=== PATIENT | female | born 1955 | race Caucasian/White ===

== ENCOUNTER 2016-10-21 01:41 | Observation (INO) | payer OTHER ==
[2016-10-21] VITALS (8 sets, daily range): BP systolic 140–182; BP diastolic 64–93; PULSE 69–78; RESP 16–18; TEMP 95.5–97.6; O2SAT 97–99
[~2016-10-21] VITALS: Ht 165.1 cm; Wt 72.0 kg
[~2016-10-21 01:41] MED LIST: LEVO75TA42 PO; LORTA5 PO; PYRI200T4 PO; ULTR50TA PO
[2016-10-21] MEDS ORDERED: LEVO75TA3 PO (01:57)
[2016-10-21] MEDS ORDERED: [UNRECOGNIZED DRUG - OTHER] PO (01:57)
[2016-10-21] MEDS ORDERED: NITROGLYCERIN 0.4 MG SL 25 TABS/BTL SL ONE (02:00)
[2016-10-21] MEDS ORDERED: NITROGLYCERIN 2% OINT 1 GM PACKET TOP ONE (02:00)
[2016-10-21] MEDS ORDERED: SODIUM CHLORIDE 0.9% FLUSH 5 ML FLUSH IVF PRN ×2 (02:00→05:00)
[2016-10-21] MEDS ORDERED: ASPIRIN 81 MG CHEW TAB PO ONE (02:00)
--- NOTE | 2016-10-21 02:23 | RADRPT ---
EXAM DATE/TIME: 10/21/2016 02:14 [facility] COMPARISON: CT THORAX W CONTRAST, February 26, 2015, 15:18. INDICATIONS : Chest pain. MEDICAL HISTORY : Carcinoma, lung. SURGICAL HISTORY : None. ENCOUNTER: Initial ACUITY: 1 day PAIN SCORE: 6/10 LOCATION: Bilateral chest FINDINGS: There are no effusions right lung is clear. Heart size is normal. There is a known left upper lobe ma ss at the level of the aortic arch and there is a vague opacity seen at this level with adjacent line ar atelectasis. Right basilar atelectasis. CONCLUSION: Left lung mass without acute consolidation or effusion. Familia Beach MD on October 21, 2016 at 2:20 Board Certified Radiologist. This report was verified electronically.
[2016-10-21 02:28] LABS: AUTOMATED NEUTROPHIL # 3.6 TH/MM3 (1.8-7.7); BASOPHIL % 0.8 % (0.0-2.0); EOSINOPHIL # 0.1 TH/MM3 (0-0.4); EOSINOPHIL % 2.2 % (0.0-4.0); HEMATOCRIT 40.6 % (35.0-46.0); HEMO FLAGS DIFF FINAL; LYMPH % 28.4 % (9.0-44.0); LYMPHOCYTE # 1.6 TH/MM3 (1.0-4.8); MEAN CELL VOLUME 85.6 FL (80.0-100.0); MEAN CORPUSCULAR HEMOGLOBIN 29.4 PG (27.0-34.0); MEAN CORPUSCULAR HGB CONC 34.3 % (32.0-36.0); MONO % 6.8 % (0.0-8.0); NEUT % 61.8 % (16.0-70.0); PLATELET COUNT 197 TH/MM3 (150-450); RED BLOOD COUNT 4.75 MIL/MM3 (4.00-5.30); RED CELL DISTRIBUTION WIDTH 13.3 % (11.6-17.2); WHITE BLOOD COUNT 5.8 TH/MM3 (4.0-11.0)
[2016-10-21 02:35] LABS: APTT (PATIENT) 26.9 SEC (24.3-30.1); PROTHROMBIN TIME - PATIENT 10.7 SEC (9.8-11.6)
[2016-10-21 02:54] LABS: ALKALINE PHOSPHATASE 109 U/L (45-117); ALT (GPT) 47 U/L (10-53); ANION GAP 11 MEQ/L (5-15); AST (GOT) 32 U/L (15-37); BICARBONATE 25.5 MEQ/L (21.0-32.0); BLOOD UREA NITROGEN 17 MG/DL (7-18); CHLORIDE 104 MEQ/L (98-107); CREATINE KINASE 164 U/L (26-192); GLOMERULAR FILTRATION RATE 49 ML/MIN (>89); MAGNESIUM 2.3 MG/DL (1.5-2.5); POTASSIUM 4.1 MEQ/L (3.5-5.1); SODIUM (NA) 140 MEQ/L (136-145); TOTAL BILIRUBIN ADULT 0.4 MG/DL (0.2-1.0)
[2016-10-21 03:07] LABS: CKMB 1.2 NG/ML (0.5-3.6)
[2016-10-21] MEDS ORDERED: IOHEXOL 350 MG/ML 10 ML VIAL (for RAD DIAG) IV ONE (03:49)
--- NOTE | 2016-10-21 03:59 | RADRPT ---
EXAM DATE/TIME: 10/21/2016 03:48 This report includes an Addendum and supersedes previous reports for this exam. [facility] COMPARISON: CT THORAX W CONTRAST, February 26, 2015, 15:18. CHEST SINGLE AP, October 21, 2016, 2:14. INDICATIONS : Left sided chest pain. IV CONTRAST: 80 cc Omnipaque 350 (iohexol) IV RADIATION DOSE: 23.27 CTDIvol (mGy) MEDICAL HISTORY : Gastroesophageal reflux disease. Stage 4 lung cancer. SURGICAL HISTORY : Hysterectomy. Tubal ligation.Breast augmentation. ENCOUNTER: Initial ACUITY: 2 weeks PAIN SCALE: 2/10 LOCATION: Left chest TECHNIQUE: Volumetric scanning of the chest was performed using a pulmonary embolism protocol MIP images were re constructed. Using automated exposure control and adjustment of the mA and/or kV according to patien t size, radiation dose was kept as low as reasonably achievable to obtain optimal diagnostic quality images. FINDINGS: Bilateral breast implants are noted. There is subsegmental atelectasis in the right lung base. There is a soft tissue mass in the left upper lobe medially abutting the mediastinum with adjacent atelecta sis. The soft tissue density measures 4 x 2.4 cm AP and transverse dimension. There is no evidence fo r pulmonary embolism. Small hiatal hernia. Hepatic steatosis is noted. Osseous structures are intact. CONCLUSION: 1. Left upper lobe mass. 2. No evidence for pulmonary embolism. 3. Fatty liver. 4. Small hiatal hernia. Familia Beach MD on October 21, 2016 at 3:54 Board Certified Radiologist. This report was verified electronically. ADDENDUM: Compared to the previous CT chest from [facility] dated June 13, 2016, the left upper lob e mass processes appears grossly unchanged. Gordy Elizalde MD on October 21, 2016 at 14:12 Board Certified Radiologist. This report was verified electronically.
--- NOTE | 2016-10-21 04:10 | PD ---
HPI Chief Complaint: Chest Pain Time Seen by Provider: 01:56 Travel History International Travel<30 days: No Contact w/Intl Traveler<30days: No Traveled to known affect area: No History of Present Illness HPI The patient is a 61 year old female who presents to the [facility] emergency department with a history of chest pain that she reports is intermittently been present for the last 2 weeks. The patient reports that the pain over the last 2-3 days was getting more persistent and more frequent. The patient reports that the pain is a tightening sensation in the left side of the chest that is worse with bending forward or laying on her left side. She reports that she has also had associated left arm numbness and aching associated with it this evening. The patient denies having any shortness of breath. She denies having any diaphoresis or nausea. The patient reports that she does have a history of non-small cell lung carcinoma that is stage IV and currently under treatment with . The patient reports that she has been given a break from her recent chemotherapy as her tumors had responded. She reports that she has a follow-up appointment with her oncologist for December. The patient reports that she has had coronary artery calcifications noted on her CT scans in the past of the chest, however she has never had chest pain like this before. She reports that she's never had a stress test done previously. Her past medical history is significant for hyperlipidemia, however she denies any history of hypertension or diabetes mellitus. She denies any prior history of DVT or PE. She reports that she has had intermittent leg cramping/charley horses in her legs, however she denies having any calf pain currently, swelling, or erythema. The patient denies having any numbness or tingling to her right arm or her lower extremities. She denies having any weakness of her arms or legs. She denies having any facial droop, difficulty with word finding ability, dizziness, vision changes, or slurred speech. The patient denies any recent fevers, cough, congestion, neck pain, abdominal pain, vomiting, diarrhea, urinary symptoms, or other neurologic symptoms. [facility] Past Medical History Narrative Medical The patient's past medical history is significant for anxiety disorder, arthritis, prior history of concussion, diverticulosis, acid reflux, hypothyroid disorder, history of kidney stones, history of multiple sclerosis, history of non-small cell lung carcinoma stage IV. Autoimmune Disease: Yes (MS) Blood Disorders: No Cardiovascular Problems: No Diabetes: No Diminished Hearing: No Endocrine: Yes GERD: Yes Glaucoma: No Genitourinary: No Hepatitis: No Hiatal Hernia: Yes Hypertension: No Immune Disorder: Yes Musculoskeletal: Yes Neurologic: Yes Psychiatric: No Reproductive: No Respiratory: No Thyroid Disease: Yes (HYPOTHYROID) Tetanus Vaccination: < 5 Years Menopausal: Yes : 1 Para: 1 Tubal Ligation: Yes Past Surgical History Narrative Surgical The patient's past surgical history is significant for breast augmentation, breast reduction, colonoscopy, hysterectomy, right wrist surgery, bilateral tubal ligation. Abdominal Surgery: No AICD: No Arteriovenous Shunt: No Cardiac Surgery: No Ear Surgery: No Endocrine Surgery: No Eye Surgery: No Genitourinary Surgery: No Gynecologic Surgery: Yes (HYSTERECTOMY) Hysterectomy: Yes (parial) Insulin Pump: No Joint Replacement: No Oral Surgery: No Pacemaker: No Thoracic Surgery: Yes (BREAST AUGMENTATION/AND REDUCTION) Other Surgery: Yes Social History Alcohol Use: No (wine monthly) Tobacco Use: No Substance Use: No Allergies-Medications (Allergen,Severity, Reaction): Coded Allergies: No Known Allergies (Verified , 02/25/15) Reported Meds & Prescriptions Reported Meds & Active Scripts Active Reported [Dilotrif] 20 Mg PO DAILY Levothyroxine (Levothyroxine Sodium) 75 Mcg Tab 75 Mcg PO DAILY Review of Systems General / Constitutional: No: Fever Eyes: No: Visual changes HENT: No: Headaches Cardiovascular: Positive: Chest Pain or Discomfort, Dyspnea on exertion, Claudication Respiratory: Positive: Shortness of Breath Gastrointestinal: No: Abdominal Pain Genitourinary: No: Dysuria Musculoskeletal: No: Pain Skin: No Rash Neurologic: No: Weakness, Focal Abnormalities, Change in Mentation, Slurred Speech, Sensory Disturbance Psychiatric: No: Depression Endocrine: No: Polydipsia Hematologic/Lymphatic: No: Easy Bruising Physical Exam Narrative General: The patient is well-developed well-nourished female in no acute distress. Head and Neck exam: Head is normocephalic atraumatic. Eyes: EOMI, pupils are equal round and reactive to light. Nose: Midline septum with pink mucous membranes Mouth: Dentition unremarkable. Moist mucus membranes. Posterior oropharynx is not erythematous. No tonsillar hypertrophy. Uvula midline. Airway patent. Neck: No palpable lymphadenopathy. No nuchal rigidity. No thyromegaly. Cardiovascular: Regular rate and rhythm without murmurs, gallops, or rubs. No pulse deficit to the extremities on simultaneous auscultation and palpation of the radial artery. Lungs: Clear to auscultation bilaterally. No wheezes, rhonchi, or rales. Abdomen: Soft, without tenderness to palpation in all 4 quadrants of the abdomen. No guarding, rebound, or rigidity. Normal bowel sounds are audible. No tenderness on palpation of McBurney's point. Extremities: No clubbing, cyanosis, or edema. 2+ pulses in all 4 extremities. No calf tenderness on palpation. Back: No spinous process tenderness to palpation. No costovertebral angle tenderness to palpation. Neurologic Exam: Grossly nonfocal. Skin Exam: No rash noted. Intact skin that is warm and dry. Data Data Last Documented VS Vital Signs Date Time Temp Pulse Resp B/P Pulse Ox O2 Delivery O2 Flow Rate FiO2 10/21/16 02:59 71 16 165/77 98 Room Air 10/21/16 01:44 97.6 Orders Electrocardiogram (10/21/16 01:56) B-Type Natriuretic Peptide (10/21/16 01:56) Ckmb (Isoenzyme) Profile (10/21/16 01:56) Complete Blood Count With Diff (10/21/16 01:56) Comprehensive Metabolic Panel (10/21/16 01:56) Magnesium (Mg) (10/21/16 01:56) Prothrombin Time / Inr (Pt) (10/21/16 01:56) Act Partial Throm Time (Ptt) (10/21/16 01:56) Troponin I (10/21/16 01:56) Lipase (10/21/16 01:56) Chest, Single Ap (10/21/16 01:56) Ecg Monitoring (10/21/16 01:56) Bilateral Bp Monitoring (10/21/16 01:56) Iv Access Insert/Monitor (10/21/16 01:56) Oximetry (10/21/16 01:56) Oxygen Administration (10/21/16 01:56) Aspirin Chew (Aspirin Chew) (10/21/16 02:00) Nitroglycerin 2% Oint (Nitroglycerin 2% (10/21/16 02:00) Nitroglycerin Sl (Nitrostat Sl) (10/21/16 02:00) CKMB (10/21/16 02:15) CKMB% (10/21/16 02:15) Ct Pulmonary Angiogram (10/21/16 03:31) Iohexol 350 Inj (Omnipaque 350 Inj) (10/21/16 03:49) Admit Order (Ed Use Only) (10/21/16 04:39) Labs Laboratory Tests Test 10/21/16 02:15 White Blood Count 5.8 TH/MM3 Red Blood Count 4.75 MIL/MM3 Hemoglobin 13.9 GM/DL Hematocrit 40.6 % Mean Corpuscular Volume 85.6 FL Mean Corpuscular Hemoglobin 29.4 PG Mean Corpuscular Hemoglobin 34.3 % Concent Red Cell Distribution Width 13.3 % Platelet Count 197 TH/MM3 Mean Platelet Volume 8.9 FL Neutrophils (%) (Auto) 61.8 % Lymphocytes (%) (Auto) 28.4 % Monocytes (%) (Auto) 6.8 % Eosinophils (%) (Auto) 2.2 % Basophils (%) (Auto) 0.8 % Neutrophils # (Auto) 3.6 TH/MM3 Lymphocytes # (Auto) 1.6 TH/MM3 Monocytes # (Auto) 0.4 TH/MM3 Eosinophils # (Auto) 0.1 TH/MM3 Basophils # (Auto) 0.0 TH/MM3 CBC Comment DIFF FINAL Differential Comment Prothrombin Time 10.7 SEC Prothromb Time International 1.0 RATIO Ratio Activated Partial 26.9 SEC Thromboplast Time Sodium Level 140 MEQ/L Potassium Level 4.1 MEQ/L Chloride Level 104 MEQ/L Carbon Dioxide Level 25.5 MEQ/L Anion Gap 11 MEQ/L Blood Urea Nitrogen 17 MG/DL Creatinine 1.12 MG/DL Estimat Glomerular Filtration 49 ML/MIN Rate Random Glucose 103 MG/DL Calcium Level 9.5 MG/DL Magnesium Level 2.3 MG/DL Total Bilirubin 0.4 MG/DL Aspartate Amino Transf 32 U/L (AST/SGOT) Alanine Aminotransferase 47 U/L (ALT/SGPT) Alkaline Phosphatase 109 U/L Total Creatine Kinase 164 U/L Creatine Kinase MB 1.2 NG/ML Troponin I LESS THAN 0.02 NG/ML B-Type Natriuretic Peptide 7 PG/ML Total Protein 8.0 GM/DL Albumin 4.3 GM/DL Lipase 121 U/L MDM Medical Decision Making Medical Screen Exam Complete: Yes Emergency Medical Condition: Yes Medical Record Reviewed: Yes Interpretation(s) Last Impressions CT Angiography 10/21/16 0331 Signed Impressions: Service Date/Time: Friday, October 21, 2016 03:48 - CONCLUSION: 1. Left upper lobe mass. 2. No evidence for pulmonary embolism. 3. Fatty liver. 4. Small hiatal hernia. Familia Beach MD ADDENDUM: Compared to the previous CT chest from [facility] dated June 13, 2016, the left upper lobe mass processes appears grossly unchanged. Gordy Elizalde MD Chest X-Ray 10/21/16 0156 Signed Impressions: Service Date/Time: Friday, October 21, 2016 02:14 - CONCLUSION: Left lung mass without acute consolidation or effusion. Familia Beach MD Myocardial Perfusion Scan Nuc Med 10/21/16 0000 Signed Impressions: Service Date/Time: Friday, October 21, 2016 09:05 - CONCLUSION: 1. There is 10-20%% redistribution in segments of the septal wall only on the short axis views. This cannot be corroborated on the horizontal long axis views and therefore, I believe is artifactual. As such, no scintigraphic findings of infarct or ischemia. 2. Excellent wall motion throughout with estimated ejection fraction of 67%%. RISK CATEGORY: Low (<1%% Annual Mortality Rate) Alex Gamboa MD Differential Diagnosis Acute coronary syndrome, versus chest pain related to lung mass, versus acid reflux, versus radiculopathy Narrative Course During the course of the patients emergency department visit, the patients history, examination, and differential diagnosis were reviewed with the patient. The patient had IV access obtained and blood work sent for analysis. The patient states on a hospital monitor with oximetry and blood pressure monitoring. An EKG was done on arrival. The patient's EKG shows a sinus rhythm heart rate of 66, no acute ST segment elevation or depression is noted. T waves are inverted in V1, V2. A CTA to rule out PE has been ordered. The patient was provided aspirin 162 mg by mouth 1, nitroglycerin sublingual 1 , nitroglycerin 1 inch to the chest wall. The patients laboratory studies were reviewed and remarkable for CBC unremarkable, CMP is remarkable for creatinine 1.12, CPK 164, troponin I less than 0.02, BNP is 7, lipase 121, PTT unremarkable. Radiology studies were reviewed and remarkable for a chest x-ray that shows a left lung mass without acute consolidation or effusion, CTA to rule out PE is negative for pulmonary embolism, left upper lobe mass is noted. The patient will be admitted to the chest pain center for rule out serial cardiac enzyme protocol. The patient is noted to have a lung mass on her CT-A of the chest, however she has a known history of stage IV lung carcinoma. The patient is made aware of the recurring lung mass. The patient will follow-up with Dr. Allison regarding this. Certainly, the patient's pain could be related to the lung mass, however given her history of coronary artery calcifications and acute coronary syndrome will need to be ruled out prior to discharge. The patient was agreeable with this plan. The patients results were discussed with the patient, including the plan of care. I explained that further testing and/ or monitoring is indicated based on the patients history, examination, and/ or laboratory findings. Therefore, I recommended admission for additional evaluation. The patient expressed understanding and was agreeable with this plan. The patient was admitted to the hospital in stable condition and sent to a bed under the care of the chest pain center. Diagnosis Primary Impression: Chest pain, rule out acute myocardial infarction Admitting Information Admitting Physician Requests: Naomi Jeffery MD Oct 21, 2016 04:10
[2016-10-21] MEDS ORDERED: ONDANSETRON HCL 4 MG/2 ML VIAL IV PRN (05:00)
[2016-10-21] MEDS ORDERED: ACETAMINOPHEN/HYDROcodone 325 MG/7.5 MG TAB PO PRN (05:00)
[2016-10-21 05:51] LABS: CREATINE KINASE 120 U/L (26-192)
[2016-10-21 06:04] LABS: CKMB 0.9 NG/ML (0.5-3.6)
[2016-10-21] MEDS ORDERED: LEVOTHYROXINE SODIUM 75 MCG TAB PO SCH (08:00)
--- NOTE | 2016-10-21 08:30 | HHI.HP ---
HPI Primary Care Physician Gordy Lyle DO Chief Complaint Chest discomfort History of Present Illness 61-year-old female presents to the emergency room with increasing chest discomfort 2 weeks. States bending and laying on left side makes pain worse. No associated symptoms and last 2 weeks. Last evening 6 PM experience left anterior chest heaviness, she subsequently went to bed at 9 PM. She was awaken at midnight with worsening chest heaviness, radiating to her left shoulder shoulder and left upper arm. Noted numbness and tingling of her left forearm. She became concerned and decided to come the emergency room for further evaluation. Associated symptoms with this episode included nausea, no diaphoresis or shortness of breath. Duration lasted 6-7 hours. No known precipitating or relieving factors. Currently she is chest chest pain-free. She has never had chest discomfort in the past nor any formal stress testing. Review of Systems General: No fatigue,weakness, fever, chills, recent travel, or recent illness HEENT: Current [place] relates this to nitroglycerin paste, no vision changes, no nasal congestion or drainage, no dysphasia CV: As stated above. No current CP or pressure. No palpitations, intermittent leg pain, dizziness RESP: No SOB, cough, wheeze, hemoptysis. Stage IV non-small cell lung cancer, follows with Dr. Allison. GI: No nausea, vomiting, bowel changes, diarrhea, constipation, pain, distention , melena, blood in the stool. No change in appetite, no unintentional weight gain or weight loss : No dysuria, urgency, frequency. History of kidney stones EXT: No lower leg edema, no paraesthesias MS: No discomfort or change in ROM NEURO: No change in memory, dizziness, difficulty with balance, LOC, motor/ sensory deficits PSYCH: No anxiety or depression SKIN: No rashes, no concerning lesions Past Family Social History Allergies: Coded Allergies: No Known Allergies (Verified , 02/25/15) Past Medical History Non-small cell stage IV lung cancer, MS, hypothyroidism, anxiety, arthritis, diverticulosis, GERD, hiatal hernia, kidney stones, hyperlipidemia Past Surgical History Tubal ligation, hysterectomy Reported Medications Reported Meds & Active Scripts Active Reported Gilotrif 20 Mg PO DAILY Levothyroxine (Levothyroxine Sodium) 75 Mcg Tab 75 Mcg PO DAILY Active Ordered Medications Current Medications Medications (Trade) Dose Ordered Sig/Pierce Route Start Time Stop Time Status Last Admin ([place] 7.5-325 Mg) 1 tab Q4H PRN PO 10/21/16 05:00 10/21/16 07:22 (Zofran Inj) 4 mg Q6H PRN IV 10/21/16 05:00 (Synthroid) 75 mcg DAILY@06 PO 10/21/16 08:00 Family History Noncontributory for early onset cardiovascular disease Social History Disabled, . Lifelong nonsmoker. Denies any alcohol or illegal drug use. Report long-standing hyperlipidemia-reports statins and anti-lipidemia medications do not lower her cholesterol. Diagnosed at age 33. Currently taking prescription strength fish oil. Follows with her primary care provider. No known diabetes or hyperlipidemia. Past cardiac testing No past stress testing. Never required a shopper's aide. Physical Exam Vital Signs Vital Signs Date Time Temp Pulse Resp B/P Pulse Ox O2 Delivery O2 Flow Rate FiO2 10/21/16 07:58 95.5 74 18 147/74 97 10/21/16 05:20 98 10/21/16 05:16 78 16 140/64 99 Room Air 10/21/16 02:59 71 16 165/77 98 Room Air 10/21/16 02:09 69 16 182/81 97 Room Air 10/21/16 02:06 67 16 99 Room Air 10/21/16 02:05 16 99 Room Air 10/21/16 02:05 99 Room Air 10/21/16 01:44 97.6 78 16 175/93 99 Room Air Physical Exam GENERAL: Alert WN, WD, NAD, pleasant, female HEAD: NC, AT EYES: Sclera clear, conjunctiva without injection, pupils equal and round ENT: Mucous membranes pink and moist, no nasal discharge or bleeding NECK: Supple, no masses, trachea midline CV: RRR, without murmur, rub, gallop, no JVD, S1-S2 no S3-S4. RESP: Clear lungs throughout bilateral, no crackles, wheeze, rhonchi, symmetrical chest rise, nonlabored, able to speak in full sentences ABD: Soft, NT, ND, no masses, positive bowel tones EXT: Pulses +24, no dependent edema MS: Normal tone 4 extremities, nontender, no obvious deformities, full range of motion NEURO: CN II through CN XII grossly intact, motor strength 5/5, gait WNL PSYCH: A+O 3, pleasant affect, appropriate speech, appropriate mood and affect , insight and judgment SKIN: Normal turgor, normal texture, no lesions, no rashes, brisk cap refill, even hair distribution Laboratory Laboratory Tests Test 10/21/16 10/21/16 02:15 05:10 White Blood Count 5.8 Red Blood Count 4.75 Hemoglobin 13.9 Hematocrit 40.6 Mean Corpuscular Volume 85.6 Mean Corpuscular Hemoglobin 29.4 Mean Corpuscular Hemoglobin 34.3 Concent Red Cell Distribution Width 13.3 Platelet Count 197 Mean Platelet Volume 8.9 Neutrophils (%) (Auto) 61.8 Lymphocytes (%) (Auto) 28.4 Monocytes (%) (Auto) 6.8 Eosinophils (%) (Auto) 2.2 Basophils (%) (Auto) 0.8 Neutrophils # (Auto) 3.6 Lymphocytes # (Auto) 1.6 Monocytes # (Auto) 0.4 Eosinophils # (Auto) 0.1 Basophils # (Auto) 0.0 CBC Comment DIFF FINAL Differential Comment Prothrombin Time 10.7 Prothromb Time International 1.0 Ratio Activated Partial 26.9 Thromboplast Time Sodium Level 140 Potassium Level 4.1 Chloride Level 104 Carbon Dioxide Level 25.5 Anion Gap 11 Blood Urea Nitrogen 17 Creatinine 1.12 Estimat Glomerular Filtration 49 Rate Random Glucose 103 Calcium Level 9.5 Magnesium Level 2.3 Total Bilirubin 0.4 Aspartate Amino Transf 32 (AST/SGOT) Alanine Aminotransferase 47 (ALT/SGPT) Alkaline Phosphatase 109 Total Creatine Kinase 164 120 Creatine Kinase MB 1.2 0.9 Troponin I LESS THAN 0.02 LESS THAN 0.02 B-Type Natriuretic Peptide 7 Total Protein 8.0 Albumin 4.3 Lipase 121 Result Diagram: 10/21/1621410/21/[address] Angiography 10/21/16 0331 Signed Impressions: Service Date/Time: Friday, October 21, 2016 03:48 - CONCLUSION: 1. Left upper lobe mass. 2. No evidence for pulmonary embolism. 3. Fatty liver. 4. Small hiatal hernia. Familia Beach MD Chest X-Ray 10/21/16 0156 Signed Impressions: Service Date/Time: Friday, October 21, 2016 02:14 - CONCLUSION: Left lung mass without acute consolidation or effusion. Familia Beach MD Course EKGs 2 EKGs show normal sinus rhythm, with no ST or T-segment changes, and normal axis. Assessment and Plan Assessment and Plan #1 Chest painadmitted to chest pain center ruled out with 2 sets of EKGs and cardiac enzymes. Was seen and evaluated by Dr. Jasen Nieves. Chest discomfort most likely non-cardiac in nature, however due to her past medical history of hyperlipidemia and no formal stress testing will complete a nuclear stress test. Patient is agreeable to this plan of care. Naturally, if stress test is unremarkable she will be discharged later this afternoon and encouraged to follow with her primary care provider and oncologist. #2 Hypothyroidismcontinue levothyroxine 75 g daily #3 Lung cancercontinue Gilotrif 20 mg QHS Ashtyn Scherer Oct 21, 2016 08:30
[2016-10-21] MEDS ORDERED: ACETAMINOPHEN 500 MG CPLT PO PRN (08:45)
[2016-10-21] MEDS ORDERED: NITROGLYCERIN 0.4 MG SL 25 TABS/BTL SL PRN (08:45)
[2016-10-21] MEDS ORDERED: SODIUM CHLORIDE 0.9% FLUSH 5 ML FLUSH IVF SCH (09:00)
[2016-10-21] MEDS ORDERED: ASPIRIN 325 MG TAB PO SCH (09:00)
[2016-10-21 09:04] LABS: CREATINE KINASE 126 U/L (26-192)
[2016-10-21 09:16] LABS: CKMB 0.9 NG/ML (0.5-3.6)
[2016-10-21] MEDS ORDERED: REGADENOSON INJ 0.4 MG/5 ML SYR ONE (09:54)
--- NOTE | 2016-10-21 11:15 | RADRPT ---
EXAM DATE/TIME: 10/21/2016 09:05 [facility] COMPARISON: No previous studies available for comparison. INDICATIONS : Left chest pain with left arm numbness for 2 weeks. Angina. DOSE: 27.2 mCi Tc99m Myoview at stress. 8.8 mCi Tc99m Myoview at rest. 0.4 mg Lexiscan STRESS SYMPTOMS: Weird feeling and heart racing. EJECTION FRACTION: 67% MEDICAL HISTORY : Hypercholesterolemia. Hypertension. Gastroesophageal reflux disease. Hiatal hernia. SURGICAL HISTORY : Hysterectomy. Tubal ligation. ENCOUNTER: Initial ACUITY: 2 weeks PAIN SCALE: 6/10 LOCATION: Left chest TECHNIQUE: The patient underwent pharmacologic stress with infusion of prescribed dose. Continuous ECG tracing was monitored during stress. Gated SPECT imaging was performed after stress and conventional SPECT i maging was performed at rest. The examination was performed on a SPECT/CT scanner, both attenuation and non-corrected datasets were reviewed. FINDINGS: DISTRIBUTION: The maximum perfused segment at stress is in the anterolateral wall. Increased activity in the inferi or wall may represent some bowel contamination PERFUSION STUDY: The pattern of perfusion at stress shows 10-20% redistribution in segments of the septal wall only on the short axis views. This does not persist on the horizontal long axis and therefore, is likely art ifactual. GATED STUDY: There is intact wall motion and thickening without hypokinetic or dyskinetic segments. CONCLUSION: 1. There is 10-20% redistribution in segments of the septal wall only on the short axis views. This c annot be corroborated on the horizontal long axis views and therefore, I believe is artifactual. As s uch, no scintigraphic findings of infarct or ischemia. 2. Excellent wall motion throughout with estimated ejection fraction of 67%. RISK CATEGORY: Low (<1% Annual Mortality Rate) Alex Gamboa MD on October 21, 2016 at 11:08 Board Certified Radiologist. This report was verified electronically.
--- NOTE | 2016-10-21 11:22 | HHI.DCPOC ---
Discharge Care Plan Diagnosis: (1) Atypical chest pain (2) Hypothyroidism Goals to Promote Your Health * To prevent worsening of your condition and complications * To maintain your health at the optimal level Directions to Meet Your Goals Take your medications as prescribed Follow your dietary instruction Follow activity as directed Keep your appointments as scheduled Take your immunizations and boosters as scheduled If your symptoms worsen call your PCP, if no PCP go to Urgent Care Center or Emergency Room Smoking is Dangerous to Your Health. Avoid second hand smoke Call the 24-hour hour crisis hotline for domestic abuse at Ashtyn Scherer Oct 21, 2016 11:22
--- NOTE | 2016-10-21 14:20 | EKG ---
Date Performed: 10/21/2016 Time Performed: 08:36:31 PTAGE: 61 years EKG: Sinus rhythm NORMAL ECG PREVIOUS TRACING : 10/21/2016 05.25 Compared to prior tracing no significant change DOCTOR: Cody George Interpretating Date/Time 10/21/2016 14:17:42
--- NOTE | 2016-10-21 16:06 | EKG ---
Date Performed: 10/21/2016 Time Performed: 02:01:18 PTAGE: 61 years EKG: Sinus rhythm NORMAL ECG PREVIOUS TRACING : 01/28/2008 08.07 Since previous tracing, no significant change noted DOCTOR: Jasen Nieves Interpretating Date/Time 10/21/2016 16:04:52
--- NOTE | 2016-10-21 16:06 | EKG ---
Date Performed: 10/21/2016 Time Performed: 05:25:27 PTAGE: 61 years EKG: SINUS BRADYCARDIA LOW QRS VOLTAGE IN PRECORDIAL LEADS BORDERLINE ECG PREVIOUS TRACING : 10/21/2016 02.01 Since previous tracing, no significant change noted DOCTOR: Jasen Nieves Interpretating Date/Time 10/21/2016 16:04:41
--- NOTE | 2016-10-21 16:12 | TR ---
Date Performed: 10/21/2016 Time Performed: 09:54:51 DOCTOR: Jasen Nieves DRUG LIST: CLINICAL HISTORY: REASON FOR TEST: Angina REASON FOR ENDING: OBSERVATION: CONCLUSION: \irvin COMMENTS:
== END 2016-10-21 12:03 | disposition home or self-care (01) ==
LOC: NEPE 01:41 → NEDA 04:41 → NEPGCP 05:46
DX: R07.89 Other chest pain (principal); E03.9 Hypothyroidism, unspecified; C34.90 Malignant neoplasm of unspecified part of unspecified bronchus or lung; K21.9 Gastro-esophageal reflux disease without esophagitis; I25.10 Atherosclerotic heart disease of native coronary artery without angina pectoris; G35 Multiple sclerosis; E78.5 Hyperlipidemia, unspecified; Z79.82 Long term (current) use of aspirin; K76.0 Fatty (change of) liver, not elsewhere classified; K44.9 Diaphragmatic hernia without obstruction or gangrene; Z87.442 Personal history of urinary calculi; Z87.820 Personal history of traumatic brain injury
CPT/HCPCS: 71010; 71275; 78452; 80053; 82550; 82552; 83690; 83735; 83880; 84484; 85025; 85610; 85730; 93005; 93017; 99285; A9502; G0378; J2785; Q9967

== ENCOUNTER 2017-04-03 11:55 | Inpatient (IN) | payer OTHER, MEDICARE ==
[~2017-04-03] VITALS: Ht 160 cm; Wt 69.3 kg
[2017-04-03] VITALS (7 sets, daily range): BP systolic 138–176; BP diastolic 63–91; PULSE 69–86; RESP 14–20; TEMP 97–98.6; O2SAT 95–98
[~2017-04-03 11:55] MED LIST changes: +LEVO75TA3 PO; -LEVO75TA42 PO; -LORTA5 PO; -PYRI200T4 PO; -ULTR50TA PO; +[UNRECOGNIZED DRUG - OTHER] PO
--- NOTE | 2017-04-03 12:16 | PD ---
Physical Exam Time Seen by Provider: 12:13 Narrative 61yo F c/o head and neck pain x 1 week. Generalized weakness, forgetfulness, and dizziness for 3 days. Has stage 4 lung CA that has spread to her spine. On chemo pill. No current radiation. +N w/o vomiting. Subjective fevers. Patient seen in triage. VS reviewed. Patient taken to med bed. Data Data Last Documented VS Vital Signs Date Time Temp Pulse Resp B/P (MAP) Pulse Ox O2 Delivery O2 Flow Rate FiO2 04/03/17 11:57 97.0 82 20 153/82 (105) 98 Room Air MDM Supervised Visit with ORTIZ: Breanne Edmonds Apr 03, 2017 12:16
[2017-04-03] MEDS ORDERED: SODIUM CHLOR 0.9% 1000 ML INJ 1,000 ML IV SCH (12:33)
[2017-04-03] MEDS ORDERED: SODIUM CHLORIDE 0.9% FLUSH 5 ML FLUSH IV FLUSH PRN (12:45)
--- NOTE | 2017-04-03 12:49 | PD ---
HPI Chief Complaint: General Weakness Time Seen by Provider: 12:21 Travel History International Travel<30 days: No Contact w/Intl Traveler<30days: No Traveled to known affect area: No History of Present Illness HPI Patient comes in complaining of worsening confusion and dizziness over the past several days. Patient's daughters at bedside states that her mother has been having difficulty with confusion since being diagnosed with cancer 2 years ago however is noticed it getting progressively worse recently. States that she's repeating herself more and being more forgetful. Reports that her mother told her she is only primarily been eating grapes recently secondary to feeling she is having difficulty swallowing thicker foods. Patient reports she has been feeling weaker over the past several days as well. Patient felt too weak to get out of bed today. Patient has been getting a pain in her neck over the past several days with movement she describes a sharp stabbing pain/brain freeze sensation. Denies any known trauma. Patient states she has felt warm but is uncertain she's had a fever or not. Patient states that she was told she was having mini strokes at the beginning of the month and was started on low -dose aspirin by her oncologist. Patient she's post-MRI of her head and neck neck is weak for further evaluation. Patient denies any chest pain, shortness of breath, vomiting, loss or change in bowel or bladder, change in vision, or numbness or tingling anywhere. Patient denies anything making her symptoms better and feels they're getting worse. Patient is still on chemotherapy but states that her cancer is in remission. Patient poorly had lung cancer that metastasized to her spine. Patient does live by herself. PFSH Past Medical History Autoimmune Disease: Yes (MS) Blood Disorders: No Heart Rhythm Problems: No Cardiac Catheterization: No Cardiovascular Problems: Yes High Cholesterol: Yes Chemotherapy: Yes Congestive Heart Failure: No Diabetes: No Diminished Hearing: No Endocrine: Yes GERD: Yes Glaucoma: No Genitourinary: No Hepatitis: No Hiatal Hernia: Yes Hypertension: No Immune Disorder: Yes Musculoskeletal: Yes Neurologic: Yes Psychiatric: No Reproductive: No Respiratory: No Thyroid Disease: Yes (HYPOTHYROID) Menopausal: Yes : 1 Para: 1 Tubal Ligation: Yes Past Surgical History Abdominal Surgery: No AICD: No Arteriovenous Shunt: No Cardiac Surgery: No Coronary Artery Bypass Graft: No Ear Surgery: No Endocrine Surgery: No Eye Surgery: No Genitourinary Surgery: No Gynecologic Surgery: Yes (HYSTERECTOMY) Hysterectomy: Yes (parial) Insulin Pump: No Joint Replacement: No Oral Surgery: No Pacemaker: No Thoracic Surgery: Yes (BREAST AUGMENTATION/AND REDUCTION) Other Surgery: Yes Social History Alcohol Use: No (wine monthly) Tobacco Use: No Substance Use: No Allergies-Medications (Allergen,Severity, Reaction): Coded Allergies: No Known Allergies (Verified , 04/03/17) Reported Meds & Prescriptions Reported Meds & Active Scripts Active Reported [Dilotrif] 20 Mg PO DAILY Levothyroxine (Levothyroxine Sodium) 75 Mcg Tab 75 Mcg PO DAILY Review of Systems Except as stated in HPI: all other systems reviewed are Neg Physical Exam Narrative GENERAL: Well-developed, overly nourished, in no acute distress, and non-ill appearing. SKIN: Focused skin assessment warm and dry. HEAD: Atraumatic. Normocephalic. EYES: Pupils equal and round. EOMI. No scleral icterus. No injection or drainage. ENT: No nasal bleeding or discharge. Mucous membranes pink and moist. NECK: Trachea midline. No JVD. Supple. Nuclear rigidity with tilting forward. Negative Kernig's and Brudzinski sign. CARDIOVASCULAR: Regular rate and rhythm. No murmur appreciated. RESPIRATORY: No accessory muscle use. No respiratory distress. Clear to auscultation. Breath sounds equal bilaterally. MUSCULOSKELETAL: No obvious deformities. No clubbing. No cyanosis. No edema. Full range of motion. NEUROLOGICAL: Awake and alert. No obvious cranial nerve deficits. Motor grossly within normal limits. Normal speech. PSYCHIATRIC: Appropriate mood and affect; insight and judgment normal. Data Data Last Documented VS Vital Signs Date Time Temp Pulse Resp B/P (MAP) Pulse Ox O2 Delivery O2 Flow Rate FiO2 04/03/17 14:22 98.4 69 14 157/74 (101) 97 Room Air Orders Orders Electrocardiogram (04/03/17 12:33) Complete Blood Count With Diff (04/03/17 12:33) Comprehensive Metabolic Panel (04/03/17 12:33) Creatine Kinase (Cpk) (04/03/17 12:33) Prothrombin Time / Inr (Pt) (04/03/17 12:33) Act Partial Throm Time (Ptt) (04/03/17 12:33) Troponin I (04/03/17 12:33) Urinalysis - C+S If Indicated (04/03/17 12:33) Lactic Acid Sepsis Protocol (04/03/17 12:33) Blood Culture (04/03/17 12:33) Chest, Single Ap (04/03/17 12:33) Ct Brain W/O Iv Contrast(Rout) (04/03/17 12:33) Blood Glucose (04/03/17 12:33) Ecg Monitoring (04/03/17 12:33) Iv Access Insert/Monitor (04/03/17 12:33) Oximetry (04/03/17 12:33) Sodium Chloride 0.9% Flush (Ns Flush) (04/03/17 12:45) Sodium Chlor 0.9% 1000 Ml Inj (Ns 1000 M (04/03/17 12:33) Ct Cerv Spine W/O Contrast (04/03/17 ) Magnesium (Mg) (04/03/17 12:33) Orthostatic Vital Signs (04/03/17 12:33) Place In Observation (04/03/17 ) Vital Signs (Adult) BRIAN.Q4H (04/03/17 15:46) Activity Oob With Assistance (04/03/17 15:46) Diet Npo (04/03/17 Dinner) Sodium Chloride 0.9% Flush (Ns Flush) (04/03/17 16:00) Sodium Chloride 0.9% Flush (Ns Flush) (04/03/17 21:00) Cath For Specimen (04/03/17 15:48) Admit Order (Ed Use Only) (04/03/17 15:48) Labs Laboratory Tests Test 04/03/17 13:45 White Blood Count 13.9 TH/MM3 Red Blood Count 5.24 MIL/MM3 Hemoglobin 15.3 GM/DL Hematocrit 46.7 % Mean Corpuscular Volume 89.1 FL Mean Corpuscular Hemoglobin 29.2 PG Mean Corpuscular Hemoglobin Concent 32.8 % Red Cell Distribution Width 13.5 % Platelet Count 219 TH/MM3 Mean Platelet Volume 7.6 FL Neutrophils (%) (Auto) 83.9 % Lymphocytes (%) (Auto) 11.7 % Monocytes (%) (Auto) 4.1 % Eosinophils (%) (Auto) 0.2 % Basophils (%) (Auto) 0.1 % Neutrophils # (Auto) 11.7 TH/MM3 Lymphocytes # (Auto) 1.6 TH/MM3 Monocytes # (Auto) 0.6 TH/MM3 Eosinophils # (Auto) 0.0 TH/MM3 Basophils # (Auto) 0.0 TH/MM3 CBC Comment DIFF FINAL Differential Comment Prothrombin Time 10.7 SEC Prothromb Time International Ratio 1.0 RATIO Activated Partial Thromboplast Time 24.6 SEC Blood Urea Nitrogen 23 MG/DL Creatinine 1.18 MG/DL Random Glucose 96 MG/DL Total Protein 8.1 GM/DL Albumin 4.3 GM/DL Calcium Level 9.7 MG/DL Magnesium Level 2.5 MG/DL Alkaline Phosphatase 108 U/L Aspartate Amino Transf (AST/SGOT) 22 U/L Alanine Aminotransferase (ALT/SGPT) 43 U/L Total Bilirubin 1.0 MG/DL Sodium Level 139 MEQ/L Potassium Level 4.1 MEQ/L Chloride Level 99 MEQ/L Carbon Dioxide Level 30.1 MEQ/L Anion Gap 10 MEQ/L Estimat Glomerular Filtration Rate 47 ML/MIN Lactic Acid Level 2.0 mmol/L Total Creatine Kinase 31 U/L Troponin I LESS THAN 0.02 NG/ML MDM Medical Decision Making Medical Screen Exam Complete: Yes Emergency Medical Condition: Yes Interpretation(s) Chest x-ray read by the radiologist shows: No acute disease. EKG reviewed by Dr. Ren shows: Shows sinus rhythm ventricular rate is 78. No STEMI. CT head read by the radiologist shows: Abnormal brain appearance. Mild symmetric hydrocephalus and patchy areas of parenchymal brain hypodensity. Recommend further evaluation with brain MRI with and without contrast. CT the cervical spine read by the radiologist shows: : Degenerative disc change at C6-7 with mild disc osteophyte complex. There is moderate narrowing of the left neural foramina at this level. Differential Diagnosis CVA, TIA, acute coronary syndrome, electrolyte abnormality, pneumonia, metastatic disease, meningitis, other Narrative Course Patient was seen and examined. Initial laboratory and radiological studies were ordered. Patient was hydrated with IV fluids. Patient was ambulated to the bathroom by RN to try to collect urine sample was noted to have an unsteady gait. Patient was not able be provided a sample at that time. Patient is refusing catheter. Discussed patient with Dr. Ren, who saw and evaluated the patient is in agreement with plan of care and disposition. Discussed all findings and plan of care with patient who is agreeable for admission. Discussed patient with hospitalist is agreeable to admit the patient. After patient was admitted she is now agreeable catheter for urine sample as she was still unable to urinate. Physician Communication Physician Communication [id number] says patient with , who is agreeable to admit the patient. Diagnosis Primary Impression: Altered mental status, unspecified Qualified Codes: R41.82 - Altered mental status, unspecified Additional Impression: Generalized weakness Admitting Information Admitting Physician Requests: Observation Condition: Stable Ever Cruz Apr 03, 2017 12:49
--- NOTE | 2017-04-03 13:06 | RADRPT ---
EXAM DATE/TIME: 04/03/2017 12:44 [facility] COMPARISON: CHEST SINGLE AP, October 21, 2016, 2:14. INDICATIONS : Short of breath. MEDICAL HISTORY : Hypercholesterolemia. Hypertension. Gastroesophageal reflux disease. SURGICAL HISTORY : Hysterectomy. Tubal ligation. ENCOUNTER: Initial ACUITY: 1 day PAIN SCORE: 0/10 LOCATION: Bilateral chest FINDINGS: A single view of the chest demonstrates the lungs to be symmetrically aerated without evidence of mas s, infiltrate or effusion. Linear area of scarring involving the left suprahilar region is stable. T he cardiomediastinal contours are unremarkable. Osseous structures are intact. CONCLUSION: No acute disease. Emanuel Hood Jr., MD on April 03, 2017 at 13:04 Board Certified Radiologist. This report was verified electronically.
[2017-04-03 13:57] LABS: AUTOMATED NEUTROPHIL # 11.7 TH/MM3 (1.8-7.7); BASOPHIL % 0.1 % (0.0-2.0); EOSINOPHIL % 0.2 % (0.0-4.0); HEMATOCRIT 46.7 % (35.0-46.0); HEMO FLAGS DIFF FINAL; LYMPH % 11.7 % (9.0-44.0); LYMPHOCYTE # 1.6 TH/MM3 (1.0-4.8); MEAN CELL VOLUME 89.1 FL (80.0-100.0); MEAN CORPUSCULAR HEMOGLOBIN 29.2 PG (27.0-34.0); MEAN CORPUSCULAR HGB CONC 32.8 % (32.0-36.0); MONO % 4.1 % (0.0-8.0); NEUT % 83.9 % (16.0-70.0); PLATELET COUNT 219 TH/MM3 (150-450); RED BLOOD COUNT 5.24 MIL/MM3 (4.00-5.30); RED CELL DISTRIBUTION WIDTH 13.5 % (11.6-17.2); WHITE BLOOD COUNT 13.9 TH/MM3 (4.0-11.0)
--- NOTE | 2017-04-03 14:08 | RADRPT ---
EXAM DATE/TIME: 04/03/2017 13:44 [facility] COMPARISON: MRI BRAIN W & W/O CONTRAST, February 27, 2015, 9:52. INDICATIONS : Weakness along with nausea RADIATION DOSE: 56.35 CTDIvol (mGy) MEDICAL HISTORY : Hypertension. Lung Cancer SURGICAL HISTORY : Tubal ligation. Hysterectomy. ENCOUNTER: Initial ACUITY: 1 day PAIN SCALE: 4/10 LOCATION: cranial TECHNIQUE: Multiple contiguous axial images were obtained of the head. Using automated exposure control and adj ustment of the mA and/or kV according to patient size, radiation dose was kept as low as reasonably a chievable to obtain optimal diagnostic quality images. DICOM format image data is available electro nically for review and comparison. FINDINGS: There is mild symmetric hydrocephalus. There is patchy diminished attenuation in periventricular whit e matter. There is diminished density in the cerebellar hemispheres. Soft tissue is present in the fo ramen magnum to which may be a manifestation of Chiari malformation, however mass effect associated w ith brain edema is not excluded. There is no evidence of intracranial mass. No hemorrhage is present. There is nothing to suggest acute infarction. CONCLUSION: Abnormal brain appearance. Mild symmetric hydrocephalus and patchy areas of parenchymal brain hypoden sity. Recommend further evaluation with brain MRI with and without contrast. Gordy Elizalde MD on April 03, 2017 at 14:02 Board Certified Radiologist. This report was verified electronically.
[2017-04-03 14:10] LABS: APTT (PATIENT) 24.6 SEC (24.3-30.1); PROTHROMBIN TIME - PATIENT 10.7 SEC (9.8-11.6)
[2017-04-03 14:26] LABS: ALT (GPT) 43 U/L (10-53); ANION GAP 10 MEQ/L (5-15); AST (GOT) 22 U/L (15-37); BICARBONATE 30.1 MEQ/L (21.0-32.0); BLOOD UREA NITROGEN 23 MG/DL (7-18); CHLORIDE 99 MEQ/L (98-107); GLOMERULAR FILTRATION RATE 47 ML/MIN (>89); MAGNESIUM 2.5 MG/DL (1.5-2.5); POTASSIUM 4.1 MEQ/L (3.5-5.1); SODIUM (NA) 139 MEQ/L (136-145)
--- NOTE | 2017-04-03 14:52 | RADRPT ---
EXAM DATE/TIME: 04/03/2017 13:44 [facility] COMPARISON: No previous studies available for comparison. INDICATIONS : Intermittent neck pain with weakness and nausea. RADIATION DOSE: 35.14 CTDIvol (mGy) MEDICAL HISTORY : Hypertension. lung cancer SURGICAL HISTORY : Tubal ligation. Hysterectomy. ENCOUNTER: Initial ACUITY: 1 day PAIN SCALE: 4/10 LOCATION: neck TECHNIQUE: Volumetric scanning of the cervical spine was performed. Multiplanar reconstructions i n the sagittal, coronal and oblique axial planes were performed. Using automated exposure control a nd adjustment of the mA and/or kV according to patient size, radiation dose was kept as low as reason ably achievable to obtain optimal diagnostic quality images. DICOM format image data is available e lectronically for review and comparison. FINDINGS: The sagittal reconstructions demonstrate normal alignment and normal prevertebral soft tissues. The d ens is intact and there is a normal atlantoaxial relationship. Degenerative disc changes are present at the C6-7 level with disc space narrowing and mild spurring. The axial images demonstrate that the vertebral bodies and posterior elements are intact. The soft ti ssues are within normal limits. There is no evidence of acute fracture or malalignment. There is a mi ld disc osteophyte complex at the 6 level with mild mass effect on the anterior thecal sac. There is moderate narrowing of the left neural foramina at this level. CONCLUSION: Degenerative disc change at C6-7 with mild disc osteophyte complex. There is moderate slade rowing of the left neural foramina at this level. Rafael Mariee MD on April 03, 2017 at 14:47 Board Certified Radiologist. This report was verified electronically.
[2017-04-03 15:25] LABS: ALKALINE PHOSPHATASE 108 U/L (45-117)
[2017-04-03 15:26] LABS: CREATINE KINASE 31 U/L (26-192)
[2017-04-03] MEDS ORDERED: GADODIAMIDE PF 287 MG/ML 5 ML VIAL (for RAD MRI) IVCONTRAST ONE (15:52)
[2017-04-03] MEDS ORDERED: SODIUM CHLORIDE 0.9% FLUSH 10 ML FLUSH IV FLUSH PRN (16:00)
[2017-04-03 16:30] LABS: BLOOD, URINE NEG (NEG); COMMENT (UR) CATH-CULT NOT IND; CULTURE IF INDICATED CATH CULTURE NOT IND; GLUCOSE,URINE NEG (NEG); KETONE, URINE 80 mg/dL (NEG); MUCUS URINE FEW /lpf (OCC); NITRITE,URINE NEG (NEG); PH, URINE 6.5 (5.0-8.5); URINE COLOR YELLOW (YELLW/STRAW)
[2017-04-03] MEDS ORDERED: ONDANSETRON HCL 4 MG/2 ML VIAL ONE (16:39)
[2017-04-03] MEDS ORDERED: ONDANSETRON ODT 4 MG TAB PO PRN (17:30)
[2017-04-03] MEDS ORDERED: ONDANSETRON HCL 4 MG/2 ML VIAL IV PUSH PRN (17:30)
[2017-04-03] MEDS ORDERED: PROMETHAZINE INJ 25 MG/ML VIAL IM PRN (17:30)
--- NOTE | 2017-04-03 17:47 | HHI.HP ---
[facility] Gordy Lyle, DO Admission Diagnosis AMS, generalized weakness Diagnoses: Travel History International Travel<30 Days: No Contact w/Intl Traveler <30 Da: No Traveled to Known Affected Are: No History of Present Illness 61 y/o WF being admitted for progressive weakness and worsening gait. Patient was in her usual state of health until a few weeks ago when she began experiencing an unsteady gait. Daughter says that she began shuffling her feet , also for was referred to neurology outpatient, had plans to obtain an outpatient MRI which apparently had not been done yet. The patient's symptoms remain tolerable until about last night when her daughter spoke to her on the phone and noticed very slowed but not slurred speech and also noted that the patient is repeating a number of her statements in her conversations. Daughter feels that the patient has fluctuating moments of confusion. Patient herself says that she is experiencing a worsening headache with worsening nausea, barely eating or drinking anything in the last 2 days, says that even water makes her nauseated. Says that the headache is on top of her head and makes it feel ice cold, has numbness on the right cheek. Patient herself says that she feels like she is going to fall and therefore has not ambulated much at all the last 2 days. Has not showered out of the same fear for the last few days as well. Reports being on chemotherapy for lung cancer that is currently in remission. Says that she had metastases to her spine previously and also has a diagnosis of multiple sclerosis for which she had active disease years ago and was discontinued from her medication at the time due to intolerable side effects. Says that she has not had any flareups of her multiple sclerosis recently (which is essentially vertigo and dizziness); says that her current symptoms are very different than her multiple sclerosis presentation the past. CT scan done outpt showed area concerning for infarct as well. Review of Systems Except as stated in HPI: all other systems reviewed are Neg Past Family Social History Past Medical History Multiple sclerosis, hypothyroidism Allergies: Coded Allergies: No Known Allergies (Verified , 04/03/17) Family History Parkinson's disease in her father Social History Patient lives by herself, is visited by her daughter about once a week. Patient is disabled. Physical Exam Vital Signs Vital Signs Date Time Temp Pulse Resp B/P (MAP) Pulse Ox O2 Delivery O2 Flow Rate FiO2 04/03/17 14:22 98.4 69 14 157/74 (101) 97 Room Air 04/03/17 12:38 97 Room Air 04/03/17 12:29 98.1 75 14 176/80 (112) 98 Room Air 04/03/17 11:57 97.0 82 20 153/82 (105) 98 Room Air Physical Exam GENERAL: NAD, appears exhausted, awake but fatigued SKIN: Warm and dry. EYES: Pupils equal and round. No scleral icterus. No injection or drainage. ENT: No nasal bleeding or discharge. Mucous membranes pink and moist. CARDIOVASCULAR: Regular rate and rhythm. no murmurs RESPIRATORY: No accessory muscle use. Clear to auscultation. Breath sounds equal bilaterally. GASTROINTESTINAL: Abdomen soft, non-tender, nondistended. Hepatic and splenic margins not palpable. MUSCULOSKELETAL: Extremities without clubbing, cyanosis, or edema. No obvious deformities. grossly intact ROM with 5/5 strength in upper and lower extremities proximally, no muscle wasting noted, intact fistgrip NEUROLOGICAL: Awake and alert. No obvious cranial nerve deficits. No facial droop nor slurred speech noted. Uvula and tongue in midline. Hyperreflexive patellar tendons bilaterally with a clonus-like reaction noted on the left side ; patient keeps her feet plantarflexed unless instructed to dorsiflex which she can do easily. Positive Romberg test, intact finger to nose bilaterally. Unable to stand and ambulate steadily. PSYCHIATRIC: Appropriate mood and affect; insight and judgment normal. Laboratory Laboratory Tests Test 04/03/17 13:45 04/03/17 15:50 White Blood Count 13.9 Red Blood Count 5.24 Hemoglobin 15.3 Hematocrit 46.7 Mean Corpuscular Volume 89.1 Mean Corpuscular Hemoglobin 29.2 Mean Corpuscular Hemoglobin Concent 32.8 Red Cell Distribution Width 13.5 Platelet Count 219 Mean Platelet Volume 7.6 Neutrophils (%) (Auto) 83.9 Lymphocytes (%) (Auto) 11.7 Monocytes (%) (Auto) 4.1 Eosinophils (%) (Auto) 0.2 Basophils (%) (Auto) 0.1 Neutrophils # (Auto) 11.7 Lymphocytes # (Auto) 1.6 Monocytes # (Auto) 0.6 Eosinophils # (Auto) 0.0 Basophils # (Auto) 0.0 CBC Comment DIFF FINAL Differential Comment Prothrombin Time 10.7 Prothromb Time International Ratio 1.0 Activated Partial Thromboplast Time 24.6 Blood Urea Nitrogen 23 Creatinine 1.18 Random Glucose 96 Total Protein 8.1 Albumin 4.3 Calcium Level 9.7 Magnesium Level 2.5 Alkaline Phosphatase 108 Aspartate Amino Transf (AST/SGOT) 22 Alanine Aminotransferase (ALT/SGPT) 43 Total Bilirubin 1.0 Sodium Level 139 Potassium Level 4.1 Chloride Level 99 Carbon Dioxide Level 30.1 Anion Gap 10 Estimat Glomerular Filtration Rate 47 Lactic Acid Level 2.0 Total Creatine Kinase 31 Troponin I LESS THAN 0.02 Urine Color YELLOW Urine Turbidity CLEAR Urine pH 6.5 Urine Specific [place] 1.022 Urine Protein NEG Urine Glucose (UA) NEG Urine Ketones 80 Urine Occult Blood NEG Urine Nitrite NEG Urine Bilirubin NEG Urine Urobilinogen LESS THAN 2.0 Urine Leukocyte Esterase NEG Urine WBC 1 Urine Mucus FEW Microscopic Urinalysis Comment CATH-CULT NOT IND Date/Time Source Procedure Growth Status 04/03/17 13:45 Blood Peripheral Aerobic Blood Culture Pending Received 04/03/17 13:45 Blood Peripheral Anaerobic Blood Culture Pending Received Result Diagram: 04/03/17 1345 04/03/17 1345 Imaging Last Impressions Head CT 04/03/17 1233 Signed Impressions: Service Date/Time: March 13:44 - CONCLUSION: Abnormal brain appearance. Mild symmetric hydrocephalus and patchy areas of parenchymal brain hypodensity. Recommend further evaluation with brain MRI with and without contrast. Gordy Elizalde MD Chest X-Ray 04/03/17 1233 Signed Impressions: Service Date/Time: March 12:44 - CONCLUSION: No acute disease. Emanuel Hood Jr., MD Cervical Spine CT 04/03/17 0000 Signed Impressions: Service Date/Time: March 13:44 - CONCLUSION: Degenerative disc change at C6-7 with mild disc osteophyte complex. There is moderate narrowing of the left neural foramina at this level. MD Mary Ricks VTE Risk Assessment Caprini VTE Risk Assessment: Mod/High Risk (score >= 2) VTE Pharm Contraindication: Documented Caprini Risk Assessment Model Point Value = 1 Point Value = 2 Point Value = 3 Point Value = 5 Age 41-60 Minor surgery BMI > 25 kg/m2 Swollen legs Varicose veins or History of unexplained or recurrent spontaneous Oral contraceptives or hormone replacement Sepsis (< 1 month) Serious lung disease, including pneumonia (< 1 month) Abnormal pulmonary function Acute myocardial infarction Congestive heart failure (< 1 month) History of inflammatory bowel disease Medical patient at bed rest Age 61-74 Arthroscopic surgery Major open surgery (> 45 min) Laparoscopic surgery (> 45 min) Malignancy Confined to bed (> 72 hours) Immobilizing plaster cast Central venous access Age >= 75 History of VTE Family history of VTE Factor V Leiden Prothrombin [id number] Lupus anticoagulant Anticardiolipin antibodies Elevated serum homocysteine Heparin-induced thrombocytopenia Other congenital or acquired thrombophilia Stroke (< 1 month) Elective arthroplasty Hip, pelvis, or leg fracture Acute spinal cord injury (< 1 month) Prophylaxis Regimen Total Risk Factor Score Risk Level Prophylaxis Regimen 0-1 Low Early ambulation 2 Moderate Order ONE of the following: *Sequential Compression Device (SCD) *Heparin 5000 units SQ BID 3-4 Higher Order ONE of the following medications: *Heparin 5000 units SQ TID *Enoxaparin/Lovenox 40 mg SQ daily (WT < 150 kg, CrCl > 30 mL/min) *Enoxaparin/Lovenox 30 mg SQ daily (WT < 150 kg, CrCl > 10-29 mL/min) *Enoxaparin/Lovenox 30 mg SQ BID (WT < 150 kg, CrCl > 30 mL/min) AND/OR *Sequential Compression Device (SCD) 5 or more Highest Order ONE of the following medications: *Heparin 5000 units SQ TID (Preferred with Epidurals) *Enoxaparin/Lovenox 40 mg SQ daily (WT < 150 kg, CrCl > 30 mL/min) *Enoxaparin/Lovenox 30 mg SQ daily (WT < 150 kg, CrCl > 10-29 mL/min) *Enoxaparin/Lovenox 30 mg SQ BID (WT < 150 kg, CrCl > 30 mL/min) AND *Sequential Compression Device (SCD) Assessment and Plan Problem List: (1) Unsteady gait ICD Code: R26.81 - Unsteadiness on feet (2) Hypothyroidism ICD Code: E03.9 - Hypothyroidism, unspecified Status: Acute (3) Generalized weakness ICD Code: R53.1 - Weakness Status: Acute (4) Altered mental status, unspecified ICD Code: R41.82 - Altered mental status, unspecified Status: Acute Assessment and Plan 61-year-old white female being admitted for progressive neurological decline including mild memory impairment as well as unstable gait. 1) unsteady gait - Etiologies of hydrocephalus versus multiple sclerosis versus stroke (least likely due to being afocal) - Discussed case briefly with Dr. Chavez, we'll proceed with MRI brain with and without contrast as well as CT spine and lumbar spine to evaluate for all the above etiologies - Fall precautions, orthostatic vital signs if possible - Consult neurology, PT, and OT. ST to be consulted if not improving w/ PO intake by tomorrow. checking sed rate. 2) memory impairment - Checking TSH, B12, folate, cmp unremarkable 3) headache - We'll treat with Tylenol, morphine otherwise, we'll avoid NSAIDs for now due to unclear etiology (as listed above possibilities) 4) nausea - Suspect this is centrally based, by mouth Zofran, IV Zofran if refractory, IM Phenergan if refractory - IV hydration - UA unremarkable, blood cultures obtained from ER 5) hypothyroidism - Continue home Synthroid 6) chemotherapy for history of lung cancer - continue home medication 7) leukocytosis - suspect stress related, monitor Physician Certification 2 Midnight Certification Type: Continued Stay Order for Inpatient Services The services are ordered in accordance with Medicare regulations or non- Medicare payer requirements, as applicable. In the case of services not specified as inpatient-only, they are appropriately provided as inpatient services in accordance with the 2-midnight benchmark. Estimated LOS (days): 2 2 days is the estimated time the patient will need to remain in the hospital, assuming treatment plan goals are met and no additional complications. Post-Hospital Plan: Home Problem Qualifiers (1) Altered mental status, unspecified: Qualified Codes: R41.82 - Altered mental status, unspecified Jadon Haq MD Apr 03, 2017 17:46
[2017-04-03] MEDS ORDERED: MORPHINE SULFATE 4 MG/ML INJ IV PUSH PRN (18:15)
[2017-04-03] MEDS ORDERED: [UNRECOGNIZED DRUG - CODE] PO (19:06)
[2017-04-03] MEDS ORDERED: BUPR100T4 PO (19:07)
[2017-04-03] MEDS ORDERED: ASPI81CH CHEW (19:08)
[2017-04-03] MEDS ORDERED: CIPR-9 PO (19:10)
[2017-04-03] MEDS ORDERED: ATOR40TA16 PO (19:14)
[2017-04-03 19:35] LABS: MAGNESIUM 2.6 MG/DL (1.5-2.5)
[2017-04-03] MEDS ORDERED: SODIUM CHLOR 0.9% 1000 ML INJ 1,000 ML IV ONE (20:00)
[2017-04-03] MEDS: SODIUM CHLORIDE 0.9% FLUSH 10 ML FLUSH IV FLUSH SCH (21:00)
[2017-04-03] MEDS: SODIUM CHLOR 0.9% 1000 ML INJ 1,000 ML IV SCH (23:23)
[2017-04-04] MEDS: LEVOTHYROXINE SODIUM 75 MCG TAB PO SCH (06:31)
[2017-04-04 07:12] VITALS: BP 144/67; PULSE 68; TEMP 98.3; O2SAT 97
[2017-04-04] MEDS ORDERED: GILOTRIF PO SCH (09:00)
[2017-04-04 09:05] LABS: AUTOMATED NEUTROPHIL # 7.3 TH/MM3 (1.8-7.7); BASOPHIL % 0.2 % (0.0-2.0); EOSINOPHIL % 0.2 % (0.0-4.0); HEMATOCRIT 39.8 % (35.0-46.0); HEMO FLAGS DIFF FINAL; LYMPHOCYTE # 1.3 TH/MM3 (1.0-4.8); MEAN CELL VOLUME 88.7 FL (80.0-100.0); MEAN CORPUSCULAR HEMOGLOBIN 29.8 PG (27.0-34.0); MEAN CORPUSCULAR HGB CONC 33.6 % (32.0-36.0); MONO % 4.8 % (0.0-8.0); NEUT % 80.8 % (16.0-70.0); PLATELET COUNT 176 TH/MM3 (150-450); RED BLOOD COUNT 4.49 MIL/MM3 (4.00-5.30); RED CELL DISTRIBUTION WIDTH 13.5 % (11.6-17.2); WHITE BLOOD COUNT 9.1 TH/MM3 (4.0-11.0)
[2017-04-04 09:32] LABS: BICARBONATE 27.7 MEQ/L (21.0-32.0); POTASSIUM 3.7 MEQ/L (3.5-5.1)
--- NOTE | 2017-04-04 10:48 | RADRPT ---
EXAM DATE/TIME: 04/04/2017 09:19 [facility] COMPARISON: MRI LUMBAR SPINE W & W/O CONTRAST, February 26, 2015, 14:42. INDICATIONS : Mulitple sclerosis. Generalized weakness. CONTRAST: 15 cc Omniscan (gadodiamide) IV MEDICAL HISTORY : Carcinoma, lung. Hypertension. MS SURGICAL HISTORY : Hysterectomy. Tubal ligation. ENCOUNTER: Subsequent ACUITY: 2 day PAIN SCORE: 0/10 LOCATION: spine TECHNIQUE: Multiplanar multisequence MRI of the lumbar spine was performed with and without contrast. FINDINGS: The most caudal appearing lumbar vertebra is numbered as L5. VERTEBRAE: Chronic compression is seen at L1 there are no significant marrow changes evident. CONUS: Unremarkable at T12. T12-L1: Mild interspace ridging is present without significant neural impingement. L1-L2: The thecal sac has a normal diameter. No evidence of disc bulge or protrusion. The neural foramina are patent bilaterally. L2-L3: The thecal sac has a normal diameter. No evidence of disc bulge or protrusion. The neural foramina are patent bilaterally. L3-L4: The thecal sac has a normal diameter. No evidence of disc bulge or protrusion. The neural foramina are patent bilaterally. L4-L5: Very minimal left-sided neural foramina encroachment is present. There is no significant spinal sten osis. Mild facet disease is evident. L5-S1: Generalized bulging without significant stenosis. There is mild bilateral neural foramina encroachme nt. There is mild facet disease evident. There is no abnormal contrast enhancement Retroperitoneum is unremarkable. CONCLUSION: I don't see evidence for worsening MS. Chronic compression of L1 Degenerative facet disease L4-5, L5-S1 without significant spinal stenosis. There is mild neuroforaminal encroachment. Ed Roque MD FACR on April 04, 2017 at 10:44 Board Certified Radiologist. This report was verified electronically.
--- NOTE | 2017-04-04 10:54 | RADRPT ---
EXAM DATE/TIME: 04/04/2017 09:19 [facility] COMPARISON: No previous studies available for comparison. INDICATIONS : Mulitple sclerosis. Generalized weakness. CONTRAST: 15 cc Omniscan (gadodiamide) IV MEDICAL HISTORY : Carcinoma, lung. Hypertension. MS SURGICAL HISTORY : Hysterectomy. Tubal ligation. ENCOUNTER: Subsequent ACUITY: 2 day PAIN SCORE: 0/10 LOCATION: spine TECHNIQUE: Multiplanar, multisequence MRI examination of the cervical spine was performed. FINDINGS: The proximal cervical cord is grossly abnormal the cystic mass with some cord expansion at C1-C2. Th ere is edema in the lower cervical cord beginning at C2 extending to C5. Cord appears mildly expande d to C5. There is no evidence for an enhancing mural nodule. C3-C4: Mild uncinate ridging is present with minimal cervical spinal stenosis. C4-C5: Mild uncinate ridging is present without significant spinal stenosis. C5-C6: Mild interspace ridging is present with minimal bilateral neural foramina encroachment. C6-C7: Moder ate air space ridging is present with mild/moderate bilateral neural foramina encroachment. CONCLUSION: Markedly abnormal high cervical cord with increased signal in the cord. There is cord expansion more suggestive of neoplastic or infiltrative process rather then multiple sc lerosis. Markedly abnormal cerebellum MRI of the brain is pending. Ed Roque MD FACR on April 04, 2017 at 10:47 Board Certified Radiologist. This report was verified electronically.
--- NOTE | 2017-04-04 11:21 | RADRPT ---
EXAM DATE/TIME: 04/04/2017 09:19 [facility] COMPARISON: MRI BRAIN W & W/O CONTRAST, February 27, 2015, 9:52. INDICATIONS : MS with generalized weakness. CONTRAST: 15 cc Omniscan (gadodiamide) IV MEDICAL HISTORY : Carcinoma, lung. Hypertension. MS SURGICAL HISTORY : Hysterectomy. Tubal ligation. ENCOUNTER: Subsequent ACUITY: 2 day PAIN SCORE: 0/10 LOCATION: cranial TECHNIQUE: Multiplanar, multisequence MRI of the brain was performed both prior to and following the administration of paramagnetic contrast. FINDINGS: The study is markedly abnormal with enhancing midline cerebellar mass and scattered other areas of du ral-based enhancement in majority over the left occipital region suggesting dural carcinomatosis. I think the tumefactive multiple sclerosis would be less likely. There are marked periventricular white matter changes that do not enhance that would be consistent wi th burned-out benign process. Ventricles are mildly prominent with minimal periventricular white matter changes. There is no restricted diffusion or parenchymal hemorrhage. CONCLUSION: Markedly abnormal cerebellum enhancing mass and scattered other areas of cortical enh ancement on the right most suspicious for neoplastic process. Markedly abnormal MRI of the high cervical spine as described on that report. Ed Roque MD FACR on April 04, 2017 at 11:04 Board Certified Radiologist. This report was verified electronically.
[2017-04-04 11:40] VITALS: BP 169/71; PULSE 66; RESP 18; TEMP 97.7; O2SAT 98
[2017-04-04] MEDS: SODIUM CHLOR 0.9% 1000 ML INJ 1,000 ML IV SCH ×2 (11:46→18:16)
[2017-04-04] MEDS: SODIUM CHLORIDE 0.9% FLUSH 10 ML FLUSH IV FLUSH SCH ×2 (11:46→21:00)
[2017-04-04] MEDS: ACETAMINOPHEN/CODEINE 300 MG/30 MG TAB PO PRN (11:46)
[2017-04-04] MEDS: DEXAMETHASONE SOD PHOS 4 MG/ML VIAL IV PUSH SCH ×2 (13:28→18:15)
--- NOTE | 2017-04-04 13:35 | HHI.PR ---
Subjective Remarks No acute calls overnight, patient says her symptoms are about the same. Was called by radiology, discuss findings suggestive of possible neoplasm and cerebellum along with some cord edema, no findings suggestive of acute multiple sclerosis per Dr. Roque. Objective Vital Signs Date Time Temp Pulse Resp B/P (MAP) Pulse Ox O2 Delivery O2 Flow Rate FiO2 04/04/17 12:55 18 04/04/17 11:40 97.7 66 18 169/71 (103) 98 04/04/17 07:12 98.3 68 144/67 (92) 97 04/04/17 06:41 14 04/03/17 23:05 86 18 138/63 (88) 97 04/03/17 19:41 98.6 69 17 152/70 (97) 97 04/03/17 18:25 98.6 73 16 144/91 (108) 95 04/03/17 17:29 04/03/17 14:22 98.4 69 14 157/74 (101) 97 Room Air I/O 04/03/17 04/03/17 04/03/17 04/04/17 04/04/17 04/04/17 06:59 14:59 22:59 06:59 14:59 22:59 Intake Total 1000 ml Balance 1000 ml Intake IV Total 1000 ml # Voids 2 Result Diagram: 04/04/17 0840 04/04/17 0840 Imaging Last 24 hours Impressions Lumbar Spine MRI 04/04/17 0000 Signed Impressions: Service Date/Time: Tuesday, April 04, 2017 09:19 - CONCLUSION: I don't see evidence for worsening MS. Chronic compression of L1 Degenerative facet disease L4-5, L5-S1 without significant spinal stenosis. There is mild neuroforaminal encroachment. Ed Roque MD FACR Cervical Spine MRI 04/04/17 0000 Signed Impressions: Service Date/Time: Tuesday, April 04, 2017 09:19 - CONCLUSION: Markedly abnormal high cervical cord with increased signal in the cord. There is cord expansion more suggestive of neoplastic or infiltrative process rather then multiple sclerosis. Markedly abnormal cerebellum MRI of the brain is pending. Ed Roque MD FACR Brain MRI 04/04/17 0000 Signed Impressions: Service Date/Time: Tuesday, April 04, 2017 09:19 - CONCLUSION: Markedly abnormal cerebellum enhancing mass and scattered other areas of cortical enhancement on the right most suspicious for neoplastic process. Markedly abnormal MRI of the high cervical spine as described on that report. Ed Roque MD FACR Objective Remarks GENERAL: Resting in bed, awake, alert RESPIRATORY: Breath sounds equal and clear bilaterally. Unlabored breathing GASTROINTESTINAL: Abdomen soft, non-tender, nondistended. MUSCULOSKELETAL: No cyanosis, or edema. Neurological: No obvious facial droop, no tremors, no slurred speech, extraocular motions intact, no clonus noted on ankles today A/P Assessment and Plan 61-year-old white female being admitted for progressive neurological decline including mild memory impairment as well as unstable gait. 1) unsteady gait - Etiologies of hydrocephalus versus multiple sclerosis versus stroke (least likely due to being afocal) - MRI findings suggestive of mass and cord edema; consulting NSGY, starting decadron, consider heme/onc consult - Fall precautions, orthostatic vital signs if possible - Awaiting neurology recs. PT, and OT. ST to be consulted if not improving w/ PO intake - independently reviewed EKG which shows an unremarkable sinus rhythm 2) memory impairment -CMP unremarkable, ESR wnl. mg and phosph stable. awaiting on TSH, B12, folate. 3) headache - Tylenol, morphine otherwise - Cerebellar mass and cord expansion/edema - Starting Decadron IV and we'll reassess 4) nausea - Suspect this is centrally based, by mouth Zofran, IV Zofran if refractory, IM Phenergan if refractory - IV hydration - UA unremarkable, blood cultures obtained from ER 5) hypothyroidism - Continue home Synthroid 6) chemotherapy for history of lung cancer - continue home medication 7) leukocytosis - suspect stress related, resolved Jadon Haq MD Apr 04, 2017 13:35
[2017-04-04 15:20] VITALS: BP 137/68; PULSE 72; RESP 16; TEMP 98; O2SAT 97
[2017-04-04 15:30] VITALS: PULSE 66
--- NOTE | 2017-04-04 17:18 | MB ---
cc: SABRINA ALLISON JOHN R. D.O. FULOP, DALIA MD DATE OF CONSULTATION 04/04/17 DATE OF 55 HISTORY OF PRESENT ILLNESS The patient is a 61-year-old woman whom I had seen for the first time in the office on March 26 initially for some dizziness and headache. Workup had been pending. She presented yesterday to the ER with progressive weakness, worsening gait that has been getting worse over the last few weeks to the point where she had trouble ambulating. She was supposed to have the MRI done but has not done it yet and her daughter noticed when she talked to her on the phone that she was very slow to respond, not slurring or aphasic. She had what she described also as possible fluctuating moments of confusion as well as nausea and vomiting the last couple of days. The patient still feels nauseated, stated that she vomited clear liquids. She just completed her MRI of the brain and C-spine which is concerning for metastatic disease. I just spoke with the radiologist, Dr. Roque, who has actually done her lung biopsy for lung cancer a number of years ago. We were aware of the series, but now there is expansion of whatever is in her cervical spine that is now larger as well as with increased signal and edematous. 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 Neurosurgery has been consulted for assistance due to the fact that the patient needs tissue sampling and it would be risky I would believe to do a spinal tap. The other issues is should we put her on steroids. I will await neurosurgical input. As stated, she has been seen by oncology, Dr. Allison, and her last visit I believe with him was back on, looking in the computer, March 23, 2017. At that point, his impression was follow up with neurology. She had an MRI without contrast that showed a small focus of abnormality in the right parietal lobe. Looking more, he thought more like a small evolving infarct than a mass. He had discussed with her having an MRI with contrast. Apparently, she was on a reduced dose of gilotrif 20 mg daily. 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 PAST MEDICAL HISTORY 1. History of anxiety, 2. Concussion, 3. Diverticulosis, 4. Reflux, 5. Hypothyroidism, 6. Nephrolithiasis 7. MS diagnosed by another neurologist. PAST SURGICAL HISTORY 1. Breast augmentation. 2. Breast reduction 3. Colonoscopy 4. Hysterectomy, 5. Partial right wrist surgery 6. Tubal ligation. ALLERGIES POSSIBLE HORMONE REPLACEMENT THERAPY - SOME TONGUE ISSUES WITH IT. FAMILY HISTORY Parkinson's in the father. SOCIAL HISTORY Lives by herself, has a daughter. She is disabled. MEDICATIONS Home meds. Please refer to [facility]. PHYSICAL EXAMINATION VITAL SIGNS: Temperature is 97.7, pulse 66, respiratory rate 18, blood pressure 169/71, satting at 92%. Neck: Supple. I do not appreciate any bruits. HEART: Regular. NEUROLOGIC: She is awake and alert. speech is not dysarthric nor aphasic nor hypophonic. Pupils reactive. Visual alexander full. Face symmetrical. Tongue midline. Motor vasquez, she can lift antigravity all four extremities but she has a bit weaker in the right quads, 4/5 compared to left. DTRs are brisk throughout. Toes withdraws. Cerebellar - [id number] no past-pointing. She does have mild tremor on the left on [id number]. Sensory is intact. Gait I withheld at this time. LABORATORY DATA Reviewed. CBC is really unremarkable. ESR on 04/03 was 2. Chemistries - GFR 75, magnesium 2.6. Urine culture is not indicated. Her last spinal tap was in 2009 and she had five oligoclonal bands at that time. IMAGING STUDIES As reported in the body of the paragraph concerning for enhancement of the right cerebellum for possible mass versus possible carcinomatous meningitis. C-spine also shows abnormal high cervical cord signal expansion more suggestive of neoplastic process. As you know, she does have a history of a syrinx from an old MRI. Recommend as stated neurosurgical input to assist with tissue sampling. Question if we should put her on steroids. Continue strict neuro checks. Maintain her on fluids. If she is nauseated, antiemetics. I would also get Dr. Allison, oncology, to see her given that he is taking care of her for her cancer history. Further recommendations will be made accordingly. MD AMRITA Mcgovern/ /12:30 PM /4:54 PM
[2017-04-04 19:25] VITALS: BP 147/67; PULSE 74; RESP 18; TEMP 99.4; O2SAT 95
--- NOTE | 2017-04-04 23:50 | PD.CONS ---
History of Present Illness Service Neurosurgery Consult Requested By Medicine service Reason for Consult Posterior fossa mass. Cervical syrinx. Primary Care Physician Gordy Lyle, DO Diagnoses: History of Present Illness 61-year-old female with previous history of cervical syrinx with Chiari malformation documented in previous MRI of the cervical spine from 2011. Previously followed by neurology-Dr. Kaela Mariscal. Patient also has a history of metastatic non-small cell lung cancer. Prior imaging revealed metastatic disease to the lumbar spine. Patient now presents with a few weeks of dizziness and headache. Recently seen by neurology as an outpatient. She came to the emergency room on 04/03/17 due to speech difficulty, mental status changes, nausea and vomiting and persistent headache. Review of Systems Constitutional: COMPLAINS OF: Fatigue, Dizziness, Change in appetite, DENIES: Fever Eyes: DENIES: Blurred vision, Diplopia Ears, nose, mouth, throat: DENIES: Tinnitus, Hearing loss, Vertigo Respiratory: DENIES: Shortness of breath Cardiovascular: DENIES: Chest pain, Palpitations Gastrointestinal: COMPLAINS OF: Nausea, Vomiting, DENIES: Abdominal pain, Diarrhea Musculoskeletal: DENIES: Joint pain, Muscle aches Hematologic/lymphatic: DENIES: Bruising Neurologic: COMPLAINS OF: Abnormal gait, Headache, Speech Problems Psychiatric: COMPLAINS OF: Anxiety, Confusion Past Family Social History Allergies: Coded Allergies: No Known Allergies (Verified , 04/03/17) Past Medical History Metastatic non-small cell lung cancer History of multiple sclerosis History of Chiari malformation with cervical syringomyelia Hypothyroidism Diverticulosis Anxiety disorder Past Surgical History Hysterectomy Tubal ligation Breast reduction Colonoscopy Reported Medications Reported Meds & Active Scripts Active Reported Atorvastatin (Atorvastatin Calcium) 40 Mg Tab 40 Mg PO HS Aspirin 81 Mg Chew 81 Mg CHEW DAILY Bupropion HCl 100 Mg Tab 100 Mg PO BID Gilotrif (Afatinib) 20 Mg Tab 20 Mg PO DAILY Take at least 1 hr before or 2 hrs after a meal. Levothyroxine (Levothyroxine Sodium) 75 Mcg Tab 75 Mcg PO DAILY Family History Her father had Parkinson's disease Social History Does not smoke cigarettes or drink alcohol. She lives alone Physical Exam Vital Signs Vital Signs Date Time Temp Pulse Resp B/P (MAP) Pulse Ox O2 Delivery O2 Flow Rate FiO2 04/04/17 19:25 99.4 74 18 147/67 (93) 95 04/04/17 15:30 66 04/04/17 15:20 98.0 72 16 137/68 (91) 97 04/04/17 12:55 18 04/04/17 11:40 97.7 66 18 169/71 (103) 98 04/04/17 07:12 98.3 68 144/67 (92) 97 04/04/17 06:41 14 Physical Exam Mild/moderate lethargy Speech is dysarthric Conversant and appropriate Follow a few simple commands Answers questions with difficulty Diminished judgment and insight Recent and remote memory are impaired No evidence of anxiety or depression Pupils are equal and reactive to accommodation. Extra-ocular movements, visual alexander to confrontation, facial sensorimotor, tongue, palate, sternocleidomastoid testing, hearing to finger rub testing, and bilateral shoulder shrug are all intact. Sensation is intact to light touch in all extremities Strength normal major flexion and extension groups all extremities Nisreen's absent bilaterally No ankle clonus Plantar responses absent bilateral Fine motor movements intact upper extremities Laboratory Laboratory Tests Test 04/04/17 08:40 White Blood Count 9.1 Red Blood Count 4.49 Hemoglobin 13.3 Hematocrit 39.8 Mean Corpuscular Volume 88.7 Mean Corpuscular Hemoglobin 29.8 Mean Corpuscular Hemoglobin Concent 33.6 Red Cell Distribution Width 13.5 Platelet Count 176 Mean Platelet Volume 8.1 Neutrophils (%) (Auto) 80.8 Lymphocytes (%) (Auto) 14.0 Monocytes (%) (Auto) 4.8 Eosinophils (%) (Auto) 0.2 Basophils (%) (Auto) 0.2 Neutrophils # (Auto) 7.3 Lymphocytes # (Auto) 1.3 Monocytes # (Auto) 0.4 Eosinophils # (Auto) 0.0 Basophils # (Auto) 0.0 CBC Comment DIFF FINAL Differential Comment Blood Urea Nitrogen 14 Creatinine 0.78 Random Glucose 93 Calcium Level 8.6 Sodium Level 141 Potassium Level 3.7 Chloride Level 106 Carbon Dioxide Level 27.7 Anion Gap 7 Estimat Glomerular Filtration Rate 75 Vitamin B12 Level 386 Folate 15.5 Date/Time Source Procedure Growth Status 04/03/17 13:45 Blood Peripheral Aerobic Blood Culture - Preliminary NO GROWTH IN 1 DAY Resulted 04/03/17 13:45 Blood Peripheral Anaerobic Blood Culture - Final QNS - SEE AEROBE REPORT Resulted Result Diagram: 04/04/17 0840 04/04/17 0840 Imaging 04/04/17 MRI of the brain and cervical spine and lumbar spine images all reviewed by the undersigned. The patient has a moderate size enhancing midline upper cerebellar midline mass with mostly mild surrounding edema. Also similar appearing lesion over the right posterior parietal region. Scattered areas of dural based enhancement primarily left occipital region. The cervical spine study reveals significant enlargement of a previously noted C2 level syrinx seen on MRI from 2012, now with abnormal signal intensity extending in the cord to the mid cervical region with some cord expansion. The cerebellar tonsils remain descended into the C1-2 level, increased from prior MRI from 2012. Lumbar Spine MRI 04/04/17 0000 Signed Impressions: Service Date/Time: Tuesday, April 04, 2017 09:19 - CONCLUSION: I don't see evidence for worsening MS. Chronic compression of L1 Degenerative facet disease L4-5, L5-S1 without significant spinal stenosis. There is mild neuroforaminal encroachment. Ed Roque MD FACR Cervical Spine MRI 04/04/17 0000 Signed Impressions: Service Date/Time: Tuesday, April 04, 2017 09:19 - CONCLUSION: Markedly abnormal high cervical cord with increased signal in the cord. There is cord expansion more suggestive of neoplastic or infiltrative process rather then multiple sclerosis. Markedly abnormal cerebellum MRI of the brain is pending. Ed Roque MD FACR Brain MRI 04/04/17 0000 Signed Impressions: Service Date/Time: Tuesday, April 04, 2017 09:19 - CONCLUSION: Markedly abnormal cerebellum enhancing mass and scattered other areas of cortical enhancement on the right most suspicious for neoplastic process. Markedly abnormal MRI of the high cervical spine as described on that report. Ed Roque MD FACR Head CT 04/03/17 1233 Signed Impressions: Service Date/Time: March 13:44 - CONCLUSION: Abnormal brain appearance. Mild symmetric hydrocephalus and patchy areas of parenchymal brain hypodensity. Recommend further evaluation with brain MRI with and without contrast. Gordy Elizalde MD Chest X-Ray 04/03/17 1233 Signed Impressions: Service Date/Time: , April 03, 2017 12:44 - CONCLUSION: No acute disease. Emanuel Hood Jr., MD Cervical Spine CT 04/03/17 0000 Signed Impressions: Service Date/Time: March 13:44 - CONCLUSION: Degenerative disc change at C6-7 with mild disc osteophyte complex. There is moderate narrowing of the left neural foramina at this level. Rafael Mariee MD Assessment and Plan Assessment and Plan Impression: 1. Progressive gait difficulty speech deficit in patient with a new midline cerebellar lesion. Differential includes neoplasm, possible carcinomatosis, less likely related to previous tentative diagnosis of multiple sclerosis. 2. Significant progression of Cervical syringomyelia with associated Chiari malformation, previously seen on MRI cervical spine from 2012. Progression may be at least partially related to the cerebellar lesion. Questionable new cervical spinal cord neoplastic disease per radiology interpretation. Recommendations: We will need to discuss the findings with the patient's daughter. It is anticipated that she will require a posterior decompression, biopsy and possible resection of the cerebellar lesion along with suboccipital decompressive craniotomy and C1 compressive laminectomy. Clem Rich MD Apr 04, 2017 23:49
[2017-04-05] VITALS (8 sets, daily range): BP systolic 108–162; BP diastolic 54–72; PULSE 65–75; RESP 18–21; TEMP 97.1–98.8; O2SAT 94–96
[2017-04-05] MEDS: DEXAMETHASONE SOD PHOS 4 MG/ML VIAL IV PUSH SCH ×5 (00:18→23:42)
--- NOTE | 2017-04-05 01:19 | EKG ---
Date Performed: 04/03/2017 Time Performed: 13:42:20 PTAGE: 61 years EKG: Sinus rhythm NONSPECIFIC T-WAVE ABNORMALITY BORDERLINE ECG PREVIOUS TRACING : 10/21/2016 08.36 Compared to prior tracing no significant change DOCTOR: Karthikeyan Nagel Interpretating Date/Time 04/05/2017 01:17:56
[2017-04-05] MEDS: SODIUM CHLOR 0.9% 1000 ML INJ 1,000 ML IV SCH (02:31)
[2017-04-05] MEDS: LEVOTHYROXINE SODIUM 75 MCG TAB PO SCH (04:46)
[2017-04-05] MEDS: SODIUM CHLORIDE 0.9% FLUSH 10 ML FLUSH IV FLUSH SCH ×2 (11:33→21:33)
[2017-04-05] MEDS: ACETAMINOPHEN/CODEINE 300 MG/30 MG TAB PO PRN (14:40)
--- NOTE | 2017-04-05 16:49 | HHI.PR ---
Subjective Remarks Discussed case with Dr. Haines, patient will likely need further medical oncology treatment. We also discussed lesions on the MRI brain scan which were very suggestive of metastasis and carcinomatosis at multiple levels of the brain. Patient herself says that her headache is a little bit more tolerable with the steroids being dosed, and has more confidence when trying to initiate walking but still feels she is not safe to walk unassisted. Patient is very relieved that we have a diagnosed source of her symptoms and that there are some treatment options available regardless of her prognosis. She is smiling and laughing today which is an improvement compared to yesterday. Nursing also reported patient wanting to eat, better appetite. Objective Vital Signs Date Time Temp Pulse Resp B/P (MAP) Pulse Ox O2 Delivery O2 Flow Rate FiO2 04/05/17 16:29 98.3 71 20 141/65 (90) 96 04/05/17 12:18 97.5 65 21 144/66 (92) 95 04/05/17 08:47 98.1 75 20 135/65 (88) 96 04/05/17 04:00 68 04/05/17 04:00 97.8 69 18 161/69 (99) 95 04/05/17 02:00 69 04/05/17 01:38 97.1 71 18 162/72 (102) 95 04/04/17 19:25 99.4 74 18 147/67 (93) 95 I/O 04/04/17 04/04/17 04/04/17 04/05/17 04/05/17 04/05/17 06:59 14:59 22:59 06:59 14:59 22:59 Intake Total 200 ml Balance 200 ml Intake Oral 200 ml # Voids 2 2 5 Result Diagram: 04/04/17 0840 04/04/17 0840 Objective Remarks GENERAL: Sitting up in bed, awake alert, quite interactive this morning MUSCULOSKELETAL: No cyanosis, or edema. Neurological: No obvious facial droop, very subtle tremor noted in hands, no slurred speech, extraocular motions intact, A/P Assessment and Plan 61-year-old white female being admitted for progressive neurological decline including mild memory impairment as well as unstable gait. 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 mg and phosph stable. folate and tsh wnl, b12 on lower end of normal, will supplement w/ IM followed by po daily 3) headache - Tylenol, morphine otherwise - Cerebellar mass and cord expansion/edema - improving w/ decadron, continue 4) nausea - by mouth Zofran, IV Zofran if refractory, IM Phenergan if refractory - improved, starting po intake, stopping IVFs. - UA unremarkable, blood cultures obtained from ER NGTD 5) hypothyroidism - Continue home Synthroid Jadon Haq MD Apr 05, 2017 16:49
[2017-04-05] MEDS ORDERED: CYANOCOBALAMIN 1000 MCG/ML VIAL IM ONE (17:00)
--- NOTE | 2017-04-05 18:32 | MB ---
cc: SLIME HAWKINS MD,FADI Rowley M.D. DATE OF CONSULTATION: 04/05/2017. REQUESTING PHYSICIAN: [facility]. PRIMARY ONCOLOGIST: Dr. Fadi Allison. 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 CURRENT TREATMENT: The patient has presently been on palliative systemic therapy with afatinib at a dose reduction down to 20 milligrams once a day. CURRENT DISEASE STATUS: Per the patient's verbal report, systemic staging indicated good disease control without evidence of measurable disease or active disease. Unfortunately she has had intracranial disease progression with MRI findings indicating an infiltrating mass involving the cerebellum as well as dural involvement more diffusely noted. CHIEF COMPLAINT: The patient was noting increasing weakness of her legs, difficulty coordinating and generalized weakness, all of which had been progressive for the past two weeks or so. HISTORY OF PRESENT ILLNESS: Mrs. Michelle is a very pleasant 61-year-old female who is well-known to my associate, Dr. Allison, who has been caring for this lady since her initial diagnosis of metastatic adenocarcinoma of the lung in February of 2015. The patient initially presented with midline back pain and was found to have destructive metastatic lesions involving L1, outside the L1 vertebral body. She was also found to have spiculated mass involving the left upper lobe of the lung. She underwent image-guided biopsies and was found to have adenocarcinoma positive for the EGFR mutation. The patient underwent palliative radiation to her symptomatic vertebral metastasis involving the L1 vertebral body. Her first-line treatment consisted of Tarceva, which she had difficulty tolerating due to skin rashes and diarrhea. She was subsequently transitioned to afatinib. She had difficulty tolerating the standard dosing of 40 milligrams once daily due to diarrhea and over the years has had dose reduced to 20 milligrams once a day. CT imaging most recently performed in November of 2016 indicated no definite evidence of disease progression though she did have some subtle changes of increased activity in the vertebral bodies. The patient began to develop the above-noted symptoms of worsening difficulty balancing and leg weakness over the past few weeks. She came into the emergency department for further evaluation and underwent an MRI of the brain on 04/04/2017. The MRI with contrast indicated grossly abnormal findings within the cerebellum with an enhancing mass as well as scattered areas of cortical enhancement most concerning for a neoplastic process and dural involvement. The patient has been evaluated by neurosurgery and has been recommended decompression with maximal excision of the cerebellar mass. She has already been initiated on dexamethasone for management of the vasogenic edema. PAST MEDICAL HISTORY: 1. Metastatic adenocarcinoma of the lung positive for the EGFR mutation. 2. History of hypothyroidism. 3. Kidney stones. 4. Multiple sclerosis. 5. Anxiety. 6. Arthritis. PAST SURGICAL HISTORY: 1. Image-guided biopsy of the vertebral body mass in February of 2015. 2. Tubal ligation. 3. Right wrist surgery. 4. Partial hysterectomy. 5. Colonoscopy. 6. Breast surgeries. GYNECOLOGIC HISTORY: 1, para 1, postmenopausal. FAMILY HISTORY: Mother had a brain tumor, father of Alzheimer's. SOCIAL HISTORY: She is . She lives at home alone. She denies ever having been a smoker. ALLERGIES: NO KNOWN DRUG ALLERGIES. CURRENT INPATIENT MEDICATIONS: 1. Dexamethasone 4 milligrams IV every 6 hours. 2. Normal saline 100 cc/hour. 3. Acetaminophen / codeine 100 / 30 milligrams every six hours as needed for headaches. 4. Levothyroxine 75 micrograms once daily. 5. Zofran 4 milligrams p.o. q. 6 hours. 6. Promethazine 12.5 milligrams IM every 6 hours as needed for nausea and vomiting. REVIEW OF SYSTEMS: A thirteen point review of systems was obtained and the following are the pertinent positives and negatives. CONSTITUTIONAL: The patient reports fatigue, weakness, she denies fevers, chills or night sweats. HEAD, EYES, EARS, NOSE, THROAT: Denies headaches, blurry vision, difficulty swallowing or soreness of throat. RESPIRATORY: Denies exertion. Denies difficulty breathing, cough, hemoptysis, pleuritic chest pain. CARDIOVASCULAR: Denies angina-like chest pain, PND, orthopnea, lower extremity edema. GASTROINTESTINAL: Denies nausea, vomiting, diarrhea hematochezia, melena. GENITOURINARY: Denies dysuria, hematuria, urinary incontinence. INDUSTRIAL SEWER: Reports difficulty coordinating balance, weakness of her lower extremities as well. She also reports some confusion which is now improved. No other complaints reported. PHYSICAL EXAMINATION: VITAL SIGNS: Temperature 97.5 degrees Fahrenheit, heart rate 65 beats a minute, respiratory rate 21, blood pressure 144 x 66, O2 sats 95% on room air. GENERAL PHYSICAL APPEARANCE: Ms. Michelle is a middle-aged female, she is short and of moderate build and appears to be in no acute distress. She is sitting up at the side of the bed. HEAD, EYES, EARS, NOSE, THROAT: Head is atraumatic, normocephalic, conjunctivae are not pale, sclerae are anicteric, Extraocular muscles intact. Pupils equal, round and reactive to light and accommodation. ORAL EXAM: No pharyngeal erythema. NECK: No palpable cervical or supraclavicular adenopathy. RESPIRATORY: Good air movement bilaterally. No added breath sounds. CARDIOVASCULAR: Regular rate and rhythm, S1-S2. No obvious murmurs, rubs or gallops. ABDOMEN: Thin belly, soft and nontender, nondistended, no palpable organ enlargement. LOWER EXTREMITIES: No pretibial edema or calf tenderness. INDUSTRIAL SEWER: No focal sensory or motor deficits, she has 5/5 strength of the upper and lower extremities. LABORATORY FINDINGS: Blood work dated 04/04/2017: WBC count 9.1, hemoglobin 13.3 gm/dl, hematocrit 40%, platelet count 176. Absolute neutrophil count is 7.3. Chemistries: Sodium 141, potassium 3.7, chloride 106, bicarb 27.7, BUN 14, creatinine 0.78, random glucose 93, calcium 8.6, magnesium 2.6. Folic acid 15.5, vitamin B12 386. IMAGING STUDIES: MRI of the brain dated 04/04/2017 indicates markedly abnormal cerebellar enhancing mass and scattered areas of cortical enhancement most concerning for a neoplastic process. 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 MRI of the cervical spine dated 04/04/2017 indicates abnormal cervical cord with increased signal. There is cord compression more suggestive of neoplastic or infiltrative process rather than multiple sclerosis. MRI of the lumbar spine dated 04/04/2017 indicates chronic compression of L1, degenerative facet disease of L4-5 and L5-S1. ASSESSMENT: Ms. 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 She was diagnosed a little over two years ago and has been on palliative systemic therapy initially with Tarceva and more recently with afatinib. She developed progressive pain involving the back of her head associated with weakness of her lower extremities some weeks ago. MRI of the brain indicates a large cerebellar mass most consistent with metastatic disease as well as areas of dural enhancement and cortical lesions scattered over the left and the right cerebellar hemisphere. MRI of the cervical spine indicates findings concerning for carcinomatosis of the upper spinal cord. The patient had findings concerning for vasogenic edema and has been initiated on corticosteroids, which seems to have helped decrease the pain and help decrease the leg weakness and dys-coordination. Dr. Rich of neurosurgery has evaluated the patient and has recommended a decompressive craniotomy with resection of the tumor involving the cerebellum and has also recommended C1 compressive laminectomy. RECOMMENDATIONS: Metastatic adenocarcinoma of lung primary: Proceed with surgical resection. She will also be candidate for systemic restaging since her most recent restaging studies were from November. Should her disease be truly progressive systemically, it would be reasonable to obtain the T790M mutation analysis and to target that as a potential resistance pathway. For the time being continue corticosteroids. Continue ongoing care. I will talk to Dr. Allison about the patient's turn of events, and he will be back on Friday to assume follow up. MD NINI Tan/JUDY /4:00 PM /6:07 PM
[2017-04-05] MEDS: CYANOCOBALAMIN 100 MCG TAB PO SCH (18:57)
[2017-04-06] VITALS (10 sets, daily range): BP systolic 109–134; BP diastolic 57–69; PULSE 53–92; RESP 17–21; TEMP 96.6–98.1; O2SAT 96–98
[2017-04-06] MEDS: LEVOTHYROXINE SODIUM 75 MCG TAB PO SCH (05:50)
[2017-04-06] MEDS: DEXAMETHASONE SOD PHOS 4 MG/ML VIAL IV PUSH SCH ×4 (05:51→23:28)
[2017-04-06] MEDS: CYANOCOBALAMIN 100 MCG TAB PO SCH (08:33)
[2017-04-06] MEDS: SODIUM CHLORIDE 0.9% FLUSH 10 ML FLUSH IV FLUSH SCH ×2 (08:33→20:21)
--- NOTE | 2017-04-06 16:03 | HHI.PR ---
Subjective Remarks Follow up on patient with brain lizandro, unsteady gait, memory impairment. Patient seen and examined today. Patient states she feels a little stronger today. She reports a near instant improvement in her energy level following her B12 injection. Reports dizziness when going from sitting to standing. Tolerating diet. Appetite improved. Denies any fever or chills. Denies any chest pain or shortness of breath. No complaints of headaches. Objective Vitals Vital Signs Date Time Temp Pulse Resp B/P (MAP) Pulse Ox O2 Delivery O2 Flow Rate FiO2 04/06/17 12:07 97.2 62 20 128/61 (83) 96 04/06/17 11:33 64 04/06/17 09:53 70 04/06/17 08:47 96.6 57 21 126/58 (80) 96 04/06/17 04:00 97.4 62 17 109/57 (74) 96 04/06/17 04:00 53 04/06/17 00:00 62 04/06/17 00:00 97.8 74 17 119/58 (78) 96 04/05/17 20:00 98.8 75 18 108/54 (72) 94 04/05/17 20:00 73 04/05/17 16:29 98.3 71 20 141/65 (90) 96 I/O 04/05/17 04/05/17 04/05/17 04/06/17 04/06/17 04/06/17 06:59 14:59 22:59 06:59 14:59 22:59 # Voids 2 5 Result Diagram: 04/04/17 0840 04/04/17 0840 Imaging Last Impressions Lumbar Spine MRI 04/04/17 0000 Signed Impressions: Service Date/Time: Tuesday, April 04, 2017 09:19 - CONCLUSION: I don't see evidence for worsening MS. Chronic compression of L1 Degenerative facet disease L4-5, L5-S1 without significant spinal stenosis. There is mild neuroforaminal encroachment. Ed Roque MD FACR Cervical Spine MRI 04/04/17 0000 Signed Impressions: Service Date/Time: Tuesday, April 04, 2017 09:19 - CONCLUSION: Markedly abnormal high cervical cord with increased signal in the cord. There is cord expansion more suggestive of neoplastic or infiltrative process rather then multiple sclerosis. Markedly abnormal cerebellum MRI of the brain is pending. Ed Roque MD FACR Brain MRI 04/04/17 0000 Signed Impressions: Service Date/Time: Tuesday, April 04, 2017 09:19 - CONCLUSION: Markedly abnormal cerebellum enhancing mass and scattered other areas of cortical enhancement on the right most suspicious for neoplastic process. Markedly abnormal MRI of the high cervical spine as described on that report. Ed Roque MD FACR Head CT 04/03/17 1233 Signed Impressions: Service Date/Time: , April 03, 2017 13:44 - CONCLUSION: Abnormal brain appearance. Mild symmetric hydrocephalus and patchy areas of parenchymal brain hypodensity. Recommend further evaluation with brain MRI with and without contrast. Gordy Elizalde MD Chest X-Ray 04/03/17 1233 Signed Impressions: Service Date/Time: , April 03, 2017 12:44 - CONCLUSION: No acute disease. Emanuel Hood Jr., MD Cervical Spine CT 04/03/17 0000 Signed Impressions: Service Date/Time: , April 03, 2017 13:44 - CONCLUSION: Degenerative disc change at C6-7 with mild disc osteophyte complex. There is moderate narrowing of the left neural foramina at this level. Rafael Mariee MD Objective Remarks GENERAL: Well-nourished, well-developed patient in NAD. Awake and alert. Appears comfortable. SKIN: Warm and dry. No rash. HEENT: Normocephalic. Atraumatic. EOMI. No scleral icterus. No injection or drainage. No nasal discharge. MMM. NECK: Supple. Trachea midline. CARDIOVASCULAR: Regular rate and rhythm. S1, S2 noted. No murmur appreciated. RESPIRATORY: No accessory muscle use. Clear to auscultation. Breath sounds equal bilaterally. GASTROINTESTINAL: Abdomen soft, non-tender, nondistended. Normoactive bowel sounds x4. MUSCULOSKELETAL: No obvious deformities. Extremities without clubbing, cyanosis , or edema. NEUROLOGICAL: Awake and alert. Subtle tremor noted in hands. Able to move all extremities. Motor and sensory grossly intact bilateral upper and lower extremities. Normal speech. PSYCHIATRIC: Appropriate mood and affect; insight and judgment normal. Medications and IVs Current Medications Medications (Trade) Dose Ordered Sig/Pierce Route Start Time Stop Time Status Last Admin (NS Flush) 2 ml UNSCH PRN IV FLUSH 04/03/17 16:00 04/04/17 06:30 (NS Flush) 2 ml BID IV FLUSH 04/03/17 21:00 04/06/17 08:33 (Synthroid) 75 mcg DAILY@0600 PO 04/04/17 06:00 04/06/17 05:50 Patient Own Medication PT OWN MED: Gilot... DAILY PO 04/04/17 09:00 Future Hold (Zofran Inj) 4 mg Q8H PRN IV PUSH 04/03/17 17:30 04/04/17 13:37 (Zofran Odt) 4 mg Q6H PRN PO 04/03/17 17:30 (Phenergan Inj) 12.5 mg Q6H PRN IM 04/03/17 17:30 (Tylenol-Codeine #3) 1 tab Q6H PRN PO 04/03/17 18:15 04/05/17 14:40 (Morphine Inj) 1 mg Q6H PRN IV PUSH 04/03/17 18:15 04/04/17 06:30 (Decadron Inj) 4 mg Q6HR IV PUSH 04/04/17 12:30 04/06/17 12:40 (Vitamin B12) 100 mcg DAILY PO 04/05/17 17:00 04/06/17 08:33 A/P Problem List: (1) Unsteady gait ICD Code: R26.81 - Unsteadiness on feet (2) Hypothyroidism ICD Code: E03.9 - Hypothyroidism, unspecified Status: Acute (3) Generalized weakness ICD Code: R53.1 - Weakness Status: Acute (4) Altered mental status, unspecified ICD Code: R41.82 - Altered mental status, unspecified Status: Acute Assessment and Plan 61-year-old white female being admitted for progressive neurological decline including mild memory impairment as well as unstable gait. 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) - Patient with a history of metastatic non-small cell lung cancer - MRI of the brain indicates a large cerebellar mass most consistent with metastatic disease as well as areas of dural enhancement and cortical lesions scattered over the left and right cerebellar hemisphere - MRI cervical spine indicates he is concerning for carcinoma ptosis of the upper spinal cord - Neurosurgery following - planning for cord decompression, biopsy and possible resection of the cerebellar lesion along with the occipital decompressive craniotomy and C1 decompressive laminectomy - Hematology following - recommending medical oncology treatment afterwards - continue Decadron 3) memory impairment - likely due to brain mets -CMP unremarkable, ESR wnl. mg and phosph stable. folate and tsh wnl, b12 on lower end of normal, given B12 injection with good response ppr. Continue with po supplement daily. 3) headache - no complaints of headache today - Tylenol, morphine otherwise - Cerebellar mass and cord expansion/edema - continue w/ decadron 4) nausea - by mouth Zofran, IV Zofran if refractory, IM Phenergan if refractory - improved - tolerating po - UA unremarkable, blood cultures obtained from ER NGTD 5) hypothyroidism - Continue home Synthroid 6) postural dizziness - Check orthostatic blood pressure measurements Discussed with patient and Dr. Haq Problem Qualifiers (1) Altered mental status, unspecified: Qualified Codes: R41.82 - Altered mental status, unspecified Stacia Cabrales Apr 06, 2017 16:03
--- NOTE | 2017-04-06 20:48 | PD.ONC.PN ---
Subjective Subjective Remarks This note reflects our encounter at 5 pm. Subjectively; Ms. Michelle reports feeling much improved, she specifically feels her coordination and energy levels are better, her legs feels stronger. She wants to know if she can take a shower. Occipital Headache is improved, it tends to be more pronounced when she strains or bends down. Objective Data Date Time Temp Pulse Resp B/P (MAP) Pulse Ox O2 Delivery O2 Flow Rate FiO2 04/06/17 16:59 97.1 70 20 134/63 (86) 96 04/06/17 16:41 65 04/06/17 12:07 97.2 62 20 128/61 (83) 96 04/06/17 11:33 64 04/06/17 09:53 70 04/06/17 08:47 96.6 57 21 126/58 (80) 96 04/06/17 04:00 97.4 62 17 109/57 (74) 96 04/06/17 04:00 53 04/06/17 00:00 62 04/06/17 00:00 97.8 74 17 119/58 (78) 96 04/06/17 04/06/17 04/06/17 07:00 15:00 23:00 Intake Total 480 ml Balance 480 ml Result Diagram: 04/04/17 0840 04/04/17 0840 Administered Medications Medications (Trade) Dose Ordered Sig/Pierce Route PRN Reason Start Time Stop Time Status Last Admin Dose Admin Sodium Chloride (NS Flush) 2 ml UNSCH PRN IV FLUSH FLUSH AFTER USING IV ACCESS 04/03/17 16:00 04/04/17 06:30 Sodium Chloride (NS Flush) 2 ml BID IV FLUSH 04/03/17 21:00 04/06/17 20:21 Levothyroxine Sodium (Synthroid) 75 mcg DAILY@0600 PO 04/04/17 06:00 04/06/17 05:50 Ondansetron HCl (Zofran Inj) 4 mg Q8H PRN IV PUSH nausea 04/03/17 17:30 04/04/17 13:37 Acetaminophen/ Codeine Phosphate (Tylenol-Codeine #3) 1 tab Q6H PRN PO headache 04/03/17 18:15 04/05/17 14:40 Morphine Sulfate (Morphine Inj) 1 mg Q6H PRN IV PUSH breakthrough pain 04/03/17 18:15 04/04/17 06:30 Dexamethasone Sodium Phosphate (Decadron Inj) 4 mg Q6HR IV PUSH 04/04/17 12:30 04/06/17 17:16 Cyanocobalamin (Vitamin B12) 100 mcg DAILY PO 04/05/17 17:00 04/06/17 08:33 Objective Remarks GENERAL PHYSICAL APPEARANCE: Ms. Michelle is a middle-aged female, she is short and of moderate build and appears to be in no acute distress. She is sitting up at the side of the bed. HEAD, EYES, EARS, NOSE, THROAT: Head is atraumatic, normocephalic, conjunctivae are not pale, sclerae are anicteric, Extraocular muscles intact. Pupils equal, round and reactive to light and accommodation. ORAL EXAM: No pharyngeal erythema. NECK: No palpable cervical or supraclavicular adenopathy. RESPIRATORY: Good air movement bilaterally. No added breath sounds. CARDIOVASCULAR: Regular rate and rhythm, S1-S2. No obvious murmurs, rubs or gallops. ABDOMEN: Thin belly, soft and nontender, nondistended, no palpable organ enlargement. LOWER EXTREMITIES: No pretibial edema or calf tenderness. [employer]: No focal sensory or motor deficits, she has 5/5 strength of the upper and lower extremities. Assessment/Plan Assessment Ms. 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 She was diagnosed a little over two years ago and has been on palliative systemic therapy initially with Tarceva and more recently with afatinib. She developed progressive pain involving the back of her head associated with weakness of her lower extremities some weeks ago. MRI of the brain indicates a large cerebellar mass most consistent with metastatic disease as well as areas of dural enhancement and cortical lesions scattered over the left and the right cerebellar hemispheres. The patient had findings concerning for vasogenic edema and has been initiated on corticosteroids, which seems to have helped decrease the pain and help decrease the leg weakness and dys-coordination. Dr. Rich of neurosurgery has evaluated the patient and has recommended a decompressive craniotomy with resection of the tumor involving the cerebellum and has also recommended C1 compressive laminectomy. Plan 1. Metastatic lung carcinoma: Continue supportive care for now. Neurosurgery to schedule the pt for the OR to decompress the posterior fossa with maximal safe resection of the cerebellar lesion. Continue dexamethasone, she appears clinically improved today and I suspect that is due to the decrease in the vasogenic edema. Dr. Allison will return on 04/07 to resume care. Case discussed with Dr. Rich. Mikel Haines MD Apr 06, 2017 20:48
--- NOTE | 2017-04-06 23:56 | HHI.NSPN ---
History Chief Complaint: no complaint Interval History 61-year-old female with previous history of cervical syrinx with Chiari malformation documented in previous MRI of the cervical spine from 2011. Previously followed by neurology-Dr. Kaela Mariscal. Patient also has a history of metastatic non-small cell lung cancer. Prior imaging revealed metastatic disease to the lumbar spine. Patient now presents with a few weeks of dizziness and headache. Recently seen by neurology as an outpatient. She came to the emergency room on 04/03/17 due to speech difficulty, mental status changes, nausea and vomiting and persistent headache. Exam Results Vital Signs Date Time Temp Pulse Resp B/P (MAP) Pulse Ox O2 Delivery O2 Flow Rate FiO2 04/06/17 21:19 98.0 61 18 131/57 (81) 98 04/03/17 14:22 Room Air Intake and Output 04/06/17 04/06/17 04/07/17 08:00 16:00 00:00 Intake Total 480 ml 240 ml Balance 480 ml 240 ml Physical Examination Patient resting quietly this evening. I did not awaken her. Medical Decision Making Impression and Plan Impression: 1. Multiple brain lesions in patient with previous history of metastatic non- small cell lung cancer. 2. Chiari malformation with progressive syringomyelia compared to previous MRI imaging from 2011 Plan: Anticipate suboccipital decompressive craniotomy, resection cerebellar vermis lesion later in the week. We will need to discuss further with the patient and family. Clem Rich MD Apr 06, 2017 23:56
[2017-04-07] VITALS (12 sets, daily range): BP systolic 118–143; BP diastolic 55–69; PULSE 53–64; RESP 18–21; TEMP 96–98.4; O2SAT 94–97
[2017-04-07] MEDS: DEXAMETHASONE SOD PHOS 4 MG/ML VIAL IV PUSH SCH ×3 (05:10→18:08)
[2017-04-07] MEDS: LEVOTHYROXINE SODIUM 75 MCG TAB PO SCH (05:10)
[2017-04-07] MEDS: CYANOCOBALAMIN 100 MCG TAB PO SCH (08:25)
[2017-04-07] MEDS: SODIUM CHLORIDE 0.9% FLUSH 10 ML FLUSH IV FLUSH SCH ×2 (08:25→21:00)
--- NOTE | 2017-04-07 09:56 | HHI.PR ---
Subjective Remarks Follow up on patient with brain lizandro, unsteady gait, memory impairment. Patient seen and examined today. She would like to shower today. She did not sleep well last night due to building noise. She denies any complaints. Appetite improving. No nausea or vomiting. No headaches. Orthostatics were negative. Objective Vitals Vital Signs Date Time Temp Pulse Resp B/P (MAP) Pulse Ox O2 Delivery O2 Flow Rate FiO2 04/07/17 08:30 96.0 57 20 143/64 (90) 96 04/07/17 06:46 97.8 59 18 118/58 (78) 95 04/07/17 04:00 58 04/07/17 01:14 98.4 64 18 120/67 (84) 97 131/64 (86) 143/69 (93) 04/07/17 00:00 63 04/06/17 21:19 98.0 61 18 131/57 (81) 98 04/06/17 20:00 68 04/06/17 16:59 97.1 70 20 134/63 (86) 96 04/06/17 16:41 65 04/06/17 12:07 97.2 62 20 128/61 (83) 96 04/06/17 11:33 64 04/06/17 09:53 70 I/O 04/06/17 04/06/17 04/06/17 04/07/17 04/07/17 04/07/17 07:00 15:00 23:00 07:00 15:00 23:00 Intake Total 480 ml 240 ml 480 ml Balance 480 ml 240 ml 480 ml Intake Oral 480 ml 240 ml 480 ml # Voids 3 1 2 # Bowel Movements 1 Result Diagram: 04/04/17 0840 04/04/17 0840 Imaging Last Impressions Lumbar Spine MRI 04/04/17 0000 Signed Impressions: Service Date/Time: Tuesday, April 04, 2017 09:19 - CONCLUSION: I don't see evidence for worsening MS. Chronic compression of L1 Degenerative facet disease L4-5, L5-S1 without significant spinal stenosis. There is mild neuroforaminal encroachment. Ed Roque MD FACR Cervical Spine MRI 04/04/17 0000 Signed Impressions: Service Date/Time: Tuesday, April 04, 2017 09:19 - CONCLUSION: Markedly abnormal high cervical cord with increased signal in the cord. There is cord expansion more suggestive of neoplastic or infiltrative process rather then multiple sclerosis. Markedly abnormal cerebellum MRI of the brain is pending. Ed Roque MD FACR Brain MRI 04/04/17 0000 Signed Impressions: Service Date/Time: Tuesday, April 04, 2017 09:19 - CONCLUSION: Markedly abnormal cerebellum enhancing mass and scattered other areas of cortical enhancement on the right most suspicious for neoplastic process. Markedly abnormal MRI of the high cervical spine as described on that report. Ed Roque MD FACR Head CT 04/03/17 1233 Signed Impressions: Service Date/Time: March 13:44 - CONCLUSION: Abnormal brain appearance. Mild symmetric hydrocephalus and patchy areas of parenchymal brain hypodensity. Recommend further evaluation with brain MRI with and without contrast. Gordy Elizalde MD Chest X-Ray 04/03/17 1233 Signed Impressions: Service Date/Time: , April 03, 2017 12:44 - CONCLUSION: No acute disease. Emanuel Hood Jr., MD Cervical Spine CT 04/03/17 0000 Signed Impressions: Service Date/Time: , April 03, 2017 13:44 - CONCLUSION: Degenerative disc change at C6-7 with mild disc osteophyte complex. There is moderate narrowing of the left neural foramina at this level. Rafael Mariee MD Objective Remarks GENERAL: Well-nourished, well-developed patient in NAD. Awake and alert. Sitting up in bed. SKIN: Warm and dry. No rash. HEENT: Normocephalic. Atraumatic. EOMI. No scleral icterus. No injection or drainage. No nasal discharge. MMM. NECK: Supple. Trachea midline. CARDIOVASCULAR: Regular rate and rhythm. S1, S2 noted. No murmur appreciated. RESPIRATORY: No accessory muscle use. Clear to auscultation. Breath sounds equal bilaterally. GASTROINTESTINAL: Abdomen soft, non-tender, nondistended. Normoactive bowel sounds x4. MUSCULOSKELETAL: No obvious deformities. Extremities without clubbing, cyanosis , or edema. NEUROLOGICAL: Awake and alert. Subtle tremor noted in hands. Able to move all extremities. Motor and sensory grossly intact bilateral upper and lower extremities. Normal speech. PSYCHIATRIC: Appropriate mood and affect; insight and judgment normal. Medications and IVs Current Medications Medications (Trade) Dose Ordered Sig/Pierce Route Start Time Stop Time Status Last Admin (NS Flush) 2 ml UNSCH PRN IV FLUSH 04/03/17 16:00 04/04/17 06:30 (NS Flush) 2 ml BID IV FLUSH 04/03/17 21:00 04/07/17 08:25 (Synthroid) 75 mcg DAILY@0600 PO 04/04/17 06:00 04/07/17 05:10 Patient Own Medication PT OWN MED: Gilot... DAILY PO 04/04/17 09:00 Future Hold (Zofran Inj) 4 mg Q8H PRN IV PUSH 04/03/17 17:30 04/04/17 13:37 (Zofran Odt) 4 mg Q6H PRN PO 04/03/17 17:30 (Phenergan Inj) 12.5 mg Q6H PRN IM 04/03/17 17:30 (Tylenol-Codeine #3) 1 tab Q6H PRN PO 04/03/17 18:15 04/05/17 14:40 (Morphine Inj) 1 mg Q6H PRN IV PUSH 04/03/17 18:15 04/04/17 06:30 (Decadron Inj) 4 mg Q6HR IV PUSH 04/04/17 12:30 04/07/17 05:10 (Vitamin B12) 100 mcg DAILY PO 04/05/17 17:00 04/07/17 08:25 A/P Problem List: (1) Unsteady gait ICD Code: R26.81 - Unsteadiness on feet (2) Hypothyroidism ICD Code: E03.9 - Hypothyroidism, unspecified Status: Acute (3) Generalized weakness ICD Code: R53.1 - Weakness Status: Acute (4) Altered mental status, unspecified ICD Code: R41.82 - Altered mental status, unspecified Status: Acute Assessment and Plan 61-year-old white female being admitted for progressive neurological decline including mild memory impairment as well as unstable gait. 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) - Patient with a history of metastatic non-small cell lung cancer - MRI of the brain indicates a large cerebellar mass most consistent with metastatic disease as well as areas of dural enhancement and cortical lesions scattered over the left and right cerebellar hemisphere - MRI cervical spine indicates he is concerning for carcinoma ptosis of the upper spinal cord - Neurosurgery following - planning for cord decompression, biopsy and possible resection of the cerebellar lesion along with the occipital decompressive craniotomy and C1 decompressive laminectomy - Hematology following - recommending medical oncology treatment afterwards - continue Decadron - Consult palliative care 3) memory impairment - likely due to brain mets - CMP unremarkable, ESR wnl. mg and phosph stable. folate and tsh wnl, b12 on lower end of normal, given B12 injection with good response ppr. Continue with po supplement daily. 3) headache - no complaints of headache today - Tylenol, morphine otherwise - Cerebellar mass and cord expansion/edema - continue w/ decadron 4) nausea - by mouth Zofran, IV Zofran if refractory, IM Phenergan if refractory - improved - tolerating po - UA unremarkable, blood cultures obtained from ER NGTD 5) hypothyroidism - Continue home Synthroid 6) postural dizziness - orthostatic blood pressure measurements negative Discussed with patient and Dr. Haq Problem Qualifiers (1) Altered mental status, unspecified: Qualified Codes: R41.82 - Altered mental status, unspecified Stacia Cabrales Apr 07, 2017 09:56
--- NOTE | 2017-04-07 12:21 | HHI.NSPN ---
(Hermelinda Byrd) Note Status Status: Progress Note (Hermelinda Byrd) Interval History Interval History 61-year-old female with previous history of cervical syrinx with Chiari malformation documented in previous MRI of the cervical spine from 2011. Previously followed by neurology-Dr. Kaela Mariscal. Patient also has a history of metastatic non-small cell lung cancer. Prior imaging revealed metastatic disease to the lumbar spine. Patient now presents with a few weeks of dizziness and headache. Recently seen by neurology as an outpatient. She came to the emergency room on 04/03/17 due to speech difficulty, mental status changes, nausea and vomiting and persistent headache. 04/07: her symptoms better with Decadron. Daughter in room, both she and patient agrees with surgery this week. (Hermelinda Byrd) Labs, Micro, & Vital Signs Results Date Time Temp Pulse Resp B/P (MAP) Pulse Ox O2 Delivery O2 Flow Rate FiO2 04/07/17 08:30 96.0 57 20 143/64 (90) 96 04/07/17 06:46 97.8 59 18 118/58 (78) 95 04/07/17 04:00 58 04/07/17 01:14 98.4 64 18 120/67 (84) 97 131/64 (86) 143/69 (93) 04/07/17 00:00 63 04/06/17 21:19 98.0 61 18 131/57 (81) 98 04/06/17 20:00 68 04/06/17 16:59 97.1 70 20 134/63 (86) 96 04/06/17 16:41 65 Constitutional Vital Signs Date Time Temp Pulse Resp B/P (MAP) Pulse Ox O2 Delivery O2 Flow Rate FiO2 04/07/17 08:30 96.0 57 20 143/64 (90) 96 04/07/17 06:46 97.8 59 18 118/58 (78) 95 04/07/17 04:00 58 04/07/17 01:14 98.4 64 18 120/67 (84) 97 131/64 (86) 143/69 (93) 04/07/17 00:00 63 04/06/17 21:19 98.0 61 18 131/57 (81) 98 04/06/17 20:00 68 04/06/17 16:59 97.1 70 20 134/63 (86) 96 04/06/17 16:41 65 (Hermelinda Byrd) Review of Systems Cardiovascular: DENIES: Chest pain Neurologic: COMPLAINS OF: Abnormal gait, Poor Balance (Hermelinda Byrd) Physical Exam Alert, awake. Oriented x 3 Speech is appropriate. CN: pupils equal, facial motor symmetric Motor: moves all four extremities (Hermelinda Byrd) Ms Michelle is alert, awake and oriented to time, place and person. Speech is fluent. Cranial nerve examination: pupils to be equal, round and reactive to light. Extra-ocular movements are intact. Facial motor and sensory function are normal and symmetrical. Gross hearing appears intact. Sternocleidomastoid and trapezius muscles are symmetrical. Other cranial nerves are intact. Neck is soft and supple with a good range of motion without pain. Muscle strength is normal in all muscle groups of both upper and lower extremities. Sensory examination is intact to light touch and pin prick in both the upper and lower extremities. Deep tendon reflexes are symmetrical in both upper and lower extremities. There is a bilateral plantar flexion response. Cerebellar examination is limited (Deon Waller MD) Medications Current Medications Current Medications Medications (Trade) Dose Ordered Sig/Pierce Route PRN Reason Start Time Stop Time Status Last Admin Dose Admin Sodium Chloride (NS Flush) 2 ml UNSCH PRN IV FLUSH FLUSH AFTER USING IV ACCESS 04/03/17 16:00 04/04/17 06:30 Sodium Chloride (NS Flush) 2 ml BID IV FLUSH 04/03/17 21:00 04/07/17 08:25 Levothyroxine Sodium (Synthroid) 75 mcg DAILY@0600 PO 04/04/17 06:00 04/07/17 05:10 Patient Own Medication PT OWN MED: [facility]... DAILY PO 04/04/17 09:00 Future Hold Ondansetron HCl (Zofran Inj) 4 mg Q8H PRN IV PUSH nausea 04/03/17 17:30 04/04/17 13:37 Ondansetron HCl (Zofran Odt) 4 mg Q6H PRN PO nausea 04/03/17 17:30 Promethazine HCl (Phenergan Inj) 12.5 mg Q6H PRN IM nausea 04/03/17 17:30 Acetaminophen/ Codeine Phosphate (Tylenol-Codeine #3) 1 tab Q6H PRN PO headache 04/03/17 18:15 04/05/17 14:40 Morphine Sulfate (Morphine Inj) 1 mg Q6H PRN IV PUSH breakthrough pain 04/03/17 18:15 04/04/17 06:30 Dexamethasone Sodium Phosphate (Decadron Inj) 4 mg Q6HR IV PUSH 04/04/17 12:30 04/07/17 11:54 Cyanocobalamin (Vitamin B12) 100 mcg DAILY PO 04/05/17 17:00 04/07/17 08:25 (Hermelinda Byrd) Current Medications Current Medications IV Flush (NS Flush) 2 ml UNSCH PRN IV FLUSH FLUSH AFTER USING IV ACCESS; Start 04/03/17 at 12:45; Stop 04/03/17 at 15:50; Status DC Sodium Chloride 1,000 ml @ 1,000 mls/hr Q1H IV Last administered on 04/03/17 12:45; Start 04/03/17 at 12:33; Stop 04/03/17 at 13:32; Status DC Sodium Chloride (NS Flush) 2 ml UNSCH PRN IV FLUSH FLUSH AFTER USING IV ACCESS Last administered on 04/04/17 06:30; Start 04/03/17 at 16:00 Sodium Chloride (NS Flush) 2 ml BID IV FLUSH Last administered on 04/07/17 08: 25; Start 04/03/17 at 21:00 Levothyroxine Sodium (Synthroid) 75 mcg DAILY@0600 PO Last administered on 05:10; Start 04/04/17 at 06:00 Patient Own Medication PT OWN MED: [place]... DAILY PO ; Start 04/04/17 at 09:00; Status Future Hold Ondansetron HCl (Zofran Inj) 4 mg STK-MED ONCE .ROUTE ; Start 04/03/17 at 16:39 ; Stop 04/03/17 at 16:40; Status DC Sodium Chloride 1,000 ml @ 100 mls/hr Q10H IV Last administered on 04/05/17 02 :31; Start 04/03/17 at 20:00; Stop 04/05/17 at 16:52; Status DC Sodium Chloride 1,000 ml @ 999 mls/hr BOLUS ONCE IV Last administered on 04/03 20:00; Start 04/03/17 at 20:00; Stop 04/03/17 at 21:00; Status DC Ondansetron HCl (Zofran Inj) 4 mg Q8H PRN IV PUSH nausea Last administered on 13:37; Start 04/03/17 at 17:30 Ondansetron HCl (Zofran Odt) 4 mg Q6H PRN PO nausea; Start 04/03/17 at 17:30 Promethazine HCl (Phenergan Inj) 12.5 mg Q6H PRN IM nausea; Start 04/03/17 at 17:30 Acetaminophen/ Codeine Phosphate (Tylenol-Codeine #3) 1 tab Q6H PRN PO headache Last administered on 04/05/17 14:40; Start 04/03/17 at 18:15 Morphine Sulfate (Morphine Inj) 1 mg Q6H PRN IV PUSH breakthrough pain Last administered on 04/04/17 06:30; Start 04/03/17 at 18:15 Gadodiamide (Omniscan Pf Inj) 15 ml STK-MED ONCE IVCONTRAST Last administered on 04/03/17 15:52; Start 04/03/17 at 15:52; Stop 04/04/17 at 10:26; Status DC Dexamethasone Sodium Phosphate (Decadron Inj) 4 mg Q6HR IV PUSH Last administered on 04/07/17 11:54; Start 04/04/17 at 12:30 Cyanocobalamin (Vitamin B12 Inj) 1,000 mcg ONCE ONCE IM Last administered on 18:57; Start 04/05/17 at 17:00; Stop 04/05/17 at 17:01; Status DC Cyanocobalamin (Vitamin B12) 100 mcg DAILY PO Last administered on 04/07/17 08: 25; Start 04/05/17 at 17:00 (Deon Waller MD) Medical Decision Making MDM Remarks 61 y/o female with 1. Multiple brain lesions in patient with previous history of metastatic non- small cell lung cancer. 2. Chiari malformation with progressive syringomyelia compared to previous MRI imaging from 2011 (Hermelinda Byrd) Plan Plan Remarks Dr. Waller discussed with patient and daughter in room Dr. Rich plans for suboccipital decompressive craniotomy with resection cerebellar vermis lesion later this week, Dr. Villegas to return tomorrow to discuss further surgical plans cont Decadron Protonix for stress ulcer prophylaxis (Hermelinda Byrd) Attending Statement Brain mets. Continue neuro checks. I again reviewed her MRI of the brain. there is enhancing midline cerebellar mass and scattered other areas of dural- based enhancement in majority over the left occipital region suggesting dural carcinomatosis. Planned surgery this week by Dr Rich. Discussed extensively with her and with her daughter Continue IV decadron for cerebral edema Pulmonary.. Continue aggressive pulmonary toilette, nasotracheal suction, and breathing treatments with nebulizers. Nutrition. NPO Renal. monitor closely urine output, BUN and creatinine Endocrine. Monitor serial Acu checks and SSI as needed in detail ID monitor for signs of infection Protonix for stress ulcer prophylaxis Nick hose and SCD's for DVT prophylaxis Discussed with her daughter The exam, history, and the medical decision-making described in the above note were completed with the assistance of the mid-level provider. I reviewed and agree with the findings presented. I attest that I had a [id number] encounter with the patient on the same day, and personally performed and documented my assessment and findings in the medical record. (Deon Waller MD) Hermelinda Byrd Apr 07, 2017 12:20 Deon Waller MD Apr 07, 2017 13:24
--- NOTE | 2017-04-07 14:40 | PD.CONS ---
Consult Service Palliative Care Consult Requested By Sana BENITO . Primary Care Physician Gordy Lyle, DO Reason for Consultation a. To assist with evaluation and management of symptoms including: b. To assist medical decision maker(s) with: better understanding of current medical conditions; weighing benefits/burdens of medical treatment options; making medical treatment decisions. HPI History of Present Illness This 61-year-old female presented to the ED on 04/03/17 with complaints of head and neck pain 1 week, as well as generalized weakness forgetfulness and dizziness 3 days. 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 On oral chemotherapy, reported cancer in remission. Other ROS positive for nausea without vomiting, subjective fevers. She denied shortness of breath, change in bowel or bladder, vision changes or numbness and tingling. Apparently recently underwent MRI for further evaluation on outpatient basis. * Patient noted to have unsteady gait by ER staff. CT brain :Abnormal brain appearance. Mild symmetric hydrocephalus and patchy areas of parenchymal brain hypodensity. Recommend further evaluation with brain MRI with and without contrast. EKG notes sinus rhythm. Patient with difficulty urinating initially refused catheter, but later agreed. Patient was admitted for further evaluation and management. * Neurology consulted. PT, OT, ST to follow. Oncology also consulted. * Neurology: Concerns for enhancement of right cerebellum possible mass versus carcinomatous meningitis; C-spine also showing high abnormal cervical cord signal expansion suggestive of neoplastic process.+ Noted positive history syrinx from old MRI. * Neurosurgery:Significant progression of Cervical syringomyelia with associated Chiari malformation, previously seen on MRI cervical spine from 2012. Progression may be at least partially related to the cerebellar lesion. Questionable new cervical spinal cord neoplastic disease per radiology interpretation.It is anticipated that she will require a posterior decompression , biopsy and possible resection of the cerebellar lesion along with suboccipital decompressive craniotomy and C1 compressive laminectomy. * Oncology: (seen by Dr Haines, pt known to Dr Allison) Patient noted to be on palliative systemic chemotherapy afatinib at reduced dose 20 mg a day. Concerns for vasogenic edema, has been started on corticosteroids. Some improvement of pain and leg weakness with addition of corticosteroids. 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 Oncology recommends proceed with surgical resection, may also be a candidate for systemic restaging is most recent restaging studies were in November. Should disease be truly progressive systemically reasonable to obtain T790M mutation analysis to target that as potential resistance pathway. * 04/07 some improvement in symptoms with steroid. Neurosurgery having ongoing discussions with patient and daughter, they elect to proceed with planned suboccipital decompressive craniotomy with resection cerebellar lesion later this week. Palliative care consult to assist with clarification of goals of treatment. Patient seen in room no visitors present. She is alert, pleasant. Seen ambulating around room, applying facial lotion at mirror. Appropriate, oriented reasonable insight. Discussed at length with primary nurse. Primary nurse witnessed completion of advance directives. Per review of available records note follow-up with oncologist Dr Allison : Recent CBC noted to be normal chemistry essentially normal. Lung cancer stable on Gilotrif. Patient apparently at that time with recent dizziness seen in the ED for , was told may be related to cardiac issues. CT brain was done which showed small focus of low-attenuation changes right parietal lobe cortex. MRI brain showed small focal region of abnormality right parietal lobe mild to high convexity of noted on CT exam corresponds to cortical loss adjacent white matter edema most consistent with evolving small infarct. Noted to not have the appearance of a mass on the lack of contrast enhanced images limits full characterization. Patient was started on baby aspirin. Patient was referred to neurology, and was awaiting appointment. Discussed possibility of MRI with contrast however this was deferred for further neurology evaluation, plan for follow-up in 3 months. Function/Cognitive Trajectory lived alone prior to admission, cognitively sharp, independent with all ADLs Review of Systems Constitutional: COMPLAINS OF: Fatigue, Dizziness (intermittent few days before presentation), Change in appetite (decreased with nausea a few days before presentation), Pain (intermittent head and neck pain), Generalized weakness ( onset few days before presentation), DENIES: Weight gain, Weight loss, Chills Eyes: COMPLAINS OF: Blurred vision (intermittent with dizziness episodes), DENIES: Vision loss, Photosensitivity Ears, nose, mouth, throat: DENIES: Oral lesions, Throat pain, Hoarseness Respiratory: DENIES: Apneas, Cough, Wheezing, Sputum production, Shortness of breath Cardiovascular: COMPLAINS OF: Lower Extremity Edema (trace during hospitalization), DENIES: Chest pain, Dyspnea on Exertion Gastrointestinal: COMPLAINS OF: Constipation (during hospital course, relief today), Nausea (intermittent few days before presentation), DENIES: Abdominal pain, Diarrhea, Vomiting, Difficulty Swallowing Genitourinary: DENIES: Urinary frequency, Urinary incontinence Musculoskeletal: COMPLAINS OF: Neck pain (intermittent few days before presentation), DENIES: Joint pain Integumentary: DENIES: Rash Neurologic: COMPLAINS OF: Abnormal gait (felt off-balance few days before presentation), Poor Balance Psychiatric: COMPLAINS OF: Confusion (felt out of sorts few days before presentation) Past Family Social History Coded Allergies: No Known Allergies (Verified , 04/03/17) Past Medical History metastatic adenocarcinoma of the lung dx February of 2015--metastatic lesions L1, left upper lung lobe, positive EGFR mutation status post palliative radiation to vertebral metastases Multiple sclerosis dx 2009 hypothyroidism Hypercholesterolemia Anxiety Arthritis Concussion 2011 . Past Surgical History Hysterectomy Breast augmentation/reduction Biopsy of vertebral body mass Colonoscopy Right wrist surgery . Reported Medications [Dilotrif] 20 Mg PO DAILY Levothyroxine (Levothyroxine Sodium) 75 Mcg Tab 75 Mcg PO DAILY . Current Medications Medications (Trade) Dose Ordered Sig/Pierce Route Start Time Stop Time Status Last Admin (NS Flush) 2 ml UNSCH PRN IV FLUSH 04/03/17 16:00 04/04/17 06:30 (NS Flush) 2 ml BID IV FLUSH 04/03/17 21:00 04/07/17 08:25 (Synthroid) 75 mcg DAILY@0600 PO 04/04/17 06:00 04/07/17 05:10 Patient Own Medication PT OWN MED: Gilot... DAILY PO 04/04/17 09:00 Future Hold (Zofran Inj) 4 mg Q8H PRN IV PUSH 04/03/17 17:30 04/04/17 13:37 (Zofran Odt) 4 mg Q6H PRN PO 04/03/17 17:30 (Phenergan Inj) 12.5 mg Q6H PRN IM 04/03/17 17:30 (Tylenol-Codeine #3) 1 tab Q6H PRN PO 04/03/17 18:15 04/05/17 14:40 (Morphine Inj) 1 mg Q6H PRN IV PUSH 04/03/17 18:15 04/04/17 06:30 (Decadron Inj) 4 mg Q6HR IV PUSH 04/04/17 12:30 04/07/17 11:54 (Vitamin B12) 100 mcg DAILY PO 04/05/17 17:00 04/07/17 08:25 Family History father from Alzheimer's. Mother from brain tumor. Substance Use Tobacco: Nonsmoker Alcohol: Wine monthly Prescription med abuse: None Illicits: None . Psychosocial History Lives alone. . Supported by her only child, daughter who visits about once a week. 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 Daughter indicates patient moves residence frequently, and has exhibited some compulsive- like behaviors such as buying 10 of the same shirt in the same color, and moving every 6 months to a year. Spiritual/Cultural Factors Christianity . Living Will: Copy in medical record Health Care Surrogate: Copy in medical record Date completed: 2014, we did today 04/07/17 Health Care Surrogate(s): Daughter Siena Ethical and Legal Issues Patient has had improving neurological status since admission. Today she appears alert oriented and with good insight. Probably able to make her own decisions, though given her fluctuating mental status best supported by whomever her designated decision maker would be. Of note patient does have healthcare surrogate and advance directive dated 2014 in her electronic record however these documents are not witnessed. Palliative will offer her assistance with completion of new witnessed documents during this admission. Palliative assisted to complete HCS- named dtr Siena as HCS. witnessed by RN. . Physical Exam Vital Signs Date Time Temp Pulse Resp B/P (MAP) Pulse Ox O2 Delivery O2 Flow Rate FiO2 04/07/17 12:15 97.3 60 21 119/55 (76) 94 04/07/17 08:30 96.0 57 20 143/64 (90) 96 04/07/17 06:46 97.8 59 18 118/58 (78) 95 04/07/17 04:00 58 04/07/17 01:14 98.4 64 18 120/67 (84) 97 131/64 (86) 143/69 (93) 04/07/17 00:00 63 04/06/17 21:19 98.0 61 18 131/57 (81) 98 04/06/17 20:00 68 04/06/17 16:59 97.1 70 20 134/63 (86) 96 04/06/17 16:41 65 Exam CONSTITUTIONAL/GENERAL: This is an adequately nourished patient, in no apparent distress. Ambulated around room without difficulty. TUBES/LINES/DRAINS: Peripheral IV upper extremity SKIN: No jaundice, rashes, or lesions. No wounds seen anteriorly. Skin temperature appropriate. Not diaphoretic. HEAD: Atraumatic. Normocephalic. EYES: Pupils equal and round and reactive. Extraocular motions intact. No scleral icterus. No injection or drainage. Fundi not examined. ENT: Hearing grossly normal. Nose without bleeding or purulent drainage. Throat without visible erythema, exudates, masses, or lesions. NECK: Trachea midline. Supple, nontender. No palpable thyroid enlargement or nodularity. CARDIOVASCULAR: Regular rate and rhythm, no murmur. No JVD. Peripheral pulses symmetric. Trace pedal edema. RESPIRATORY/CHEST: Symmetric, unlabored respirations. On room air. Clear to auscultation. Breath sounds equal bilaterally. GASTROINTESTINAL: Abdomen soft, non-tender, nondistended. No palpable masses. No guarding. Bowel sounds present. GENITOURINARY: Without palpable bladder distension. MUSCULOSKELETAL: Extremities without clubbing, cyanosis, or edema. No joint tenderness or effusion noted. No mottling or clubbing. NEUROLOGICAL: Awake and alert. Oriented 3. Insight appears good. Moves all 4 extremities . Motor and sensory grossly within normal limits. Follows commands. PSYCHIATRIC: No obvious anxiety/depression. Appropriately tearful at times when discussing conditions. No apparent hallucinations or other psychotic thought process. Diagnostic Tests Result Diagram: 04/04/17 0840 04/04/17 0840 Microbiology Microbiology Date/Time Source Procedure Growth Status 04/03/17 13:45 Blood Peripheral Aerobic Blood Culture - Preliminary NO GROWTH IN 4 DAYS Resulted 04/03/17 13:45 Blood Peripheral Anaerobic Blood Culture - Final QNS - SEE AEROBE REPORT Resulted Imaging Last Impressions Lumbar Spine MRI 04/04/17 0000 Signed Impressions: Service Date/Time: Tuesday, April 04, 2017 09:19 - CONCLUSION: I don't see evidence for worsening MS. Chronic compression of L1 Degenerative facet disease L4-5, L5-S1 without significant spinal stenosis. There is mild neuroforaminal encroachment. Ed Rouqe MD FACR Cervical Spine MRI 04/04/17 0000 Signed Impressions: Service Date/Time: Tuesday, April 04, 2017 09:19 - CONCLUSION: Markedly abnormal high cervical cord with increased signal in the cord. There is cord expansion more suggestive of neoplastic or infiltrative process rather then multiple sclerosis. Markedly abnormal cerebellum MRI of the brain is pending. Ed Roque MD FACR Brain MRI 04/04/17 0000 Signed Impressions: Service Date/Time: Tuesday, April 04, 2017 09:19 - CONCLUSION: Markedly abnormal cerebellum enhancing mass and scattered other areas of cortical enhancement on the right most suspicious for neoplastic process. Markedly abnormal MRI of the high cervical spine as described on that report. Ed Roque MD FACR Head CT 04/03/17 1233 Signed Impressions: Service Date/Time: March 13:44 - CONCLUSION: Abnormal brain appearance. Mild symmetric hydrocephalus and patchy areas of parenchymal brain hypodensity. Recommend further evaluation with brain MRI with and without contrast. Gordy Elizalde MD Chest X-Ray 04/03/17 1233 Signed Impressions: Service Date/Time: March 12:44 - CONCLUSION: No acute disease. Emanuel Hood Jr., MD Cervical Spine CT 04/03/17 0000 Signed Impressions: Service Date/Time: March 13:44 - CONCLUSION: Degenerative disc change at C6-7 with mild disc osteophyte complex. There is moderate narrowing of the left neural foramina at this level. Rafael Mariee MD Patient/Family Conference Present at Family Conference: patient, daughter Family Conference Time (mins): 50 Family Conference Location: Bedside Issues Discussed: Initially met with patient at bedside approximately 30-35 minutes. Discussion included the following: [Following discussion with patient call to daughter per her request to provide additional update to her] * Palliative care role, purpose, approach * Additional medical, psychosocial, and spiritual history * Patients general health, functional status, and cognitive changes in the months leading up to the current hospitalization * Patient/family understanding of the current medical problems * Patient/family understanding of prognosis * Patients goals of care as best understood from advance directives and/or conversations and/or values * Current medical treatment options and benefits/burdens of those options * Legal decision maker/advance directives * CODE STATUS * Likely scenarios comparing ongoing aggressive care with a transition to comfort measures only * Questions answered to the best of my ability * Palliative care contact information provided Patient appears to have pretty good understanding of hospitalization, and cancer disease course, appears to be pretty good historian as compared with available oncology records. She is mildly forgetful at times though is able to self-correct, loses focus at times but again self corrects. She is able to detail hospital course and potential options fairly reasonably. She seems able to make her own decisions. She verbalizes that if there are reasonable treatment options I can restore her to close to her baseline independence and function and she would continue to pursue such measures, as she has already done fairly well with her initial cancer diagnosis. However should she become dependent, vegetative, or have severe complications she may not wish to pursue further measures, and is very clear that if she suffer significant brain issues such as, or vegetative state that she would not want artificial feeding or life support. Upon review of CODE STATUS she seems to have reasonable understanding and elects DNR, would not want any artificial measures "if it's her time, she wishes "to go ". Following discussion with patient call to daughter Siena. Spoke with her approximately 20 minutes. Daughter also appears to have reasonable understanding of patient cancer history and current hospitalization. Daughter endorses she has seen marked improvement during her hospital course. Daughter is supportive of patient electing DNR, daughter indicates patient would not want artificial or life prolonging measures such as tube feeding etc. Daughter has some questions regarding craniotomy, biopsy, review general operative information regarding craniotomy and possible complications, review possible trajectories including uncomplicated recovery and discharge with home health or rehabilitation versus possibility of complications and setbacks which could significantly impair patient cognitive and functional recovery. Patient and daughter are open to ongoing conversations as clinical course evolves. 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 . Supported by her only child, daughter who visits about once a week. 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 Daughter indicates patient moves residence frequently, and has exhibited some compulsive-like behaviors such as buying 10 of the same shirt in the same color, and moving every 6 months to a year. Spiritual: Member of [facility], Custody Officer has been in, appreciative of ongoing professional nurse support Legal:Patient has had improving neurological status since admission. Today she appears alert oriented and with good insight. Probably able to make her own decisions, though given her fluctuating mental status best supported by whomever her designated decision maker would be. Of note patient does have healthcare surrogate and advance directive dated 2014 in her electronic record however these documents are not witnessed. Palliative will offer her assistance with completion of new witnessed documents during this admission. Palliative assisted to complete HCS- named dtr Siena as HCS. witnessed by RN. Ethical issues impacting care: Important Contacts Siena Guillen daughter [phone] [healthcare surrogate- works as a dental hygienist from 7 AM to 5 PM, so is not always able to answer the phone quickly but will return phone calls] Anne Michelle ([place]) [phone] . Prognosis This patient with known history of stage IV lung cancer, diagnosed in 2014, presented for altered mental status and weakness. Per most recent oncology follow-up disease process had been stable/without progression. Patient now with a moderate size enhancing midline upper cerebellar midline mass with mostly mild surrounding edema. Also similar appearing lesion over the right posterior parietal region. Scattered areas of dural based enhancement primarily left occipital region.The cervical spine study reveals significant enlargement of a previously noted C2 level syrinx seen on MRI from 2012, now with abnormal signal intensity extending in the cord to the mid cervical region with some cord expansion. The cerebellar tonsils remain descended into the C1-2 level, increased from prior MRI from 2012. Oncology recommends proceeding with decompressive craniotomy and C1 decompressive laminectomy, as per neurosurgery's recommendations. From there recommends further restaging studies on findings for possible targeted therapy. Patient with improvement in symptoms thus far during hospital course on Decadron. Prognosis guarded. . Code Status: No Code Plan * Legal decision maker:Patient has had improving neurological status since admission. Today she appears alert oriented and with good insight. Probably able to make her own decisions, though given her fluctuating mental status best supported by whomever her designated decision maker would be. Of note patient does have healthcare surrogate and advance directive dated 2014 in her electronic record however these documents are not witnessed. Palliative will offer her assistance with completion of new witnessed documents during this admission. Palliative assisted to complete HCS- named dtr Siena as HCS. witnessed by RN. * Goals: Patient and daughter wish to proceed with neurosurgical intervention and pursue possible systemic treatment options. They would wish to proceed with potential treatment if patient can regain baseline cognitive and functional status. However if patient should develop significant complications resulting in prolonged hospitalization, and worsening neurological status they would want to have ongoing conversations regarding goals, treatment options. * CODE STATUS: DNR, per patient, daughter supportive of this * SYMPTOMS: --AMS/weakness/confusion- possible metastatic malignancy identified in new brain imaging. Patient also with known history syrinx. Neurosurgery, neurology following. Plan for decompressive craniotomy this week. Has been initiated on steroids, with improvement in weakness and mental status. --Nausea-patient endorses nausea, no vomiting just a feeling of "dry heaving ", accompanied by poor oral intake secondary to this. She endorses for the past day or so on steroids the nausea has subsided and her appetite has improved. Likely this is secondary to possible malignancy findings; with surgical intervention, ongoing steroids symptoms should improve/ will continue to evaluate/has prn zofran available, has not required. * Palliative care will continue to follow during hospital course as condition evolves, to assist patient/decision-maker with understanding of medical conditions, weighing benefits/burdens of treatment options, for clarification of goals of treatment. Additionally will assist with any symptoms of palliative concern . Time Spent Total Floor Time (mins): 70 Thank you for the opportunity to participate in the care of Ms. Michelle. Attestation To help prompt me to consider important information that might be impacting today's encounter and assessment, information from prior notes written by myself or my colleagues may have been "brought forward" into today's note. My signature on this note, however, is an attestation that I personally performed the exam, history, and/or decision-making noted today, and, unless otherwise indicated, the interactions with patient, family, and staff as well as the review of records all occurred today. I also attest that the listed assessment and stated plan reflect my best clinical judgment today based on the combination of historical information, prior notes, and today's exam/ interactions. When time spent is documented, it refers only to time spent today by the signer, or if indicated, combined time spent today by collaborating physician/nurse practitioner. Miranda Martin Apr 07, 2017 14:40
--- NOTE | 2017-04-07 18:51 | PD.ONC.PN ---
Subjective Subjective Remarks Complaining of headache And dizziness Daughter and other family members in the room Not confused anymore Objective Data Date Time Temp Pulse Resp B/P (MAP) Pulse Ox O2 Delivery O2 Flow Rate FiO2 04/07/17 16:24 97.9 61 20 137/61 (86) 97 04/07/17 16:16 53 04/07/17 12:15 97.3 60 21 119/55 (76) 94 04/07/17 12:04 60 04/07/17 08:30 96.0 57 20 143/64 (90) 96 04/07/17 08:03 60 04/07/17 06:46 97.8 59 18 118/58 (78) 95 04/07/17 04:00 58 04/07/17 01:14 98.4 64 18 120/67 (84) 97 131/64 (86) 143/69 (93) 04/07/17 00:00 63 04/06/17 21:19 98.0 61 18 131/57 (81) 98 04/06/17 20:00 68 04/07/17 04/07/17 04/07/17 06:59 14:59 22:59 Intake Total 480 ml Balance 480 ml Result Diagram: 04/04/17 0840 04/04/17 0840 Administered Medications Medications (Trade) Dose Ordered Sig/Pierce Route PRN Reason Start Time Stop Time Status Last Admin Dose Admin Sodium Chloride (NS Flush) 2 ml UNSCH PRN IV FLUSH FLUSH AFTER USING IV ACCESS 04/03/17 16:00 04/04/17 06:30 Sodium Chloride (NS Flush) 2 ml BID IV FLUSH 04/03/17 21:00 04/07/17 08:25 Levothyroxine Sodium (Synthroid) 75 mcg DAILY@0600 PO 04/04/17 06:00 04/07/17 05:10 Ondansetron HCl (Zofran Inj) 4 mg Q8H PRN IV PUSH nausea 04/03/17 17:30 04/04/17 13:37 Acetaminophen/ Codeine Phosphate (Tylenol-Codeine #3) 1 tab Q6H PRN PO headache 04/03/17 18:15 04/05/17 14:40 Morphine Sulfate (Morphine Inj) 1 mg Q6H PRN IV PUSH breakthrough pain 04/03/17 18:15 04/04/17 06:30 Dexamethasone Sodium Phosphate (Decadron Inj) 4 mg Q6HR IV PUSH 04/04/17 12:30 04/07/17 18:08 Cyanocobalamin (Vitamin B12) 100 mcg DAILY PO 04/05/17 17:00 04/07/17 08:25 Objective Remarks GENERAL: Well-nourished, well-developed patient. SKIN: Warm and dry. HEAD: Normocephalic. EYES: No scleral icterus. No injection or drainage. NECK: Supple, trachea midline. No JVD or lymphadenopathy. LYMPHATIC: No adenopathy. CARDIOVASCULAR: Regular rate and rhythm without murmurs. RESPIRATORY: Breath sounds equal bilaterally. No accessory muscle use. GASTROINTESTINAL: Abdomen soft, non-tender, nondistended. EXTREMITIES: No cyanosis, or edema. MUSCULOSKELETAL: Adequate muscle tone. NEUROLOGICAL: No obvious focal deficit. Awake, alert, and oriented x3. PSYCHIATRIC: Appropriate mood and affect; insight and judgment normal. Assessment/Plan Assessment Ms. 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 She was diagnosed a little over two years ago and has been on palliative systemic therapy initially with Tarceva and more recently with afatinib. She developed progressive pain involving the back of her head associated with weakness of her lower extremities some weeks ago. MRI of the brain indicates a large cerebellar mass most consistent with metastatic disease as well as areas of dural enhancement and cortical lesions scattered over the left and the right cerebellar hemispheres. The patient had findings concerning for vasogenic edema and has been initiated on corticosteroids, which seems to have helped decrease the pain and help decrease the leg weakness and dys-coordination. Dr. Rich of neurosurgery has evaluated the patient and has recommended a decompressive craniotomy with resection of the tumor involving the cerebellum and has also recommended C1 compressive laminectomy. 04/07/17 D/W pt and family regarding MRI results. agree with decompressive cerebellum mass resection. This will be FU by whole brain XRT Resume Gilotrif 20 mg daily. ( Pt own supply) Will order CT C/A/P and T790 mutation Continue decadron Pretty Allison MD Apr 07, 2017 18:51
[2017-04-08] VITALS (12 sets, daily range): BP systolic 121–140; BP diastolic 60–63; PULSE 49–63; RESP 16–18; TEMP 97.9–98.3; O2SAT 94–98
[2017-04-08] MEDS: LEVOTHYROXINE SODIUM 75 MCG TAB PO SCH (07:18)
[2017-04-08] MEDS: DEXAMETHASONE SOD PHOS 4 MG/ML VIAL IV PUSH SCH ×4 (07:18→17:24)
[2017-04-08] MEDS: CYANOCOBALAMIN 100 MCG TAB PO SCH (08:18)
[2017-04-08] MEDS: SODIUM CHLORIDE 0.9% FLUSH 10 ML FLUSH IV FLUSH SCH ×2 (08:18→19:56)
[2017-04-08] MEDS: ACETAMINOPHEN/CODEINE 300 MG/30 MG TAB PO PRN (08:22)
--- NOTE | 2017-04-08 11:26 | PD.ONC.PN ---
Subjective Subjective Remarks Afebrile overnight. Patient is tearful and overwhelmed at recent turn of events. Occasionally has headache along right baptist. Comfortable at present. Objective Data Date Time Temp Pulse Resp B/P (MAP) Pulse Ox O2 Delivery O2 Flow Rate FiO2 04/08/17 04:21 54 04/08/17 04:00 98.0 57 17 127/62 (83) 95 04/08/17 00:05 56 04/08/17 00:00 98.2 57 18 121/60 (80) 95 04/07/17 21:15 64 04/07/17 20:00 98.0 62 18 130/61 (84) 96 04/07/17 16:24 97.9 61 20 137/61 (86) 97 04/07/17 16:16 53 04/07/17 12:15 97.3 60 21 119/55 (76) 94 04/07/17 12:04 60 Result Diagram: 04/04/17 0840 04/04/17 0840 Administered Medications Medications (Trade) Dose Ordered Sig/Pierce Route PRN Reason Start Time Stop Time Status Last Admin Dose Admin Sodium Chloride (NS Flush) 2 ml UNSCH PRN IV FLUSH FLUSH AFTER USING IV ACCESS 04/03/17 16:00 04/04/17 06:30 Sodium Chloride (NS Flush) 2 ml BID IV FLUSH 04/03/17 21:00 04/08/17 08:18 Levothyroxine Sodium (Synthroid) 75 mcg DAILY@0600 PO 04/04/17 06:00 04/08/17 07:18 Ondansetron HCl (Zofran Inj) 4 mg Q8H PRN IV PUSH nausea 04/03/17 17:30 04/04/17 13:37 Acetaminophen/ Codeine Phosphate (Tylenol-Codeine #3) 1 tab Q6H PRN PO headache 04/03/17 18:15 04/08/17 08:22 Morphine Sulfate (Morphine Inj) 1 mg Q6H PRN IV PUSH breakthrough pain 04/03/17 18:15 04/04/17 06:30 Dexamethasone Sodium Phosphate (Decadron Inj) 4 mg Q6HR IV PUSH 04/04/17 12:30 04/08/17 07:18 Cyanocobalamin (Vitamin B12) 100 mcg DAILY PO 04/05/17 17:00 04/08/17 08:18 Objective Remarks GENERAL: Middle aged female upright in bed in [facility]. SKIN: Warm and dry. HEAD: Normocephalic. EYES: No injection or drainage. NECK: Supple, trachea midline. CARDIOVASCULAR: Regular rate and rhythm RESPIRATORY: Breath sounds equal bilaterally. No accessory muscle use. GASTROINTESTINAL: Abdomen soft, non-tender, nondistended. EXTREMITIES: No cyanosis NEUROLOGICAL: awake and alert, normal speech. moving all extremities. Assessment/Plan Problem List: (1) Lung cancer, primary, with metastasis from lung to other site ICD Codes: C34.90 - Lung cancer, primary, with metastasis from lung to other site; C79.9 - Secondary malignant neoplasm of unspecified site Status: Acute Plan: 04/08: continue Decadron, proceed with craniotomy per neurosurgery. plan for whole brain XRT once complete. continue Afatinib 20mg qd. obtain CT C/A/P for repeat staging. 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 --diagnosed a little over two years ago --has been on palliative systemic therapy initially with Tarceva and more recently with afatinib. --developed progressive pain involving the back of her head associated with weakness of her lower extremities some weeks ago. MRI of the brain indicates a large cerebellar mass most consistent with metastatic disease as well as areas of dural enhancement and cortical lesions scattered over the left and the right cerebellar hemisphere. 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 --Dr. Rich of neurosurgery has evaluated the patient and has recommended a decompressive craniotomy with resection of the tumor involving the cerebellum and has also recommended C1 compressive laminectomy. Assessment 61y/o female with metastatic adenocarcinoma of the lung now with newly diagnosed brain mets. History of hypothyroidism. Kidney stones. Multiple sclerosis. Anxiety. Arthritis. Attending Statement Complaining of headaches Await neurosurgical procedure Continued Decadron Get CT of the chest Abdomen and pelvis to restate lung cancer We will follow The exam, history, and the medical decision-making described in the above note were completed with the assistance of the mid-level provider. I reviewed and agree with the findings presented. I attest that I had a [id number] encounter with the patient on the same day, and personally performed and documented my assessment and findings in the medical record. Larisa Mcduffie Apr 08, 2017 11:26 Pretty Allison MD Apr 08, 2017 21:57
[2017-04-08] MEDS ORDERED: DIATRIZOATE MEGLUM/DIATRIZOATE SOD 9 ML CUP PO ONE (13:30)
[2017-04-08 13:33] LABS: POTASSIUM 3.6 MEQ/L (3.5-5.1)
[2017-04-08] MEDS ORDERED: LACTULOSE SYRUP 20 GM/30 ML CUP PO PRN (13:45)
[2017-04-08] MEDS ORDERED: IOHEXOL 350 MG/ML 10 ML VIAL (for RAD DIAG) IVCONTRAST ONE (16:22)
--- NOTE | 2017-04-08 17:23 | RADRPT ---
EXAM DATE/TIME: 04/08/2017 15:15 [facility] COMPARISON: CT THORAX W CONTRAST, February 26, 2015, 15:18. INDICATIONS : Neoplasm post radiation IV CONTRAST: 85 cc Omnipaque 350 (iohexol) IV RADIATION DOSE: 11.89 CTDIvol (mGy) ; Combined studies - Thorax/Abdomen/Pelvis MEDICAL HISTORY : Carcinoma, lung. Multiple sclerosis. SURGICAL HISTORY : Hysterectomy. Tubal ligation. ENCOUNTER: Initial ACUITY: 1 day PAIN SCALE: 0/10 LOCATION: Bilateral chest TECHNIQUE: Volumetric scanning of the chest was performed. Using automated exposure control and adjustment of t he mA and/or kV according to patient size, radiation dose was kept as low as reasonably achievable to obtain optimal diagnostic quality images. DICOM format image data is available electronically for review and comparison. Follow-up recommendations for detected pulmonary nodules are based at a minimum on nodule size and pa tient risk factors according to Fleischner Society Guidelines. FINDINGS: LUNGS: Left upper lobe mass is much smaller, currently about 2.2 x 2.7 cm, previously 3.5 x 4.2 cm. No new o r other masses are demonstrated. No pulmonary nodules. PLEURA: There is no pleural thickening or pleural effusion. MEDIASTINUM: The heart and great vessels demonstrate no acute abnormality. There is no mediastinal or hilar lymph adenopathy. AXILLAE: Within normal limits. No lymphadenopathy. SKELETAL: No lytic or sclerotic lesion seen of the visualized osseous structures. MISCELLANEOUS: The visualized upper abdominal organs demonstrate no acute abnormality. CONCLUSION: 1. Treated tumor in the left upper lobe, with a residual mass that is much smaller than back in 2014. 2. No new or metastatic disease demonstrated. Gordy Laura MD on April 08, 2017 at 17:19 Board Certified Radiologist. This report was verified electronically.
[2017-04-08] MEDS: DOCUSATE SODIUM 50 MG/SENNA 8.6 MG TAB PO SCH ×2 (17:25→20:04)
--- NOTE | 2017-04-08 17:28 | RADRPT ---
EXAM DATE/TIME: 04/08/2017 15:15 [facility] COMPARISON: CT ABDOMEN & PELVIS W CONTRAST, February 25, 2015, 18:33. INDICATIONS : Post radiation, neoplasm. IV CONTRAST: 85 cc Omnipaque 350 (iohexol) IV ORAL CONTRAST: Prescribed oral contrast ingested. RADIATION DOSE: 11.89 CTDIvol (mGy) ; Combined studies - Thorax/Abdomen/Pelvis MEDICAL HISTORY : Multple sclerosis. Carcinoma, lung. SURGICAL HISTORY : Hysterectomy. Tubal ligation. ENCOUNTER: Initial ACUITY: 1 day PAIN SCALE: 0/10 LOCATION: Bilateral lower quadrant TECHNIQUE: Volumetric scanning of the abdomen and pelvis was performed. Using automated exposure control and ad justment of the mA and/or kV according to patient size, radiation dose was kept as low as reasonably achievable to obtain optimal diagnostic quality images. DICOM format image data is available electro nically for review and comparison. FINDINGS: LOWER LUNGS: The visualized lower lungs are clear. LIVER: Fatty liver. No focal hepatic lesion. CT appearance of the gallbladder within normal limits. SPLEEN: Normal size without lesion. PANCREAS: Within normal limits. KIDNEYS: Normal in size and shape. There is no mass, stone or hydronephrosis. ADRENAL GLANDS: Within normal limits. VASCULAR: There is no aortic aneurysm. BOWEL/MESENTERY: The stomach, small bowel, and colon demonstrate no acute abnormality. There is no free intraperitone al air or fluid. ABDOMINAL WALL: Within normal limits. RETROPERITONEUM: There is no lymphadenopathy. BLADDER: No wall thickening or mass. REPRODUCTIVE: Within normal limits. INGUINAL: There is no lymphadenopathy or hernia. MUSCULOSKELETAL: Treated metastatic lesion of L1 with a chronically sclerotic and irregular appearing vertebral body w ith mild loss of height. There is a new 9 mm sclerotic focus of the T11 vertebral body. CONCLUSION: 1. Chronic changes related to treatment of metastatic lesion of the L1 vertebral body. No distending/ measurable mass seen of L1 currently. 2. 9 mm sclerotic lesion of T11, new and most likely a metastasis. 3. Fatty liver. Gordy Laura MD on April 08, 2017 at 17:22 Board Certified Radiologist. This report was verified electronically.
--- NOTE | 2017-04-08 18:48 | HHI.PR ---
Subjective Remarks Follow up on patient with brain metastases, unsteady gait, memory impairment. Patient seen and examined today. She voiced frustration over "what to tell people (friends/family) when they ask when something is going to happen". Appetite reportedly continues to improve she denied nausea or vomiting. Headache (right frontal) was endorsed "this morning but they gave me something and it went away after about 30-45 minutes." Pt denied fever, cough, shortness of breath, abdominal.chest pain, altered bowel or bladder habits. Discussed with RN who denied acute issues over night or since start of shift. Objective Vitals Vital Signs Date Time Temp Pulse Resp B/P (MAP) Pulse Ox O2 Delivery O2 Flow Rate FiO2 04/08/17 16:21 55 04/08/17 16:00 98.1 54 16 140/63 (88) 98 04/08/17 12:45 98.3 60 16 138/63 (88) 98 04/08/17 12:33 60 04/08/17 08:10 49 04/08/17 08:00 98.2 56 16 136/63 (87) 96 04/08/17 04:21 54 04/08/17 04:00 98.0 57 17 127/62 (83) 95 04/08/17 00:05 56 04/08/17 00:00 98.2 57 18 121/60 (80) 95 04/07/17 21:15 64 04/07/17 20:00 98.0 62 18 130/61 (84) 96 I/O 04/07/17 04/07/17 04/07/17 04/08/17 04/08/17 04/08/17 06:59 14:59 22:59 06:59 14:59 22:59 Intake Total 480 ml 760 ml Balance 480 ml 760 ml Intake Oral 480 ml 760 ml # Voids 2 3 3 Result Diagram: 04/04/17 0840 04/08/17 1215 Imaging Last Impressions Chest CT 04/08/17 0000 Signed Impressions: Service Date/Time: Saturday, April 08, 2017 15:15 - CONCLUSION: 1. Treated tumor in the left upper lobe, with a residual mass that is much smaller than back in 2014. 2. No new or metastatic disease demonstrated. Gordy Laura MD Abdomen/Pelvis CT 04/08/17 0000 Signed Impressions: Service Date/Time: Saturday, April 08, 2017 15:15 - CONCLUSION: 1. Chronic changes related to treatment of metastatic lesion of the L1 vertebral body. No distending/measurable mass seen of L1 currently. 2. 9 mm sclerotic lesion of T11, new and most likely a metastasis. 3. Fatty liver. Gordy Laura MD Lumbar Spine MRI 04/04/17 0000 Signed Impressions: Service Date/Time: Tuesday, April 04, 2017 09:19 - CONCLUSION: I don't see evidence for worsening MS. Chronic compression of L1 Degenerative facet disease L4-5, L5-S1 without significant spinal stenosis. There is mild neuroforaminal encroachment. Ed Roque MD FACR Cervical Spine MRI 04/04/17 0000 Signed Impressions: Service Date/Time: Tuesday, April 04, 2017 09:19 - CONCLUSION: Markedly abnormal high cervical cord with increased signal in the cord. There is cord expansion more suggestive of neoplastic or infiltrative process rather then multiple sclerosis. Markedly abnormal cerebellum MRI of the brain is pending. Ed Roque MD FACR Brain MRI 04/04/17 0000 Signed Impressions: Service Date/Time: Tuesday, April 04, 2017 09:19 - CONCLUSION: Markedly abnormal cerebellum enhancing mass and scattered other areas of cortical enhancement on the right most suspicious for neoplastic process. Markedly abnormal MRI of the high cervical spine as described on that report. Ed Roque MD FACR Head CT 04/03/17 1233 Signed Impressions: Service Date/Time: March 13:44 - CONCLUSION: Abnormal brain appearance. Mild symmetric hydrocephalus and patchy areas of parenchymal brain hypodensity. Recommend further evaluation with brain MRI with and without contrast. Gordy Elizalde MD Chest X-Ray 04/03/17 1233 Signed Impressions: Service Date/Time: March 12:44 - CONCLUSION: No acute disease. Emanuel Hood Jr., MD Cervical Spine CT 04/03/17 0000 Signed Impressions: Service Date/Time: March 13:44 - CONCLUSION: Degenerative disc change at C6-7 with mild disc osteophyte complex. There is moderate narrowing of the left neural foramina at this level. Rafael Mariee MD Objective Remarks GENERAL: Pt encountered laying a bed, having recently returned from CT. NAD SKIN: Warm and dry. HEAD: Normocephalic. EYES: No scleral icterus. No injection or drainage. NECK: Supple, trachea midline. No lymphadenopathy. CARDIOVASCULAR: Regular rate and rhythm without murmurs, gallops, or rubs. RESPIRATORY: Breath sounds equal bilaterally. No wheezes rhonchi or crackles. No accessory muscle use. GASTROINTESTINAL: Abdomen soft, non-tender, nondistended. MUSCULOSKELETAL: No cyanosis, or edema. PSYCHIATRIC: Appropriate mood and affect; insight and judgment normal. Patient was pleasant and cooperative. Pt evidenced some tearfulness when asked about being depressed or anxious. She endorsed being anxious as was having difficulty answering the questions of friends and family who seemingly wanted to "know when things were going to happen and I don;t have answers for them." Medications and IVs Current Medications Medications (Trade) Dose Ordered Sig/Pierce Route Start Time Stop Time Status Last Admin (NS Flush) 2 ml UNSCH PRN IV FLUSH 04/03/17 16:00 04/04/17 06:30 (NS Flush) 2 ml BID IV FLUSH 04/03/17 21:00 04/08/17 08:18 (Synthroid) 75 mcg DAILY@0600 PO 04/04/17 06:00 04/08/17 07:18 (Zofran Inj) 4 mg Q8H PRN IV PUSH 04/03/17 17:30 04/04/17 13:37 (Zofran Odt) 4 mg Q6H PRN PO 04/03/17 17:30 (Phenergan Inj) 12.5 mg Q6H PRN IM 04/03/17 17:30 (Tylenol-Codeine #3) 1 tab Q6H PRN PO 04/03/17 18:15 04/08/17 08:22 (Morphine Inj) 1 mg Q6H PRN IV PUSH 04/03/17 18:15 04/04/17 06:30 (Decadron Inj) 4 mg Q6HR IV PUSH 04/04/17 12:30 04/08/17 17:24 (Vitamin B12) 100 mcg DAILY PO 04/05/17 17:00 04/08/17 08:18 Patient Own Medication PT OWN MED: Gilot... HS PO 04/07/17 21:00 Future hold (Ale-Colace) 1 tab BID PO 04/08/17 17:15 04/08/17 17:25 (Lactulose Liq) 30 ml TID PRN PO 04/08/17 13:45 04/08/17 17:25 Urinary Catheter: No A/P Problem List: (1) Unsteady gait ICD Code: R26.81 - Unsteadiness on feet (2) Hypothyroidism ICD Code: E03.9 - Hypothyroidism, unspecified Status: Acute (3) Generalized weakness ICD Code: R53.1 - Weakness Status: Acute (4) Altered mental status, unspecified ICD Code: R41.82 - Altered mental status, unspecified Status: Acute Assessment and Plan 61-year-old white female being admitted for progressive neurological decline including mild memory impairment as well as unstable gait. Unsteady gait: Improving as is her endurance. Continue to ambulate around unit as tolerated. Headache: improving; decreased duration. 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) - Patient with a history of metastatic non-small cell lung cancer - MRI of the brain indicates a large cerebellar mass most consistent with metastatic disease as well as areas of dural enhancement and cortical lesions scattered over the left and right cerebellar hemisphere - MRI cervical spine indicates he is concerning for carcinoma ptosis of the upper spinal cord - Neurosurgery following - planning for cord decompression, biopsy and possible resection of the cerebellar lesion along with the occipital decompressive craniotomy and C1 decompressive laminectomy - Hematology following - recommending medical oncology treatment afterwards - continue Decadron - Consult palliative care 3) memory impairment - likely due to brain mets - CMP unremarkable, ESR wnl. mg and phosph stable. folate and tsh wnl, b12 on lower end of normal, given B12 injection with good response ppr. Continue with po supplement daily. 3) headache - no complaints of headache today - Tylenol, morphine otherwise - Cerebellar mass and cord expansion/edema - continue w/ decadron 4) nausea - by mouth Zofran, IV Zofran if refractory, IM Phenergan if refractory - improved - tolerating po - UA unremarkable, blood cultures obtained from ER NGTD 5) hypothyroidism - Continue home Synthroid 6) postural dizziness - orthostatic blood pressure measurements negative Discussed with patient, Nursing staff, and Dr. Haq Discharge Planning Discharge planning ongoing. Problem Qualifiers (1) Altered mental status, unspecified: Qualified Codes: R41.82 - Altered mental status, unspecified Hayden Parker Jr. Apr 08, 2017 18:48
[2017-04-08] MEDS: GILOTRIF PO SCH (19:58)
[2017-04-09] VITALS (8 sets, daily range): BP systolic 122–142; BP diastolic 56–71; PULSE 50–61; RESP 16–18; TEMP 96.5–98.1; O2SAT 96–97
[2017-04-09] MEDS: DEXAMETHASONE SOD PHOS 4 MG/ML VIAL IV PUSH SCH ×4 (00:15→17:00)
[2017-04-09] MEDS: LEVOTHYROXINE SODIUM 75 MCG TAB PO SCH (06:47)
[2017-04-09] MEDS: SODIUM CHLORIDE 0.9% FLUSH 10 ML FLUSH IV FLUSH SCH ×2 (08:04→22:22)
[2017-04-09] MEDS: ALPRAZolam 0.25 MG TAB PO SCH ×2 (08:04→16:58)
[2017-04-09] MEDS: DOCUSATE SODIUM 50 MG/SENNA 8.6 MG TAB PO SCH ×2 (08:04→22:20)
[2017-04-09] MEDS: CYANOCOBALAMIN 100 MCG TAB PO SCH (08:04)
--- NOTE | 2017-04-09 12:30 | PD.ONC.PN ---
Subjective Subjective Remarks Afebrile overnight. patient resting in bed. Anxious to see Dr. Rich. Wants to know when surgery will be. Objective Data Date Time Temp Pulse Resp B/P (MAP) Pulse Ox O2 Delivery O2 Flow Rate FiO2 04/09/17 08:00 96.5 54 16 122/62 (82) 97 04/09/17 04:00 97.8 50 18 129/65 (86) 96 04/09/17 00:00 98.1 55 18 123/56 (78) 96 04/08/17 21:00 63 04/08/17 20:00 97.9 59 17 129/61 (83) 94 04/08/17 16:21 55 04/08/17 16:00 98.1 54 16 140/63 (88) 98 04/08/17 12:45 98.3 60 16 138/63 (88) 98 04/08/17 12:33 60 Result Diagram: 04/08/17 1215 Administered Medications Medications (Trade) Dose Ordered Sig/Pierce Route PRN Reason Start Time Stop Time Status Last Admin Dose Admin Sodium Chloride (NS Flush) 2 ml UNSCH PRN IV FLUSH FLUSH AFTER USING IV ACCESS 04/03/17 16:00 04/04/17 06:30 Sodium Chloride (NS Flush) 2 ml BID IV FLUSH 04/03/17 21:00 04/09/17 08:04 Levothyroxine Sodium (Synthroid) 75 mcg DAILY@0600 PO 04/04/17 06:00 04/09/17 06:47 Ondansetron HCl (Zofran Inj) 4 mg Q8H PRN IV PUSH nausea 04/03/17 17:30 04/04/17 13:37 Acetaminophen/ Codeine Phosphate (Tylenol-Codeine #3) 1 tab Q6H PRN PO headache 04/03/17 18:15 04/08/17 08:22 Morphine Sulfate (Morphine Inj) 1 mg Q6H PRN IV PUSH breakthrough pain 04/03/17 18:15 04/04/17 06:30 Dexamethasone Sodium Phosphate (Decadron Inj) 4 mg Q6HR IV PUSH 04/04/17 12:30 04/09/17 11:58 Cyanocobalamin (Vitamin B12) 100 mcg DAILY PO 04/05/17 17:00 04/09/17 08:04 Patient Own Medication PT OWN MED: Melchor... HS PO 04/07/17 21:00 Future hold 04/08/17 19:58 Senna/Docusate Sodium (Ale-Colace) 1 tab BID PO 04/08/17 17:15 04/09/17 08:04 Lactulose (Lactulose Liq) 30 ml TID PRN PO CONSTIPATION 04/08/17 13:45 04/08/17 17:25 Alprazolam (Xanax) 0.25 mg Q8H PO 04/09/17 08:00 04/09/17 08:04 Objective Remarks GENERAL: Middle aged female sitting up in bed in [facility]. SKIN: Warm and dry. HEAD: Normocephalic. EYES: No injection or drainage. NECK: Supple, trachea midline. CARDIOVASCULAR: Regular rate and rhythm RESPIRATORY: Breath sounds equal bilaterally. No accessory muscle use. GASTROINTESTINAL: Abdomen soft, non-tender, nondistended. EXTREMITIES: No cyanosis NEUROLOGICAL: aox3. normal speech. Assessment/Plan Problem List: (1) Lung cancer, primary, with metastasis from lung to other site ICD Codes: C34.90 - Lung cancer, primary, with metastasis from lung to other site; C79.9 - Secondary malignant neoplasm of unspecified site Status: Acute Plan: 04/09: continue Decadron, Afatinib. CT C/A/P d/w patient. await neurosurgery decision on cranitomy. 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 --diagnosed a little over two years ago --has been on palliative systemic therapy initially with Tarceva and more recently with afatinib. --developed progressive pain involving the back of her head associated with weakness of her lower extremities some weeks ago. MRI of the brain indicates a large cerebellar mass most consistent with metastatic disease as well as areas of dural enhancement and cortical lesions scattered over the left and the right cerebellar hemisphere. 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 --Dr. Rich of neurosurgery has evaluated the patient and has recommended a decompressive craniotomy with resection of the tumor involving the cerebellum and has also recommended C1 compressive laminectomy. Assessment 61y/o female with metastatic adenocarcinoma of the lung now with newly diagnosed brain mets. History of hypothyroidism. Kidney stones. Multiple sclerosis. Anxiety. Arthritis. Attending Statement very anxious and emotional d/w pt result of CT C/A/P = JERRICA except probably new T10 lesion. Await DR Rich input for surgery start Xanax. The exam, history, and the medical decision-making described in the above note were completed with the assistance of the mid-level provider. I reviewed and agree with the findings presented. I attest that I had a [id number] encounter with the patient on the same day, and personally performed and documented my assessment and findings in the medical record. Larisa Mcduffie Apr 09, 2017 12:30 Pretty Allison MD Apr 09, 2017 20:23
--- NOTE | 2017-04-09 12:39 | HHI.HCPN ---
Reason for visit a. To assist with evaluation and management of symptoms including: b. To assist medical decision maker(s) with: better understanding of current medical conditions; weighing benefits/burdens of medical treatment options; making medical treatment decisions. Subjective/Interval History notified by CM that pt w some questions RE advanced directive paper work she completed, requesting follow up. Pt stable. Intermittent headache -- has used tylenol #3 yesterday. Used prn xanax this am. Dual visit w Sana Artis SOFTWARE COMPUTER SPECIALIST and James Hood SUPERVISOR ENDLESS TRACK VEHICLE palliative SW. Pt endorses feeling well overall. Good appetite, no n/v. Having BM. Ambulated halls today, indicates felt stronger. Endorses "mild" headache which she attributes to her usual r/t weather changes. Feels balance has been good. Cognitively sharp-- at times must search for words, at times forgetful but self corrects. Review of findings, surgery plans. She has questions RE surgery scheduling, advised that neuro would schedule OR time/date based on her condition and available OR suite etc. She explores her adv directive, and DNR status. She states that she would want to try CPR and possibly life support if it was something correctable and that she would not require alf life support. Explore that if she sustained sudden cardiopulmonary event we would not know at time of treatment how long or what outcomes would be longer term. She endorses that she would want to change to full code for now, and that if she were to require prolonged support her daughter would make decisions to remove if indicated. All questions answered. Offer to call and update her dtr. she indicates has been in close communication, she will take my # again and call if her daughter has additional questions. . Advance Directives Living Will: Copy in medical record Health Care Surrogate: Copy in medical record Advance Directive Specifics Date completed: 2014, we did today 04/07/17 Health Care Surrogate(s): Daughter Siena Objective Vital Signs Date Time Temp Pulse Resp B/P (MAP) Pulse Ox O2 Delivery O2 Flow Rate FiO2 04/09/17 08:00 96.5 54 16 122/62 (82) 97 04/09/17 04:00 97.8 50 18 129/65 (86) 96 04/09/17 00:00 98.1 55 18 123/56 (78) 96 04/08/17 21:00 63 04/08/17 20:00 97.9 59 17 129/61 (83) 94 04/08/17 16:21 55 04/08/17 16:00 98.1 54 16 140/63 (88) 98 04/08/17 12:45 98.3 60 16 138/63 (88) 98 04/08/17 12:33 60 Intake & Output 04/09/17 04/09/17 06:59 18:59 # Voids 1 Physical Exam CONSTITUTIONAL/GENERAL: This is an adequately nourished patient, in no apparent distress. Ambulated around room without difficulty. TUBES/LINES/DRAINS: Peripheral IV upper extremity CARDIOVASCULAR: Regular rate and rhythm, no murmur. No JVD. Peripheral pulses symmetric. no periph edema. RESPIRATORY/CHEST: Symmetric, unlabored respirations. On room air. Clear to auscultation. Breath sounds equal bilaterally. GASTROINTESTINAL: Abdomen soft, non-tender, nondistended. No palpable masses. No guarding. Bowel sounds present. MUSCULOSKELETAL: Extremities without clubbing, cyanosis, or edema. No joint tenderness or effusion noted. No mottling or clubbing. NEUROLOGICAL: Awake and alert. Oriented 3. forgetful at times. Insight appears good. Moves all 4 extremities . Motor and sensory grossly within normal limits. Follows commands. PSYCHIATRIC: mildly anxious at times when discussing conditions. No apparent hallucinations or other psychotic thought process. Diagnostic Tests Laboratory Laboratory Tests Test 04/08/17 12:15 Blood Urea Nitrogen 19 MG/DL (7-18) Creatinine 0.75 MG/DL (0.50-1.00) Random Glucose 142 MG/DL (74-106) Calcium Level 8.9 MG/DL (8.5-10.1) Sodium Level 139 MEQ/L (136-145) Potassium Level 3.6 MEQ/L (3.5-5.1) Chloride Level 105 MEQ/L (98-107) Carbon Dioxide Level 28.0 MEQ/L (21.0-32.0) Anion Gap 6 MEQ/L (5-15) Estimat Glomerular Filtration Rate 79 ML/MIN (>89) Result Diagram: 04/08/17 1215 Imaging Last Impressions Chest CT 04/08/17 0000 Signed Impressions: Service Date/Time: Saturday, April 08, 2017 15:15 - CONCLUSION: 1. Treated tumor in the left upper lobe, with a residual mass that is much smaller than back in 2015. 2. No new or metastatic disease demonstrated. Gordy Laura MD Abdomen/Pelvis CT 04/08/17 Signed Impressions: Service Date/Time: Saturday, April 08, 2017 15:15 - CONCLUSION: 1. Chronic changes related to treatment of metastatic lesion of the L1 vertebral body. No distending/measurable mass seen of L1 currently. 2. 9 mm sclerotic lesion of T11, new and most likely a metastasis. 3. Fatty liver. Gordy Laura MD Lumbar Spine MRI 04/04/17 0000 Signed Impressions: Service Date/Time: Tuesday, April 04, 2017 09:19 - CONCLUSION: I don't see evidence for worsening MS. Chronic compression of L1 Degenerative facet disease L4-5, L5-S1 without significant spinal stenosis. There is mild neuroforaminal encroachment. Ed Roque MD FACR Cervical Spine MRI 04/04/17 0000 Signed Impressions: Service Date/Time: Tuesday, April 04, 2017 09:19 - CONCLUSION: Markedly abnormal high cervical cord with increased signal in the cord. There is cord expansion more suggestive of neoplastic or infiltrative process rather then multiple sclerosis. Markedly abnormal cerebellum MRI of the brain is pending. Ed Roque MD FACR Brain MRI 04/04/17 0000 Signed Impressions: Service Date/Time: Tuesday, April 04, 2017 09:19 - CONCLUSION: Markedly abnormal cerebellum enhancing mass and scattered other areas of cortical enhancement on the right most suspicious for neoplastic process. Markedly abnormal MRI of the high cervical spine as described on that report. Ed Roque MD FACR Head CT 04/03/17 1233 Signed Impressions: Service Date/Time: March 13:44 - CONCLUSION: Abnormal brain appearance. Mild symmetric hydrocephalus and patchy areas of parenchymal brain hypodensity. Recommend further evaluation with brain MRI with and without contrast. Gordy Elizalde MD Chest X-Ray 04/03/17 1233 Signed Impressions: Service Date/Time: March 12:44 - CONCLUSION: No acute disease. Emanuel Hood Jr., MD Cervical Spine CT 04/03/17 0000 Signed Impressions: Service Date/Time: March 13:44 - CONCLUSION: Degenerative disc change at C6-7 with mild disc osteophyte complex. There is moderate narrowing of the left neural foramina at this level. 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 . Supported by her only child, daughter who visits about once a week. 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 Daughter indicates patient moves residence frequently, and has exhibited some compulsive-like behaviors such as buying 10 of the same shirt in the same color, and moving every 6 months to a year. Spiritual: Member of [employer], Mushroom Sorter Grader has been in, appreciative of ongoing clinical trial coordinator support Legal:Patient has had improving neurological status since admission. Today she appears alert oriented and with good insight. Probably able to make her own decisions, though given her fluctuating mental status best supported by whomever her designated decision maker would be. Of note patient does have healthcare surrogate and advance directive dated 2014 in her electronic record however these documents are not witnessed. Palliative will offer her assistance with completion of new witnessed documents during this admission. Palliative assisted to complete HCS- named dtr Siena as HCS. witnessed by RN. Ethical issues impacting care: Important Contacts Siena Guillen daughter [phone] [healthcare surrogate- works as a dental hygienist from 7 AM to 5 PM, so is not always able to answer the phone quickly but will return phone calls] Anne Michelle ([place]) [phone] . Prognosis This patient with known history of stage IV lung cancer, diagnosed in 2014, presented for altered mental status and weakness. Per most recent oncology follow-up disease process had been stable/without progression. Patient now with a moderate size enhancing midline upper cerebellar midline mass with mostly mild surrounding edema. Also similar appearing lesion over the right posterior parietal region. Scattered areas of dural based enhancement primarily left occipital region.The cervical spine study reveals significant enlargement of a previously noted C2 level syrinx seen on MRI from 2011, now with abnormal signal intensity extending in the cord to the mid cervical region with some cord expansion. The cerebellar tonsils remain descended into the C1-2 level, increased from prior MRI from 2012. Oncology recommends proceeding with decompressive craniotomy and C1 decompressive laminectomy, as per neurosurgery's recommendations. From there recommends further restaging studies on findings for possible targeted therapy. Patient with improvement in symptoms thus far during hospital course on Decadron. Prognosis guarded. . Code Status: No Code Plan * Legal decision maker:Patient has had improving neurological status since admission. Today she appears alert oriented and with good insight. Probably able to make her own decisions, though given her fluctuating mental status best supported by whomever her designated decision maker would be. Of note patient does have healthcare surrogate and advance directive dated 2014 in her electronic record however these documents are not witnessed. Palliative will offer her assistance with completion of new witnessed documents during this admission. Palliative assisted to complete HCS- named dtr Siena as HCS. witnessed by RN. * Goals: Patient and daughter wish to proceed with neurosurgical intervention and pursue possible systemic treatment options. They would wish to proceed with potential treatment if patient can regain baseline cognitive and functional status. However if patient should develop significant complications resulting in prolonged hospitalization, and worsening neurological status they would want to have ongoing conversations regarding goals, treatment options. * CODE STATUS: FULL CODE elected 04/09, though further informs would not want prolonged life support * SYMPTOMS: --AMS/weakness/confusion- possible metastatic malignancy identified in new brain imaging. Patient also with known history syrinx. Neurosurgery, neurology following. Plan for decompressive craniotomy this week. Has been initiated on steroids, with improvement in weakness and mental status. --Nausea-patient endorses nausea, no vomiting just a feeling of "dry heaving ", accompanied by poor oral intake secondary to this. She endorses for the past day or so on steroids the nausea has subsided and her appetite has improved. Likely this is secondary to possible malignancy findings; with surgical intervention, ongoing steroids symptoms should improve/ will continue to evaluate/has prn zofran available, has not required. * Palliative care will continue to follow during hospital course as condition evolves, to assist patient/decision-maker with understanding of medical conditions, weighing benefits/burdens of treatment options, for clarification of goals of treatment. Additionally will assist with any symptoms of palliative concern . Attestation To help prompt me to consider important information that might be impacting today's encounter and assessment, information from prior notes written by myself or my colleagues may have been "brought forward" into today's note. My signature on this note, however, is an attestation that I personally performed the exam, history, and/or decision-making noted today, and, unless otherwise indicated, the interactions with patient, family, and staff as well as the review of records all occurred today. I also attest that the listed assessment and stated plan reflect my best clinical judgment today based on the combination of historical information, prior notes, and today's exam/ interactions. When time spent is documented, it refers only to time spent today by the signer, or if indicated, combined time spent today by collaborating physician/nurse practitioner. Miranda Martin Apr 09, 2017 12:39
--- NOTE | 2017-04-09 16:45 | HHI.PR ---
Subjective Remarks Follow up on patient with brain metastases, unsteady gait, memory impairment. Patient seen and examined today. 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 Headache was denied Pt denied fever, cough, shortness of breath, abdominal.chest pain, altered bowel or bladder habits. Objective Vitals Vital Signs Date Time Temp Pulse Resp B/P (MAP) Pulse Ox O2 Delivery O2 Flow Rate FiO2 04/09/17 12:22 60 04/09/17 12:00 97.3 59 18 123/68 (86) 96 04/09/17 08:00 96.5 54 16 122/62 (82) 97 04/09/17 04:00 97.8 50 18 129/65 (86) 96 04/09/17 00:00 98.1 55 18 123/56 (78) 96 04/08/17 21:00 63 04/08/17 20:00 97.9 59 17 129/61 (83) 94 I/O 04/08/17 04/08/17 04/08/17 04/09/17 04/09/17 04/09/17 06:59 14:59 22:59 06:59 14:59 22:59 Intake Total 760 ml 480 ml Balance 760 ml 480 ml Intake Oral 760 ml 480 ml # Voids 3 3 1 8 # Bowel Movements 0 Result Diagram: 04/08/17 1215 Imaging Last Impressions Chest CT 04/08/17 0000 Signed Impressions: Service Date/Time: Saturday, April 08, 2017 15:15 - CONCLUSION: 1. Treated tumor in the left upper lobe, with a residual mass that is much smaller than back in 2014. 2. No new or metastatic disease demonstrated. Gordy Laura MD Abdomen/Pelvis CT 04/08/17 0000 Signed Impressions: Service Date/Time: Saturday, April 08, 2017 15:15 - CONCLUSION: 1. Chronic changes related to treatment of metastatic lesion of the L1 vertebral body. No distending/measurable mass seen of L1 currently. 2. 9 mm sclerotic lesion of T11, new and most likely a metastasis. 3. Fatty liver. Gordy Laura MD Lumbar Spine MRI 04/04/17 0000 Signed Impressions: Service Date/Time: Tuesday, April 04, 2017 09:19 - CONCLUSION: I don't see evidence for worsening MS. Chronic compression of L1 Degenerative facet disease L4-5, L5-S1 without significant spinal stenosis. There is mild neuroforaminal encroachment. Ed Roque MD FACR Cervical Spine MRI 04/04/17 0000 Signed Impressions: Service Date/Time: Tuesday, April 04, 2017 09:19 - CONCLUSION: Markedly abnormal high cervical cord with increased signal in the cord. There is cord expansion more suggestive of neoplastic or infiltrative process rather then multiple sclerosis. Markedly abnormal cerebellum MRI of the brain is pending. Ed Roque MD FACR Brain MRI 04/04/17 0000 Signed Impressions: Service Date/Time: Tuesday, April 04, 2017 09:19 - CONCLUSION: Markedly abnormal cerebellum enhancing mass and scattered other areas of cortical enhancement on the right most suspicious for neoplastic process. Markedly abnormal MRI of the high cervical spine as described on that report. Ed Roque MD FACR Head CT 04/03/17 1233 Signed Impressions: Service Date/Time: March 13:44 - CONCLUSION: Abnormal brain appearance. Mild symmetric hydrocephalus and patchy areas of parenchymal brain hypodensity. Recommend further evaluation with brain MRI with and without contrast. Gordy Elizalde MD Chest X-Ray 04/03/17 1233 Signed Impressions: Service Date/Time: March 12:44 - CONCLUSION: No acute disease. Emanuel Hood Jr., MD Cervical Spine CT 04/03/17 0000 Signed Impressions: Service Date/Time: March 13:44 - CONCLUSION: Degenerative disc change at C6-7 with mild disc osteophyte complex. There is moderate narrowing of the left neural foramina at this level. Rafael Mariee MD Objective Remarks GENERAL: Pt encountered laying a bed, empty breakfast tray in front of her. SKIN: Warm and dry. HEAD: Normocephalic. EYES: No scleral icterus. No injection or drainage. NECK: Supple, trachea midline. No lymphadenopathy. CARDIOVASCULAR: Regular rate and rhythm without murmurs, gallops, or rubs. RESPIRATORY: Breath sounds equal bilaterally. No wheezes rhonchi or crackles. No accessory muscle use. GASTROINTESTINAL: Abdomen soft, non-tender, nondistended. MUSCULOSKELETAL: No cyanosis, or edema. PSYCHIATRIC: Appropriate mood and affect; insight and judgment normal. Patient was pleasant and cooperative. Pt evidenced future orientation by stating her medical wishes. Medications and IVs Current Medications Medications (Trade) Dose Ordered Sig/Pierce Route Start Time Stop Time Status Last Admin (NS Flush) 2 ml UNSCH PRN IV FLUSH 04/03/17 16:00 04/04/17 06:30 (NS Flush) 2 ml BID IV FLUSH 04/03/17 21:00 04/09/17 08:04 (Synthroid) 75 mcg DAILY@0600 PO 04/04/17 06:00 04/09/17 06:47 (Zofran Inj) 4 mg Q8H PRN IV PUSH 04/03/17 17:30 04/04/17 13:37 (Zofran Odt) 4 mg Q6H PRN PO 04/03/17 17:30 (Phenergan Inj) 12.5 mg Q6H PRN IM 04/03/17 17:30 (Tylenol-Codeine #3) 1 tab Q6H PRN PO 04/03/17 18:15 04/08/17 08:22 (Morphine Inj) 1 mg Q6H PRN IV PUSH 04/03/17 18:15 04/04/17 06:30 (Decadron Inj) 4 mg Q6HR IV PUSH 04/04/17 12:30 04/09/17 11:58 (Vitamin B12) 100 mcg DAILY PO 04/05/17 17:00 04/09/17 08:04 Patient Own Medication PT OWN MED: Melchor... HS PO 04/07/17 21:00 Future hold 04/08/17 19:58 (Ale-Colace) 1 tab BID PO 04/08/17 17:15 04/09/17 08:04 (Lactulose Liq) 30 ml TID PRN PO 04/08/17 13:45 04/08/17 17:25 (Xanax) 0.25 mg Q8H PO 04/09/17 08:00 04/09/17 08:04 Urinary Catheter: No A/P Problem List: (1) Unsteady gait ICD Code: R26.81 - Unsteadiness on feet (2) Hypothyroidism ICD Code: E03.9 - Hypothyroidism, unspecified Status: Acute (3) Generalized weakness ICD Code: R53.1 - Weakness Status: Acute (4) Altered mental status, unspecified ICD Code: R41.82 - Altered mental status, unspecified Status: Acute Assessment and Plan 61-year-old white female being admitted for progressive neurological decline including mild memory impairment as well as unstable gait. Unsteady gait: Improving. Continue to ambulate around unit as tolerated. Headache: None this morning. Anxiety: controlled with Ativan. 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) - Patient with a history of metastatic non-small cell lung cancer - MRI of the brain indicates a large cerebellar mass most consistent with metastatic disease as well as areas of dural enhancement and cortical lesions scattered over the left and right cerebellar hemisphere - MRI cervical spine indicates he is concerning for carcinoma ptosis of the upper spinal cord - Neurosurgery following - planning for cord decompression, biopsy and possible resection of the cerebellar lesion along with the occipital decompressive craniotomy and C1 decompressive laminectomy - Hematology following - recommending medical oncology treatment afterwards - continue Decadron - Consult palliative care 3) memory impairment - likely due to brain mets - CMP unremarkable, ESR wnl. mg and phosph stable. folate and tsh wnl, b12 on lower end of normal, given B12 injection with good response ppr. Continue with po supplement daily. 4) headache - no complaints of headache today - Tylenol, morphine otherwise - Cerebellar mass and cord expansion/edema - continue w/ decadron 5) nausea - by mouth Zofran, IV Zofran if refractory, IM Phenergan if refractory - improved - tolerating po - UA unremarkable, blood cultures obtained from ER NGTD 6) hypothyroidism - Continue home Synthroid 7) postural dizziness - orthostatic blood pressure measurements negative 8) Anxiety -Ativan 0.25 mg q 8h PO Discussed with patient and Dr. Haq Discharge Planning Discharge planning ongoing. Problem Qualifiers (1) Altered mental status, unspecified: Qualified Codes: R41.82 - Altered mental status, unspecified Hayden Parker Jr. JIGNA Apr 09, 2017 16:45
--- NOTE | 2017-04-09 21:03 | HHI.NSPN ---
History Chief Complaint: no complaint Interval History 61-year-old female with previous history of cervical syrinx with Chiari malformation documented in previous MRI of the cervical spine from 2011. Previously followed by neurology-Dr. Kaela Mariscal. Patient also has a history of metastatic non-small cell lung cancer. Prior imaging revealed metastatic disease to the lumbar spine. Patient now presents with a few weeks of dizziness and headache. Recently seen by neurology as an outpatient. She came to the emergency room on 04/03/17 due to speech difficulty, mental status changes, nausea and vomiting and persistent headache. 04/09/2017: Patient feeling better. Ambulating for short distance without assistance. Headache improving. Less pain across the neck and shoulders. Exam Results Vital Signs Date Time Temp Pulse Resp B/P (MAP) Pulse Ox O2 Delivery O2 Flow Rate FiO2 04/09/17 16:00 96.5 61 18 136/64 (88) 96 Intake and Output 04/09/17 04/09/17 04/10/17 08:00 16:00 00:00 Intake Total 480 ml Balance 480 ml Physical Examination Respirations clear to auscultation Cardiac exam regular without murmur Ms Michelle is alert, awake and oriented to time, place and person. Speech is fluent. Cranial nerve examination: pupils to be equal, round and reactive to light. Extra-ocular movements are intact. Facial motor and sensory function are normal and symmetrical. Gross hearing appears intact. Sternocleidomastoid and trapezius muscles are symmetrical. Other cranial nerves are intact. Neck is soft and supple with a good range of motion without pain. Muscle strength is normal in all muscle groups of both upper and lower extremities. Sensory examination is intact to light touch and pin prick in both the upper and lower extremities. Deep tendon reflexes are symmetrical in both upper and lower extremities. There is a bilateral plantar flexion response. Cerebellar examination is limited Medical Decision Making Impression and Plan Impression: 1. Multiple brain lesions in patient with previous history of metastatic non- small cell lung cancer. 2. Chiari malformation with progressive syringomyelia compared to previous MRI imaging from 2011 Plan: The MRI of the brain and cervical spine images been reviewed with the patient today. Options of observation versus biopsy versus decompressive suboccipital craniectomy, C1 decompressive laminectomy with biopsy/resection cerebellar lesion and bur hole for ventriculostomy placement all discussed along with pros and cons of each. She states that she has been quite symptomatic over the past few weeks with significant neck and shoulder pain, shocklike and pressure feeling radiating to her spine and upper extremities, all exacerbated with sneezing or straining. Her walking was markedly impaired. She would like to proceed with surgical intervention. The procedure has been fully discussed in detail. Risks and possible complications have been fully explained including the risk of anesthesia, brain or spinal cord or nerve damage, recurrent or residual lesion, spinal fluid leak, cosmetic defects. Concerns of been reviewed with the patient and signed. She appears to understand all the above and wishes to proceed with surgery which is scheduled for 04/10/17. Clem Rich MD Apr 09, 2017 21:03
[2017-04-09] MEDS: GILOTRIF PO SCH (22:21)
[2017-04-10] VITALS: BP 132/63; PULSE 53; RESP 17; TEMP 96.3; O2SAT 96
[2017-04-10 00:05] VITALS: PULSE 49
[2017-04-10] MEDS: DEXAMETHASONE SOD PHOS 4 MG/ML VIAL IV PUSH SCH ×4 (00:25→18:00)
[2017-04-10] MEDS: ALPRAZolam 0.25 MG TAB PO SCH ×2 (00:25→08:38)
[2017-04-10] MEDS: LEVOTHYROXINE SODIUM 75 MCG TAB PO SCH (06:00)
[2017-04-10 08:00] VITALS: BP 129/66; PULSE 52; RESP 16; TEMP 96.3; O2SAT 98
[2017-04-10] MEDS: CYANOCOBALAMIN 100 MCG TAB PO SCH (08:38)
[2017-04-10] MEDS: SODIUM CHLORIDE 0.9% FLUSH 10 ML FLUSH IV FLUSH SCH (08:39)
[2017-04-10] MEDS: DOCUSATE SODIUM 50 MG/SENNA 8.6 MG TAB PO SCH ×2 (08:39→21:00)
--- NOTE | 2017-04-10 09:23 | PD.ONC.PN ---
Subjective Subjective Remarks Afebrile overnight. Patient resting in bed. Going for surgery today. Says she feels ready. Objective Data Date Time Temp Pulse Resp B/P (MAP) Pulse Ox O2 Delivery O2 Flow Rate FiO2 04/10/17 00:05 49 04/10/17 00:00 96.3 53 17 132/63 (86) 96 04/09/17 22:20 59 04/09/17 20:00 97.1 61 18 142/71 (94) 96 04/09/17 16:00 96.5 61 18 136/64 (88) 96 04/09/17 12:22 60 04/09/17 12:00 97.3 59 18 123/68 (86) 96 Result Diagram: 04/08/17 1215 Administered Medications Medications (Trade) Dose Ordered Sig/Pierce Route PRN Reason Start Time Stop Time Status Last Admin Dose Admin Sodium Chloride (NS Flush) 2 ml UNSCH PRN IV FLUSH FLUSH AFTER USING IV ACCESS 04/03/17 16:00 04/04/17 06:30 Sodium Chloride (NS Flush) 2 ml BID IV FLUSH 04/03/17 21:00 04/10/17 08:39 Levothyroxine Sodium (Synthroid) 75 mcg DAILY@0600 PO 04/04/17 06:00 04/10/17 06:00 Ondansetron HCl (Zofran Inj) 4 mg Q8H PRN IV PUSH nausea 04/03/17 17:30 04/04/17 13:37 Acetaminophen/ Codeine Phosphate (Tylenol-Codeine #3) 1 tab Q6H PRN PO headache 04/03/17 18:15 04/08/17 08:22 Morphine Sulfate (Morphine Inj) 1 mg Q6H PRN IV PUSH breakthrough pain 04/03/17 18:15 04/04/17 06:30 Dexamethasone Sodium Phosphate (Decadron Inj) 4 mg Q6HR IV PUSH 04/04/17 12:30 04/10/17 06:29 Cyanocobalamin (Vitamin B12) 100 mcg DAILY PO 04/05/17 17:00 04/10/17 08:38 Patient Own Medication PT OWN MED: Melchor... HS PO 04/07/17 21:00 Future hold 04/09/17 22:21 Senna/Docusate Sodium (Ale-Colace) 1 tab BID PO 04/08/17 17:15 04/09/17 08:04 Lactulose (Lactulose Liq) 30 ml TID PRN PO CONSTIPATION 04/08/17 13:45 04/08/17 17:25 Alprazolam (Xanax) 0.25 mg Q8H PO 04/09/17 08:00 04/10/17 08:38 Objective Remarks GENERAL: Pleasant middle aged female upright in bed in nad. SKIN: Warm and dry. HEAD: Normocephalic. EYES: No scleral icterus. No injection or drainage. NECK: Supple, trachea midline. CARDIOVASCULAR: Regular rate and rhythm RESPIRATORY: Breath sounds equal bilaterally. No accessory muscle use. GASTROINTESTINAL: Abdomen soft, non-tender, nondistended. EXTREMITIES: No cyanosis NEUROLOGICAL: No obvious focal deficit. Awake, alert, and oriented x3. Assessment/Plan Problem List: (1) Lung cancer, primary, with metastasis from lung to other site ICD Codes: C34.90 - Lung cancer, primary, with metastasis from lung to other site; C79.9 - Secondary malignant neoplasm of unspecified site Status: Acute Plan: 04/10: continue Afatinib. undergoing resection with DR. Rich today. 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 --diagnosed a little over two years ago --has been on palliative systemic therapy initially with Tarceva and more recently with afatinib. --developed progressive pain involving the back of her head associated with weakness of her lower extremities some weeks ago. MRI of the brain indicates a large cerebellar mass most consistent with metastatic disease as well as areas of dural enhancement and cortical lesions scattered over the left and the right cerebellar hemisphere. 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 --Dr. Rich of neurosurgery has evaluated the patient and has recommended a decompressive craniotomy with resection of the tumor involving the cerebellum and has also recommended C1 compressive laminectomy. Assessment 61y/o female with metastatic adenocarcinoma of the lung now with newly diagnosed brain mets. History of hypothyroidism. Kidney stones. Multiple sclerosis. Anxiety. Arthritis. Attending Statement Patient is less anxious She feels somewhat better Patient is going to have brain surgery today We'll continue to monitor her The exam, history, and the medical decision-making described in the above note were completed with the assistance of the mid-level provider. I reviewed and agree with the findings presented. I attest that I had a [id number] encounter with the patient on the same day, and personally performed and documented my assessment and findings in the medical record. Larisa Mcduffie Apr 10, 2017 09:23 Pretty Allison MD Apr 10, 2017 22:10
--- NOTE | 2017-04-10 10:50 | HHI.PR ---
Subjective Remarks Patient denied chest pain short of breath headache or blurry vision No acute event overnight No fever Objective Vitals Vital Signs Date Time Temp Pulse Resp B/P (MAP) Pulse Ox O2 Delivery O2 Flow Rate FiO2 04/10/17 08:00 96.3 52 16 129/66 (87) 98 04/10/17 00:05 49 04/10/17 00:00 96.3 53 17 132/63 (86) 96 04/09/17 22:20 59 04/09/17 20:00 97.1 61 18 142/71 (94) 96 04/09/17 16:00 96.5 61 18 136/64 (88) 96 04/09/17 12:22 60 04/09/17 12:00 97.3 59 18 123/68 (86) 96 I/O 04/09/17 04/09/17 04/09/17 04/10/17 04/10/17 04/10/17 07:00 15:00 23:00 07:00 15:00 23:00 Intake Total 480 ml Balance 480 ml Intake Oral 480 ml # Voids 1 8 2 # Bowel Movements 0 Result Diagram: 04/08/17 1215 Objective Remarks GENERAL: This is a well-nourished, well-developed patient, in no apparent distress. SKIN: No rashes, warm and dry HEAD: Atraumatic. Normocephalic. EYES: Pupils equal round and reactive. Extraocular motions intact. No scleral icterus. ENT: Nose without bleeding, or drainage, Airway patent. NECK: Trachea midline. Supple CARDIOVASCULAR: Regular rate and rhythm without murmurs, gallops, or rubs. RESPIRATORY: Fair air entry bilaterally. No wheezes, rales, or rhonchi. GASTROINTESTINAL: Abdomen soft, non-tender, nondistended. Positive bowel sounds MUSCULOSKELETAL: Extremities without clubbing, cyanosis, or edema. Pedal pulses appreciated NEUROLOGICAL: Awake and alert. A/P Problem List: (1) Unsteady gait ICD Code: R26.81 - Unsteadiness on feet (2) Hypothyroidism ICD Code: E03.9 - Hypothyroidism, unspecified Status: Acute (3) Generalized weakness ICD Code: R53.1 - Weakness Status: Acute (4) Altered mental status, unspecified ICD Code: R41.82 - Altered mental status, unspecified Status: Acute Assessment and Plan 61-year-old white female being admitted for progressive neurological decline including mild memory impairment as well as unstable gait. Unsteady gait: Improving. Continue to ambulate around unit as tolerated. Headache: None this morning. Anxiety: controlled with Ativan. 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) - Patient with a history of metastatic non-small cell lung cancer - MRI of the brain indicates a large cerebellar mass most consistent with metastatic disease as well as areas of dural enhancement and cortical lesions scattered over the left and right cerebellar hemisphere - MRI cervical spine indicates he is concerning for carcinoma ptosis of the upper spinal cord - Neurosurgery following - planning for cord decompression, biopsy and possible resection of the cerebellar lesion along with the occipital decompressive craniotomy and C1 decompressive laminectomy - Hematology following - recommending medical oncology treatment afterwards - continue Decadron - Consult palliative care 04/10>> no event overnight, no chest pain short of breath, plan to go for surgery today 3) memory impairment - likely due to brain mets - CMP unremarkable, ESR wnl. mg and phosph stable. folate and tsh wnl, b12 on lower end of normal, given B12 injection with good response ppr. Continue with po supplement daily. 4) headache - no complaints of headache today - Tylenol, morphine otherwise - Cerebellar mass and cord expansion/edema - continue w/ decadron 5) nausea - by mouth Zofran, IV Zofran if refractory, IM Phenergan if refractory - improved - tolerating po - UA unremarkable, blood cultures obtained from ER NGTD 6) hypothyroidism - Continue home Synthroid 7) postural dizziness - orthostatic blood pressure measurements negative 8) Anxiety -Ativan 0.25 mg q 8h PO Problem Qualifiers (1) Altered mental status, unspecified: Qualified Codes: R41.82 - Altered mental status, unspecified Austin Mcfarland MD Apr 10, 2017 10:50
[2017-04-10 12:00] VITALS: BP 136/62; PULSE 50; RESP 16; TEMP 96.6; O2SAT 97
[2017-04-10] MEDS ORDERED: ROCURONIUM INJ 50 MG/5 ML VIAL IV ONE (12:00)
[2017-04-10] MEDS ORDERED: NS 500 ML (EXCEL BAG) INJ 500 ML IV ONE (12:00)
[2017-04-10] MEDS ORDERED: PHENYLEPH/NS 1000 MCG/10 ML SYR IV ONE (12:00)
[2017-04-10] MEDS ORDERED: MIDAZOLAM HCL 2 MG/2 ML VIAL IV ONE (12:00)
[2017-04-10] MEDS ORDERED: ONDANSETRON HCL 4 MG/2 ML VIAL IV PUSH ONE (12:00)
[2017-04-10] MEDS ORDERED: SUCCINYLCHOLINE CHLORIDE 100 MG/5 ML SYRINGE IV PUSH ONE (12:00)
[2017-04-10] MEDS ORDERED: SODIUM CHLORIDE 0.9% 20 ML VIAL IV ONE (12:00)
[2017-04-10] MEDS ORDERED: ePHEDrine/NS 25 MG/5 ML SYR IV ONE (12:00)
[2017-04-10] MEDS ORDERED: PROPOFOL 200 MG/20 ML AMP IV ONE (12:00)
[2017-04-10] MEDS ORDERED: NORMOSOL R INJ 1,000 ML IV ONE (12:00)
[2017-04-10] MEDS ORDERED: DEXAMETHASONE SOD PHOS 4 MG/ML VIAL IV ONE (12:00)
[2017-04-10] MEDS ORDERED: hydrALAZINE HCL 20 MG/ML VIAL IV ONE (12:00)
[2017-04-10] MEDS ORDERED: LACTATED RINGER'S 1000 ML INJ 1,000 ML IV ONE (12:00)
[2017-04-10] MEDS ORDERED: LIDOCAINE HCL 1% PF 5 ML AMPULE OTHER ONE (12:00)
[2017-04-10 12:02] VITALS: PULSE 51
[2017-04-10] MEDS ORDERED: ACETAMINOPHEN 1000 MG/100 ML 100 ML IV ONE (15:27)
[2017-04-10] MEDS ORDERED: ARTIFICIAL TEARS OPTH OINT 3.5 APPLIC/3.5 GM TUBO ONE (15:28)
[2017-04-10] MEDS ORDERED: LIDOCAINE 2%/EPINEPHrine PF 1:200,000 20ML SDV ONE (15:28)
[2017-04-10] MEDS ORDERED: THROMBIN (TOPICAL) 5,000 UNIT VIAL ONE (15:28)
[2017-04-10] MEDS ORDERED: MIDAZOLAM HCL 2 MG/2 ML VIAL ONE (15:28)
[2017-04-10] MEDS ORDERED: GELFOAM SIZE 100 ONE (15:28)
[2017-04-10] MEDS ORDERED: GENTAMICIN SULFATE 80 MG/2 ML VIAL ONE (15:29)
[2017-04-10] MEDS ORDERED: FAMOTIDINE 20 MG/2 ML VIAL ONE (15:29)
[2017-04-10] MEDS ORDERED: ceFAZolin INJ 1,000 MG VIAL IV ONE (17:13)
[2017-04-10] MEDS ORDERED: PROPOFOL 500 MG/50 ML INJ 150 ML ONE (19:13)
[2017-04-10] MEDS: GILOTRIF PO SCH (21:00)
[2017-04-10] MEDS ORDERED: *LABETALOL HCL 100 MG/20 ML VIAL PERIprocedural Use ONLY ONE (23:21)
[2017-04-10] MEDS ORDERED: HYDROmorphone HCL PF 1 MG/ML VIAL IV PRN ×2 (23:45)
[2017-04-10] MEDS ORDERED: niCARdipine INJ 25 MG in SODIUM CHLOR 0.9% 250 ML INJ 250 ML IV PRN (23:45)
[2017-04-10] MEDS ORDERED: NALOXONE HCL 0.4 MG/ML AMP IV PRN (23:45)
[2017-04-10] MEDS ORDERED: ACETAMINOPHEN/HYDROcodone 325 MG/5 MG TAB PO PRN (23:45)
[2017-04-11] VITALS (13 sets, daily range): BP systolic 110–155; BP diastolic 53–71; PULSE 6–88; RESP 8–17; TEMP 97.9–99.4; O2SAT 99–100
--- NOTE | 2017-04-11 00:03 | PD.OP ---
Operative Report Date of Surgery: Apr 10, 2017 Preoperative Diagnosis: (1) Cerebral tumor (2) Chiari I malformation (3) Syringomyelia 1. Multiple cerebral lesions, superior cerebellar lesion, probable metastatic neoplasm. 2. Chiari I malformation 3. Cervical syringomyelia Postoperative Diagnosis: (1) Cerebral tumor (2) Chiari I malformation (3) Syringomyelia 1. Multiple cerebral lesions, superior cerebellar lesion, probable metastatic neoplasm. 2. Chiari I malformation 3. Cervical syringomyelia Procedure: 1. Suboccipital decompressive craniectomy 2. Dural fenestration for Chiari malformation decompression 3. C1 decompressive laminectomy 4. Resection of superior cerebellar neoplasm 5. Left occipital bur hole, ventriculostomy placement Anesthesia: Gen. endotracheal Surgeon: Clem iRch Checkroom Chief(s): Elisabeth Gill Operation and Findings: Procedure: Patient was brought into the operating room and general endotracheal anesthesia induced without difficulty. Lines were established by anesthesia Holt catheter, and BRANDEN hose and sequential compression devices were in place Leads for intraoperative neuro monitoring were placed and a baseline study obtained The patient was placed in the Sorenson 3 point head fixation device Patient was turned in prone position on the concentric Kaushal table with the side bolsters and all extremities appropriately padded. With the undersigned maintaining control of the head and neck, the head was secured to the operating room table with the Sorenson adapter, with the neck flexed, allowing 3 fingerbreadths between the chin and chest. The spine position was checked with the intraoperative C-arm and felt to be satisfactory The back of the neck and head were shaved with clippers and sterilely prepped and draped Appropriate timeout procedure was performed with all personnel present and in agreement Procedure 1: Left occipital bur hole for external ventricular drain placement The initial incision was made at the left occipital region approximately 3 finger breaths superior to and 5 fingerbreadths medial to the tip of the left ear and carried sharply down to the cranium. The TPS drill with the acorn bur was used to perform a small bur hole. The dura was incised with 15 blade knife and coagulated with the bipolar forceps. The Codman ventriculostomy catheter was placed in a single pass into the posterior horn of the left lateral ventricle and advanced to a depth of approximately 6 cm. The catheter was tunneled to the right occipital region and secured to the skin with nylon suture. The sterile Luer LOC connector was secured and capped. There was good return of cerebrospinal fluid with low pressure. Procedure 2: Suboccipital decompressive craniectomy, C1 laminectomy with dural fenestration for cervical medullary junction decompression. Next, 1% Xylocaine with epinephrine was used for local infiltration over the second incision site which was made in the midline cervical occipital region from the external occipital protuberance down to the C2 spinous process. The exposure was continued in the midline avascular plane down to the tip of the C2 spinous process, the posterior arch of C1, and the suboccipital skull. The self-retaining retractors were placed. The TPS drill with a 5 mm bone bur was used to thin out the occipital bone surrounding the posterior and lateral margins of the foramen magnum with a trough of bone removed along the lateral posterior fossa margins extending up to the level of the transverse sinus on each side. The thin ligament dissector was used to release the dura and fascia from the bone surrounding the posterior lateral foramen magnum, as well as from the ventral aspect of the C1 arch . The Kerrison rongeur was used to remove the residual bone along the posterior lateral occipital bone. The TPS drill and the Kerrison rongeurs were then used to remove the posterior lateral arch of C1. The 15 blade knife was used to open the dura in a Y-shaped fashion extending from the posterolateral margin of the occipital decompression on each side down to the midline cervical occipital level and then down to the midline C1 level. The thin ligament dissectors and the titanium nerve hook were then used to carefully lift the dura away from the underlying arachnoid membrane. Care was taken to elevate the dura out to the lateral margins of the cervical occipital region down to the C1 level. The underlying arachnoid was left intact, and no cerebrospinal fluid leakage was encountered. The arachnoid was allowed to displace away from the underlying neural structures with the normal CSF pulsations. The cerebellar tonsils and upper cervical cord appeared well decompressed after the dural fenestration. The cerebellar tonsils were moving freely with the normal arterial and CSF pulsations. Procedure 3: Resection superior cerebellar neoplasm. Next, the 15 blade knife was used to make a V-shaped incision based along the midline and extending up to the dura just below the transverse sinus on each side. The dural flap was retracted with 4-0 Nurolon suture. The microscope was moved into place and used for the exposure and resection of the superior cerebellar neoplasm. The arachnoid along the vermis was opened and the draining veins along the cerebellar vermis were and preserved. Then entering the cerebellar vermis at the posterior superior aspect, just below the tentorium and just behind the level of the torcula, the neoplasm was readily encountered. The lesion was composed of mostly relatively firm white brownish-yellow material as well as some softer bonner to slightly yellow material, which was well delineated from the more normal-appearing cerebellar parenchyma. The lesion was removed with the bipolars, microscissors, and microdissectors. Bleeding was carefully controlled with the bipolar forceps. The brain was soft and pulsatile after removing the lesion. The dura was closed with a piece of properly prepared bovine pericardium with 4- 0 Nurolon suture. The region was well irrigated with antibiotic irrigation Bleeding was carefully controlled with the bipolar forceps Any bone bleeding was controlled with bone wax. There was no significant bleeding at the time of closure The closure was performed with 0 and 2-0 Vicryl interrupted for the deep and superficial fascia, with 3-0 Vicryl interrupted subcutaneous closure, and balaji for the skin closure. A dressing of Mastisol, Steri-Strips and a Primapore dressing was applied. The patient was turned back into supine position on the recovery room stretcher with the undersigned maintaining control of the head and neck. The 3-point fixation device was removed The patient was taken to recovery room in stable condition All counts were correct at the end of the case Estimated blood loss was 100 cc No specimen was sent to pathology Intraoperative neuro monitoring remained stable during procedure Clem Rich MD Apr 11, 2017 00:02
[2017-04-11] MEDS ORDERED: DO NOT ADM ANY ANTICOAGULANT DRUGS PRN (00:15)
[2017-04-11] MEDS ORDERED: SODIUM CHLORIDE 0.9% FLUSH 5 ML FLUSH IVF PRN (00:15)
[2017-04-11] MEDS ORDERED: LABETALOL HCL 100 MG/20 ML VIAL IV PUSH PRN (00:15)
[2017-04-11 00:16] LABS: AUTOMATED NEUTROPHIL # 18.1 TH/MM3 (1.8-7.7); BASOPHIL # 0.1 TH/MM3 (0-0.2); BASOPHIL % 0.3 % (0.0-2.0); HEMATOCRIT 35.6 % (35.0-46.0); HEMO FLAGS DIFF FINAL; LYMPHOCYTE # 0.4 TH/MM3 (1.0-4.8); MEAN CELL VOLUME 88.5 FL (80.0-100.0); MEAN CORPUSCULAR HEMOGLOBIN 29.1 PG (27.0-34.0); MEAN CORPUSCULAR HGB CONC 32.9 % (32.0-36.0); MONO % 4.1 % (0.0-8.0); NEUT % 93.6 % (16.0-70.0); PLATELET COUNT 179 TH/MM3 (150-450); RED BLOOD COUNT 4.02 MIL/MM3 (4.00-5.30); RED CELL DISTRIBUTION WIDTH 13.6 % (11.6-17.2); WHITE BLOOD COUNT 19.4 TH/MM3 (4.0-11.0)
[2017-04-11 00:49] LABS: BICARBONATE 21.7 MEQ/L (21.0-32.0); POTASSIUM 4.1 MEQ/L (3.5-5.1)
[2017-04-11 01:22] LABS: CALCIUM-PROTEIN CORRECTED 8.3 MG/DL (8.5-10.1)
[2017-04-11] MEDS: MORPHINE SULFATE 4 MG/ML INJ IV PRN ×2 (01:57→05:10)
--- NOTE | 2017-04-11 03:13 | PD.CONS ---
HPI Service Critical Care Medicine Consult Requested By Primary Care Physician Gordy Lyle, DO History of Present Illness 61-year-old very pleasant femalee with a history of metastatic adenocarcinoma of the lungs, hypothyroidism, anxiety, and multiple sclerosis has been admitted for progressive weakness and worsening gait. Patient was in her usual state of health until a few weeks ago when she began experiencing an unsteady gait. Per chart documentation she began shuffling her feet, and was seen and examined by outpatient neurologist with the plan to obtain an outpatient MRI which apparently had not been done yet. Our imaging system revealed the new diagnosis of metastasis in the brain and patient underwent palliative resection with hemicraniectomy by Dr. Rich. She is now admitted to SICU postoperatively. Review of Systems ROS Unobtainable patient is too lethargic to answer Past Family Social History Allergies: Coded Allergies: No Known Allergies (Verified , 04/03/17) Past Medical History Multiple sclerosis Hypothyroidism Adenocarcinoma of the lungs with widespread metastatic disease Reported Medications Reported Meds & Active Scripts Active Reported Atorvastatin (Atorvastatin Calcium) 40 Mg Tab 40 Mg PO HS Aspirin 81 Mg Chew 81 Mg CHEW DAILY Bupropion HCl 100 Mg Tab 100 Mg PO BID Gilotrif (Afatinib) 20 Mg Tab 20 Mg PO DAILY Take at least 1 hr before or 2 hrs after a meal. Levothyroxine (Levothyroxine Sodium) 75 Mcg Tab 75 Mcg PO DAILY Active Ordered Medications Current Medications Medications (Trade) Dose Ordered Sig/Pierce Route PRN Reason Start Time Stop Time Status Last Admin Dose Admin Levothyroxine Sodium (Synthroid) 75 mcg DAILY@0600 PO 04/04/17 06:00 04/10/17 06:00 Ondansetron HCl (Zofran Inj) 4 mg Q8H PRN IV PUSH nausea 04/03/17 17:30 04/04/17 13:37 Ondansetron HCl (Zofran Odt) 4 mg Q6H PRN PO nausea 04/03/17 17:30 Promethazine HCl (Phenergan Inj) 12.5 mg Q6H PRN IM nausea 04/03/17 17:30 Dexamethasone Sodium Phosphate (Decadron Inj) 4 mg Q6HR IV PUSH 04/04/17 12:30 04/11/17 00:00 Cyanocobalamin (Vitamin B12) 100 mcg DAILY PO 04/05/17 17:00 04/10/17 08:38 Patient Own Medication PT OWN MED: Melchor... HS PO 04/07/17 21:00 Future hold 04/09/17 22:21 Senna/Docusate Sodium (Ale-Colace) 1 tab BID PO 04/08/17 17:15 04/09/17 08:04 Lactulose (Lactulose Liq) 30 ml TID PRN PO CONSTIPATION 04/08/17 13:45 04/08/17 17:25 Alprazolam (Xanax) 0.25 mg Q8H PO 04/09/17 08:00 04/10/17 08:38 Nicardipine HCl 25 mg/Sodium Chloride 260 ml @ 52 mls/hr TITRATE PRN IV Blood pressure management 04/10/17 23:45 04/10/17 23:30 Acetaminophen/ Hydrocodone Bitart ([place] 5-325 Mg) 1 tab Q4H PRN PO PAIN SCALE 3 TO 5 04/10/17 23:45 Acetaminophen/ Hydrocodone Bitart ([place] 10-325 Mg) 1 tab Q4H PRN PO PAIN SCALE 6 TO 10 04/10/17 23:45 Hydromorphone HCl (Dilaudid Pf Inj) 0.5 mg Q3H PRN IV Pain 3-5; if unable to take PO 04/10/17 23:45 Hydromorphone HCl (Dilaudid Pf Inj) 1 mg Q3H PRN IV Pain 6-10;if unable to take PO 04/10/17 23:45 Morphine Sulfate (Morphine Inj) 4 mg Q3H PRN IV BREAKTHROUGH PAIN 04/10/17 23:45 04/11/17 01:57 Naloxone HCl (Narcan Inj) 0.4 mg UNSCH PRN IV SEE LABEL COMMENTS 04/10/17 23:45 Miscellaneous Information ALL NURSING DEPARTME... UNSCH PRN .XX SEE LABEL COMMENTS 04/11/17 00:15 04/12/17 00:14 Labetalol HCl (Trandate Inj) 10 mg Q4H PRN IV PUSH SBP>140, DBP>90 04/11/17 00:15 IV Flush (NS Flush) 2 ml UNSCH PRN IVF FLUSH AFTER USING IV ACCESS 04/11/17 00:15 IV Flush (NS Flush) 2 ml BID IVF 04/11/17 09:00 Potassium Chloride/Dextrose/ Sod Cl 1,000 ml @ 100 mls/hr Q10H IV 04/11/17 00:13 04/11/17 00:00 Family History Positive for Parkinson's disease Social History Negative for alcohol tobacco or illicit drug abuse Physical Exam Vital Signs Vital Signs Date Time Temp Pulse Resp B/P (MAP) Pulse Ox O2 Delivery O2 Flow Rate FiO2 04/11/17 02:00 98.5 88 16 114/61 (78) 99 04/11/17 02:00 98.5 88 16 114/61 (78) 99 04/11/17 01:30 88 04/11/17 01:30 98.5 88 13 138/62 (87) 99 04/11/17 01:10 98.2 87 16 128/64 (85) 100 Nasal Cannula 3 04/11/17 00:45 88 16 132/62 (85) 100 Nasal Cannula 3 04/11/17 00:30 88 15 134/61 (85) 99 Nasal Cannula 3 04/11/17 00:15 87 15 133/60 (84) 99 Nasal Cannula 3 04/11/17 00:00 85 16 155/69 (97) 99 Nasal Cannula 3 04/10/17 23:45 86 17 164/72 (102) 99 Nasal Cannula 3 04/10/17 23:30 82 15 160/71 (100) 100 Simple Mask 6 04/10/17 23:30 82 160/71 04/10/17 23:15 96 16 148/67 (94) 100 Simple Mask 6 04/10/17 23:00 92 16 135/63 (87) 100 Simple Mask 6 04/10/17 22:57 97.7 96 15 144/65 (91) 100 Simple Mask 6 04/10/17 12:02 51 04/10/17 12:00 96.6 50 16 136/62 (86) 97 04/10/17 08:00 96.3 52 16 129/66 (87) 98 Physical Exam GENERAL: Well-nourished, well-developed patient. Extremely lethargic, SKIN: Warm and dry. HEAD: Normocephalic. EYES: No scleral icterus. No injection or drainage. NECK: Supple, trachea midline. No JVD or lymphadenopathy. CARDIOVASCULAR: Regular rate and rhythm without murmurs, gallops, or rubs. RESPIRATORY: Breath sounds equal bilaterally. No accessory muscle use. GASTROINTESTINAL: Abdomen soft, non-tender, nondistended. MUSCULOSKELETAL: No cyanosis, or edema. BACK: Nontender without obvious deformity. NEURO EXAM: GCS: M6 V5 E3 Mental Status: The patient is lethargic but oriented to person, place, and time with normal speech. Cranial Nerves: Pupils are round, reactive to light. Reflexes: No clonus. Laboratory Laboratory Tests Test 04/10/17 23:40 White Blood Count 19.4 Red Blood Count 4.02 Hemoglobin 11.7 Hematocrit 35.6 Mean Corpuscular Volume 88.5 Mean Corpuscular Hemoglobin 29.1 Mean Corpuscular Hemoglobin Concent 32.9 Red Cell Distribution Width 13.6 Platelet Count 179 Mean Platelet Volume 8.9 Neutrophils (%) (Auto) 93.6 Lymphocytes (%) (Auto) 2.0 Monocytes (%) (Auto) 4.1 Eosinophils (%) (Auto) 0.0 Basophils (%) (Auto) 0.3 Neutrophils # (Auto) 18.1 Lymphocytes # (Auto) 0.4 Monocytes # (Auto) 0.8 Eosinophils # (Auto) 0.0 Basophils # (Auto) 0.1 CBC Comment DIFF FINAL Differential Comment Blood Urea Nitrogen 17 Creatinine 0.98 Random Glucose 183 Total Protein 5.5 Calcium Level 7.4 Sodium Level 138 Potassium Level 4.1 Chloride Level 101 Carbon Dioxide Level 21.7 Anion Gap 15 Estimat Glomerular Filtration Rate 58 Protein Corrected Calcium 8.3 Date/Time Source Procedure Growth Status 04/03/17 13:45 Blood Peripheral Aerobic Blood Culture - Final NO GROWTH IN 5 DAYS Complete 04/03/17 13:45 Blood Peripheral Anaerobic Blood Culture - Final QNS - SEE AEROBE REPORT Complete Result Diagram: 04/10/17 2340 04/10/17 2340 Assessment and Plan Assessment and Plan Brain metastases - Status post resection and hemicraniectomy - JOSÉ drain in place - Management per neurosurgery Dr. Rich - Continue ICU monitoring for neuro checks and vital signs - Dilaudid for pain control Adenocarcinoma of the lung - Dr. Haines hematology oncology Anxiety - Ativan when necessary Hypothyroidism - Synthroid Hypertension - Cardene drip - Labetalol when necessary to keep SBP less than 150 DVT GI prophylaxis - Teds SCDs - Pharmacological DVT prophylaxis per neurosurgery and hematology oncology - Protonix Critical Care: The total critical care time was 35 minutes. Time to perform other separately billable procedures was not included in the critical care time. Jose M Cintron MD Apr 11, 2017 3:13 am
[2017-04-11 03:43] LABS: AUTOMATED NEUTROPHIL # 18.4 TH/MM3 (1.8-7.7); BASOPHIL % 0.1 % (0.0-2.0); HEMATOCRIT 36.5 % (35.0-46.0); HEMO FLAGS DIFF FINAL; LYMPH % 2.4 % (9.0-44.0); LYMPHOCYTE # 0.5 TH/MM3 (1.0-4.8); MEAN CELL VOLUME 89.1 FL (80.0-100.0); MEAN CORPUSCULAR HEMOGLOBIN 28.7 PG (27.0-34.0); MEAN CORPUSCULAR HGB CONC 32.2 % (32.0-36.0); MONO % 4.3 % (0.0-8.0); NEUT % 93.2 % (16.0-70.0); PLATELET COUNT 166 TH/MM3 (150-450); RED CELL DISTRIBUTION WIDTH 13.6 % (11.6-17.2); WHITE BLOOD COUNT 19.8 TH/MM3 (4.0-11.0)
[2017-04-11 04:30] LABS: BICARBONATE 23.7 MEQ/L (21.0-32.0); POTASSIUM 3.9 MEQ/L (3.5-5.1)
[2017-04-11] MEDS: DEXAMETHASONE SOD PHOS 4 MG/ML VIAL IV PUSH SCH ×4 (05:08→18:53)
[2017-04-11] MEDS: LEVOTHYROXINE SODIUM 75 MCG TAB PO SCH (05:08)
--- NOTE | 2017-04-11 05:11 | RADRPT ---
EXAM DATE/TIME: 04/11/2017 04:39 [facility] COMPARISON: MRI BRAIN W & W/O CONTRAST, April 04, 2017, 9:19. CT BRAIN W/O CONTRAST, April 03, 2017, 13:44 . INDICATIONS : Status post remval of brain mass and hemicraniectomy. RADIATION DOSE: 35.29 CTDIvol (mGy) ; Patient motion MEDICAL HISTORY : Carcinoma, lung. Hypertension. MS SURGICAL HISTORY : Craniotomy. ENCOUNTER: Initial ACUITY: 1 day PAIN SCALE: Non-responsive LOCATION: cranial TECHNIQUE: Multiple contiguous axial images were obtained of the head. Using automated exposure control and adj ustment of the mA and/or kV according to patient size, radiation dose was kept as low as reasonably a chievable to obtain optimal diagnostic quality images. DICOM format image data is available electro nically for review and comparison. FINDINGS: Postsurgical features of occipital craniectomy with interval resection of midline cerebellar mass. Ce rebral edema and postsurgical blood products and air in the craniectomy defect. There is effacement o f the posterior basilar cisterns. Interval placement of left posterior parietal ventriculostomy termi nating in the occipital horn of the left lateral ventricle. Ventricles are small in size and symmetri hawa. There is postsurgical pneumocephalus. There is no intercurrent new intra-or extra-axial hemorrha ge. No significant midline shift. Remainder of exam is unchanged. CONCLUSION: 1. Expected postoperative changes of occipital craniectomy with interval resection of midline cerebel lar mass. 2. Interval placement of posterior left ventriculostomy catheter with symmetrically small sized bilat eral ventricles. Linwood Laguna MD on April 11, 2017 at 5:02 Board Certified Radiologist. This report was verified electronically.
[2017-04-11] MEDS: ALPRAZolam 0.25 MG TAB PO SCH ×3 (08:00→16:00)
[2017-04-11] MEDS: SODIUM CHLORIDE 0.9% FLUSH 5 ML FLUSH IVF SCH ×2 (09:00→21:02)
[2017-04-11] MEDS: CYANOCOBALAMIN 100 MCG TAB PO SCH (09:00)
[2017-04-11] MEDS: DOCUSATE SODIUM 50 MG/SENNA 8.6 MG TAB PO SCH ×2 (09:05→21:02)
[2017-04-11] MEDS: D5-NS + KCL 20 MEQ INJ 1,000 ML IV SCH ×3 (09:05→18:59)
[2017-04-11] MEDS ORDERED: hydrALAZINE HCL 20 MG/ML VIAL IV PUSH PRN (09:30)
--- NOTE | 2017-04-11 09:49 | PD.ONC.PN ---
Subjective Subjective Remarks Afebrile overnight. Patient resting in bed in nad. Asking to urinate. I remind her she has a dixon and she relaxes. Denies pain. Objective Data Date Time Temp Pulse Resp B/P (MAP) Pulse Ox O2 Delivery O2 Flow Rate FiO2 04/11/17 06:00 97.9 6 11 122/57 (78) 100 04/11/17 05:00 97.9 84 12 137/66 (89) 100 04/11/17 04:00 97.9 70 16 110/53 (72) 100 04/11/17 04:00 97.9 70 16 110/53 (72) 100 04/11/17 03:00 97.9 84 14 130/57 (81) 100 04/11/17 02:00 98.5 88 16 114/61 (78) 99 04/11/17 02:00 98.5 88 16 114/61 (78) 99 04/11/17 01:30 88 04/11/17 01:30 98.5 88 13 138/62 (87) 99 04/11/17 01:10 98.2 87 16 128/64 (85) 100 Nasal Cannula 3 04/11/17 00:45 88 16 132/62 (85) 100 Nasal Cannula 3 04/11/17 00:30 88 15 134/61 (85) 99 Nasal Cannula 3 04/11/17 00:15 87 15 133/60 (84) 99 Nasal Cannula 3 04/11/17 00:00 85 16 155/69 (97) 99 Nasal Cannula 3 04/10/17 23:45 86 17 164/72 (102) 99 Nasal Cannula 3 04/10/17 23:30 82 15 160/71 (100) 100 Simple Mask 6 04/10/17 23:30 82 160/71 04/10/17 23:15 96 16 148/67 (94) 100 Simple Mask 6 04/10/17 23:00 92 16 135/63 (87) 100 Simple Mask 6 04/10/17 22:57 97.7 96 15 144/65 (91) 100 Simple Mask 6 04/10/17 12:02 51 04/10/17 12:00 96.6 50 16 136/62 (86) 97 04/11/17 04/11/17 04/11/17 06:59 14:59 22:59 Intake Total 766 ml Output Total 1446 ml Balance -680 ml Result Diagram: 04/11/17 0317 04/11/17316 Laboratory Results Laboratory Tests Test 04/10/17 23:40 04/11/17 02:08 04/11/17 03:17 White Blood Count 19.4 TH/MM3 19.8 TH/MM3 Red Blood Count 4.02 MIL/MM3 4.10 MIL/MM3 Hemoglobin 11.7 GM/DL 11.8 GM/DL Hematocrit 35.6 % 36.5 % Mean Corpuscular Volume 88.5 FL 89.1 FL Mean Corpuscular Hemoglobin 29.1 PG 28.7 PG Mean Corpuscular Hemoglobin Concent 32.9 % 32.2 % Red Cell Distribution Width 13.6 % 13.6 % Platelet Count 179 TH/MM3 166 TH/MM3 Mean Platelet Volume 8.9 FL 8.5 FL Neutrophils (%) (Auto) 93.6 % 93.2 % Lymphocytes (%) (Auto) 2.0 % 2.4 % Monocytes (%) (Auto) 4.1 % 4.3 % Eosinophils (%) (Auto) 0.0 % 0.0 % Basophils (%) (Auto) 0.3 % 0.1 % Neutrophils # (Auto) 18.1 TH/MM3 18.4 TH/MM3 Lymphocytes # (Auto) 0.4 TH/MM3 0.5 TH/MM3 Monocytes # (Auto) 0.8 TH/MM3 0.8 TH/MM3 Eosinophils # (Auto) 0.0 TH/MM3 0.0 TH/MM3 Basophils # (Auto) 0.1 TH/MM3 0.0 TH/MM3 CBC Comment DIFF FINAL DIFF FINAL Differential Comment Blood Urea Nitrogen 17 MG/DL 17 MG/DL Creatinine 0.98 MG/DL 0.92 MG/DL Random Glucose 183 MG/DL 210 MG/DL Total Protein 5.5 GM/DL Calcium Level 7.4 MG/DL 8.3 MG/DL Sodium Level 138 MEQ/L 137 MEQ/L Potassium Level 4.1 MEQ/L 3.9 MEQ/L Chloride Level 101 MEQ/L 101 MEQ/L Carbon Dioxide Level 21.7 MEQ/L 23.7 MEQ/L Anion Gap 15 MEQ/L 12 MEQ/L Estimat Glomerular Filtration Rate 58 ML/MIN 62 ML/MIN Protein Corrected Calcium 8.3 MG/DL Nasal Screen MRSA (PCR) MRSA NOT DETECTED Imaging Studies Last [address] 04/11/17 0600 Signed Impressions: Service Date/Time: Tuesday, April 11, 2017 04:39 - CONCLUSION: 1. Expected postoperative changes of occipital craniectomy with interval resection of midline cerebellar mass. 2. Interval placement of posterior left ventriculostomy catheter with symmetrically small sized bilateral ventricles. Linwood Laguna MD Administered Medications Medications (Trade) Dose Ordered Sig/Pierce Route PRN Reason Start Time Stop Time Status Last Admin Dose Admin Levothyroxine Sodium (Synthroid) 75 mcg DAILY@0600 PO 04/04/17 06:00 04/11/17 05:08 Ondansetron HCl (Zofran Inj) 4 mg Q8H PRN IV PUSH nausea 04/03/17 17:30 04/04/17 13:37 Dexamethasone Sodium Phosphate (Decadron Inj) 4 mg Q6HR IV PUSH 04/04/17 12:30 04/11/17 05:08 Cyanocobalamin (Vitamin B12) 100 mcg DAILY PO 04/05/17 17:00 04/10/17 08:38 Patient Own Medication PT OWN MED: Melchor... HS PO 04/07/17 21:00 Future hold 04/09/17 22:21 Senna/Docusate Sodium (Ale-Colace) 1 tab BID PO 04/08/17 17:15 04/11/17 09:05 Lactulose (Lactulose Liq) 30 ml TID PRN PO CONSTIPATION 04/08/17 13:45 04/08/17 17:25 Alprazolam (Xanax) 0.25 mg Q8H PO 04/09/17 08:00 04/10/17 08:38 Nicardipine HCl 25 mg/Sodium Chloride 260 ml @ 52 mls/hr TITRATE PRN IV Blood pressure management 04/10/17 23:45 04/10/17 23:30 Morphine Sulfate (Morphine Inj) 4 mg Q3H PRN IV BREAKTHROUGH PAIN 04/10/17 23:45 04/11/17 05:10 IV Flush (NS Flush) 2 ml BID IVF 04/11/17 09:00 04/11/17 09:00 Potassium Chloride/Dextrose/ Sod Cl 1,000 ml @ 100 mls/hr Q10H IV 04/11/17 00:13 04/11/17 09:05 Objective Remarks GENERAL: Middle aged female upright in bed in nad. SKIN: Warm and dry. HEAD: Normocephalic. EYES: No injection or drainage. NECK: Supple, trachea midline. CARDIOVASCULAR: +S1/S2 RESPIRATORY: anterior alexander clear. GASTROINTESTINAL: Abdomen soft, non-tender, nondistended. EXTREMITIES: No cyanosis, or edema. NEUROLOGICAL: awake and alert, lethargic. normal speech. Assessment/Plan Problem List: (1) Lung cancer, primary, with metastasis from lung to other site ICD Codes: C34.90 - Lung cancer, primary, with metastasis from lung to other site; C79.9 - Secondary malignant neoplasm of unspecified site Status: Acute Plan: 04/11: s/p suboccipital decompressive craniectomy, resection superior cerebellar neoplasm and left occipital bur hole, ventriculostomy placement on 04/10. await pathology, continue supportive care 04/10: continue Afatinib. undergoing resection with DR. Rich today. 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 --diagnosed a little over two years ago --has been on palliative systemic therapy initially with Tarceva and more recently with afatinib. --developed progressive pain involving the back of her head associated with weakness of her lower extremities some weeks ago. MRI of the brain indicates a large cerebellar mass most consistent with metastatic disease as well as areas of dural enhancement and cortical lesions scattered over the left and the right cerebellar hemisphere. 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 --Dr. Rich of neurosurgery has evaluated the patient and has recommended a decompressive craniotomy with resection of the tumor involving the cerebellum and has also recommended C1 compressive laminectomy. Assessment 61y/o female with metastatic adenocarcinoma of the lung now with newly diagnosed brain mets. History of hypothyroidism. Kidney stones. Multiple sclerosis. Anxiety. Arthritis. Attending Statement confuse C/O pain s/p surgery yesterday. Path is pending. will follow. The exam, history, and the medical decision-making described in the above note were completed with the assistance of the mid-level provider. I reviewed and agree with the findings presented. I attest that I had a [id number] encounter with the patient on the same day, and personally performed and documented my assessment and findings in the medical record. Larisa Mcduffie Apr 11, 2017 09:49 Pretty Allison MD Apr 11, 2017 15:08
--- NOTE | 2017-04-11 11:02 | HHI.HCPN ---
Reason for visit a. To assist with evaluation and management of symptoms including: b. To assist medical decision maker(s) with: better understanding of current medical conditions; weighing benefits/burdens of medical treatment options; making medical treatment decisions. Subjective/Interval History s/p decompressive craniectomy, C1 decompressive laminectomy, neoplasm resection , left susanne hole/ventric placement yesterday 04/10/17. Some post operative hypertension requiring Cardene, otherwise stable/uneventful post operative course. In ICU, now off of cardene drip. Has required 2 doses prn morphine 4mg for pain. Labs stable- WBC 19.8/ pt on decadron 4mg Q6hr. Tolerating NC O2. Neuro checks stable. Pt seen in ICU room. Dual visit w S. Lower [employer]. Pt lethargic, sleeping, arouses to verbal. Partially oriented. speech clear. Moves all 4 extremities, pupils equal and reactive. Dressing to posterior head/neck clean and dry. Ventric draining clear fluid to bedside collection device. Pt says she thinks she had a [place] earlier but is OK now. No n/v, no SOB. Denies cough. Offer to call daughter to update, she agrees. Call to dtr, SKYLAR left. She then called back-- provided update on current assessment, tx, recent diagnostics, expected ICU/post op trajectory. She is appreciative of update, will be in later this afternoon to see pt. d./w primary RN . Advance Directives Living Will: Copy in medical record Health Care Surrogate: Copy in medical record Advance Directive Specifics Date completed: 2014, we did today 04/07/17 Health Care Surrogate(s): Daughter Siena Objective Vital Signs Date Time Temp Pulse Resp B/P (MAP) Pulse Ox O2 Delivery O2 Flow Rate FiO2 04/11/17 06:00 97.9 6 11 122/57 (78) 100 04/11/17 05:00 97.9 84 12 137/66 (89) 100 04/11/17 04:00 97.9 70 16 110/53 (72) 100 04/11/17 04:00 97.9 70 16 110/53 (72) 100 04/11/17 03:00 97.9 84 14 130/57 (81) 100 04/11/17 02:00 98.5 88 16 114/61 (78) 99 04/11/17 02:00 98.5 88 16 114/61 (78) 99 04/11/17 01:30 88 04/11/17 01:30 98.5 88 13 138/62 (87) 99 04/11/17 01:10 98.2 87 16 128/64 (85) 100 Nasal Cannula 3 04/11/17 00:45 88 16 132/62 (85) 100 Nasal Cannula 3 04/11/17 00:30 88 15 134/61 (85) 99 Nasal Cannula 3 04/11/17 00:15 87 15 133/60 (84) 99 Nasal Cannula 3 04/11/17 00:00 85 16 155/69 (97) 99 Nasal Cannula 3 04/10/17 23:45 86 17 164/72 (102) 99 Nasal Cannula 3 04/10/17 23:30 82 15 160/71 (100) 100 Simple Mask 6 04/10/17 23:30 82 160/71 04/10/17 23:15 96 16 148/67 (94) 100 Simple Mask 6 04/10/17 23:00 92 16 135/63 (87) 100 Simple Mask 6 04/10/17 22:57 97.7 96 15 144/65 (91) 100 Simple Mask 6 04/10/17 12:02 51 04/10/17 12:00 96.6 50 16 136/62 (86) 97 Intake & Output 04/11/17 04/11/17 06:59 18:59 Intake Total 3766 ml Output Total 3246 ml Balance 520 ml IV Total 766 ml Other 3000 ml Output Urine Total 3050 ml Drainage Total 96 ml Estimated Blood Loss 100 ml Physical Exam CONSTITUTIONAL/GENERAL: This is an adequately nourished patient, in no apparent distress. lethargic TUBES/LINES/DRAINS: Peripheral IV upper extremity. radial arterial line. Holt catheter, ventriculostomy drain from posterior head, dressing posterior head clean/dry CARDIOVASCULAR: Regular rate and rhythm, no murmur. No JVD. Peripheral pulses symmetric. trace periph edema. RESPIRATORY/CHEST: Symmetric, unlabored respirations. On 2 L NC. Clear to auscultation. Breath sounds equal bilaterally. GASTROINTESTINAL: Abdomen soft, non-tender, nondistended. No palpable masses. No guarding. Bowel sounds hypoactive MUSCULOSKELETAL: Extremities without clubbing, cyanosis. trace peripheral edema , trace facial edema. No joint tenderness or effusion noted. No mottling or clubbing. NEUROLOGICAL: lethargic, easily awakens. partially oriented. speech clear. Pupils equal/reactive. Moves all 4 extremities . Motor and sensory grossly within normal limits. ventriculostomy posterior head to bedside drain PSYCHIATRIC: lethargic. No apparent hallucinations or other psychotic thought process. Diagnostic Tests Laboratory Laboratory Tests Test 04/08/17 12:15 04/10/17 23:40 04/11/17 02:08 04/11/17 03:17 Blood Urea Nitrogen 19 MG/DL (7-18) 17 MG/DL (7-18) 17 MG/DL (7-18) Creatinine 0.75 MG/DL (0.50-1.00) 0.98 MG/DL (0.50-1.00) 0.92 MG/DL (0.50-1.00) Random Glucose 142 MG/DL (74-106) 183 MG/DL (74-106) 210 MG/DL (74-106) Calcium Level 8.9 MG/DL (8.5-10.1) 7.4 MG/DL (8.5-10.1) 8.3 MG/DL (8.5-10.1) Sodium Level 139 MEQ/L (136-145) 138 MEQ/L (136-145) 137 MEQ/L (136-145) Potassium Level 3.6 MEQ/L (3.5-5.1) 4.1 MEQ/L (3.5-5.1) 3.9 MEQ/L (3.5-5.1) Chloride Level 105 MEQ/L (98-107) 101 MEQ/L (98-107) 101 MEQ/L (98-107) Carbon Dioxide Level 28.0 MEQ/L (21.0-32.0) 21.7 MEQ/L (21.0-32.0) 23.7 MEQ/L (21.0-32.0) Anion Gap 6 MEQ/L (5-15) 15 MEQ/L (5-15) 12 MEQ/L (5-15) Estimat Glomerular Filtration Rate 79 ML/MIN (>89) 58 ML/MIN (>89) 62 ML/MIN (>89) White Blood Count 19.4 TH/MM3 (4.0-11.0) 19.8 TH/MM3 (4.0-11.0) Red Blood Count 4.02 MIL/MM3 (4.00-5.30) 4.10 MIL/MM3 (4.00-5.30) Hemoglobin 11.7 GM/DL (11.6-15.3) 11.8 GM/DL (11.6-15.3) Hematocrit 35.6 % (35.0-46.0) 36.5 % (35.0-46.0) Mean Corpuscular Volume 88.5 FL (80.0-100.0) 89.1 FL (80.0-100.0) Mean Corpuscular Hemoglobin 29.1 PG (27.0-34.0) 28.7 PG (27.0-34.0) Mean Corpuscular Hemoglobin Concent 32.9 % (32.0-36.0) 32.2 % (32.0-36.0) Red Cell Distribution Width 13.6 % (11.6-17.2) 13.6 % (11.6-17.2) Platelet Count 179 TH/MM3 (150-450) 166 TH/MM3 (150-450) Mean Platelet Volume 8.9 FL (7.0-11.0) 8.5 FL (7.0-11.0) Neutrophils (%) (Auto) 93.6 % (16.0-70.0) 93.2 % (16.0-70.0) Lymphocytes (%) (Auto) 2.0 % (9.0-44.0) 2.4 % (9.0-44.0) Monocytes (%) (Auto) 4.1 % (0.0-8.0) 4.3 % (0.0-8.0) Eosinophils (%) (Auto) 0.0 % (0.0-4.0) 0.0 % (0.0-4.0) Basophils (%) (Auto) 0.3 % (0.0-2.0) 0.1 % (0.0-2.0) Neutrophils # (Auto) 18.1 TH/MM3 (1.8-7.7) 18.4 TH/MM3 (1.8-7.7) Lymphocytes # (Auto) 0.4 TH/MM3 (1.0-4.8) 0.5 TH/MM3 (1.0-4.8) Monocytes # (Auto) 0.8 TH/MM3 (0-0.9) 0.8 TH/MM3 (0-0.9) Eosinophils # (Auto) 0.0 TH/MM3 (0-0.4) 0.0 TH/MM3 (0-0.4) Basophils # (Auto) 0.1 TH/MM3 (0-0.2) 0.0 TH/MM3 (0-0.2) CBC Comment DIFF FINAL DIFF FINAL Differential Comment Total Protein 5.5 GM/DL (6.4-8.2) Protein Corrected Calcium 8.3 MG/DL (8.5-10.1) Nasal Screen MRSA (PCR) MRSA NOT DETECTED (NOT Result Diagram: 04/11/1731604/11/17316 Imaging Last Impressions Head CT 04/11/17 0600 Signed Impressions: Service Date/Time: Tuesday, April 11, 2017 04:39 - CONCLUSION: 1. Expected postoperative changes of occipital craniectomy with interval resection of midline cerebellar mass. 2. Interval placement of posterior left ventriculostomy catheter with symmetrically small sized bilateral ventricles. Linwood Laguna MD Chest CT 04/08/17 0000 Signed Impressions: Service Date/Time: Saturday, April 08, 2017 15:15 - CONCLUSION: 1. Treated tumor in the left upper lobe, with a residual mass that is much smaller than back in 2015. 2. No new or metastatic disease demonstrated. Gordy Laura MD Abdomen/Pelvis CT 04/08/17 0000 Signed Impressions: Service Date/Time: Saturday, April 08, 2017 15:15 - CONCLUSION: 1. Chronic changes related to treatment of metastatic lesion of the L1 vertebral body. No distending/measurable mass seen of L1 currently. 2. 9 mm sclerotic lesion of T11, new and most likely a metastasis. 3. Fatty liver. Gordy Laura MD Lumbar Spine MRI 04/04/17 0000 Signed Impressions: Service Date/Time: Tuesday, April 04, 2017 09:19 - CONCLUSION: I don't see evidence for worsening MS. Chronic compression of L1 Degenerative facet disease L4-5, L5-S1 without significant spinal stenosis. There is mild neuroforaminal encroachment. Ed Roque MD FACR Cervical Spine MRI 04/04/17 0000 Signed Impressions: Service Date/Time: Tuesday, April 04, 2017 09:19 - CONCLUSION: Markedly abnormal high cervical cord with increased signal in the cord. There is cord expansion more suggestive of neoplastic or infiltrative process rather then multiple sclerosis. Markedly abnormal cerebellum MRI of the brain is pending. Ed Roque MD FACR Brain MRI 04/04/17 0000 Signed Impressions: Service Date/Time: Tuesday, April 04, 2017 09:19 - CONCLUSION: Markedly abnormal cerebellum enhancing mass and scattered other areas of cortical enhancement on the right most suspicious for neoplastic process. Markedly abnormal MRI of the high cervical spine as described on that report. Ed Roque MD FACR Chest X-Ray 04/03/17 1233 Signed Impressions: Service Date/Time: March 12:44 - CONCLUSION: No acute disease. Emanuel Hood Jr., MD Cervical Spine CT 04/03/17 0000 Signed Impressions: Service Date/Time: , April 03, 2017 13:44 - CONCLUSION: Degenerative disc change at C6-7 with mild disc osteophyte complex. There is moderate narrowing of the left neural foramina at this level. Rafael Mariee MD Procedures 04/11 -decompressive craniectomy, C1 decompressive laminectomy, neoplasm resection , left susanne hole/ventric placement . 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 . Supported by her only child, daughter who visits about once a week. 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 Daughter indicates patient moves residence frequently, and has exhibited some compulsive-like behaviors such as buying 10 of the same shirt in the same color, and moving every 6 months to a year. Spiritual: [facility], has been in, appreciative of ongoing unit operator support Legal:Patient has had improving neurological status since admission. Today she appears alert oriented and with good insight. Probably able to make her own decisions, though given her fluctuating mental status best supported by whomever her designated decision maker would be. Of note patient does have healthcare surrogate and advance directive dated 2014 in her electronic record however these documents are not witnessed. Palliative will offer her assistance with completion of new witnessed documents during this admission. Palliative assisted to complete HCS- named dtr Siena as HCS. witnessed by RN. Ethical issues impacting care: Important Contacts Siena Guillen daughter [phone] [healthcare surrogate- works as a dental hygienist from 7 AM to 5 PM, so is not always able to answer the phone quickly but will return phone calls] Anne Michelle ([place]) [phone] . Prognosis This patient with known history of stage IV lung cancer, diagnosed in 2014, presented for altered mental status and weakness. Per most recent oncology follow-up disease process had been stable/without progression. Patient now with a moderate size enhancing midline upper cerebellar midline mass with mostly mild surrounding edema. Also similar appearing lesion over the right posterior parietal region. Scattered areas of dural based enhancement primarily left occipital region.The cervical spine study reveals significant enlargement of a previously noted C2 level syrinx seen on MRI from 2012, now with abnormal signal intensity extending in the cord to the mid cervical region with some cord expansion. The cerebellar tonsils remain descended into the C1-2 level, increased from prior MRI from 2012. Oncology recommends proceeding with decompressive craniotomy and C1 decompressive laminectomy, as per neurosurgery's recommendations. From there recommends further restaging studies on findings for possible targeted therapy. Patient with improvement in symptoms thus far during hospital course on Decadron. Prognosis guarded. . Code Status: No Code Plan * Legal decision maker:Patient has had improving neurological status since admission. Today she appears alert oriented and with good insight. Probably able to make her own decisions, though given her fluctuating mental status best supported by whomever her designated decision maker would be. Of note patient does have healthcare surrogate and advance directive dated 2014 in her electronic record however these documents are not witnessed. Palliative will offer her assistance with completion of new witnessed documents during this admission. Palliative assisted to complete HCS- named dtr Siena as HCS. witnessed by RN. * Goals: Patient and daughter wish to proceed with neurosurgical intervention and pursue possible systemic treatment options. They would wish to proceed with potential treatment if patient can regain baseline cognitive and functional status. However if patient should develop significant complications resulting in prolonged hospitalization, and worsening neurological status they would want to have ongoing conversations regarding goals, treatment options. * CODE STATUS: FULL CODE elected 04/09, though further informs would not want prolonged life support * SYMPTOMS: --AMS/weakness/confusion- possible metastatic malignancy identified in new brain imaging. Patient also with known history syrinx. Neurosurgery, neurology following. s/p decompressive craniotomy 04/10. Has been initiated on steroids, with improvement in weakness and mental status. --Nausea-patient endorses nausea, no vomiting just a feeling of "dry heaving ", accompanied by poor oral intake secondary to this. She endorses for the past day or so on steroids the nausea has subsided and her appetite has improved. Likely this is secondary to possible malignancy findings; with surgical intervention, ongoing steroids symptoms should improve/ will continue to evaluate/has prn zofran available, has not required. -- pain- post op crani, + some Headache, prn 4mg Morphine IV used x2 , effective. Will cont to evaluate. * Palliative care will continue to follow during hospital course as condition evolves, to assist patient/decision-maker with understanding of medical conditions, weighing benefits/burdens of treatment options, for clarification of goals of treatment. Additionally will assist with any symptoms of palliative concern . Attestation To help prompt me to consider important information that might be impacting today's encounter and assessment, information from prior notes written by myself or my colleagues may have been "brought forward" into today's note. My signature on this note, however, is an attestation that I personally performed the exam, history, and/or decision-making noted today, and, unless otherwise indicated, the interactions with patient, family, and staff as well as the review of records all occurred today. I also attest that the listed assessment and stated plan reflect my best clinical judgment today based on the combination of historical information, prior notes, and today's exam/ interactions. When time spent is documented, it refers only to time spent today by the signer, or if indicated, combined time spent today by collaborating physician/nurse practitioner. Miranda Martin Apr 11, 2017 11:02
[2017-04-11] MEDS ORDERED: GLUCAGON 1 MG/ML VIAL IM/SQ PRN (13:45)
[2017-04-11] MEDS ORDERED: DEXTROSE 50% IN WATER 50 ML VIAL(D50) IV PRN (13:45)
[2017-04-11] MEDS: INSULIN ASPART SUPPLEMENTAL SCALE SQ SCH ×2 (13:45→18:00)
--- NOTE | 2017-04-11 14:12 | HHI.NSPN ---
(Leandro Peres) History Chief Complaint: Neck pain. (Leandro Peres) Interval History 61-year-old female with previous history of cervical syrinx with Chiari malformation documented in previous MRI of the cervical spine from 2011. Previously followed by neurology-Dr. Kaela Mariscal. Patient also has a history of metastatic non-small cell lung cancer. Prior imaging revealed metastatic disease to the lumbar spine. Patient now presents with a few weeks of dizziness and headache. Recently seen by neurology as an outpatient. She came to the emergency room on 04/03/17 due to speech difficulty, mental status changes, nausea and vomiting and persistent headache. 04/07: her symptoms better with Decadron. Daughter in room, both she and patient agrees with surgery this week. 04/09/2017: Patient feeling better. Ambulating for short distance without assistance. Headache improving. Less pain across the neck and shoulders. 04/11: The patient went for a resection of a cerebellar neoplasm yesterday afternoon. Post-operatively she was transferred to the [facility] for further care and management. A repeat CT brain this morning demonstrated expected post-operative changes. Today the patient is drowsy but readily interacts and complains of neck pain. She denies any headache. (Leandro Peres) System Review Comments Constitutional: Patient denies any fever or chills. HEENT: Patient denies any visual or hearing difficulty. Respiratory: Patient denies any shortness of breath or productive cough. Cardiovascular: Patient denies any chest pain, palpitations or irregular heartbeat. Gastrointestinal: Patient denies any abdominal pain, nausea or vomiting. Musculoskeletal: Patient complains of neck pain. She denies any back or extremity pain. Neurologic: Patient denies any headache, dizziness, numbness or tingling. (Leandro Peres) Exam Results 04/09/17 04/09/17 04/10/17 04/10/17 04/11/17 04/11/17 06:00 18:00 06:00 18:00 06:00 18:00 Intake Total 480 ml 3766 ml 60 ml Output Total 3246 ml Balance 480 ml 520 ml 60 ml Intake Oral 480 ml 60 ml IV Total 766 ml Other 3000 ml Output Urine Total 3050 ml Drainage Total 96 ml Estimated Blood Loss 100 ml # Voids 1 8 2 3 # Bowel Movements 0 Vital Signs Date Time Temp Pulse Resp B/P (MAP) Pulse Ox O2 Delivery O2 Flow Rate FiO2 04/11/17 12:00 99.0 68 8 153/69 (97) 99 04/11/17 08:00 98.7 69 8 134/65 (88) 100 04/11/17 06:00 97.9 6 11 122/57 (78) 100 04/11/17 05:00 97.9 84 12 137/66 (89) 100 04/11/17 04:00 97.9 70 16 110/53 (72) 100 04/11/17 04:00 97.9 70 16 110/53 (72) 100 04/11/17 03:00 97.9 84 14 130/57 (81) 100 04/11/17 02:00 98.5 88 16 114/61 (78) 99 04/11/17 02:00 98.5 88 16 114/61 (78) 99 04/11/17 01:30 88 04/11/17 01:30 98.5 88 13 138/62 (87) 99 04/11/17 01:10 98.2 87 16 128/64 (85) 100 Nasal Cannula 3 04/11/17 00:45 88 16 132/62 (85) 100 Nasal Cannula 3 04/11/17 00:30 88 15 134/61 (85) 99 Nasal Cannula 3 04/11/17 00:15 87 15 133/60 (84) 99 Nasal Cannula 3 04/11/17 00:00 85 16 155/69 (97) 99 Nasal Cannula 3 04/10/17 23:45 86 17 164/72 (102) 99 Nasal Cannula 3 04/10/17 23:30 82 15 160/71 (100) 100 Simple Mask 6 04/10/17 23:30 82 160/71 04/10/17 23:15 96 16 148/67 (94) 100 Simple Mask 6 04/10/17 23:00 92 16 135/63 (87) 100 Simple Mask 6 04/10/17 22:57 97.7 96 15 144/65 (91) 100 Simple Mask 6 04/10/17 12:02 51 04/10/17 12:00 96.6 50 16 136/62 (86) 97 04/10/17 08:00 96.3 52 16 129/66 (87) 98 04/10/17 00:05 49 04/10/17 00:00 96.3 53 17 132/63 (86) 96 04/09/17 22:20 59 04/09/17 20:00 97.1 61 18 142/71 (94) 96 04/09/17 16:00 96.5 61 18 136/64 (88) 96 04/09/17 12:22 60 04/09/17 12:00 97.3 59 18 123/68 (86) 96 04/09/17 08:00 96.5 54 16 122/62 (82) 97 04/09/17 04:00 97.8 50 18 129/65 (86) 96 04/09/17 00:00 98.1 55 18 123/56 (78) 96 04/08/17 21:00 63 04/08/17 20:00 97.9 59 17 129/61 (83) 94 04/08/17 16:21 55 04/08/17 16:00 98.1 54 16 140/63 (88) 98 (Leandro Peres) Physical Examination GENERAL: Patient is awake but drowsy. She readily interacts. Her affect is slightly flat. She is not in any apparent distress. SKIN: Warm, dry & intact except for posterior neck/lower occipital surgical wound w/intact dressing, ecchymosis secondary to IV starts, no rashes, ulcerations or other lesions evident. HEENT: Posterior neck/lower occipital surgical wound w/intact dressing and ventriculostomy. PERRLA, EOMI. MMM & pink, tongue midline to protrusion. NECK: Posterior neck/lower occipital surgical wound w/intact dressing TTP, no JVD, trachea midline. CARDIOVASCULAR: S1S2 w/RRR w/o M/G/R, radial & pedal pulses 2+ bilaterally, cap refill < 2 sec, trace dependent edema. Monitor is sinus rhythm w/o any evident ectopy. RESPIRATORY: CTAB w/o W/R/R, equal excursion, nonlaboured, on NC. GASTROINTESTINAL: Abdomen soft, nontender, positive bowel sounds. MUSCULOSKELETAL: FRAZIER w/o difficulty, no evident deformity or clubbing. NEUROLOGICAL: Drowsy, but alert & readily interacts, oriented to person, place, who president was, month and date but not year. Speech clear & essentially appropriate. CN II-XII appear grossly intact. Sensation intact to light touch to all extremities. Motor strength 5/5 to all major flexion & extension muscle groups. Ventriculostomy w/clear straw-coloured CSF drainage, at 0 cm H20 pressure. (Leandro Peres) Lab, Micro, Other Results Recent Impressions Head CT 04/11/17 0600 Signed Impressions: Service Date/Time: Tuesday, April 11, 2017 04:39 - CONCLUSION: 1. Expected postoperative changes of occipital craniectomy with interval resection of midline cerebellar mass. 2. Interval placement of posterior left ventriculostomy catheter with symmetrically small sized bilateral ventricles. Linwood Laguna MD Laboratory Tests Test 04/10/17 23:40 04/11/17 02:08 04/11/17 03:17 White Blood Count 19.4 TH/MM3 19.8 TH/MM3 Red Blood Count 4.02 MIL/MM3 4.10 MIL/MM3 Hemoglobin 11.7 GM/DL 11.8 GM/DL Hematocrit 35.6 % 36.5 % Mean Corpuscular Volume 88.5 FL 89.1 FL Mean Corpuscular Hemoglobin 29.1 PG 28.7 PG Mean Corpuscular Hemoglobin Concent 32.9 % 32.2 % Red Cell Distribution Width 13.6 % 13.6 % Platelet Count 179 TH/MM3 166 TH/MM3 Mean Platelet Volume 8.9 FL 8.5 FL Neutrophils (%) (Auto) 93.6 % 93.2 % Lymphocytes (%) (Auto) 2.0 % 2.4 % Monocytes (%) (Auto) 4.1 % 4.3 % Eosinophils (%) (Auto) 0.0 % 0.0 % Basophils (%) (Auto) 0.3 % 0.1 % Neutrophils # (Auto) 18.1 TH/MM3 18.4 TH/MM3 Lymphocytes # (Auto) 0.4 TH/MM3 0.5 TH/MM3 Monocytes # (Auto) 0.8 TH/MM3 0.8 TH/MM3 Eosinophils # (Auto) 0.0 TH/MM3 0.0 TH/MM3 Basophils # (Auto) 0.1 TH/MM3 0.0 TH/MM3 CBC Comment DIFF FINAL DIFF FINAL Differential Comment Blood Urea Nitrogen 17 MG/DL 17 MG/DL Creatinine 0.98 MG/DL 0.92 MG/DL Random Glucose 183 MG/DL 210 MG/DL Total Protein 5.5 GM/DL Calcium Level 7.4 MG/DL 8.3 MG/DL Sodium Level 138 MEQ/L 137 MEQ/L Potassium Level 4.1 MEQ/L 3.9 MEQ/L Chloride Level 101 MEQ/L 101 MEQ/L Carbon Dioxide Level 21.7 MEQ/L 23.7 MEQ/L Anion Gap 15 MEQ/L 12 MEQ/L Estimat Glomerular Filtration Rate 58 ML/MIN 62 ML/MIN Protein Corrected Calcium 8.3 MG/DL Nasal Screen MRSA (PCR) MRSA NOT DETECTED (Leandro Peres) Medical Decision Making Impression and Plan Impression: (1) Cerebral tumor (2) Chiari I malformation (3) Syringomyelia 1. Multiple cerebral lesions, superior cerebellar lesion, probable metastatic neoplasm. 2. Chiari I malformation 3. Cervical syringomyelia POD #1 () s/p: 1. Suboccipital decompressive craniectomy 2. Dural fenestration for Chiari malformation decompression 3. C1 decompressive laminectomy 4. Resection of superior cerebellar neoplasm 5. Left occipital bur hole, ventriculostomy placement Plan: Critical care management per Linecasting Machine Keyboard Operator. Primary management per Hospitalist. Continue ventriculostomy at 0 cm. PT/OT eval & tx. Continue Decadron. (Leandro Peres) Attending Statement I have personally seen and examined the patient on 04/11/17. Pertinent documentation and study results have been reviewed by the undersigned. I have personally developed the treatment plan and performed medical decision making. Agree with findings, exam, and treatment plan as noted above. My examination on 9816 reveals patient awake and alert. No focal cranial nerve or extremity deficit Ventriculostomy catheter functioning well Continue external ventricular drain Continue ISC neurologic checks This diet activity as tolerated Continue chemical dvt prophylaxis continue dixon catheter until out of bed (Clem Rich MD) Leandro Peres Apr 11, 2017 14:12 Clem Rich MD Apr 12, 2017 16:31
[2017-04-11] MEDS: ACETAMINOPHEN/HYDROcodone 325 MG/10 MG TAB PO PRN (16:00)
[2017-04-11] MEDS: GILOTRIF PO SCH (21:00)
[2017-04-12] VITALS (8 sets, daily range): BP systolic 124–158; BP diastolic 60–94; PULSE 56–78; RESP 7–18; TEMP 98.4–99; O2SAT 94–97
[2017-04-12] MEDS: DEXAMETHASONE SOD PHOS 4 MG/ML VIAL IV PUSH SCH ×5 (00:03→23:50)
[2017-04-12] MEDS: ACETAMINOPHEN/HYDROcodone 325 MG/10 MG TAB PO PRN ×3 (00:11→20:56)
[2017-04-12] MEDS: INSULIN ASPART SUPPLEMENTAL SCALE SQ SCH ×3 (00:12→17:16)
[2017-04-12] MEDS: D5-NS + KCL 20 MEQ INJ 1,000 ML IV SCH (05:54)
[2017-04-12] MEDS: LEVOTHYROXINE SODIUM 75 MCG TAB PO SCH (05:55)
[2017-04-12] MEDS: ALPRAZolam 0.25 MG TAB PO SCH ×4 (08:00→23:50)
--- NOTE | 2017-04-12 08:28 | HHI.CCPN ---
Subjective Remarks/Hospital Course 04/11: 61-year-old very pleasant female with a history of metastatic adenocarcinoma of the lungs, hypothyroidism, anxiety, and multiple sclerosis has been admitted for progressive weakness and worsening gait. Patient was in her usual state of health until a few weeks ago when she began experiencing an unsteady gait. Per chart documentation she began shuffling her feet, and was seen and examined by outpatient neurologist with the plan to obtain an outpatient MRI which apparently had not been done yet. Our imaging system revealed the new diagnosis of metastasis in the brain and patient underwent palliative resection with hemicraniectomy by Dr. Rich. She is now admitted to SICU postoperatively. 04/12: Awake and alert. Ventriculostomy drain 1 20 cc overnight. Feeling hungry. Denies any headache currently denies any nausea. Objective Vital Signs Date Time Temp Pulse Resp B/P (MAP) Pulse Ox O2 Delivery O2 Flow Rate FiO2 04/12/17 04:00 98.9 56 8 131/63 (85) 94 04/11/17 01:10 Nasal Cannula 3 Intake and Output 04/12/17 04/12/17 04/13/17 08:00 16:00 00:00 Intake Total 1480 ml Output Total 1020 ml Balance 460 ml Result Diagram: 04/11/17 0317 04/11/17 0317 Imaging Last Impressions Head CT 04/11/17 0600 Signed Impressions: Service Date/Time: Tuesday, April 11, 2017 04:39 - CONCLUSION: 1. Expected postoperative changes of occipital craniectomy with interval resection of midline cerebellar mass. 2. Interval placement of posterior left ventriculostomy catheter with symmetrically small sized bilateral ventricles. Linwood Laguna MD Chest CT 04/08/17 0000 Signed Impressions: Service Date/Time: Saturday, April 08, 2017 15:15 - CONCLUSION: 1. Treated tumor in the left upper lobe, with a residual mass that is much smaller than back in 2015. 2. No new or metastatic disease demonstrated. Gordy Laura MD Abdomen/Pelvis CT 04/08/17 0000 Signed Impressions: Service Date/Time: Saturday, April 08, 2017 15:15 - CONCLUSION: 1. Chronic changes related to treatment of metastatic lesion of the L1 vertebral body. No distending/measurable mass seen of L1 currently. 2. 9 mm sclerotic lesion of T11, new and most likely a metastasis. 3. Fatty liver. Gordy Laura MD Lumbar Spine MRI 04/04/17 0000 Signed Impressions: Service Date/Time: Tuesday, April 04, 2017 09:19 - CONCLUSION: I don't see evidence for worsening MS. Chronic compression of L1 Degenerative facet disease L4-5, L5-S1 without significant spinal stenosis. There is mild neuroforaminal encroachment. Ed Roque MD FACR Cervical Spine MRI 04/04/17 0000 Signed Impressions: Service Date/Time: Tuesday, April 04, 2017 09:19 - CONCLUSION: Markedly abnormal high cervical cord with increased signal in the cord. There is cord expansion more suggestive of neoplastic or infiltrative process rather then multiple sclerosis. Markedly abnormal cerebellum MRI of the brain is pending. Ed Roque MD FACR Brain MRI 04/04/17 0000 Signed Impressions: Service Date/Time: Tuesday, April 04, 2017 09:19 - CONCLUSION: Markedly abnormal cerebellum enhancing mass and scattered other areas of cortical enhancement on the right most suspicious for neoplastic process. Markedly abnormal MRI of the high cervical spine as described on that report. Ed Roque MD FACR Chest X-Ray 04/03/17 1233 Signed Impressions: Service Date/Time: , April 03, 2017 12:44 - CONCLUSION: No acute disease. Emanuel Hood Jr., MD Cervical Spine CT 04/03/17 0000 Signed Impressions: Service Date/Time: , April 03, 2017 13:44 - CONCLUSION: Degenerative disc change at C6-7 with mild disc osteophyte complex. There is moderate narrowing of the left neural foramina at this level. Rafael Mariee MD Objective Remarks GENERAL: Well-nourished, well-developed patient. Extremely lethargic, SKIN: Warm and dry. HEAD: Normocephalic. EYES: No scleral icterus. No injection or drainage. NECK: Supple, trachea midline. No JVD or lymphadenopathy. CARDIOVASCULAR: Regular rate and rhythm without murmurs, gallops, or rubs. RESPIRATORY: Breath sounds equal bilaterally. No accessory muscle use. GASTROINTESTINAL: Abdomen soft, non-tender, nondistended. MUSCULOSKELETAL: No cyanosis, or edema. BACK: Nontender without obvious deformity. NEURO EXAM: GCS: M6 V5 E3 Mental Status: The patient is lethargic but oriented to person, place, and time with normal speech. Cranial Nerves: Pupils are round, reactive to light. Reflexes: No clonus. A/P Assessment and Plan Brain metastases - Status post resection and hemicraniectomy -Ventriculostomy in place - Management per neurosurgery Dr. Rich - Continue ICU monitoring for neuro checks and vital signs - Dilaudid for pain control Adenocarcinoma of the lung - Dr. Haines hematology oncology Anxiety - Ativan when necessary Hypothyroidism - Synthroid Hypertension - Cardene drip as needed - Hydralazine/Labetalol when necessary to keep SBP less than 150 DVT GI prophylaxis - Teds SCDs - Pharmacological DVT prophylaxis per neurosurgery and hematology oncology - Protonix Saline lock IV fluids, discontinue Holt catheter. Advance diet. Further recommendations per neurosurgery. El Christie MD Apr 12, 2017 08:28
[2017-04-12] MEDS: SODIUM CHLORIDE 0.9% FLUSH 5 ML FLUSH IVF SCH ×2 (09:00→20:56)
[2017-04-12] MEDS: DOCUSATE SODIUM 50 MG/SENNA 8.6 MG TAB PO SCH ×2 (09:48→20:55)
--- NOTE | 2017-04-12 12:06 | HHI.NSPN ---
(Leandro Peres) History Chief Complaint: Slight posterior headache. (Leandro Peres) Interval History 61-year-old female with previous history of cervical syrinx with Chiari malformation documented in previous MRI of the cervical spine from 2011. Previously followed by neurology-Dr. Kaela Mariscal. Patient also has a history of metastatic non-small cell lung cancer. Prior imaging revealed metastatic disease to the lumbar spine. Patient now presents with a few weeks of dizziness and headache. Recently seen by neurology as an outpatient. She came to the emergency room on 04/03/17 due to speech difficulty, mental status changes, nausea and vomiting and persistent headache. 04/07: her symptoms better with Decadron. Daughter in room, both she and patient agrees with surgery this week. 04/09/2017: Patient feeling better. Ambulating for short distance without assistance. Headache improving. Less pain across the neck and shoulders. 04/11: The patient went for a resection of a cerebellar neoplasm yesterday afternoon. Post-operatively she was transferred to the [facility] for further care and management. A repeat CT brain this morning demonstrated expected post-operative changes. Today the patient is drowsy but readily interacts and complains of neck pain. She denies any headache. 04/12: The patient is awake and alert this morning. She says she feels "great, well maybe not great. But I feel good." She does say she has some headache to the occipital area. She states she really doesn't have any pain. She readily smiles and laughs when talking. (Leandro Peres) System Review Comments Constitutional: Patient denies any fever or chills. HEENT: Patient denies any visual or hearing difficulty. Respiratory: Patient denies any shortness of breath or productive cough. Cardiovascular: Patient denies any chest pain, palpitations or irregular heartbeat. Gastrointestinal: Patient denies any abdominal pain, nausea or vomiting. Musculoskeletal: Patient with some aching to the neck. She denies any back or extremity pain. Neurologic: Patient with some occipital headache. She denies any dizziness, numbness or tingling. (Leandro Peres) Exam Results 04/10/17 04/10/17 04/11/17 04/11/17 04/12/17 04/12/17 05:59 17:59 05:59 17:59 05:59 17:59 Intake Total 3150 ml 726 ml 2965 ml 692 ml Output Total 2090 ml 1156 ml 2490 ml 1020 ml Balance 1060 ml -430 ml 475 ml -328 ml Intake Oral 110 ml 700 ml 480 ml IV Total 150 ml 616 ml 2265 ml 212 ml Other 3000 ml Output Urine Total 1950 ml 1100 ml 2325 ml 900 ml Stool Total 0 ml Drainage Total 40 ml 56 ml 165 ml 120 ml Estimated Blood Loss 100 ml # Voids 2 3 # Bowel Movements 0 Vital Signs Date Time Temp Pulse Resp B/P (MAP) Pulse Ox O2 Delivery O2 Flow Rate FiO2 04/12/17 08:00 98.6 56 9 137/65 (89) 96 04/12/17 07:00 61 04/12/17 04:00 98.9 56 8 131/63 (85) 94 04/12/17 00:00 98.4 72 7 158/70 (99) 97 04/11/17 23:00 76 04/11/17 20:00 99.1 78 17 155/71 (99) 99 04/11/17 16:00 99.4 82 13 146/65 (92) 99 04/11/17 15:00 84 04/11/17 12:00 99.0 68 8 153/69 (97) 99 04/11/17 08:00 98.7 69 8 134/65 (88) 100 04/11/17 07:00 61 04/11/17 06:00 97.9 6 11 122/57 (78) 100 04/11/17 05:00 97.9 84 12 137/66 (89) 100 04/11/17 04:00 97.9 70 16 110/53 (72) 100 04/11/17 04:00 97.9 70 16 110/53 (72) 100 04/11/17 03:00 97.9 84 14 130/57 (81) 100 04/11/17 02:00 98.5 88 16 114/61 (78) 99 04/11/17 02:00 98.5 88 16 114/61 (78) 99 04/11/17 01:30 88 04/11/17 01:30 98.5 88 13 138/62 (87) 99 04/11/17 01:10 98.2 87 16 128/64 (85) 100 Nasal Cannula 3 04/11/17 00:45 88 16 132/62 (85) 100 Nasal Cannula 3 04/11/17 00:30 88 15 134/61 (85) 99 Nasal Cannula 3 04/11/17 00:15 87 15 133/60 (84) 99 Nasal Cannula 3 04/11/17 00:00 85 16 155/69 (97) 99 Nasal Cannula 3 04/10/17 23:45 86 17 164/72 (102) 99 Nasal Cannula 3 04/10/17 23:30 82 15 160/71 (100) 100 Simple Mask 6 04/10/17 23:30 82 160/71 04/10/17 23:15 96 16 148/67 (94) 100 Simple Mask 6 04/10/17 23:00 92 16 135/63 (87) 100 Simple Mask 6 04/10/17 22:57 97.7 96 15 144/65 (91) 100 Simple Mask 6 04/10/17 12:02 51 04/10/17 12:00 96.6 50 16 136/62 (86) 97 04/10/17 08:00 96.3 52 16 129/66 (87) 98 04/10/17 00:05 49 04/10/17 00:00 96.3 53 17 132/63 (86) 96 04/09/17 22:20 59 04/09/17 20:00 97.1 61 18 142/71 (94) 96 04/09/17 16:00 96.5 61 18 136/64 (88) 96 04/09/17 12:22 60 04/09/17 12:00 97.3 59 18 123/68 (86) 96 (Leandro Peres) Physical Examination GENERAL: Patient is awake & alert. She readily interacts, smiling and laughing. Her affect is normal. She is not in any apparent distress. SKIN: Warm, dry & intact except for posterior neck/lower occipital surgical wound w/intact dressing, ecchymosis secondary to IV starts, no rashes, ulcerations or other lesions evident. HEENT: Posterior neck/lower occipital surgical wound w/intact dressing and ventriculostomy. PERRLA, EOMI. MMM & pink, tongue midline to protrusion. NECK: Posterior neck/lower occipital surgical wound w/intact dressing TTP, no JVD, trachea midline. CARDIOVASCULAR: S1S2 w/RRR w/o M/G/R, radial & pedal pulses 2+ bilaterally, cap refill < 2 sec, trace dependent edema. Monitor is sinus rhythm w/o any evident ectopy. RESPIRATORY: CTAB w/o W/R/R, equal excursion, nonlaboured, on RA. GASTROINTESTINAL: Abdomen soft, nontender, positive bowel sounds. MUSCULOSKELETAL: FRAZIER w/o difficulty, no evident deformity or clubbing. NEUROLOGICAL: AAOx3. Speech clear & appropriate. CN II-XII appear grossly intact. Sensation intact to light touch to all extremities. Motor strength 5/5 to all major flexion & extension muscle groups. Ventriculostomy w/clear straw-coloured CSF drainage, at 0 cm H20 pressure. (Leandro Peres) Lab, Micro, Other Results Recent Impressions Head CT 04/11/17 0600 Signed Impressions: Service Date/Time: Tuesday, April 11, 2017 04:39 - CONCLUSION: 1. Expected postoperative changes of occipital craniectomy with interval resection of midline cerebellar mass. 2. Interval placement of posterior left ventriculostomy catheter with symmetrically small sized bilateral ventricles. Linwood Laguna MD Laboratory Tests Test 04/10/17 23:40 04/11/17 02:08 04/11/17 03:17 White Blood Count 19.4 TH/MM3 19.8 TH/MM3 Red Blood Count 4.02 MIL/MM3 4.10 MIL/MM3 Hemoglobin 11.7 GM/DL 11.8 GM/DL Hematocrit 35.6 % 36.5 % Mean Corpuscular Volume 88.5 FL 89.1 FL Mean Corpuscular Hemoglobin 29.1 PG 28.7 PG Mean Corpuscular Hemoglobin Concent 32.9 % 32.2 % Red Cell Distribution Width 13.6 % 13.6 % Platelet Count 179 TH/MM3 166 TH/MM3 Mean Platelet Volume 8.9 FL 8.5 FL Neutrophils (%) (Auto) 93.6 % 93.2 % Lymphocytes (%) (Auto) 2.0 % 2.4 % Monocytes (%) (Auto) 4.1 % 4.3 % Eosinophils (%) (Auto) 0.0 % 0.0 % Basophils (%) (Auto) 0.3 % 0.1 % Neutrophils # (Auto) 18.1 TH/MM3 18.4 TH/MM3 Lymphocytes # (Auto) 0.4 TH/MM3 0.5 TH/MM3 Monocytes # (Auto) 0.8 TH/MM3 0.8 TH/MM3 Eosinophils # (Auto) 0.0 TH/MM3 0.0 TH/MM3 Basophils # (Auto) 0.1 TH/MM3 0.0 TH/MM3 CBC Comment DIFF FINAL DIFF FINAL Differential Comment Blood Urea Nitrogen 17 MG/DL 17 MG/DL Creatinine 0.98 MG/DL 0.92 MG/DL Random Glucose 183 MG/DL 210 MG/DL Total Protein 5.5 GM/DL Calcium Level 7.4 MG/DL 8.3 MG/DL Sodium Level 138 MEQ/L 137 MEQ/L Potassium Level 4.1 MEQ/L 3.9 MEQ/L Chloride Level 101 MEQ/L 101 MEQ/L Carbon Dioxide Level 21.7 MEQ/L 23.7 MEQ/L Anion Gap 15 MEQ/L 12 MEQ/L Estimat Glomerular Filtration Rate 58 ML/MIN 62 ML/MIN Protein Corrected Calcium 8.3 MG/DL Nasal Screen MRSA (PCR) MRSA NOT DETECTED (Leandro Peres) Medical Decision Making Impression and Plan Impression: (1) Cerebral tumor (2) Chiari I malformation (3) Syringomyelia 1. Multiple cerebral lesions, superior cerebellar lesion, probable metastatic neoplasm. 2. Chiari I malformation 3. Cervical syringomyelia The patient is doing well post-operatively and is neurologically intact. POD #2 () s/p: 1. Suboccipital decompressive craniectomy 2. Dural fenestration for Chiari malformation decompression 3. C1 decompressive laminectomy 4. Resection of superior cerebellar neoplasm 5. Left occipital bur hole, ventriculostomy placement Plan: Critical care management per Resource Room Special Education Teacher. Primary management per Hospitalist. Continue ventriculostomy at 0 cm. PT/OT eval & tx. Continue Decadron. Doughnut pillow to try and offline pressure to surgical incision. (Leandro Peres) Attending Statement The exam, history, and the medical decision-making described in the above note were completed with the assistance of the mid-level provider. I reviewed and agree with the findings presented. I attest that I had a [id number] encounter with the patient on the same day, and personally performed and documented my assessment and findings in the medical record. On my examination today respirations are clear. Cardiac exam regular rhythm. Abdomen soft nontender. Awake and alert oriented conversant and appropriate Speech is clear Cranial nerves II through XII tested and intact Sensation to light touch and motor function major flexion and extension groups intact all extremities Incision is dry and intact Discussed with patient Doing well from a neurosurgical standpoint Mobilize out of bed Advance diet Discontinue IV fluids Plan to wean ventriculostomy over the next 2-3 days with follow-up CT scan Friday with ventriculostomy closed. (Clem Rich MD) Leandro Peres Apr 12, 2017 12:06 Clem Rich MD Apr 12, 2017 16:33
--- NOTE | 2017-04-12 13:35 | PD.ONC.PN ---
Subjective Subjective Remarks Afebrile Reports that she is overall feeling much better Complains of an occipital headache; this is relieved by pain medication Objective Data Date Time Temp Pulse Resp B/P (MAP) Pulse Ox O2 Delivery O2 Flow Rate FiO2 04/12/17 12:00 98.9 71 12 127/94 (105) 95 04/12/17 08:00 98.6 56 9 137/65 (89) 96 04/12/17 07:00 61 04/12/17 04:00 98.9 56 8 131/63 (85) 94 04/12/17 00:00 98.4 72 7 158/70 (99) 97 04/11/17 23:00 76 04/11/17 20:00 99.1 78 17 155/71 (99) 99 04/11/17 16:00 99.4 82 13 146/65 (92) 99 04/11/17 15:00 84 04/12/17 04/12/17 04/12/17 07:00 15:00 23:00 Intake Total 1480 ml 212 ml Output Total 1020 ml Balance 460 ml 212 ml Result Diagram: 04/11/1731604/11/17316 Administered Medications Medications (Trade) Dose Ordered Sig/Pierce Route PRN Reason Start Time Stop Time Status Last Admin Dose Admin Levothyroxine Sodium (Synthroid) 75 mcg DAILY@0600 PO 04/04/17 06:00 04/12/17 05:55 Ondansetron HCl (Zofran Inj) 4 mg Q8H PRN IV PUSH nausea 04/03/17 17:30 04/04/17 13:37 Dexamethasone Sodium Phosphate (Decadron Inj) 4 mg Q6HR IV PUSH 04/04/17 12:30 04/12/17 11:48 Cyanocobalamin (Vitamin B12) 100 mcg DAILY PO 04/05/17 17:00 04/11/17 09:00 Patient Own Medication PT OWN MED: Melchor... HS PO 04/07/17 21:00 Future hold 04/11/17 21:00 Senna/Docusate Sodium (Ale-Colace) 1 tab BID PO 04/08/17 17:15 04/12/17 09:48 Lactulose (Lactulose Liq) 30 ml TID PRN PO CONSTIPATION 04/08/17 13:45 04/08/17 17:25 Alprazolam (Xanax) 0.25 mg Q8H PO 04/09/17 08:00 04/10/17 08:38 Nicardipine HCl 25 mg/Sodium Chloride 260 ml @ 52 mls/hr TITRATE PRN IV Blood pressure management 04/10/17 23:45 04/10/17 23:30 Acetaminophen/ Hydrocodone Bitart ([place] 10-325 Mg) 1 tab Q4H PRN PO PAIN SCALE 6 TO 10 04/10/17 23:45 04/12/17 09:48 Morphine Sulfate (Morphine Inj) 4 mg Q3H PRN IV BREAKTHROUGH PAIN 04/10/17 23:45 04/11/17 05:10 IV Flush (NS Flush) 2 ml BID IVF 04/11/17 09:00 04/11/17 21:02 Hydralazine HCl (Apresoline Inj) 10 mg Q2H PRN IV PUSH SBP greater than 150mm Hg 04/11/17 09:30 04/11/17 13:27 Insulin Aspart (NovoLOG SUPPLEMENTAL SCALE) 1 Q6HR SQ 04/11/17 13:45 04/12/17 11:48 Objective Remarks GENERAL: Middle aged female upright in bed in no acute distress. SKIN: Warm and dry. HEAD: Normocephalic. Bandage to posterior head EYES: No injection or drainage. NECK: Supple, trachea midline. CARDIOVASCULAR: +S1/S2 RESPIRATORY: anterior alexander clear. GASTROINTESTINAL: Abdomen soft, non-tender, nondistended. EXTREMITIES: No cyanosis, or edema. NEUROLOGICAL: awake and alert, lethargic. normal speech. Assessment/Plan Problem List: (1) Lung cancer, primary, with metastasis from lung to other site ICD Codes: C34.90 - Lung cancer, primary, with metastasis from lung to other site; C79.9 - Secondary malignant neoplasm of unspecified site Status: Acute Plan: 04/12: Recovering very well from neurosurgery. Intermittent occipital headache. Await results of pathology. 04/11: s/p suboccipital decompressive craniectomy, resection superior cerebellar neoplasm and left occipital bur hole, ventriculostomy placement on 04/10. 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 --diagnosed a little over two years ago --has been on palliative systemic therapy initially with Tarceva and more recently with afatinib. --developed progressive pain involving the back of her head associated with weakness of her lower extremities some weeks ago. MRI of the brain indicates a large cerebellar mass most consistent with metastatic disease as well as areas of dural enhancement and cortical lesions scattered over the left and the right cerebellar hemisphere. 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 . Assessment 61y/o female with metastatic adenocarcinoma of the lung now with newly diagnosed brain mets. History of hypothyroidism. Kidney stones. Multiple sclerosis. Anxiety. Arthritis. Attending Statement feels better path is pending will follow. The exam, history, and the medical decision-making described in the above note were completed with the assistance of the mid-level provider. I reviewed and agree with the findings presented. I attest that I had a [id number] encounter with the patient on the same day, and personally performed and documented my assessment and findings in the medical record. Wendy Rodriguez Apr 12, 2017 13:35 Pretty Allison MD Apr 12, 2017 18:21
--- NOTE | 2017-04-12 13:40 | HHI.PR ---
Review/Management Diagnosis/Plan: (1) Cerebral tumor ICD Codes: D49.6 - Neoplasm of unspecified behavior of brain Status: Acute Plan: has a drain; on dexa biopsy pending neuro stable (2) Chiari I malformation ICD Codes: G93.5 - Compression of brain Status: Chronic (3) Syringomyelia ICD Codes: G95.0 - Syringomyelia and syringobulbia Status: Chronic Subjective Subjective Comments No acute events reported mild posterior headache- controlled with meds sukhi po No chest pain No dyspnea Active Medications Current Medications Medications (Trade) Dose Ordered Sig/Pierce Route Start Time Stop Time Status Last Admin (Synthroid) 75 mcg DAILY@0600 PO 04/04/17 06:00 04/12/17 05:55 (Zofran Inj) 4 mg Q8H PRN IV PUSH 04/03/17 17:30 04/04/17 13:37 (Zofran Odt) 4 mg Q6H PRN PO 04/03/17 17:30 (Phenergan Inj) 12.5 mg Q6H PRN IM 04/03/17 17:30 (Decadron Inj) 4 mg Q6HR IV PUSH 04/04/17 12:30 04/12/17 11:48 (Vitamin B12) 100 mcg DAILY PO 04/05/17 17:00 04/11/17 09:00 Patient Own Medication PT OWN MED: Melchor... HS PO 04/07/17 21:00 Future hold 04/11/17 21:00 (Ale-Colace) 1 tab BID PO 04/08/17 17:15 04/12/17 09:48 (Lactulose Liq) 30 ml TID PRN PO 04/08/17 13:45 04/08/17 17:25 (Xanax) 0.25 mg Q8H PO 04/09/17 08:00 04/10/17 08:38 Nicardipine HCl 25 mg/Sodium Chloride 260 ml @ 52 mls/hr TITRATE PRN IV 04/10/17 23:45 04/10/17 23:30 ([place] 5-325 Mg) 1 tab Q4H PRN PO 04/10/17 23:45 ([place] 10-325 Mg) 1 tab Q4H PRN PO 04/10/17 23:45 04/12/17 09:48 (Dilaudid Pf Inj) 0.5 mg Q3H PRN IV 04/10/17 23:45 (Dilaudid Pf Inj) 1 mg Q3H PRN IV 04/10/17 23:45 (Morphine Inj) 4 mg Q3H PRN IV 04/10/17 23:45 04/11/17 05:10 (Narcan Inj) 0.4 mg UNSCH PRN IV 04/10/17 23:45 (Trandate Inj) 10 mg Q4H PRN IV PUSH 04/11/17 00:15 (NS Flush) 2 ml UNSCH PRN IVF 04/11/17 00:15 (NS Flush) 2 ml BID IVF 04/11/17 09:00 04/11/17 21:02 (Apresoline Inj) 10 mg Q2H PRN IV PUSH 04/11/17 09:30 04/11/17 13:27 (NovoLOG SUPPLEMENTAL SCALE) 1 Q6HR SQ 04/11/17 13:45 04/12/17 11:48 (D50w (Vial) Inj) 25 ml UNSCH PRN IV 04/11/17 13:45 (Glucagon Inj) 1 mg UNSCH PRN IM/SQ 04/11/17 13:45 Allergies Allergies Coded Allergies No Known Allergies (Verified04/03/17) Review of Systems All other ROS: ROS reviewed as documented in chart Exam I&O / VS 04/12/17 04/12/17 04/13/17 14:59 22:59 06:59 Intake Total 212 ml Balance 212 ml IV Total 212 ml Vital Signs Date Time Temp Pulse Resp B/P (MAP) Pulse Ox O2 Delivery O2 Flow Rate FiO2 04/12/17 12:00 98.9 71 12 127/94 (105) 95 04/12/17 08:00 98.6 56 9 137/65 (89) 96 04/12/17 07:00 61 04/12/17 04:00 98.9 56 8 131/63 (85) 94 04/12/17 00:00 98.4 72 7 158/70 (99) 97 04/11/17 23:00 76 04/11/17 20:00 99.1 78 17 155/71 (99) 99 04/11/17 16:00 99.4 82 13 146/65 (92) 99 04/11/17 15:00 84 General: Alert and Oriented, No acute distress Eye: EOMI Respiratory: Non-labored respirations Neurologic: Alert, Oriented, Normal motor, No focal defects Psychiatric: Cooperative, Appropriate mood & affect, Normal judgement, Non- suicidal Exam Comments sitting up eating lunch, follows, mild upgaze paresis, ou 3-2mm, face sym, nagel to gravity, brisker le msr Objective Micro and Labs Date/Time Source Procedure Growth Status 04/03/17 13:45 Blood Peripheral Aerobic Blood Culture - Final NO GROWTH IN 5 DAYS Complete 04/03/17 13:45 Blood Peripheral Anaerobic Blood Culture - Final QNS - SEE AEROBE REPORT Complete Jacobo Granados MD Apr 12, 2017 13:40
[2017-04-12] MEDS: GILOTRIF PO SCH (20:57)
[2017-04-13] VITALS (7 sets, daily range): BP systolic 124–157; BP diastolic 57–69; PULSE 62–73; RESP 9–15; TEMP 98.6–98.9; O2SAT 95–97
[2017-04-13] MEDS: LEVOTHYROXINE SODIUM 75 MCG TAB PO SCH (05:45)
[2017-04-13] MEDS: DEXAMETHASONE SOD PHOS 4 MG/ML VIAL IV PUSH SCH ×4 (05:45→23:33)
[2017-04-13] MEDS: INSULIN ASPART SUPPLEMENTAL SCALE SQ SCH ×5 (05:45→23:39)
[2017-04-13 05:51] LABS: AUTOMATED NEUTROPHIL # 9.1 TH/MM3 (1.8-7.7); BASOPHIL % 0.2 % (0.0-2.0); HEMATOCRIT 32.4 % (35.0-46.0); HEMO FLAGS DIFF FINAL; LYMPH % 5.4 % (9.0-44.0); LYMPHOCYTE # 0.6 TH/MM3 (1.0-4.8); MEAN CELL VOLUME 88.5 FL (80.0-100.0); MEAN CORPUSCULAR HEMOGLOBIN 29.9 PG (27.0-34.0); MEAN CORPUSCULAR HGB CONC 33.7 % (32.0-36.0); MONO % 5.3 % (0.0-8.0); NEUT % 89.1 % (16.0-70.0); PLATELET COUNT 165 TH/MM3 (150-450); RED BLOOD COUNT 3.67 MIL/MM3 (4.00-5.30); RED CELL DISTRIBUTION WIDTH 13.5 % (11.6-17.2); WHITE BLOOD COUNT 10.2 TH/MM3 (4.0-11.0)
[2017-04-13 06:07] LABS: ALT (GPT) 42 U/L (10-53); ANION GAP 6 MEQ/L (5-15); AST (GOT) 16 U/L (15-37); BICARBONATE 28.9 MEQ/L (21.0-32.0); BLOOD UREA NITROGEN 23 MG/DL (7-18); CHLORIDE 102 MEQ/L (98-107); GLOMERULAR FILTRATION RATE 100 ML/MIN (>89); POTASSIUM 4.1 MEQ/L (3.5-5.1); SODIUM (NA) 137 MEQ/L (136-145)
[2017-04-13 06:08] LABS: ALKALINE PHOSPHATASE 75 U/L (45-117); TOTAL BILIRUBIN ADULT 0.5 MG/DL (0.2-1.0)
[2017-04-13] MEDS: ALPRAZolam 0.25 MG TAB PO SCH ×3 (08:00→23:33)
[2017-04-13] MEDS: SODIUM CHLORIDE 0.9% FLUSH 5 ML FLUSH IVF SCH ×2 (09:00→19:14)
[2017-04-13] MEDS: DOCUSATE SODIUM 50 MG/SENNA 8.6 MG TAB PO SCH ×2 (09:40→19:13)
[2017-04-13] MEDS: CYANOCOBALAMIN 100 MCG TAB PO SCH (09:40)
--- NOTE | 2017-04-13 09:57 | HHI.NSPN ---
(Leandro Peres) History Chief Complaint: Pain to the back of the head and neck. (Leandro Peres) Interval History 61-year-old female with previous history of cervical syrinx with Chiari malformation documented in previous MRI of the cervical spine from 2011. Previously followed by neurology-Dr. Kaela Mariscal. Patient also has a history of metastatic non-small cell lung cancer. Prior imaging revealed metastatic disease to the lumbar spine. Patient now presents with a few weeks of dizziness and headache. Recently seen by neurology as an outpatient. She came to the emergency room on 04/03/17 due to speech difficulty, mental status changes, nausea and vomiting and persistent headache. 04/07: her symptoms better with Decadron. Daughter in room, both she and patient agrees with surgery this week. 04/09/2017: Patient feeling better. Ambulating for short distance without assistance. Headache improving. Less pain across the neck and shoulders. 04/11: The patient went for a resection of a cerebellar neoplasm yesterday afternoon. Post-operatively she was transferred to the [facility] for further care and management. A repeat CT brain this morning demonstrated expected post-operative changes. Today the patient is drowsy but readily interacts and complains of neck pain. She denies any headache. 04/12: The patient is awake and alert this morning. She says she feels "great, well maybe not great. But I feel good." She does say she has some headache to the occipital area. She states she really doesn't have any pain. She readily smiles and laughs when talking. 04/13: This morning the patient says she is doing good. She states she has pain, but it really isn't pain, to the back of the head and neck. She isn't able to differentiate whether it is a headache or pain to the surgical site. She states that she was able to get up with assistance to the [facility] this morning and had no problems. She is sitting in a chair at present. (Leandro Peres) System Review Comments Constitutional: Patient denies any fever or chills. HEENT: Patient complains of pain to the back of the head/neck, uncertain if a headache or pain at incision. She denies any visual or hearing difficulty. Respiratory: Patient denies any shortness of breath or productive cough. Cardiovascular: Patient denies any chest pain, palpitations or irregular heartbeat. Gastrointestinal: Patient denies any abdominal pain, nausea or vomiting or incontinence of stool. Genitourinary: Patient denies any incontinence of urine. Musculoskeletal: Patient complains of pain to the back of the head/neck, uncertain if a headache or pain at incision. She denies any back or extremity pain. Neurologic: Patient complains of pain to the back of the head/neck, uncertain if a headache or pain at incision. She denies any dizziness, numbness or tingling. (Leandro Peres) Exam Results 04/11/17 04/11/17 04/12/17 04/12/17 04/13/17 04/13/17 06:00 18:00 06:00 18:00 06:00 18:00 Intake Total 3766 ml 2075 ml 1480 ml 1074 ml 450 ml Output Total 3246 ml 2490 ml 1020 ml 966 ml 680 ml Balance 520 ml -415 ml 460 ml 108 ml -230 ml Intake Oral 810 ml 480 ml 650 ml 450 ml IV Total 766 ml 1265 ml 1000 ml 424 ml Other 3000 ml Output Urine Total 3050 ml 2325 ml 900 ml 850 ml 600 ml Stool Total 0 ml Drainage Total 96 ml 165 ml 120 ml 116 ml 80 ml Estimated Blood Loss 100 ml # Bowel Movements 0 0 Vital Signs Date Time Temp Pulse Resp B/P (MAP) Pulse Ox O2 Delivery O2 Flow Rate FiO2 04/13/17 08:00 98.9 68 14 140/65 (90) 96 04/13/17 04:00 98.8 62 14 133/62 (85) 95 04/13/17 00:00 98.7 68 14 157/67 (97) 95 04/12/17 21:51 18 04/12/17 20:00 98.9 70 18 139/63 (88) 96 04/12/17 16:00 99.0 78 9 124/60 (81) 94 04/12/17 15:00 74 04/12/17 12:00 98.9 71 12 127/94 (105) 95 04/12/17 08:00 98.6 56 9 137/65 (89) 96 04/12/17 07:00 61 04/12/17 04:00 98.9 56 8 131/63 (85) 94 04/12/17 00:00 98.4 72 7 158/70 (99) 97 04/11/17 23:00 76 04/11/17 20:00 99.1 78 17 155/71 (99) 99 04/11/17 16:00 99.4 82 13 146/65 (92) 99 04/11/17 15:00 84 04/11/17 12:00 99.0 68 8 153/69 (97) 99 04/11/17 08:00 98.7 69 8 134/65 (88) 100 04/11/17 07:00 61 04/11/17 06:00 97.9 6 11 122/57 (78) 100 04/11/17 05:00 97.9 84 12 137/66 (89) 100 04/11/17 04:00 97.9 70 16 110/53 (72) 100 04/11/17 04:00 97.9 70 16 110/53 (72) 100 04/11/17 03:00 97.9 84 14 130/57 (81) 100 04/11/17 02:00 98.5 88 16 114/61 (78) 99 04/11/17 02:00 98.5 88 16 114/61 (78) 99 04/11/17 01:30 88 04/11/17 01:30 98.5 88 13 138/62 (87) 99 04/11/17 01:10 98.2 87 16 128/64 (85) 100 Nasal Cannula 3 04/11/17 00:45 88 16 132/62 (85) 100 Nasal Cannula 3 04/11/17 00:30 88 15 134/61 (85) 99 Nasal Cannula 3 04/11/17 00:15 87 15 133/60 (84) 99 Nasal Cannula 3 04/11/17 00:00 85 16 155/69 (97) 99 Nasal Cannula 3 04/10/17 23:45 86 17 164/72 (102) 99 Nasal Cannula 3 04/10/17 23:30 82 15 160/71 (100) 100 Simple Mask 6 04/10/17 23:30 82 160/71 04/10/17 23:15 96 16 148/67 (94) 100 Simple Mask 6 04/10/17 23:00 92 16 135/63 (87) 100 Simple Mask 6 04/10/17 22:57 97.7 96 15 144/65 (91) 100 Simple Mask 6 04/10/17 12:02 51 04/10/17 12:00 96.6 50 16 136/62 (86) 97 (Leandro Peres) Physical Examination GENERAL: Patient is awake & alert. and readily interacts. Her affect is normal. She is not in any apparent distress. SKIN: Warm, dry & intact except for posterior neck/lower occipital surgical wound w/intact dressing w/some shadowing on it, ecchymosis secondary to IV starts, no rashes, ulcerations or other lesions evident. HEENT: Posterior neck/lower occipital surgical wound w/intact dressing and ventriculostomy. PERRLA, EOMI. MMM & pink, tongue midline to protrusion. NECK: Posterior neck/lower occipital surgical wound w/intact dressing TTP, no JVD, trachea midline. CARDIOVASCULAR: S1S2 w/RRR w/o M/G/R, radial & pedal pulses 2+ bilaterally, cap refill < 2 sec, trace dependent edema. Monitor is sinus rhythm w/o any evident ectopy. RESPIRATORY: CTAB w/o W/R/R, equal excursion, nonlaboured, on RA. GASTROINTESTINAL: Abdomen soft, nontender, bowel sounds not appreciated. MUSCULOSKELETAL: FRAZIER w/o difficulty, no evident deformity or clubbing. NEUROLOGICAL: AAOx3. Speech clear & appropriate. CN II-XII appear grossly intact. Sensation intact to light touch to all extremities. Motor strength 5/5 to all major flexion & extension muscle groups. Ventriculostomy w/clear straw-coloured CSF drainage, at 5 cm H20 pressure. (Leandro Peres) Lab, Micro, Other Results Recent Impressions Head CT 04/11/17 0600 Signed Impressions: Service Date/Time: Tuesday, April 11, 2017 04:39 - CONCLUSION: 1. Expected postoperative changes of occipital craniectomy with interval resection of midline cerebellar mass. 2. Interval placement of posterior left ventriculostomy catheter with symmetrically small sized bilateral ventricles. Linwood Paigeh, MD Laboratory Tests Test 04/10/17 23:40 04/11/17 02:08 04/11/17 03:17 04/13/17 05:00 White Blood Count 19.4 TH/MM3 19.8 TH/MM3 10.2 TH/MM3 Red Blood Count 4.02 MIL/MM3 4.10 MIL/MM3 3.67 MIL/MM3 Hemoglobin 11.7 GM/DL 11.8 GM/DL 10.9 GM/DL Hematocrit 35.6 % 36.5 % 32.4 % Mean Corpuscular Volume 88.5 FL 89.1 FL 88.5 FL Mean Corpuscular Hemoglobin 29.1 PG 28.7 PG 29.9 PG Mean Corpuscular Hemoglobin Concent 32.9 % 32.2 % 33.7 % Red Cell Distribution Width 13.6 % 13.6 % 13.5 % Platelet Count 179 TH/MM3 166 TH/MM3 165 TH/MM3 Mean Platelet Volume 8.9 FL 8.5 FL 8.7 FL Neutrophils (%) (Auto) 93.6 % 93.2 % 89.1 % Lymphocytes (%) (Auto) 2.0 % 2.4 % 5.4 % Monocytes (%) (Auto) 4.1 % 4.3 % 5.3 % Eosinophils (%) (Auto) 0.0 % 0.0 % 0.0 % Basophils (%) (Auto) 0.3 % 0.1 % 0.2 % Neutrophils # (Auto) 18.1 TH/MM3 18.4 TH/MM3 9.1 TH/MM3 Lymphocytes # (Auto) 0.4 TH/MM3 0.5 TH/MM3 0.6 TH/MM3 Monocytes # (Auto) 0.8 TH/MM3 0.8 TH/MM3 0.5 TH/MM3 Eosinophils # (Auto) 0.0 TH/MM3 0.0 TH/MM3 0.0 TH/MM3 Basophils # (Auto) 0.1 TH/MM3 0.0 TH/MM3 0.0 TH/MM3 CBC Comment DIFF FINAL DIFF FINAL DIFF FINAL Differential Comment Blood Urea Nitrogen 17 MG/DL 17 MG/DL 23 MG/DL Creatinine 0.98 MG/DL 0.92 MG/DL 0.61 MG/DL Random Glucose 183 MG/DL 210 MG/DL 139 MG/DL Total Protein 5.5 GM/DL 5.6 GM/DL Calcium Level 7.4 MG/DL 8.3 MG/DL 8.3 MG/DL Sodium Level 138 MEQ/L 137 MEQ/L 137 MEQ/L Potassium Level 4.1 MEQ/L 3.9 MEQ/L 4.1 MEQ/L Chloride Level 101 MEQ/L 101 MEQ/L 102 MEQ/L Carbon Dioxide Level 21.7 MEQ/L 23.7 MEQ/L 28.9 MEQ/L Anion Gap 15 MEQ/L 12 MEQ/L 6 MEQ/L Estimat Glomerular Filtration Rate 58 ML/MIN 62 ML/MIN 100 ML/MIN Protein Corrected Calcium 8.3 MG/DL Nasal Screen MRSA (PCR) MRSA NOT DETECTED Albumin 2.6 GM/DL Alkaline Phosphatase 75 U/L Aspartate Amino Transf (AST/SGOT) 16 U/L Alanine Aminotransferase (ALT/SGPT) 42 U/L Total Bilirubin 0.5 MG/DL (Leandro Peres) Medical Decision Making Impression and Plan Impression: (1) Cerebral tumor (2) Chiari I malformation (3) Syringomyelia 1. Multiple cerebral lesions, superior cerebellar lesion, probable metastatic neoplasm. 2. Chiari I malformation 3. Cervical syringomyelia The patient continues to do well post-operatively and is neurologically intact. POD #3 () s/p: 1. Suboccipital decompressive craniectomy 2. Dural fenestration for Chiari malformation decompression 3. C1 decompressive laminectomy 4. Resection of superior cerebellar neoplasm 5. Left occipital bur hole, ventriculostomy placement Plan: Critical care management per Equipment Tester. Primary management per Hospitalist. PT/OT eval & tx. Continue Decadron. Doughnut pillow to offload pressure to surgical incision. Wean ventriculostomy, will increase to 5 cm H2O now (done). At midnight will increase to 20 cm H2O. Tomorrow morning will clamp prior to CT brain. CT brain in AM. (Leandro Peres) Attending Statement I have personally seen and examined the patient on 04/13/17. Pertinent documentation and study results have been reviewed by the undersigned. I have personally developed the treatment plan and performed medical decision making. Agree with findings, exam, and treatment plan as noted above. Remains alert without focal deficit. Moderate neck pain Ventriculostomy functioning well We will proceed to challenge ventriculostomy and monitor incision. Clamp Ventriculostomy in the morning and check CT scan to evaluate for any residual obstructive hydrocephalus. (Clem Rich MD) Leandro Peres Apr 13, 2017 09:57 Clem Rich MD Apr 13, 2017 21:27
[2017-04-13] MEDS: ACETAMINOPHEN/HYDROcodone 325 MG/10 MG TAB PO PRN (10:00)
--- NOTE | 2017-04-13 10:00 | HHI.PR ---
Review/Management Diagnosis/Plan: (1) Cerebral tumor ICD Codes: D49.6 - Neoplasm of unspecified behavior of brain Status: Acute Plan: has a drain; on dexa biopsy pending neuro stable apin control (2) Chiari I malformation ICD Codes: G93.5 - Compression of brain Status: Chronic (3) Syringomyelia ICD Codes: G95.0 - Syringomyelia and syringobulbia Status: Chronic Subjective Subjective Comments No acute events reported mild to moderate post headache No chest pain No dyspnea Active Medications Current Medications Medications (Trade) Dose Ordered Sig/Pierce Route Start Time Stop Time Status Last Admin (Synthroid) 75 mcg DAILY@0600 PO 04/04/17 06:00 04/13/17 05:45 (Zofran Inj) 4 mg Q8H PRN IV PUSH 04/03/17 17:30 04/04/17 13:37 (Zofran Odt) 4 mg Q6H PRN PO 04/03/17 17:30 (Phenergan Inj) 12.5 mg Q6H PRN IM 04/03/17 17:30 (Decadron Inj) 4 mg Q6HR IV PUSH 04/04/17 12:30 04/13/17 05:45 (Vitamin B12) 100 mcg DAILY PO 04/05/17 17:00 04/13/17 09:40 Patient Own Medication PT OWN MED: Melchor... HS PO 04/07/17 21:00 Future hold 04/12/17 20:57 (Ale-Colace) 1 tab BID PO 04/08/17 17:15 04/13/17 09:40 (Lactulose Liq) 30 ml TID PRN PO 04/08/17 13:45 04/08/17 17:25 (Xanax) 0.25 mg Q8H PO 04/09/17 08:00 04/12/17 23:50 Nicardipine HCl 25 mg/Sodium Chloride 260 ml @ 52 mls/hr TITRATE PRN IV 04/10/17 23:45 04/10/17 23:30 ([place] 5-325 Mg) 1 tab Q4H PRN PO 04/10/17 23:45 ([place] 10-325 Mg) 1 tab Q4H PRN PO 04/10/17 23:45 04/12/17 20:56 (Dilaudid Pf Inj) 0.5 mg Q3H PRN IV 04/10/17 23:45 (Dilaudid Pf Inj) 1 mg Q3H PRN IV 04/10/17 23:45 (Morphine Inj) 4 mg Q3H PRN IV 04/10/17 23:45 04/11/17 05:10 (Narcan Inj) 0.4 mg UNSCH PRN IV 04/10/17 23:45 (Trandate Inj) 10 mg Q4H PRN IV PUSH 04/11/17 00:15 (NS Flush) 2 ml UNSCH PRN IVF 04/11/17 00:15 (NS Flush) 2 ml BID IVF 04/11/17 09:00 04/13/17 09:00 (Apresoline Inj) 10 mg Q2H PRN IV PUSH 04/11/17 09:30 04/11/17 13:27 (NovoLOG SUPPLEMENTAL SCALE) 1 Q6HR SQ 04/11/17 13:45 04/13/17 05:45 (D50w (Vial) Inj) 25 ml UNSCH PRN IV 04/11/17 13:45 (Glucagon Inj) 1 mg UNSCH PRN IM/SQ 04/11/17 13:45 Allergies Allergies Coded Allergies No Known Allergies (Verified04/03/17) Review of Systems All other ROS: ROS reviewed as documented in chart Exam I&O / VS Vital Signs Date Time Temp Pulse Resp B/P (MAP) Pulse Ox O2 Delivery O2 Flow Rate FiO2 04/13/17 08:00 98.9 68 14 140/65 (90) 96 04/13/17 04:00 98.8 62 14 133/62 (85) 95 04/13/17 00:00 98.7 68 14 157/67 (97) 95 04/12/17 21:51 18 04/12/17 20:00 98.9 70 18 139/63 (88) 96 04/12/17 16:00 99.0 78 9 124/60 (81) 94 04/12/17 15:00 74 04/12/17 12:00 98.9 71 12 127/94 (105) 95 General: Alert and Oriented, No acute distress Eye: EOMI Respiratory: Non-labored respirations Neurologic: Alert, Oriented, Normal motor, No focal defects Psychiatric: Cooperative, Appropriate mood & affect, Normal judgement, Non- suicidal Exam Comments sitting up eating breakfast, follows, mild upgaze paresis, ou 3-2mm, face sym, nagel to gravity, brisker le msr Objective Micro and Labs Laboratory Tests Test 04/13/17 05:00 White Blood Count 10.2 Red Blood Count 3.67 Hemoglobin 10.9 Hematocrit 32.4 Mean Corpuscular Volume 88.5 Mean Corpuscular Hemoglobin 29.9 Mean Corpuscular Hemoglobin Concent 33.7 Red Cell Distribution Width 13.5 Platelet Count 165 Mean Platelet Volume 8.7 Neutrophils (%) (Auto) 89.1 Lymphocytes (%) (Auto) 5.4 Monocytes (%) (Auto) 5.3 Eosinophils (%) (Auto) 0.0 Basophils (%) (Auto) 0.2 Neutrophils # (Auto) 9.1 Lymphocytes # (Auto) 0.6 Monocytes # (Auto) 0.5 Eosinophils # (Auto) 0.0 Basophils # (Auto) 0.0 CBC Comment DIFF FINAL Differential Comment Blood Urea Nitrogen 23 Creatinine 0.61 Random Glucose 139 Total Protein 5.6 Albumin 2.6 Calcium Level 8.3 Alkaline Phosphatase 75 Aspartate Amino Transf (AST/SGOT) 16 Alanine Aminotransferase (ALT/SGPT) 42 Total Bilirubin 0.5 Sodium Level 137 Potassium Level 4.1 Chloride Level 102 Carbon Dioxide Level 28.9 Anion Gap 6 Estimat Glomerular Filtration Rate 100 Date/Time Source Procedure Growth Status 04/03/17 13:45 Blood Peripheral Aerobic Blood Culture - Final NO GROWTH IN 5 DAYS Complete 04/03/17 13:45 Blood Peripheral Anaerobic Blood Culture - Final QNS - SEE AEROBE REPORT Complete Jacobo Granados MD Apr 13, 2017 10:00
--- NOTE | 2017-04-13 11:47 | HHI.CCPN ---
Subjective Remarks/Hospital Course 04/11: 61-year-old very pleasant female with a history of metastatic adenocarcinoma of the lungs, hypothyroidism, anxiety, and multiple sclerosis has been admitted for progressive weakness and worsening gait. Patient was in her usual state of health until a few weeks ago when she began experiencing an unsteady gait. Per chart documentation she began shuffling her feet, and was seen and examined by outpatient neurologist with the plan to obtain an outpatient MRI which apparently had not been done yet. Our imaging system revealed the new diagnosis of metastasis in the brain and patient underwent palliative resection with hemicraniectomy by Dr. Rich. She is now admitted to SICU postoperatively. 04/12: Awake and alert. Ventriculostomy drain 1 20 cc overnight. Feeling hungry. Denies any headache currently denies any nausea. Subjective 04/13: Resting in chair in no acute distress. Ventriculostomy currently at 5 cm H2O. Complaining of occipital headache. Objective Vital Signs Date Time Temp Pulse Resp B/P (MAP) Pulse Ox O2 Delivery O2 Flow Rate FiO2 04/13/17 08:00 98.9 68 14 140/65 (90) 96 04/11/17 01:10 Nasal Cannula 3 Intake and Output 04/13/17 04/13/17 04/13/17 07:59 15:59 23:59 Intake Total 450 ml Output Total 680 ml Balance -230 ml Result Diagram: 04/13/17 0500 04/13/17 0500 Imaging Last Impressions Head CT 04/11/17 0600 Signed Impressions: Service Date/Time: Tuesday, April 11, 2017 04:39 - CONCLUSION: 1. Expected postoperative changes of occipital craniectomy with interval resection of midline cerebellar mass. 2. Interval placement of posterior left ventriculostomy catheter with symmetrically small sized bilateral ventricles. Linwood Laguna MD Chest CT 04/08/17 0000 Signed Impressions: Service Date/Time: Saturday, April 08, 2017 15:15 - CONCLUSION: 1. Treated tumor in the left upper lobe, with a residual mass that is much smaller than back in 2015. 2. No new or metastatic disease demonstrated. Gordy Laura MD Abdomen/Pelvis CT 04/08/17 0000 Signed Impressions: Service Date/Time: Saturday, April 08, 2017 15:15 - CONCLUSION: 1. Chronic changes related to treatment of metastatic lesion of the L1 vertebral body. No distending/measurable mass seen of L1 currently. 2. 9 mm sclerotic lesion of T11, new and most likely a metastasis. 3. Fatty liver. Gordy Laura MD Lumbar Spine MRI 04/04/17 0000 Signed Impressions: Service Date/Time: Tuesday, April 04, 2017 09:19 - CONCLUSION: I don't see evidence for worsening MS. Chronic compression of L1 Degenerative facet disease L4-5, L5-S1 without significant spinal stenosis. There is mild neuroforaminal encroachment. Ed Roque MD FACR Cervical Spine MRI 04/04/17 0000 Signed Impressions: Service Date/Time: Tuesday, April 04, 2017 09:19 - CONCLUSION: Markedly abnormal high cervical cord with increased signal in the cord. There is cord expansion more suggestive of neoplastic or infiltrative process rather then multiple sclerosis. Markedly abnormal cerebellum MRI of the brain is pending. Ed Roque MD FACR Brain MRI 04/04/17 0000 Signed Impressions: Service Date/Time: Tuesday, April 04, 2017 09:19 - CONCLUSION: Markedly abnormal cerebellum enhancing mass and scattered other areas of cortical enhancement on the right most suspicious for neoplastic process. Markedly abnormal MRI of the high cervical spine as described on that report. Ed Roque MD FACR Chest X-Ray 04/03/17 1233 Signed Impressions: Service Date/Time: , April 03, 2017 12:44 - CONCLUSION: No acute disease. Emanuel Hood Jr., MD Cervical Spine CT 04/03/17 0000 Signed Impressions: Service Date/Time: , April 03, 2017 13:44 - CONCLUSION: Degenerative disc change at C6-7 with mild disc osteophyte complex. There is moderate narrowing of the left neural foramina at this level. Rafael Mariee MD Objective Remarks GENERAL: Well-nourished, well-developed patient. Extremely lethargic, SKIN: Warm and dry. HEAD: Normocephalic. EYES: No scleral icterus. No injection or drainage. NECK: Supple, trachea midline. No JVD or lymphadenopathy. CARDIOVASCULAR: Regular rate and rhythm without murmurs, gallops, or rubs. RESPIRATORY: Breath sounds equal bilaterally. No accessory muscle use. GASTROINTESTINAL: Abdomen soft, non-tender, nondistended. MUSCULOSKELETAL: No cyanosis, or edema. BACK: Nontender without obvious deformity. NEURO EXAM: GCS: M6 V5 E3 Mental Status: The patient is lethargic but oriented to person, place, and time with normal speech. Cranial Nerves: Pupils are round, reactive to light. Reflexes: No clonus. A/P Assessment and Plan Neuro/Psych Multiple cerebral lesions, superior cerebellar lesion, probable metastatic neoplasm. Chiari I malformation Cervical syringomyelia Depression/anxiety History of MS 2009 Procedure: 04/10 1. Suboccipital decompressive craniectomy 2. Dural fenestration for Chiari malformation decompression 3. C1 decompressive laminectomy 4. Resection of superior cerebellar neoplasm 5. Left occipital bur hole, ventriculostomy placementrain metastases -Left Ventriculostomy in place at -5 cm H2O 196 cc - Management per neurosurgery Dr. Rich - Continue ICU monitoring for neuro checks and vital signs -Hydrocodone/acetaminophen, and hydromorphone and morphine written for pain management -Alprazolam 0.25 mg by mouth every 8 hours Continue dexamethasone 4 mg IV every 6 hours Holding home medication. Propranolol grams by mouth twice a day CV: Dyslipidemia Not requiring antihypertensives and/or vasopressors. Hydralazine/labetalol to keep systolic blood pressure less than 150 Home medication is atorvastatin 40 mg by mouth daily. Resp: Nasal cannula to maintain saturations greater than equal to 92% Incentive spirometry while awake GI: Continue regular diet Pantoprazole for GI prophylaxis Ale-Colace for bowel regimen : Holt catheter not indicated ID: Monitor for infection ENDO: Hypothyroidism Hyperglycemia due to steroids -Levothyroxine 75 . Daily/home medication On aspart sliding scale insulin to maintain euglycemia Heme/Onc: Adenocarcinoma of the lung with metastasis - Dr. Haines hematology oncology Continue Afatinib 20 mg by mouth daily. FEN: Replace electrolytes as clinically indicated DVT GI prophylaxis - Teds SCDs - Pharmacological DVT prophylaxis per neurosurgery and hematology oncology -Pantoprazole Level II follow-up Andrew Walden MD Apr 13, 2017 11:47
--- NOTE | 2017-04-13 14:49 | PD.ONC.PN ---
Subjective Subjective Remarks Complaining of discomfort at the surgical site. Denies any pain. Objective Data Date Time Temp Pulse Resp B/P (MAP) Pulse Ox O2 Delivery O2 Flow Rate FiO2 04/13/17 12:00 98.8 70 15 124/57 (79) 97 04/13/17 08:00 98.9 68 14 140/65 (90) 96 04/13/17 04:00 98.8 62 14 133/62 (85) 95 04/13/17 00:00 98.7 68 14 157/67 (97) 95 04/12/17 21:51 18 04/12/17 20:00 98.9 70 18 139/63 (88) 96 04/12/17 16:00 99.0 78 9 124/60 (81) 94 04/12/17 15:00 74 04/13/17 04/13/17 04/13/17 06:59 14:59 22:59 Intake Total 450 ml Output Total 680 ml Balance -230 ml Result Diagram: 04/13/17 0500 04/13/17 0500 Laboratory Results Laboratory Tests Test 04/13/17 05:00 White Blood Count 10.2 TH/MM3 Red Blood Count 3.67 MIL/MM3 Hemoglobin 10.9 GM/DL Hematocrit 32.4 % Mean Corpuscular Volume 88.5 FL Mean Corpuscular Hemoglobin 29.9 PG Mean Corpuscular Hemoglobin Concent 33.7 % Red Cell Distribution Width 13.5 % Platelet Count 165 TH/MM3 Mean Platelet Volume 8.7 FL Neutrophils (%) (Auto) 89.1 % Lymphocytes (%) (Auto) 5.4 % Monocytes (%) (Auto) 5.3 % Eosinophils (%) (Auto) 0.0 % Basophils (%) (Auto) 0.2 % Neutrophils # (Auto) 9.1 TH/MM3 Lymphocytes # (Auto) 0.6 TH/MM3 Monocytes # (Auto) 0.5 TH/MM3 Eosinophils # (Auto) 0.0 TH/MM3 Basophils # (Auto) 0.0 TH/MM3 CBC Comment DIFF FINAL Differential Comment Blood Urea Nitrogen 23 MG/DL Creatinine 0.61 MG/DL Random Glucose 139 MG/DL Total Protein 5.6 GM/DL Albumin 2.6 GM/DL Calcium Level 8.3 MG/DL Alkaline Phosphatase 75 U/L Aspartate Amino Transf (AST/SGOT) 16 U/L Alanine Aminotransferase (ALT/SGPT) 42 U/L Total Bilirubin 0.5 MG/DL Sodium Level 137 MEQ/L Potassium Level 4.1 MEQ/L Chloride Level 102 MEQ/L Carbon Dioxide Level 28.9 MEQ/L Anion Gap 6 MEQ/L Estimat Glomerular Filtration Rate 100 ML/MIN Administered Medications Medications (Trade) Dose Ordered Sig/Pierce Route PRN Reason Start Time Stop Time Status Last Admin Dose Admin Levothyroxine Sodium (Synthroid) 75 mcg DAILY@0600 PO 04/04/17 06:00 04/13/17 05:45 Ondansetron HCl (Zofran Inj) 4 mg Q8H PRN IV PUSH nausea 04/03/17 17:30 04/04/17 13:37 Dexamethasone Sodium Phosphate (Decadron Inj) 4 mg Q6HR IV PUSH 04/04/17 12:30 04/13/17 12:13 Cyanocobalamin (Vitamin B12) 100 mcg DAILY PO 04/05/17 17:00 04/13/17 09:40 Patient Own Medication PT OWN MED: Melchor... HS PO 04/07/17 21:00 Future hold 04/12/17 20:57 Senna/Docusate Sodium (Ale-Colace) 1 tab BID PO 04/08/17 17:15 04/13/17 09:40 Lactulose (Lactulose Liq) 30 ml TID PRN PO CONSTIPATION 04/08/17 13:45 04/08/17 17:25 Alprazolam (Xanax) 0.25 mg Q8H PO 04/09/17 08:00 04/12/17 23:50 Nicardipine HCl 25 mg/Sodium Chloride 260 ml @ 52 mls/hr TITRATE PRN IV Blood pressure management 04/10/17 23:45 04/10/17 23:30 Acetaminophen/ Hydrocodone Bitart (Warren 10-325 Mg) 1 tab Q4H PRN PO PAIN SCALE 6 TO 10 04/10/17 23:45 04/13/17 10:00 Morphine Sulfate (Morphine Inj) 4 mg Q3H PRN IV BREAKTHROUGH PAIN 04/10/17 23:45 04/11/17 05:10 IV Flush (NS Flush) 2 ml BID IVF 04/11/17 09:00 04/13/17 09:00 Hydralazine HCl (Apresoline Inj) 10 mg Q2H PRN IV PUSH SBP greater than 150mm Hg 04/11/17 09:30 04/11/17 13:27 Insulin Aspart (NovoLOG SUPPLEMENTAL SCALE) 1 Q6HR SQ 04/11/17 13:45 04/13/17 12:00 Objective Remarks GENERAL: Well-nourished, well-developed patient. SKIN: Warm and dry. HEAD: Normocephalic. EYES: No scleral icterus. No injection or drainage. NECK: Supple, trachea midline. No JVD or lymphadenopathy. LYMPHATIC: No adenopathy. CARDIOVASCULAR: Regular rate and rhythm without murmurs. RESPIRATORY: Breath sounds equal bilaterally. No accessory muscle use. GASTROINTESTINAL: Abdomen soft, non-tender, nondistended. EXTREMITIES: No cyanosis, or edema. MUSCULOSKELETAL: Adequate muscle tone. NEUROLOGICAL: No obvious focal deficit. Awake, alert, and oriented x3. PSYCHIATRIC: Appropriate mood and affect; insight and judgment normal. Assessment/Plan Problem List: (1) Lung cancer, primary, with metastasis from lung to other site ICD Codes: C34.90 - Lung cancer, primary, with metastasis from lung to other site; C79.9 - Secondary malignant neoplasm of unspecified site Status: Acute Plan: 04/13 Path is still pending . Pt is recovering from surgery . Out off bed to the chair. Patient is stable 04/12: Recovering very well from neurosurgery. Intermittent occipital headache. Await results of pathology. 04/11: s/p suboccipital decompressive craniectomy, resection superior cerebellar neoplasm and left occipital bur hole, ventriculostomy placement on 04/10. 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 --diagnosed a little over two years ago --has been on palliative systemic therapy initially with Tarceva and more recently with afatinib. --developed progressive pain involving the back of her head associated with weakness of her lower extremities some weeks ago. MRI of the brain indicates a large cerebellar mass most consistent with metastatic disease as well as areas of dural enhancement and cortical lesions scattered over the left and the right cerebellar hemisphere. 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 . Assessment 61y/o female with metastatic adenocarcinoma of the lung now with newly diagnosed brain mets. History of hypothyroidism. Kidney stones. Multiple sclerosis. Anxiety. Arthritis. SorathPretty hill MD Apr 13, 2017 14:49
[2017-04-13] MEDS: GILOTRIF PO SCH (19:14)
[2017-04-14] VITALS: BP 119/58; PULSE 62; RESP 12; TEMP 98.7; O2SAT 95
[2017-04-14 04:00] VITALS: BP 116/56; PULSE 62; RESP 12; TEMP 98.6; O2SAT 95
--- NOTE | 2017-04-14 05:58 | RADRPT ---
EXAM DATE/TIME: 04/14/2017 05:02 [facility] COMPARISON: No previous studies available for comparison. INDICATIONS : Follow up bleed; post ventriculostomy RADIATION DOSE: 35.00 CTDIvol (mGy) MEDICAL HISTORY : Hypertension. Carcinoma, lung. SURGICAL HISTORY : Hysterectomy. Ventriculostomy ENCOUNTER: Subsequent ACUITY: 2 weeks PAIN SCALE: 2/10 LOCATION: cranial TECHNIQUE: Multiple contiguous axial images were obtained of the head. Using automated exposure control and adj ustment of the mA and/or kV according to patient size, radiation dose was kept as low as reasonably a chievable to obtain optimal diagnostic quality images. DICOM format image data is available electro nically for review and comparison. FINDINGS: Again seen are postop changes of occipital craniotomy for resection of midline cerebellar mass. Mass effect and swelling are decreasing in the cerebellum with less effacement of the fourth ventricle. Le ft parietal ventriculostomy remains present. Slight increase in ventricular size since April 11. N o new intracranial hemorrhage. CONCLUSION: 1. Slight decrease in cerebellar edema and swelling. 2. Slight increase in ventricular size since April 11. Left parietal ventriculostomy unchanged in appearance. Tip of left parietal ventriculostomy in the posterior left lateral ventricle. Sanju Antony MD on April 14, 2017 at 5:50 Board Certified Radiologist. This report was verified electronically.
[2017-04-14] MEDS: INSULIN ASPART SUPPLEMENTAL SCALE SQ SCH ×3 (06:00→17:32)
[2017-04-14] MEDS: DEXAMETHASONE SOD PHOS 4 MG/ML VIAL IV PUSH SCH ×3 (06:07→17:32)
[2017-04-14] MEDS: LEVOTHYROXINE SODIUM 75 MCG TAB PO SCH (06:07)
[2017-04-14 06:23] LABS: ALT (GPT) 51 U/L (10-53); ANION GAP 8 MEQ/L (5-15); AST (GOT) 19 U/L (15-37); BICARBONATE 25.8 MEQ/L (21.0-32.0); BLOOD UREA NITROGEN 23 MG/DL (7-18); CHLORIDE 102 MEQ/L (98-107); GLOMERULAR FILTRATION RATE 86 ML/MIN (>89); MAGNESIUM 2.6 MG/DL (1.5-2.5); SODIUM (NA) 136 MEQ/L (136-145)
[2017-04-14 06:25] LABS: ALKALINE PHOSPHATASE 101 U/L (45-117); TOTAL BILIRUBIN ADULT 0.5 MG/DL (0.2-1.0)
[2017-04-14 06:27] LABS: AUTOMATED NEUTROPHIL # 6.1 TH/MM3 (1.8-7.7); BASOPHIL % 0.1 % (0.0-2.0); HEMATOCRIT 32.4 % (35.0-46.0); HEMO FLAGS DIFF FINAL; LYMPH % 6.4 % (9.0-44.0); LYMPHOCYTE # 0.4 TH/MM3 (1.0-4.8); MEAN CELL VOLUME 89.1 FL (80.0-100.0); MEAN CORPUSCULAR HEMOGLOBIN 30.2 PG (27.0-34.0); MEAN CORPUSCULAR HGB CONC 33.9 % (32.0-36.0); MONO % 4.9 % (0.0-8.0); NEUT % 88.6 % (16.0-70.0); PLATELET COUNT 168 TH/MM3 (150-450); RED BLOOD COUNT 3.64 MIL/MM3 (4.00-5.30); RED CELL DISTRIBUTION WIDTH 13.5 % (11.6-17.2); WHITE BLOOD COUNT 6.9 TH/MM3 (4.0-11.0)
[2017-04-14 08:00] VITALS: BP 139/61; PULSE 56; RESP 9; TEMP 98.6; O2SAT 96
[2017-04-14] MEDS: ALPRAZolam 0.25 MG TAB PO SCH ×2 (08:00→16:00)
[2017-04-14] MEDS: SODIUM CHLORIDE 0.9% FLUSH 5 ML FLUSH IVF SCH ×2 (09:00→19:26)
--- NOTE | 2017-04-14 09:22 | HHI.NSPN ---
History Chief Complaint: Pain to the back of the head and neck. Interval History 61-year-old female with previous history of cervical syrinx with Chiari malformation documented in previous MRI of the cervical spine from 2011. Previously followed by neurology-Dr. Kaela Mariscal. Patient also has a history of metastatic non-small cell lung cancer. Prior imaging revealed metastatic disease to the lumbar spine. Patient now presents with a few weeks of dizziness and headache. Recently seen by neurology as an outpatient. She came to the emergency room on 04/03/17 due to speech difficulty, mental status changes, nausea and vomiting and persistent headache. 04/09/2017: Patient feeling better. Ambulating for short distance without assistance. Headache improving. Less pain across the neck and shoulders. 04/14/17: No headache with ventriculostomy raised to 20 cm water last evening.. CT scan head without significant hydrocephalus or edema. Exam Results Vital Signs Date Time Temp Pulse Resp B/P (MAP) Pulse Ox O2 Delivery O2 Flow Rate FiO2 04/14/17 04:00 98.6 62 12 116/56 (76) 95 04/11/17 01:10 Nasal Cannula 3 Intake and Output 04/14/17 04/14/17 04/15/17 08:00 16:00 00:00 Intake Total 240 ml Output Total 685 ml Balance -445 ml Physical Examination GENERAL: Patient is awake & alert. and readily interacts. Her affect is normal. She is not in any apparent distress. SKIN: Dressing changed today. Incision is dry and intact without significant erythema or edema and no drainage. HEENT: Posterior neck/lower occipital surgical wound w/intact dressing and ventriculostomy. PERRLA, EOMI. MMM & pink, tongue midline to protrusion. NECK: Posterior neck/lower occipital surgical wound w/intact dressing TTP, no JVD, trachea midline. CARDIOVASCULAR: S1S2 w/RRR w/o M/G/R, radial & pedal pulses 2+ bilaterally, cap refill < 2 sec, trace dependent edema. Monitor is sinus rhythm w/o any evident ectopy. RESPIRATORY: CTAB w/o W/R/R, equal excursion, nonlaboured, on RA. GASTROINTESTINAL: Abdomen soft, nontender, bowel sounds not appreciated. MUSCULOSKELETAL: FRAZIER w/o difficulty, no evident deformity or clubbing. NEUROLOGICAL: AAOx3. Speech clear & appropriate. CN II-XII appear grossly intact. Sensation intact to light touch to all extremities. Motor strength 5/5 to all major flexion & extension muscle groups. Ventriculostomy w/clear straw-coloured CSF drainage, at 20 cm H20 pressure. Lab, Micro, Other Results 04/14/2017 CT scan head images reviewed. Ventricular catheter in good position. Mild residual posterior fossa edema. No significant hydrocephalus. Laboratory Tests Test 04/14/17 05:30 White Blood Count 6.9 TH/MM3 Red Blood Count 3.64 MIL/MM3 Hemoglobin 11.0 GM/DL Hematocrit 32.4 % Mean Corpuscular Volume 89.1 FL Mean Corpuscular Hemoglobin 30.2 PG Mean Corpuscular Hemoglobin Concent 33.9 % Red Cell Distribution Width 13.5 % Platelet Count 168 TH/MM3 Mean Platelet Volume 9.1 FL Neutrophils (%) (Auto) 88.6 % Lymphocytes (%) (Auto) 6.4 % Monocytes (%) (Auto) 4.9 % Eosinophils (%) (Auto) 0.0 % Basophils (%) (Auto) 0.1 % Neutrophils # (Auto) 6.1 TH/MM3 Lymphocytes # (Auto) 0.4 TH/MM3 Monocytes # (Auto) 0.3 TH/MM3 Eosinophils # (Auto) 0.0 TH/MM3 Basophils # (Auto) 0.0 TH/MM3 CBC Comment DIFF FINAL Differential Comment Blood Urea Nitrogen 23 MG/DL Creatinine 0.69 MG/DL Random Glucose 187 MG/DL Total Protein 5.7 GM/DL Albumin 2.6 GM/DL Calcium Level 8.5 MG/DL Phosphorus Level 2.8 MG/DL Magnesium Level 2.6 MG/DL Alkaline Phosphatase 101 U/L Aspartate Amino Transf (AST/SGOT) 19 U/L Alanine Aminotransferase (ALT/SGPT) 51 U/L Total Bilirubin 0.5 MG/DL Sodium Level 136 MEQ/L Potassium Level 4.0 MEQ/L Chloride Level 102 MEQ/L Carbon Dioxide Level 25.8 MEQ/L Anion Gap 8 MEQ/L Estimat Glomerular Filtration Rate 86 ML/MIN Medical Decision Making Impression and Plan Impression: 1. Multiple brain lesions in patient with previous history of metastatic non- small cell lung cancer. 2. Chiari malformation with progressive syringomyelia compared to previous MRI imaging from 2011 Plan: The patient remains alert with no focal neurologic deficit with the ventricular catheter at 20 cm water. The ventriculostomy will be closed to the reservoir. A follow-up CT scan of the head will be obtained in the morning and the ventriculostomy catheter removed if the CT scan is satisfactory and there is no sign of any CSF drainage through the incision. She will tentatively be transferred to a regular floor on 04/15/2017. Continue physical therapy Clem Rich MD Apr 14, 2017 09:22
--- NOTE | 2017-04-14 09:39 | HHI.CCPN ---
Subjective Remarks/Hospital Course 04/11: 61-year-old very pleasant female with a history of metastatic adenocarcinoma of the lungs, hypothyroidism, anxiety, and multiple sclerosis has been admitted for progressive weakness and worsening gait. Patient was in her usual state of health until a few weeks ago when she began experiencing an unsteady gait. Per chart documentation she began shuffling her feet, and was seen and examined by outpatient neurologist with the plan to obtain an outpatient MRI which apparently had not been done yet. Our imaging system revealed the new diagnosis of metastasis in the brain and patient underwent palliative resection with hemicraniectomy by Dr. Rich. She is now admitted to SICU postoperatively. 04/12: Awake and alert. Ventriculostomy drain 1 20 cc overnight. Feeling hungry. Denies any headache currently denies any nausea. 04/13: Resting in chair in no acute distress. Ventriculostomy currently at 5 cm H2O. Complaining of occipital headache. Subjective 04/14: Resolved occipital headache. Ventriculostomy currently at 20 cm H2O to be clamped. -102 cc past 24 hours.. Resting in bed in no acute distress. Objective Vital Signs Date Time Temp Pulse Resp B/P (MAP) Pulse Ox O2 Delivery O2 Flow Rate FiO2 04/14/17 04:00 98.6 62 12 116/56 (76) 95 04/11/17 01:10 Nasal Cannula 3 Intake and Output 04/14/17 04/14/17 04/15/17 08:00 16:00 00:00 Intake Total 240 ml Output Total 685 ml Balance -445 ml Result Diagram: 04/14/17 0530 04/14/17 0530 Other Results Microbiology Date/Time Source Procedure Growth Status 04/03/17 13:45 Blood Peripheral Aerobic Blood Culture - Final NO GROWTH IN 5 DAYS Complete 04/03/17 13:45 Blood Peripheral Anaerobic Blood Culture - Final QNS - SEE AEROBE REPORT Complete Imaging Last Impressions Head CT 04/14/17 0600 Signed Impressions: Service Date/Time: Friday, April 14, 2017 05:02 - CONCLUSION: 1. Slight decrease in cerebellar edema and swelling. 2. Slight increase in ventricular size since April 11. Left parietal ventriculostomy unchanged in appearance. Tip of left parietal ventriculostomy in the posterior left lateral ventricle. Sanju Antony MD Chest CT 04/08/17 0000 Signed Impressions: Service Date/Time: Saturday, April 08, 2017 15:15 - CONCLUSION: 1. Treated tumor in the left upper lobe, with a residual mass that is much smaller than back in 2015. 2. No new or metastatic disease demonstrated. Gordy Laura MD Abdomen/Pelvis CT 04/08/17 Signed Impressions: Service Date/Time: Saturday, April 08, 2017 15:15 - CONCLUSION: 1. Chronic changes related to treatment of metastatic lesion of the L1 vertebral body. No distending/measurable mass seen of L1 currently. 2. 9 mm sclerotic lesion of T11, new and most likely a metastasis. 3. Fatty liver. Gordy Laura MD Lumbar Spine MRI 04/04/17 Signed Impressions: Service Date/Time: Tuesday, April 04, 2017 09:19 - CONCLUSION: I don't see evidence for worsening MS. Chronic compression of L1 Degenerative facet disease L4-5, L5-S1 without significant spinal stenosis. There is mild neuroforaminal encroachment. Ed Roque MD FACR Cervical Spine MRI 04/04/17 Signed Impressions: Service Date/Time: Tuesday, April 04, 2017 09:19 - CONCLUSION: Markedly abnormal high cervical cord with increased signal in the cord. There is cord expansion more suggestive of neoplastic or infiltrative process rather then multiple sclerosis. Markedly abnormal cerebellum MRI of the brain is pending. Ed Roque MD FACR Brain MRI 04/04/17 Signed Impressions: Service Date/Time: Tuesday, April 04, 2017 09:19 - CONCLUSION: Markedly abnormal cerebellum enhancing mass and scattered other areas of cortical enhancement on the right most suspicious for neoplastic process. Markedly abnormal MRI of the high cervical spine as described on that report. Ed Roque MD FACR Chest X-Ray 04/03/17 1233 Signed Impressions: Service Date/Time: March 12:44 - CONCLUSION: No acute disease. Emanuel Hood Jr., MD Cervical Spine CT 04/03/17 0000 Signed Impressions: Service Date/Time: March 13:44 - CONCLUSION: Degenerative disc change at C6-7 with mild disc osteophyte complex. There is moderate narrowing of the left neural foramina at this level. Rafael Mariee MD Objective Remarks GENERAL: 61-year-old female, resting in bed in no acute distress SKIN: Warm and dry. HEAD: Ventriculostomy drain left side.. EYES: No scleral icterus. No injection or drainage. NECK: Supple, trachea midline. No JVD or lymphadenopathy. CARDIOVASCULAR: RRR. S1, S2 no S4. Without murmur RESPIRATORY: Breath sounds equal bilaterally. No accessory muscle use. GASTROINTESTINAL: Abdomen soft, non-tender, nondistended. MUSCULOSKELETAL: No significant peripheral edema. NEURO EXAM: Speech clear & appropriate. CN II-XII appear grossly intact. Sensation intact to light touch to all extremities. Motor strength 5/5 to all major flexion & extension muscle groups. Ventriculostomy w/clear straw-coloured CSF drainage, at 20 cm H20 pressure. A/P Assessment and Plan Neuro/Psych Multiple cerebral lesions, superior cerebellar lesion, probable metastatic neoplasm. Chiari I malformation Cervical syringomyelia Depression/anxiety History of MS 2009 Procedure: 04/10 1. Suboccipital decompressive craniectomy 2. Dural fenestration for Chiari malformation decompression 3. C1 decompressive laminectomy 4. Resection of superior cerebellar neoplasm 5. Left occipital bur hole, ventriculostomy placementrain metastases -Left Ventriculostomy in place at -20 cm H2O 102 cc - Management per neurosurgery Dr. Rich - Continue ICU monitoring for neuro checks and vital signs -Hydrocodone/acetaminophen, and hydromorphone and morphine written for pain management -Alprazolam 0.25 mg by mouth every 8 hours Continue dexamethasone 4 mg IV every [address] brain 04/14 revealed decreased cerebellar swelling with slightly increased ventricular size. Plan is to close reservoir and repeat CT head in a.m. If stable okay to transfer to floor per neurosurgery's note CV: Dyslipidemia Not requiring antihypertensives and/or vasopressors. Hydralazine/labetalol to keep systolic blood pressure less than 150 Home medication is atorvastatin 40 mg by mouth daily. Resp: Nasal cannula to maintain saturations greater than equal to 92% Incentive spirometry while awake GI: Continue regular diet Pantoprazole for GI prophylaxis Ale-Colace for bowel regimen : Holt catheter not indicated ID: Monitor for infection ENDO: Hypothyroidism Hyperglycemia due to steroids -Levothyroxine 75 . Daily/home medication On aspart sliding scale insulin to maintain euglycemia Heme/Onc: Adenocarcinoma of the lung with metastasis - Dr. Haines hematology oncology Continue Afatinib 20 mg by mouth daily. FEN: Replace electrolytes as clinically indicated DVT GI prophylaxis - Teds SCDs - Pharmacological DVT prophylaxis per neurosurgery and hematology oncology -Pantoprazole Level II follow-up Andrew Walden MD Apr 14, 2017 09:39
[2017-04-14] MEDS: DOCUSATE SODIUM 50 MG/SENNA 8.6 MG TAB PO SCH ×2 (10:44→19:26)
[2017-04-14] MEDS: PANTOPRAZOLE SOD 40 MG DELAYED RELEASE TAB PO SCH (10:44)
[2017-04-14] MEDS ORDERED: POLYETHYLENE GLYCOL 17 GM PKG PO ONE (11:00)
[2017-04-14] MEDS: CYANOCOBALAMIN 100 MCG TAB PO SCH (11:55)
[2017-04-14 12:00] VITALS: BP 148/86; PULSE 64; RESP 15; TEMP 98.8; O2SAT 97
[2017-04-14 16:00] VITALS: BP 130/60; PULSE 57; RESP 14; TEMP 98.4; O2SAT 99
[2017-04-14] MEDS: GILOTRIF PO SCH (19:26)
[2017-04-14 20:00] VITALS: BP 117/70; PULSE 62; RESP 17; TEMP 98.4; O2SAT 95
[2017-04-15] VITALS (7 sets, daily range): BP systolic 119–140; BP diastolic 58–67; PULSE 54–85; RESP 10–20; TEMP 97.4–98.6; O2SAT 95–98
[2017-04-15] MEDS: ALPRAZolam 0.25 MG TAB PO SCH ×4 (00:09→23:34)
[2017-04-15] MEDS: DEXAMETHASONE SOD PHOS 4 MG/ML VIAL IV PUSH SCH ×5 (00:10→23:34)
--- NOTE | 2017-04-15 04:49 | RADRPT ---
EXAM DATE/TIME: 04/15/2017 04:35 [facility] COMPARISON: No previous studies available for comparison. INDICATIONS : Post-op Ventriculostomy. RADIATION DOSE: 34.65 CTDIvol (mGy) MEDICAL HISTORY : Hypertension. Carcinoma, lung. SURGICAL HISTORY : Hysterectomy. Ventriculostomy. ENCOUNTER: Subsequent ACUITY: 1 day PAIN SCALE: Non-responsive LOCATION: cranial TECHNIQUE: Multiple contiguous axial images were obtained of the head. Using automated exposure control and adj ustment of the mA and/or kV according to patient size, radiation dose was kept as low as reasonably a chievable to obtain optimal diagnostic quality images. DICOM format image data is available electro nically for review and comparison. FINDINGS: Again seen are stable postop changes of occipital central craniectomy. Stable edema in the posterior fossa. Left parietal ventriculostomy present. Ventricular size is stable. No new fluid collections. CONCLUSION: 1. Stable exam since April 14. Postop changes as above. Parietal ventriculostomy with ventricular size stable. Sanju Antony MD on April 15, 2017 at 4:46 Board Certified Radiologist. This report was verified electronically.
[2017-04-15] MEDS: INSULIN ASPART SUPPLEMENTAL SCALE SQ SCH ×5 (05:19→23:35)
[2017-04-15] MEDS: LEVOTHYROXINE SODIUM 75 MCG TAB PO SCH (05:23)
[2017-04-15 06:13] LABS: HEMATOCRIT 31.5 % (35.0-46.0); MEAN CELL VOLUME 88.4 FL (80.0-100.0); MEAN CORPUSCULAR HEMOGLOBIN 30.4 PG (27.0-34.0); MEAN CORPUSCULAR HGB CONC 34.4 % (32.0-36.0); PLATELET COUNT 169 TH/MM3 (150-450); RED BLOOD COUNT 3.56 MIL/MM3 (4.00-5.30); RED CELL DISTRIBUTION WIDTH 13.4 % (11.6-17.2); REVIEW FLAG FINAL; WHITE BLOOD COUNT 7.4 TH/MM3 (4.0-11.0)
[2017-04-15 06:39] LABS: BICARBONATE 27.2 MEQ/L (21.0-32.0); POTASSIUM 4.1 MEQ/L (3.5-5.1)
[2017-04-15] MEDS: DOCUSATE SODIUM 50 MG/SENNA 8.6 MG TAB PO SCH ×2 (08:38→21:59)
[2017-04-15] MEDS: POLYETHYLENE GLYCOL 17 GM PKG PO SCH (08:38)
[2017-04-15] MEDS: SODIUM CHLORIDE 0.9% FLUSH 5 ML FLUSH IVF SCH ×2 (08:38→22:00)
[2017-04-15] MEDS: PANTOPRAZOLE SOD 40 MG DELAYED RELEASE TAB PO SCH (08:38)
[2017-04-15] MEDS: CYANOCOBALAMIN 100 MCG TAB PO SCH (08:39)
--- NOTE | 2017-04-15 10:06 | PD.ONC.PN ---
Subjective Subjective Remarks Afebrile overnight. Patient resting in bed in nad. Tired of being in bed. Objective Data Date Time Temp Pulse Resp B/P (MAP) Pulse Ox O2 Delivery O2 Flow Rate FiO2 04/15/17 08:00 98.6 55 20 136/67 (90) 98 04/15/17 04:00 97.6 54 10 131/60 (83) 97 04/15/17 00:00 98.4 54 12 119/58 (78) 96 04/14/17 20:00 98.4 62 17 117/70 (86) 95 04/14/17 16:00 98.4 57 14 130/60 (83) 99 04/14/17 12:00 98.8 64 15 148/86 (106) 97 04/15/17 04/15/17 04/15/17 07:00 15:00 23:00 Intake Total 400 ml Output Total 600 ml Balance -200 ml Result Diagram: 04/15/17 0530 04/15/17 0530 Laboratory Results Laboratory Tests Test 04/15/17 05:30 White Blood Count 7.4 TH/MM3 Red Blood Count 3.56 MIL/MM3 Hemoglobin 10.8 GM/DL Hematocrit 31.5 % Mean Corpuscular Volume 88.4 FL Mean Corpuscular Hemoglobin 30.4 PG Mean Corpuscular Hemoglobin Concent 34.4 % Red Cell Distribution Width 13.4 % Platelet Count 169 TH/MM3 Mean Platelet Volume 8.6 FL Blood Urea Nitrogen 24 MG/DL Creatinine 0.66 MG/DL Random Glucose 145 MG/DL Calcium Level 8.6 MG/DL Sodium Level 136 MEQ/L Potassium Level 4.1 MEQ/L Chloride Level 103 MEQ/L Carbon Dioxide Level 27.2 MEQ/L Anion Gap 6 MEQ/L Estimat Glomerular Filtration Rate 91 ML/MIN Imaging Studies Last [address] 04/15/17 0600 Signed Impressions: Service Date/Time: Saturday, April 15, 2017 04:35 - CONCLUSION: 1. Stable exam since April 14. Postop changes as above. Parietal ventriculostomy with ventricular size stable. Sanju Antony MD Administered Medications Medications (Trade) Dose Ordered Sig/Pierce Route PRN Reason Start Time Stop Time Status Last Admin Dose Admin Levothyroxine Sodium (Synthroid) 75 mcg DAILY@0600 PO 04/04/17 06:00 04/15/17 05:23 Ondansetron HCl (Zofran Inj) 4 mg Q8H PRN IV PUSH nausea 04/03/17 17:30 04/04/17 13:37 Dexamethasone Sodium Phosphate (Decadron Inj) 4 mg Q6HR IV PUSH 04/04/17 12:30 04/15/17 05:23 Cyanocobalamin (Vitamin B12) 100 mcg DAILY PO 04/05/17 17:00 04/15/17 08:39 Patient Own Medication PT OWN MED: Melchor... HS PO 04/07/17 21:00 Future hold 04/14/17 19:26 Senna/Docusate Sodium (Ale-Colace) 1 tab BID PO 04/08/17 17:15 04/15/17 08:38 Lactulose (Lactulose Liq) 30 ml TID PRN PO CONSTIPATION 04/08/17 13:45 04/08/17 17:25 Alprazolam (Xanax) 0.25 mg Q8H PO 04/09/17 08:00 04/15/17 08:38 Nicardipine HCl 25 mg/Sodium Chloride 260 ml @ 52 mls/hr TITRATE PRN IV Blood pressure management 04/10/17 23:45 04/10/17 23:30 Acetaminophen/ Hydrocodone Bitart (Somers 10-325 Mg) 1 tab Q4H PRN PO PAIN SCALE 6 TO 10 04/10/17 23:45 04/13/17 10:00 Morphine Sulfate (Morphine Inj) 4 mg Q3H PRN IV BREAKTHROUGH PAIN 04/10/17 23:45 04/11/17 05:10 IV Flush (NS Flush) 2 ml BID IVF 04/11/17 09:00 04/15/17 08:38 Hydralazine HCl (Apresoline Inj) 10 mg Q2H PRN IV PUSH SBP greater than 150mm Hg 04/11/17 09:30 04/11/17 13:27 Insulin Aspart (NovoLOG SUPPLEMENTAL SCALE) 1 Q6HR SQ 04/11/17 13:45 04/15/17 00:00 Pantoprazole Sodium (Protonix) 40 mg DAILY PO 04/14/17 09:00 04/15/17 08:38 Polyethylene Glycol (Miralax) 17 gm DAILY PO 04/15/17 09:00 04/15/17 08:38 Objective Remarks GENERAL: Pleasant female upright in bed in nad. SKIN: Warm and dry. HEAD: Normocephalic. +ventriculostomy, dressing in place, c/d/i. EYES: No injection or drainage. NECK: Supple, trachea midline. CARDIOVASCULAR: Regular rate and rhythm RESPIRATORY: Breath sounds equal bilaterally. No accessory muscle use. GASTROINTESTINAL: Abdomen soft, non-tender, nondistended. NEUROLOGICAL: awake and alert, normal speech. moving all extremities. Assessment/Plan Problem List: (1) Lung cancer, primary, with metastasis from lung to other site ICD Codes: C34.90 - Lung cancer, primary, with metastasis from lung to other site; C79.9 - Secondary malignant neoplasm of unspecified site Status: Acute Plan: 04/15: await path. patient may be transferred to med/surg floor today per NS 04/13 Path is still pending . Pt is recovering from surgery . Out off bed to the chair. Patient is stable 04/12: Recovering very well from neurosurgery. Intermittent occipital headache. Await results of pathology. 04/11: s/p suboccipital decompressive craniectomy, resection superior cerebellar neoplasm and left occipital bur hole, ventriculostomy placement on 04/10. 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 --diagnosed a little over two years ago --has been on palliative systemic therapy initially with Tarceva and more recently with afatinib. --developed progressive pain involving the back of her head associated with weakness of her lower extremities some weeks ago. MRI of the brain indicates a large cerebellar mass most consistent with metastatic disease as well as areas of dural enhancement and cortical lesions scattered over the left and the right cerebellar hemisphere. 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 Assessment 61y/o female with metastatic adenocarcinoma of the lung now with newly diagnosed brain mets. History of hypothyroidism. Kidney stones. Multiple sclerosis. Anxiety. Arthritis. Attending Statement pt is resting. path is pending Tx to regular floor per NS. The exam, history, and the medical decision-making described in the above note were completed with the assistance of the mid-level provider. I reviewed and agree with the findings presented. I attest that I had a [id number] encounter with the patient on the same day, and personally performed and documented my assessment and findings in the medical record. Coye,Larisa Flakita PA Apr 15, 2017 10:05 Pretty Allison MD Apr 15, 2017 15:40
--- NOTE | 2017-04-15 10:53 | HHI.NSPN ---
(Leandro Peres) History Chief Complaint: Soreness to the back of the head and neck. (Leandro Peres) Interval History 61-year-old female with previous history of cervical syrinx with Chiari malformation documented in previous MRI of the cervical spine from 2011. Previously followed by neurology-Dr. Kaela Mariscal. Patient also has a history of metastatic non-small cell lung cancer. Prior imaging revealed metastatic disease to the lumbar spine. Patient now presents with a few weeks of dizziness and headache. Recently seen by neurology as an outpatient. She came to the emergency room on 04/03/17 due to speech difficulty, mental status changes, nausea and vomiting and persistent headache. 04/07: her symptoms better with Decadron. Daughter in room, both she and patient agrees with surgery this week. 04/09/2017: Patient feeling better. Ambulating for short distance without assistance. Headache improving. Less pain across the neck and shoulders. 04/11: The patient went for a resection of a cerebellar neoplasm yesterday afternoon. Post-operatively she was transferred to the [facility] for further care and management. A repeat CT brain this morning demonstrated expected post-operative changes. Today the patient is drowsy but readily interacts and complains of neck pain. She denies any headache. 04/12: The patient is awake and alert this morning. She says she feels "great, well maybe not great. But I feel good." She does say she has some headache to the occipital area. She states she really doesn't have any pain. She readily smiles and laughs when talking. 04/13: This morning the patient says she is doing good. She states she has pain, but it really isn't pain, to the back of the head and neck. She isn't able to differentiate whether it is a headache or pain to the surgical site. She states that she was able to get up with assistance to the [facility] this morning and had no problems. She is sitting in a chair at present. 04/14/17: No headache with ventriculostomy raised to 20 cm water last evening.. CT scan head without significant hydrocephalus or edema. 04/15: Patient is up and ambulating using a wheeled walker with standby assistance this morning when seen. She states she has soreness to the back of the head and neck but says that she has not really had any headache. She denied any dizziness. The ventriculostomy was clamped yesterday. A repeat CT brain this morning was stable compared to yesterday. (Leandro Peres) System Review Comments Constitutional: Patient denies any fever or chills. HEENT: Patient complains of pain to the back of the head and neck. She denies any visual or hearing difficulty. Respiratory: Patient denies any shortness of breath or productive cough. Cardiovascular: Patient denies any chest pain, palpitations or irregular heartbeat. Gastrointestinal: Patient denies any abdominal pain, nausea or vomiting or incontinence of stool. Genitourinary: Patient denies any incontinence of urine. Musculoskeletal: Patient complains of pain to the back of the head and neck. She denies any back or extremity pain. Neurologic: Patient denies any headache, dizziness, numbness or tingling. (Leandro Peres) Exam Results 04/13/17 04/13/17 04/14/17 04/14/17 04/15/17 04/15/17 06:00 18:00 06:00 18:00 06:00 18:00 Intake Total 450 ml 300 ml 240 ml 600 ml 400 ml Output Total 680 ml 592 ml 685 ml 600 ml Balance -230 ml -292 ml -445 ml 600 ml -200 ml Intake Oral 450 ml 300 ml 240 ml 600 ml 400 ml Output Urine Total 600 ml 525 ml 650 ml 600 ml Drainage Total 80 ml 67 ml 35 ml # Voids 4 # Bowel Movements 0 0 2 0 Vital Signs Date Time Temp Pulse Resp B/P (MAP) Pulse Ox O2 Delivery O2 Flow Rate FiO2 04/15/17 08:00 98.6 55 20 136/67 (90) 98 04/15/17 04:00 97.6 54 10 131/60 (83) 97 04/15/17 00:00 98.4 54 12 119/58 (78) 96 04/14/17 20:00 98.4 62 17 117/70 (86) 95 04/14/17 16:00 98.4 57 14 130/60 (83) 99 04/14/17 12:00 98.8 64 15 148/86 (106) 97 04/14/17 08:00 98.6 56 9 139/61 (87) 96 04/14/17 04:00 98.6 62 12 116/56 (76) 95 04/14/17 00:00 98.7 62 12 119/58 (78) 95 04/13/17 20:00 98.6 66 14 129/61 (83) 95 04/13/17 16:00 98.6 67 9 154/69 (97) 95 04/13/17 15:00 73 04/13/17 12:00 98.8 70 15 124/57 (79) 97 04/13/17 08:00 98.9 68 14 140/65 (90) 96 04/13/17 04:00 98.8 62 14 133/62 (85) 95 04/13/17 00:00 98.7 68 14 157/67 (97) 95 04/12/17 21:51 18 04/12/17 20:00 98.9 70 18 139/63 (88) 96 04/12/17 16:00 99.0 78 9 124/60 (81) 94 04/12/17 15:00 74 04/12/17 12:00 98.9 71 12 127/94 (105) 95 (Leandro Peres) Physical Examination GENERAL: Patient is ambulating using a wheeled walker with standby assistance. Her affect is normal. She is not in any apparent distress. SKIN: Warm, dry & intact, surgical incision & ventriculostomy w/dry dressing w/ o any evident drainage. HEENT: Posterior neck/lower occipital surgical wound w/intact dressing and ventriculostomy. PERRLA, EOMI. MMM & pink, tongue midline to protrusion. NECK: Posterior neck/lower occipital surgical wound w/intact dressing TTP, no JVD, trachea midline. CARDIOVASCULAR: S1S2 w/RRR w/o M/G/R, radial & pedal pulses 2+ bilaterally, cap refill < 2 sec, trace dependent edema. RESPIRATORY: CTAB w/o W/R/R, equal excursion, nonlaboured, on RA. GASTROINTESTINAL: Abdomen soft, nontender, bowel sounds not appreciated. MUSCULOSKELETAL: FRAZIER w/o difficulty, no evident deformity or clubbing, ambulating w/wheeled walker w/standby assistance. NEUROLOGICAL: AAOx3. Speech clear & appropriate. CN II-XII appear grossly intact. Sensation intact to light touch to all extremities. Motor strength 5/5 to all major flexion & extension muscle groups. Ventriculostomy clamped. (Leandro Peres) Lab, Micro, Other Results Recent Impressions Head CT 04/15/17 06 Signed Impressions: Service Date/Time: Saturday, April 15, 2017 04:35 - CONCLUSION: 1. Stable exam since April 14. Postop changes as above. Parietal ventriculostomy with ventricular size stable. Sanju Antony MD Head CT 04/14/17599 Signed Impressions: Service Date/Time: Friday, April 14, 2017 05:02 - CONCLUSION: 1. Slight decrease in cerebellar edema and swelling. 2. Slight increase in ventricular size since April 11. Left parietal ventriculostomy unchanged in appearance. Tip of left parietal ventriculostomy in the posterior left lateral ventricle. Sanju Antony MD Laboratory Tests Test 04/13/17 05:00 04/14/17 05:30 04/15/17 05:30 White Blood Count 10.2 TH/MM3 6.9 TH/MM3 7.4 TH/MM3 Red Blood Count 3.67 MIL/MM3 3.64 MIL/MM3 3.56 MIL/MM3 Hemoglobin 10.9 GM/DL 11.0 GM/DL 10.8 GM/DL Hematocrit 32.4 % 32.4 % 31.5 % Mean Corpuscular Volume 88.5 FL 89.1 FL 88.4 FL Mean Corpuscular Hemoglobin 29.9 PG 30.2 PG 30.4 PG Mean Corpuscular Hemoglobin Concent 33.7 % 33.9 % 34.4 % Red Cell Distribution Width 13.5 % 13.5 % 13.4 % Platelet Count 165 TH/MM3 168 TH/MM3 169 TH/MM3 Mean Platelet Volume 8.7 FL 9.1 FL 8.6 FL Neutrophils (%) (Auto) 89.1 % 88.6 % Lymphocytes (%) (Auto) 5.4 % 6.4 % Monocytes (%) (Auto) 5.3 % 4.9 % Eosinophils (%) (Auto) 0.0 % 0.0 % Basophils (%) (Auto) 0.2 % 0.1 % Neutrophils # (Auto) 9.1 TH/MM3 6.1 TH/MM3 Lymphocytes # (Auto) 0.6 TH/MM3 0.4 TH/MM3 Monocytes # (Auto) 0.5 TH/MM3 0.3 TH/MM3 Eosinophils # (Auto) 0.0 TH/MM3 0.0 TH/MM3 Basophils # (Auto) 0.0 TH/MM3 0.0 TH/MM3 CBC Comment DIFF FINAL DIFF FINAL Differential Comment Blood Urea Nitrogen 23 MG/DL 23 MG/DL 24 MG/DL Creatinine 0.61 MG/DL 0.69 MG/DL 0.66 MG/DL Random Glucose 139 MG/DL 187 MG/DL 145 MG/DL Total Protein 5.6 GM/DL 5.7 GM/DL Albumin 2.6 GM/DL 2.6 GM/DL Calcium Level 8.3 MG/DL 8.5 MG/DL 8.6 MG/DL Alkaline Phosphatase 75 U/L 101 U/L Aspartate Amino Transf (AST/SGOT) 16 U/L 19 U/L Alanine Aminotransferase (ALT/SGPT) 42 U/L 51 U/L Total Bilirubin 0.5 MG/DL 0.5 MG/DL Sodium Level 137 MEQ/L 136 MEQ/L 136 MEQ/L Potassium Level 4.1 MEQ/L 4.0 MEQ/L 4.1 MEQ/L Chloride Level 102 MEQ/L 102 MEQ/L 103 MEQ/L Carbon Dioxide Level 28.9 MEQ/L 25.8 MEQ/L 27.2 MEQ/L Anion Gap 6 MEQ/L 8 MEQ/L 6 MEQ/L Estimat Glomerular Filtration Rate 100 ML/MIN 86 ML/MIN 91 ML/MIN Phosphorus Level 2.8 MG/DL Magnesium Level 2.6 MG/DL (Leandro Peres) Medical Decision Making Impression and Plan Impression: (1) Cerebral tumor (2) Chiari I malformation (3) Syringomyelia 1. Multiple cerebral lesions, superior cerebellar lesion, probable metastatic neoplasm. 2. Chiari I malformation 3. Cervical syringomyelia The patient is doing quite well and neurologically intact. POD #5 () s/p: 1. Suboccipital decompressive craniectomy 2. Dural fenestration for Chiari malformation decompression 3. C1 decompressive laminectomy 4. Resection of superior cerebellar neoplasm 5. Left occipital bur hole, ventriculostomy placement Plan: Critical care management per Film Composer. Primary management per Hospitalist. PT/OT eval & tx. Continue Decadron. Doughnut pillow to offload pressure to surgical incision. Plan to d/c ventriculostomy today. Patient may transfer to a regular med/surg floor from NSGY's perspective. ADDENDUM at 1143: Ventriculostomy system opened and 20 mL drained. System then raised and clamped. Dressing removed from over surgical incision and ventriculostomy insertion site. Insertions site cleaned with chloraprep swab. Suture cut and removed without any difficulty. The ventriculostomy catheter was slowly withdrawn without any complication and appeared intact in appearance. The catheter tract was gently massaged for a few minutes. No evident drainage noted and steri-strips placed to insertion site. Then a Primafore dressing was placed over the surgical incision & insertion site. The patient tolerated the procedure well. BET (Leandro Peres) Attending Statement The exam, history, and the medical decision-making described in the above note were completed with the assistance of the mid-level provider. I reviewed and agree with the findings presented. I attest that I had a [id number] encounter with the patient on the same day, and personally performed and documented my assessment and findings in the medical record. CT scan with drain clamped without significant hydrocephalus Neurologic exam remains intact Discontinue drain today Okay to transfer to floor (Clem Rich MD) Leandro Peres Apr 15, 2017 10:53 Clem Rich MD May 12, 2017 06:46
--- NOTE | 2017-04-15 13:38 | HHI.CCPN ---
Subjective Remarks/Hospital Course 04/11: 61-year-old very pleasant female with a history of metastatic adenocarcinoma of the lungs, hypothyroidism, anxiety, and multiple sclerosis has been admitted for progressive weakness and worsening gait. Patient was in her usual state of health until a few weeks ago when she began experiencing an unsteady gait. Per chart documentation she began shuffling her feet, and was seen and examined by outpatient neurologist with the plan to obtain an outpatient MRI which apparently had not been done yet. Our imaging system revealed the new diagnosis of metastasis in the brain and patient underwent palliative resection with hemicraniectomy by Dr. Rich. She is now admitted to SICU postoperatively. 04/12: Awake and alert. Ventriculostomy drain 1 20 cc overnight. Feeling hungry. Denies any headache currently denies any nausea. 04/13: Resting in chair in no acute distress. Ventriculostomy currently at 5 cm H2O. Complaining of occipital headache. Subjective 04/14: Resolved occipital headache. Ventriculostomy currently at 20 cm H2O to be clamped. -102 cc past 24 hours.. Resting in bed in no acute distress. 04/15: Resting in bed comfortably this morning at the time of my evaluation. Denies any headache. Tolerating by mouth diet. Ventriculostomy in place- currently clamped. Objective Vital Signs Date Time Temp Pulse Resp B/P (MAP) Pulse Ox O2 Delivery O2 Flow Rate FiO2 04/15/17 08:00 98.6 55 20 136/67 (90) 98 Intake and Output 04/15/17 04/15/17 04/16/17 08:00 16:00 00:00 Intake Total 400 ml Output Total 600 ml Balance -200 ml Result Diagram: 04/15/17 0530 04/15/17 0530 Imaging Last Impressions Head CT 04/14/17 0600 Signed Impressions: Service Date/Time: Friday, April 14, 2017 05:02 - CONCLUSION: 1. Slight decrease in cerebellar edema and swelling. 2. Slight increase in ventricular size since April 11. Left parietal ventriculostomy unchanged in appearance. Tip of left parietal ventriculostomy in the posterior left lateral ventricle. Sanju Antony MD Chest CT 04/08/17 0000 Signed Impressions: Service Date/Time: Saturday, April 08, 2017 15:15 - CONCLUSION: 1. Treated tumor in the left upper lobe, with a residual mass that is much smaller than back in 2015. 2. No new or metastatic disease demonstrated. Gordy Laura MD Abdomen/Pelvis CT 04/08/17 Signed Impressions: Service Date/Time: Saturday, April 08, 2017 15:15 - CONCLUSION: 1. Chronic changes related to treatment of metastatic lesion of the L1 vertebral body. No distending/measurable mass seen of L1 currently. 2. 9 mm sclerotic lesion of T11, new and most likely a metastasis. 3. Fatty liver. Gordy Laura MD Lumbar Spine MRI 04/04/17 0000 Signed Impressions: Service Date/Time: Tuesday, April 04, 2017 09:19 - CONCLUSION: I don't see evidence for worsening MS. Chronic compression of L1 Degenerative facet disease L4-5, L5-S1 without significant spinal stenosis. There is mild neuroforaminal encroachment. Ed Roque MD FACR Cervical Spine MRI 04/04/17 0000 Signed Impressions: Service Date/Time: Tuesday, April 04, 2017 09:19 - CONCLUSION: Markedly abnormal high cervical cord with increased signal in the cord. There is cord expansion more suggestive of neoplastic or infiltrative process rather then multiple sclerosis. Markedly abnormal cerebellum MRI of the brain is pending. Ed Roque MD FACR Brain MRI 04/04/17 0000 Signed Impressions: Service Date/Time: Tuesday, April 04, 2017 09:19 - CONCLUSION: Markedly abnormal cerebellum enhancing mass and scattered other areas of cortical enhancement on the right most suspicious for neoplastic process. Markedly abnormal MRI of the high cervical spine as described on that report. Ed Roque MD FACR Chest X-Ray 04/03/17 1233 Signed Impressions: Service Date/Time: March 12:44 - CONCLUSION: No acute disease. Emanuel Hood Jr., MD Cervical Spine CT 04/03/17 0000 Signed Impressions: Service Date/Time: March 13:44 - CONCLUSION: Degenerative disc change at C6-7 with mild disc osteophyte complex. There is moderate narrowing of the left neural foramina at this level. Rafael Mariee MD Objective Remarks GENERAL: 61-year-old female, resting in bed in no acute distress SKIN: Warm and dry. HEAD: Ventriculostomy drain left side.. EYES: No scleral icterus. No injection or drainage. NECK: Supple, trachea midline. No JVD or lymphadenopathy. CARDIOVASCULAR: RRR. S1, S2 no S4. Without murmur RESPIRATORY: Breath sounds equal bilaterally. No accessory muscle use. GASTROINTESTINAL: Abdomen soft, non-tender, nondistended. MUSCULOSKELETAL: No significant peripheral edema. NEURO EXAM: Speech clear & appropriate. CN II-XII appear grossly intact. Sensation intact to light touch to all extremities. Motor strength 5/5 to all major flexion & extension muscle groups. Ventriculostomy w/clear straw-coloured CSF drainage, at 20 cm H20 pressure. A/P Assessment and Plan Neuro/Psych Multiple cerebral lesions, superior cerebellar lesion, probable metastatic neoplasm. Chiari I malformation Cervical syringomyelia Depression/anxiety History of MS 2009 Procedure: 04/10 1. Suboccipital decompressive craniectomy 2. Dural fenestration for Chiari malformation decompression 3. C1 decompressive laminectomy 4. Resection of superior cerebellar neoplasm 5. Left occipital bur hole, ventriculostomy placementrain metastases -Left Ventriculostomy in place at -20 cm H2O 102 cc - Management per neurosurgery Dr. Rich - Continue ICU monitoring for neuro checks and vital signs -Hydrocodone/acetaminophen, and hydromorphone and morphine written for pain management -Alprazolam 0.25 mg by mouth every 8 hours Continue dexamethasone 4 mg IV every [address] brain 04/14 revealed decreased cerebellar swelling with slightly increased ventricular size. Plan is to close reservoir and repeat CT head in a.m. If stable okay to transfer to floor per neurosurgery's note CV: Dyslipidemia Not requiring antihypertensives and/or vasopressors. Hydralazine/labetalol to keep systolic blood pressure less than 150 Home medication is atorvastatin 40 mg by mouth daily. Resp: Nasal cannula to maintain saturations greater than equal to 92% Incentive spirometry while awake GI: Continue regular diet Pantoprazole for GI prophylaxis Ale-Colace for bowel regimen : Holt catheter not indicated ID: Monitor for infection ENDO: Hypothyroidism Hyperglycemia due to steroids -Levothyroxine 75 . Daily/home medication On aspart sliding scale insulin to maintain euglycemia Heme/Onc: Adenocarcinoma of the lung with metastasis - Dr. Haines hematology oncology Continue Afatinib 20 mg by mouth daily. FEN: Replace electrolytes as clinically indicated DVT GI prophylaxis - Teds SCDs - Pharmacological DVT prophylaxis per neurosurgery and hematology oncology -Pantoprazole Level II follow-up El Christie MD Apr 15, 2017 13:38
[2017-04-15] MEDS ORDERED: LIDOCAINE 1%/EPINEPHrine 1:100,000 SOLN 20 ML VIAL INFIL ONE (21:30)
[2017-04-15] MEDS: GILOTRIF PO SCH (21:59)
[2017-04-16 00:07] VITALS: BP 112/54; PULSE 62; RESP 17; TEMP 97.9; O2SAT 96
[2017-04-16 04:30] VITALS: BP 125/63; PULSE 62; RESP 17; TEMP 98.2; O2SAT 98
[2017-04-16] MEDS: DEXAMETHASONE SOD PHOS 4 MG/ML VIAL IV PUSH SCH ×4 (05:49→23:21)
[2017-04-16] MEDS: LEVOTHYROXINE SODIUM 75 MCG TAB PO SCH (05:49)
[2017-04-16] MEDS: INSULIN ASPART SUPPLEMENTAL SCALE SQ SCH ×4 (05:49→23:35)
[2017-04-16] MEDS: DOCUSATE SODIUM 50 MG/SENNA 8.6 MG TAB PO SCH ×2 (07:55→20:32)
[2017-04-16] MEDS: POLYETHYLENE GLYCOL 17 GM PKG PO SCH (07:55)
[2017-04-16] MEDS: CYANOCOBALAMIN 100 MCG TAB PO SCH (07:56)
[2017-04-16] MEDS: PANTOPRAZOLE SOD 40 MG DELAYED RELEASE TAB PO SCH (07:56)
[2017-04-16] MEDS: SODIUM CHLORIDE 0.9% FLUSH 5 ML FLUSH IVF SCH ×2 (07:56→20:31)
[2017-04-16] MEDS: ALPRAZolam 0.25 MG TAB PO SCH ×3 (07:56→23:20)
[2017-04-16 08:05] VITALS: BP 129/63; PULSE 56; RESP 18; TEMP 97.9; O2SAT 96
[2017-04-16 12:02] VITALS: BP 143/63; PULSE 80; RESP 20; TEMP 97.1; O2SAT 97
--- NOTE | 2017-04-16 15:40 | HHI.NSPN ---
(Leandro Peres Abhi CAMPBELL) History Chief Complaint: No complaints. (Leandro PeresMarilin CAMPBELL) Interval History 61-year-old female with previous history of cervical syrinx with Chiari malformation documented in previous MRI of the cervical spine from 2011. Previously followed by neurology-Dr. Kaela Mariscal. Patient also has a history of metastatic non-small cell lung cancer. Prior imaging revealed metastatic disease to the lumbar spine. Patient now presents with a few weeks of dizziness and headache. Recently seen by neurology as an outpatient. She came to the emergency room on 04/03/17 due to speech difficulty, mental status changes, nausea and vomiting and persistent headache. 04/07: her symptoms better with Decadron. Daughter in room, both she and patient agrees with surgery this week. 04/09/2017: Patient feeling better. Ambulating for short distance without assistance. Headache improving. Less pain across the neck and shoulders. 04/11: The patient went for a resection of a cerebellar neoplasm yesterday afternoon. Post-operatively she was transferred to the [facility] for further care and management. A repeat CT brain this morning demonstrated expected post-operative changes. Today the patient is drowsy but readily interacts and complains of neck pain. She denies any headache. 04/12: The patient is awake and alert this morning. She says she feels "great, well maybe not great. But I feel good." She does say she has some headache to the occipital area. She states she really doesn't have any pain. She readily smiles and laughs when talking. 04/13: This morning the patient says she is doing good. She states she has pain, but it really isn't pain, to the back of the head and neck. She isn't able to differentiate whether it is a headache or pain to the surgical site. She states that she was able to get [place] with [place] [facility] [place] and had no problems. She is sitting in a chair at present. 04/14/17: No headache with ventriculostomy raised to 20 cm water last evening.. CT scan head without significant hydrocephalus or edema. 04/15: Patient is up and ambulating using a wheeled walker with standby assistance this morning when seen. She states she has soreness to the back of the head and neck but says that she has not really had any headache. She denied any dizziness. The ventriculostomy was clamped yesterday. A repeat CT brain this morning was stable compared to yesterday. 04/16: The ventriculostomy was removed yesterday afternoon. The patient had additional steri-strips placed yesterday evening due to continued drainage from the ventriculostomy insertion site. She states there has not been any further leakage. She states that she is not having any pain to the back of the head or the neck. She keeps focusing on wanting to go home at discharge and have Home Health come to her apartment. She states she has a walker and commode chair at home. She says she has previously been at [facility] for physical therapy and all they did was ask her to throw a beach ball to them and then tossed it back to her. She reports that her strength improved once she got home and started doing some exercises at home on her own. (Leandro Peres) System Review Comments Constitutional: Patient denies any fever or chills. HEENT: Patient states not really having pain to the back of the head and neck. She denies any visual or hearing difficulty. Respiratory: Patient denies any shortness of breath or productive cough. Cardiovascular: Patient denies any chest pain, palpitations or irregular heartbeat. Gastrointestinal: Patient denies any abdominal pain, nausea or vomiting or incontinence of stool. Genitourinary: Patient denies any incontinence of urine. Musculoskeletal: Patient states not really having pain to the back of the head and neck. She denies any back or extremity pain. Neurologic: Patient denies any headache, dizziness, numbness or tingling. (Leandro Peres) Exam Results 04/14/17 04/14/17 04/15/17 04/15/17 04/16/17 04/16/17 06:00 18:00 06:00 18:00 06:00 18:00 Intake Total 240 ml 600 ml 400 ml 360 ml Output Total 685 ml 600 ml 4 ml Balance -445 ml 600 ml -200 ml -4 ml 360 ml Intake Oral 240 ml 600 ml 400 ml 360 ml Output Urine Total 650 ml 600 ml 4 ml Drainage Total 35 ml # Voids 4 4 # Bowel Movements 0 2 0 2 Vital Signs Date Time Temp Pulse Resp B/P (MAP) Pulse Ox O2 Delivery O2 Flow Rate FiO2 04/16/17 12:02 97.1 80 20 143/63 (89) 97 04/16/17 08:05 97.9 56 18 129/63 (85) 96 04/16/17 04:30 98.2 62 17 125/63 (83) 98 04/16/17 00:07 97.9 62 17 112/54 (73) 96 04/15/17 20:45 97.4 85 17 140/60 (86) 95 04/15/17 17:08 98.3 65 18 129/59 (82) 98 04/15/17 16:00 98.6 72 18 129/58 (81) 97 04/15/17 12:00 98.6 71 20 126/59 (81) 98 04/15/17 08:00 98.6 55 20 136/67 (90) 98 04/15/17 04:00 97.6 54 10 131/60 (83) 97 04/15/17 00:00 98.4 54 12 119/58 (78) 96 04/14/17 20:00 98.4 62 17 117/70 (86) 95 04/14/17 16:00 98.4 57 14 130/60 (83) 99 04/14/17 12:00 98.8 64 15 148/86 (106) 97 04/14/17 08:00 98.6 56 9 139/61 (87) 96 04/14/17 04:00 98.6 62 12 116/56 (76) 95 04/14/17 00:00 98.7 62 12 119/58 (78) 95 04/13/17 20:00 98.6 66 14 129/61 (83) 95 04/13/17 16:00 98.6 67 9 154/69 (97) 95 (Leandro Peres) Physical Examination GENERAL: Patient is asleep but awakens to verbal stimuli. After that she is awake and readily interacts. Her affect is normal. She is not in any apparent distress. SKIN: Warm, dry & intact, surgical incision & ventriculostomy insertion site w/ dry dressing w/o any evident drainage. HEENT: Posterior neck/lower occipital surgical incision & ventriculostomy insertion site w/intact dressing minimally TTP. PERRLA, EOMI. MMM & pink, tongue midline to protrusion. NECK: Posterior neck/lower occipital surgical incision & ventriculostomy insertion site w/intact dressing minimally TTP, no JVD, trachea midline. CARDIOVASCULAR: S1S2 w/RRR w/o M/G/R, radial & pedal pulses 2+ bilaterally, cap refill < 2 sec, trace dependent edema. RESPIRATORY: CTAB w/o W/R/R, equal excursion, nonlaboured, on RA. GASTROINTESTINAL: Abdomen soft, nontender, positive bowel sounds. MUSCULOSKELETAL: FRAZIER w/o difficulty, no evident deformity or clubbing. NEUROLOGICAL: AAOx3. Speech clear & appropriate. CN II-XII appear grossly intact. Sensation intact to light touch to all extremities. Motor strength 5/5 to all major flexion & extension muscle groups. (Leandro Peres) Medical Decision Making Impression and Plan Impression: (1) Cerebral tumor (2) Chiari I malformation (3) Syringomyelia 1. Multiple cerebral lesions, superior cerebellar lesion, probable metastatic neoplasm. 2. Chiari I malformation 3. Cervical syringomyelia The patient continues doing well and is neurologically intact. PT recommends discharge home with Home Health for further rehab but OT recommends inpatient rehab. The patient wants to go home with Home Health. POD #6 () s/p: 1. Suboccipital decompressive craniectomy 2. Dural fenestration for Chiari malformation decompression 3. C1 decompressive laminectomy 4. Resection of superior cerebellar neoplasm 5. Left occipital bur hole, ventriculostomy placement Plan: Primary management per Hospitalist. PT/OT eval & tx. Continue Decadron. (Leandro Peres) Attending Statement The exam, history, and the medical decision-making described in the above note were completed with the assistance of the mid-level provider. I reviewed and agree with the findings presented. I attest that I had a [id number] encounter with the patient on the same day, and personally performed and documented my assessment and findings in the medical record. Remains awake and alert without significant focal deficit Incisions are dry and intact Progressing well with ambulation Stable for discharge from neurosurgery standpoint Radiation therapy following (Clem Rich MD) Leandro Peres Apr 16, 2017 15:40 Clem Rich MD May 12, 2017 06:47
--- NOTE | 2017-04-16 15:50 | HHI.HCPN ---
Reason for visit a. To assist with evaluation and management of symptoms including: AMS, nausea, pain b. To assist medical decision maker(s) with: better understanding of current medical conditions; weighing benefits/burdens of medical treatment options; making medical treatment decisions. (Miranda Martin) Subjective/Interval History s/p decompressive craniectomy, C1 decompressive laminectomy, neoplasm resection , left susanne hole/ventric placement 04/10/17. Pt stable post op, transferred out of ICU yesterday. f/up CT brain yesterday stable. Labs stable. Pathology pending. Has been weaned off O2. Eating well. + having BMs. PT/OT following, pt independent w ADLs, ambulating well w walker as needed. discharge planning in process, if she cont to do well would anticipate d /c either to rehab or home w home health in the coming days. Pt seen in room as Kamari Peres neurosurgery ADRIAN completing exam. Neuro exam normal. Pt alert, oriented, appropriate. Good insight. Occasionally must search for words. Talkative, pleasant. Reports ambulated without difficulty around room. She denies pain, said had headache yesterday but has resolved. Denies n/ v. ROS negative. Endorses good appetite. She is looking forward to discharging soon either to rehab or even home w home health. She remains optimistic regarding treatment ongoing, she endorses she is a fighter and feels good. SHe does report 2 BM and that she is worried taking stool softener and her chemo will cause diarrhea and requests stool softeners PRN only. Offer to call daughter to update, she indicates she has been in touch, and will keep my # should daughter have any questions. agrees. d./w neuro [employer]PECTOR . (Miranda Martin) Advance Directives Living Will: Copy in medical record Health Care Surrogate: Copy in medical record (Miranda Martin) Advance Directive Specifics Date completed: 2014, we did today 04/07/17 Health Care Surrogate(s): Daughter Siena (Miranda Martin) Objective Vital Signs Date Time Temp Pulse Resp B/P (MAP) Pulse Ox O2 Delivery O2 Flow Rate FiO2 04/16/17 12:02 97.1 80 20 143/63 (89) 97 04/16/17 08:05 97.9 56 18 129/63 (85) 96 04/16/17 04:30 98.2 62 17 125/63 (83) 98 04/16/17 00:07 97.9 62 17 112/54 (73) 96 04/15/17 20:45 97.4 85 17 140/60 (86) 95 04/15/17 17:08 98.3 65 18 129/59 (82) 98 04/15/17 16:00 98.6 72 18 129/58 (81) 97 Intake & Output 04/16/17 04/16/17 07:00 19:00 Intake Total 360 ml Balance 360 ml Intake Oral 360 ml # Voids 4 Physical Exam CONSTITUTIONAL/GENERAL: This is an adequately nourished patient, in no apparent distress. alert, pleasant TUBES/LINES/DRAINS: Peripheral IV upper extremity. posterior head dressing clean /dry CARDIOVASCULAR: Regular rate and rhythm, no murmur. No JVD. Peripheral pulses symmetric. no edema RESPIRATORY/CHEST: Symmetric, unlabored respirations. On 2 L NC. Clear to auscultation. Breath sounds equal bilaterally. GASTROINTESTINAL: Abdomen soft, non-tender, nondistended. No palpable masses. No guarding. Bowel sounds normoactive MUSCULOSKELETAL: Extremities without clubbing, cyanosis. trace peripheral edema , trace facial edema. No joint tenderness or effusion noted. No mottling or clubbing. NEUROLOGICAL: awake, oriented x3, appropriate. speech clear. Pupils equal/ reactive. Moves all 4 extremities . Motor and sensory grossly within normal limits. PSYCHIATRIC: no obvious depression or anxiety. No apparent hallucinations or other psychotic thought process. (Miranda Martin) Diagnostic Tests Laboratory Laboratory Tests Test 04/14/17 05:30 04/15/17 05:30 White Blood Count 6.9 TH/MM3 (4.0-11.0) 7.4 TH/MM3 (4.0-11.0) Red Blood Count 3.64 MIL/MM3 (4.00-5.30) 3.56 MIL/MM3 (4.00-5.30) Hemoglobin 11.0 GM/DL (11.6-15.3) 10.8 GM/DL (11.6-15.3) Hematocrit 32.4 % (35.0-46.0) 31.5 % (35.0-46.0) Mean Corpuscular Volume 89.1 FL (80.0-100.0) 88.4 FL (80.0-100.0) Mean Corpuscular Hemoglobin 30.2 PG (27.0-34.0) 30.4 PG (27.0-34.0) Mean Corpuscular Hemoglobin Concent 33.9 % (32.0-36.0) 34.4 % (32.0-36.0) Red Cell Distribution Width 13.5 % (11.6-17.2) 13.4 % (11.6-17.2) Platelet Count 168 TH/MM3 (150-450) 169 TH/MM3 (150-450) Mean Platelet Volume 9.1 FL (7.0-11.0) 8.6 FL (7.0-11.0) Neutrophils (%) (Auto) 88.6 % (16.0-70.0) Lymphocytes (%) (Auto) 6.4 % (9.0-44.0) Monocytes (%) (Auto) 4.9 % (0.0-8.0) Eosinophils (%) (Auto) 0.0 % (0.0-4.0) Basophils (%) (Auto) 0.1 % (0.0-2.0) Neutrophils # (Auto) 6.1 TH/MM3 (1.8-7.7) Lymphocytes # (Auto) 0.4 TH/MM3 (1.0-4.8) Monocytes # (Auto) 0.3 TH/MM3 (0-0.9) Eosinophils # (Auto) 0.0 TH/MM3 (0-0.4) Basophils # (Auto) 0.0 TH/MM3 (0-0.2) CBC Comment DIFF FINAL Differential Comment Blood Urea Nitrogen 23 MG/DL (7-18) 24 MG/DL (7-18) Creatinine 0.69 MG/DL (0.50-1.00) 0.66 MG/DL (0.50-1.00) Random Glucose 187 MG/DL (74-106) 145 MG/DL (74-106) Total Protein 5.7 GM/DL (6.4-8.2) Albumin 2.6 GM/DL (3.4-5.0) Calcium Level 8.5 MG/DL (8.5-10.1) 8.6 MG/DL (8.5-10.1) Phosphorus Level 2.8 MG/DL (2.5-4.9) Magnesium Level 2.6 MG/DL (1.5-2.5) Alkaline Phosphatase 101 U/L (45-117) Aspartate Amino Transf (AST/SGOT) 19 U/L (15-37) Alanine Aminotransferase (ALT/SGPT) 51 U/L (10-53) Total Bilirubin 0.5 MG/DL (0.2-1.0) Sodium Level 136 MEQ/L (136-145) 136 MEQ/L (136-145) Potassium Level 4.0 MEQ/L (3.5-5.1) 4.1 MEQ/L (3.5-5.1) Chloride Level 102 MEQ/L (98-107) 103 MEQ/L (98-107) Carbon Dioxide Level 25.8 MEQ/L (21.0-32.0) 27.2 MEQ/L (21.0-32.0) Anion Gap 8 MEQ/L (5-15) 6 MEQ/L (5-15) Estimat Glomerular Filtration Rate 86 ML/MIN (>89) 91 ML/MIN (>89) (Miranda Martin [facility]) Result Diagram: 04/15/17 0530 04/15/17 0530 Imaging Last Impressions Head CT 04/15/17 0600 Signed Impressions: Service Date/Time: Saturday, April 15, 2017 04:35 - CONCLUSION: 1. Stable exam since April 14. Postop changes as above. Parietal ventriculostomy with ventricular size stable. Sanju Antony MD Chest CT 04/08/17 0000 Signed Impressions: Service Date/Time: Saturday, April 08, 2017 15:15 - CONCLUSION: 1. Treated tumor in the left upper lobe, with a residual mass that is much smaller than back in 2015. 2. No new or metastatic disease demonstrated. Gordy Laura MD Abdomen/Pelvis CT 04/08/17 0000 Signed Impressions: Service Date/Time: Saturday, April 08, 2017 15:15 - CONCLUSION: 1. Chronic changes related to treatment of metastatic lesion of the L1 vertebral body. No distending/measurable mass seen of L1 currently. 2. 9 mm sclerotic lesion of T11, new and most likely a metastasis. 3. Fatty liver. Gordy Laura MD Lumbar Spine MRI 04/04/17 0000 Signed Impressions: Service Date/Time: Tuesday, April 04, 2017 09:19 - CONCLUSION: I don't see evidence for worsening MS. Chronic compression of L1 Degenerative facet disease L4-5, L5-S1 without significant spinal stenosis. There is mild neuroforaminal encroachment. Ed Roque MD FACR Cervical Spine MRI 04/04/17 0000 Signed Impressions: Service Date/Time: Tuesday, April 04, 2017 09:19 - CONCLUSION: Markedly abnormal high cervical cord with increased signal in the cord. There is cord expansion more suggestive of neoplastic or infiltrative process rather then multiple sclerosis. Markedly abnormal cerebellum MRI of the brain is pending. Ed Roque MD FACR Brain MRI 04/04/17 0000 Signed Impressions: Service Date/Time: Tuesday, April 04, 2017 09:19 - CONCLUSION: Markedly abnormal cerebellum enhancing mass and scattered other areas of cortical enhancement on the right most suspicious for neoplastic process. Markedly abnormal MRI of the high cervical spine as described on that report. Ed Roque MD FACR Chest X-Ray 04/03/17 1233 Signed Impressions: Service Date/Time: March 12:44 - CONCLUSION: No acute disease. Emanuel Hood Jr., MD Cervical Spine CT 04/03/17 0000 Signed Impressions: Service Date/Time: March 13:44 - CONCLUSION: Degenerative disc change at C6-7 with mild disc osteophyte complex. There is moderate narrowing of the left neural foramina at this level. Rafael Mariee MD Procedures 04/11 -decompressive craniectomy, C1 decompressive laminectomy, neoplasm resection , left susanne hole/ventric placement . 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 . Supported by her only child, daughter who visits about once a week. 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 Daughter indicates patient moves residence frequently, and has exhibited some compulsive-like behaviors such as buying 10 of the same shirt in the same color, and moving every 6 months to a year. Spiritual: Member of to [facility], [place], has been in, appreciative of ongoing dental tech support Legal:Patient has had improving neurological status since admission. Today she appears alert oriented and with good insight. Probably able to make her own decisions, though given her fluctuating mental status best supported by whomever her designated decision maker would be. Of note patient does have healthcare surrogate and advance directive dated 2014 in her electronic record however these documents are not witnessed. Palliative will offer her assistance with completion of new witnessed documents during this admission. Palliative assisted to complete HCS- named dtr Siena as HCS. witnessed by RN. Ethical issues impacting care: Important Contacts Siena Guillen daughter [phone] [healthcare surrogate- works as a dental hygienist from 7 AM to 5 PM, so is not always able to answer the phone quickly but will return phone calls] Anne Michelle ([place]) [phone] . Prognosis This patient with known history of stage IV lung cancer, diagnosed in 2014, presented for altered mental status and weakness. Per most recent oncology follow-up disease process had been stable/without progression. Patient now with a moderate size enhancing midline upper cerebellar midline mass with mostly mild surrounding edema. Also similar appearing lesion over the right posterior parietal region. Scattered areas of dural based enhancement primarily left occipital region.The cervical spine study reveals significant enlargement of a previously noted C2 level syrinx seen on MRI from 2012, now with abnormal signal intensity extending in the cord to the mid cervical region with some cord expansion. The cerebellar tonsils remain descended into the C1-2 level, increased from prior MRI from 2012. Oncology recommends proceeding with decompressive craniotomy and C1 decompressive laminectomy, as per neurosurgery's recommendations. From there recommends further restaging studies on findings for possible targeted therapy. Patient with improvement in symptoms thus far during hospital course on Decadron. Prognosis guarded. . Code Status: Full Code Plan * Legal decision maker:Patient has had improving neurological status since admission. Today she appears alert oriented and with good insight. Probably able to make her own decisions, though given her fluctuating mental status best supported by whomever her designated decision maker would be. Of note patient does have healthcare surrogate and advance directive dated 2014 in her electronic record however these documents are not witnessed. Palliative will offer her assistance with completion of new witnessed documents during this admission. Palliative assisted to complete HCS- named dtr Siena as HCS. witnessed by RN. * Goals: goals aggressive. They would wish to proceed with potential treatment if patient can regain baseline cognitive and functional status. However if patient should develop significant complications resulting in prolonged hospitalization, and worsening neurological status they would want to have ongoing conversations regarding goals, treatment options. * CODE STATUS: FULL CODE elected 04/09, though further informs would not want prolonged life support * SYMPTOMS: --AMS/weakness/confusion- possible metastatic malignancy identified in new brain imaging. Patient also with known history syrinx. Neurosurgery, neurology following. s/p decompressive craniotomy 04/10. Has been initiated on steroids, progressive improvement in weakness and mental status. --Nausea-patient endorses nausea, no vomiting just a feeling of "dry heaving ", accompanied by poor oral intake secondary to this. She endorses once on steroids the nausea has subsided and her appetite has improved. Likely this is secondary to possible malignancy findings; s/p surgical intervention, ongoing steroids symptoms should improve/ will continue to evaluate/has prn zofran available, has not required. denies any n/v today -- pain- post op crani, + some Headache, prn norco, Morphine used sparingly , has not required any pain medication today, yesterday. last dose norco 04/13. Denies any pain today. Will cont to evaluate. * Palliative care will continue to follow during hospital course as condition evolves, to assist patient/decision-maker with understanding of medical conditions, weighing benefits/burdens of treatment options, for clarification of goals of treatment. Additionally will assist with any symptoms of palliative concern . (Miranda Martin) Attestation To help prompt me to consider important information that might be impacting today's encounter and assessment, information from prior notes written by myself or my colleagues may have been "brought forward" into today's note. My signature on this note, however, is an attestation that I personally performed the exam, history, and/or decision-making noted today, and, unless otherwise indicated, the interactions with patient, family, and staff as well as the review of records all occurred today. I also attest that the listed assessment and stated plan reflect my best clinical judgment today based on the combination of historical information, prior notes, and today's exam/ interactions. When time spent is documented, it refers only to time spent today by the signer, or if indicated, combined time spent today by collaborating physician/nurse practitioner. (Miranda Martin) Collaborating MD Comments Chart reviewed. Case discussed with palliative care [employer]. Above note reviewed and I concur. . (Leonid Maldonado MD) Miranda Martin Apr 16, 2017 15:49 Leonid Maldonado MD May 11, 2017 11:55
[2017-04-16 15:59] VITALS: BP 153/69; PULSE 66; RESP 20; TEMP 97.9; O2SAT 97
--- NOTE | 2017-04-16 17:08 | HHI.PR ---
Subjective Remarks No complaints today. Patient reports she has improving status. She is ambulatory. Able to use the bathroom on her own. Pain is controlled. No nausea vomiting. She prefers a discharge to home rather than a SNF. Objective Vital Signs Date Time Temp Pulse Resp B/P (MAP) Pulse Ox O2 Delivery O2 Flow Rate FiO2 04/16/17 15:59 97.9 66 20 153/69 (97) 97 04/16/17 12:02 97.1 80 20 143/63 (89) 97 04/16/17 08:05 97.9 56 18 129/63 (85) 96 04/16/17 04:30 98.2 62 17 125/63 (83) 98 04/16/17 00:07 97.9 62 17 112/54 (73) 96 04/15/17 20:45 97.4 85 17 140/60 (86) 95 04/15/17 17:08 98.3 65 18 129/59 (82) 98 I/O 04/15/17 04/15/17 04/15/17 04/16/17 04/16/17 04/16/17 07:00 15:00 23:00 07:00 15:00 23:00 Intake Total 400 ml 360 ml 480 ml Output Total 600 ml 4 ml Balance -200 ml -4 ml 360 ml 480 ml Intake Oral 400 ml 360 ml 480 ml Output Urine Total 600 ml 4 ml # Voids 4 5 # Bowel Movements 0 2 1 Result Diagram: 04/15/1752904/15/17 0530 Objective Remarks GENERAL: NAD, A&Ox3 HEAD: Bandage in the posterior scalp and neck NECK: Supple, trachea midline. No lymphadenopathy. EYES: No scleral icterus. No injection or drainage. CARDIOVASCULAR: Regular rate and rhythm without murmurs, gallops, or rubs. RESPIRATORY: Breath sounds equal bilaterally. No accessory muscle use. GASTROINTESTINAL: Abdomen soft, non-tender, nondistended. MUSCULOSKELETAL: No cyanosis, or edema. SKIN: Warm and dry. NEURO: No focal neurological deficitis. 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 site; C80.1 - Malignant (primary) neoplasm, unspecified Status: Acute (3) Lung cancer, primary, with metastasis from lung to other site ICD Code: C34.90 - Lung cancer, primary, with metastasis from lung to other site; C79.9 - Secondary malignant neoplasm of unspecified site Status: Acute (4) Lung mass ICD Code: R91.8 - Lung mass Status: Acute (5) Cerebral tumor ICD Code: D49.6 - Neoplasm of unspecified behavior of brain Status: Acute (6) Chiari I malformation ICD Code: G93.5 - Compression of brain Status: Chronic (7) Syringomyelia ICD Code: G95.0 - Syringomyelia and syringobulbia Status: Chronic Assessment and Plan Assessment and Plan 61-year-old female status post brain surgery for symptomatic brainstem and brain metastases Multiple cerebral lesions superior cerebellar lesion Chiari I malformation Cervical syringomyelia History of lung cancer (adenocarcinoma) Status post circumflex mental decompressive craniotomy Status post Dural fenestration for Chiari malformation decompression Status post C1 decompressive laminectomy Status post resection of superior cerebellar neoplasm Status post left occipital bur hole, ventriculostomy Neurosurgery following Patient prefers to discharge to home when cleared by neurosurgery Continue Decadron When necessary pain treatment Continue alprazolam Oncology following Depression/anxiety History of MS 2009 Dyslipidemia Continue atorvastatin Hypothyroidism Continue levothyroxin Follows in outpatient Hyperglycemia Secondary to steroid effect Follow blood sugars Insulin sliding scale Diabetic diet DVT prophylaxis SCDs Discharge planning Patient's preference is discharged home Await clearance from neurosurgery Await clearance from oncology Problem Qualifiers (1) Altered mental status, unspecified: Qualified Codes: R41.82 - Altered mental status, unspecified Jose Smith MD Apr 16, 2017 17:08
[2017-04-16 20:27] VITALS: BP 133/72; PULSE 69; RESP 20; TEMP 97.5; O2SAT 98
[2017-04-16] MEDS: GILOTRIF PO SCH (20:31)
--- NOTE | 2017-04-16 23:39 | PD.ONC.PN ---
Subjective Subjective Remarks no new c/o Family at bedside Objective Data Date Time Temp Pulse Resp B/P (MAP) Pulse Ox O2 Delivery O2 Flow Rate FiO2 04/16/17 15:59 97.9 66 20 153/69 (97) 97 04/16/17 12:02 97.1 80 20 143/63 (89) 97 04/16/17 08:05 97.9 56 18 129/63 (85) 96 04/16/17 04:30 98.2 62 17 125/63 (83) 98 04/16/17 00:07 97.9 62 17 112/54 (73) 96 Result Diagram: 04/15/1730 04/15/17 0530 Administered Medications Medications (Trade) Dose Ordered Sig/Pierce Route PRN Reason Start Time Stop Time Status Last Admin Dose Admin Levothyroxine Sodium (Synthroid) 75 mcg DAILY@0600 PO 04/04/17 06:00 04/16/17 05:49 Ondansetron HCl (Zofran Inj) 4 mg Q8H PRN IV PUSH nausea 04/03/17 17:30 04/04/17 13:37 Dexamethasone Sodium Phosphate (Decadron Inj) 4 mg Q6HR IV PUSH 04/04/17 12:30 04/16/17 23:21 Cyanocobalamin (Vitamin B12) 100 mcg DAILY PO 04/05/17 17:00 04/16/17 07:56 Patient Own Medication PT OWN MED: Melchor... HS PO 04/07/17 21:00 Future hold 04/16/17 20:31 Senna/Docusate Sodium (Ale-Colace) 1 tab BID PO 04/08/17 17:15 04/15/17 08:38 Lactulose (Lactulose Liq) 30 ml TID PRN PO CONSTIPATION 04/08/17 13:45 04/08/17 17:25 Alprazolam (Xanax) 0.25 mg Q8H PO 04/09/17 08:00 04/16/17 23:20 Nicardipine HCl 25 mg/Sodium Chloride 260 ml @ 52 mls/hr TITRATE PRN IV Blood pressure management 04/10/17 23:45 04/10/17 23:30 Acetaminophen/ Hydrocodone Bitart ([place] 10-325 Mg) 1 tab Q4H PRN PO PAIN SCALE 6 TO 10 04/10/17 23:45 04/13/17 10:00 Morphine Sulfate (Morphine Inj) 4 mg Q3H PRN IV BREAKTHROUGH PAIN 04/10/17 23:45 04/11/17 05:10 IV Flush (NS Flush) 2 ml BID IVF 04/11/17 09:00 04/16/17 20:31 Hydralazine HCl (Apresoline Inj) 10 mg Q2H PRN IV PUSH SBP greater than 150mm Hg 04/11/17 09:30 04/11/17 13:27 Insulin Aspart (NovoLOG SUPPLEMENTAL SCALE) 1 Q6HR SQ 04/11/17 13:45 04/16/17 23:35 Pantoprazole Sodium (Protonix) 40 mg DAILY PO 04/14/17 09:00 04/16/17 07:56 Polyethylene Glycol (Miralax) 17 gm DAILY PO 04/15/17 09:00 04/15/17 08:38 Objective Remarks GENERAL: Well-nourished, well-developed patient. SKIN: Warm and dry. HEAD: Normocephalic. EYES: No scleral icterus. No injection or drainage. NECK: Supple, trachea midline. No JVD or lymphadenopathy. LYMPHATIC: No adenopathy. CARDIOVASCULAR: Regular rate and rhythm without murmurs. RESPIRATORY: Breath sounds equal bilaterally. No accessory muscle use. GASTROINTESTINAL: Abdomen soft, non-tender, nondistended. EXTREMITIES: No cyanosis, or edema. MUSCULOSKELETAL: Adequate muscle tone. NEUROLOGICAL: No obvious focal deficit. Awake, alert, and oriented x3. PSYCHIATRIC: Appropriate mood and affect; insight and judgment normal. Assessment/Plan Problem List: (1) Lung cancer, primary, with metastasis from lung to other site ICD Codes: C34.90 - Lung cancer, primary, with metastasis from lung to other site; C79.9 - Secondary malignant neoplasm of unspecified site Status: Acute Plan: 04/16 Path reviewed. C/w mets lung ca. Reconsult Dr Hampton for XRT d/w pt and family. They have agreed. 04/15: await path. patient may be transferred to med/surg floor today per NS 04/13 Path is still pending . Pt is recovering from surgery . Out off bed to the chair. Patient is stable 04/12: Recovering very well from neurosurgery. Intermittent occipital headache. Await results of pathology. 04/11: s/p suboccipital decompressive craniectomy, resection superior cerebellar neoplasm and left occipital bur hole, ventriculostomy placement on 04/10. 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 --diagnosed a little over two years ago --has been on palliative systemic therapy initially with Tarceva and more recently with afatinib. --developed progressive pain involving the back of her head associated with weakness of her lower extremities some weeks ago. MRI of the brain indicates a large cerebellar mass most consistent with metastatic disease as well as areas of dural enhancement and cortical lesions scattered over the left and the right cerebellar hemisphere. 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 Assessment 61y/o female with metastatic adenocarcinoma of the lung now with newly diagnosed brain mets. History of hypothyroidism. Kidney stones. Multiple sclerosis. Anxiety. Arthritis. Pretty Allison MD Apr 16, 2017 23:39
[2017-04-17 00:14] VITALS: BP 126/60; PULSE 67; RESP 20; TEMP 98.1; O2SAT 97
[2017-04-17 05:09] VITALS: BP 131/63; PULSE 57; RESP 16; TEMP 97.6; O2SAT 95
[2017-04-17] MEDS: DEXAMETHASONE SOD PHOS 4 MG/ML VIAL IV PUSH SCH ×3 (05:34→17:24)
[2017-04-17] MEDS: LEVOTHYROXINE SODIUM 75 MCG TAB PO SCH (05:34)
[2017-04-17] MEDS: INSULIN ASPART SUPPLEMENTAL SCALE SQ SCH ×3 (05:38→17:24)
[2017-04-17 08:00] VITALS: BP 122/59; PULSE 67; RESP 18; TEMP 97.6; O2SAT 98
[2017-04-17] MEDS: POLYETHYLENE GLYCOL 17 GM PKG PO SCH (09:00)
[2017-04-17] MEDS: DOCUSATE SODIUM 50 MG/SENNA 8.6 MG TAB PO SCH ×2 (09:00→21:00)
[2017-04-17] MEDS: PANTOPRAZOLE SOD 40 MG DELAYED RELEASE TAB PO SCH (09:55)
[2017-04-17] MEDS: SODIUM CHLORIDE 0.9% FLUSH 5 ML FLUSH IVF SCH ×2 (09:56→21:00)
[2017-04-17] MEDS: ALPRAZolam 0.25 MG TAB PO SCH ×2 (09:56→17:23)
[2017-04-17] MEDS: CYANOCOBALAMIN 100 MCG TAB PO SCH (09:56)
[2017-04-17 10:21] LABS: AUTOMATED NEUTROPHIL # 11.5 TH/MM3 (1.8-7.7); BASOPHIL % 0.1 % (0.0-2.0); HEMO FLAGS DIFF FINAL; LYMPH % 4.1 % (9.0-44.0); LYMPHOCYTE # 0.5 TH/MM3 (1.0-4.8); MEAN CELL VOLUME 88.1 FL (80.0-100.0); MEAN CORPUSCULAR HEMOGLOBIN 30.1 PG (27.0-34.0); MEAN CORPUSCULAR HGB CONC 34.1 % (32.0-36.0); MONO % 3.8 % (0.0-8.0); PLATELET COUNT 182 TH/MM3 (150-450); RED BLOOD COUNT 3.52 MIL/MM3 (4.00-5.30); RED CELL DISTRIBUTION WIDTH 13.4 % (11.6-17.2); WHITE BLOOD COUNT 12.5 TH/MM3 (4.0-11.0)
[2017-04-17 10:42] LABS: ALT (GPT) 62 U/L (10-53); ANION GAP 10 MEQ/L (5-15); AST (GOT) 20 U/L (15-37); BICARBONATE 24.9 MEQ/L (21.0-32.0); BLOOD UREA NITROGEN 23 MG/DL (7-18); CHLORIDE 103 MEQ/L (98-107); GLOMERULAR FILTRATION RATE 77 ML/MIN (>89); POTASSIUM 4.2 MEQ/L (3.5-5.1); SODIUM (NA) 138 MEQ/L (136-145)
[2017-04-17 10:45] LABS: ALKALINE PHOSPHATASE 103 U/L (45-117); TOTAL BILIRUBIN ADULT 0.4 MG/DL (0.2-1.0)
[2017-04-17 12:00] VITALS: BP 120/63; PULSE 63; RESP 16; TEMP 97.9; O2SAT 97
--- NOTE | 2017-04-17 14:17 | HHI.PR ---
Subjective Remarks Patient is continuing to improve clinically. At this point she will stay in the hospital to begin radiation therapy. Radiation oncology was consulted Objective Vital Signs Date Time Temp Pulse Resp B/P (MAP) Pulse Ox O2 Delivery O2 Flow Rate FiO2 04/17/17 12:00 97.9 63 16 120/63 (82) 97 04/17/17 08:00 97.6 67 18 122/59 (80) 98 04/17/17 05:09 97.6 57 16 131/63 (85) 95 04/17/17 00:14 98.1 67 20 126/60 (82) 97 04/16/17 20:27 97.5 69 20 133/72 (92) 98 04/16/17 15:59 97.9 66 20 153/69 (97) 97 I/O 04/16/17 04/16/17 04/16/17 04/17/17 04/17/17 04/17/17 07:00 15:00 23:00 07:00 15:00 23:00 Intake Total 360 ml 480 ml 480 ml Balance 360 ml 480 ml 480 ml Intake Oral 360 ml 480 ml 480 ml # Voids 4 5 6 # Bowel Movements 1 1 Result Diagram: 04/17/17 0934 04/17/17 0934 Objective Remarks GENERAL: NAD, A&Ox3 HEAD: Bandage in the posterior scalp and neck NECK: Supple, trachea midline. No lymphadenopathy. EYES: No scleral icterus. No injection or drainage. CARDIOVASCULAR: Regular rate and rhythm without murmurs, gallops, or rubs. RESPIRATORY: Breath sounds equal bilaterally. No accessory muscle use. GASTROINTESTINAL: Abdomen soft, non-tender, nondistended. MUSCULOSKELETAL: No cyanosis, or edema. SKIN: Warm and dry. NEURO: No focal neurological deficitis. 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 site; C80.1 - Malignant (primary) neoplasm, unspecified Status: Acute (3) Lung cancer, primary, with metastasis from lung to other site ICD Code: C34.90 - Lung cancer, primary, with metastasis from lung to other site; C79.9 - Secondary malignant neoplasm of unspecified site Status: Acute (4) Lung mass ICD Code: R91.8 - Lung mass Status: Acute (5) Cerebral tumor ICD Code: D49.6 - Neoplasm of unspecified behavior of brain Status: Acute (6) Chiari I malformation ICD Code: G93.5 - Compression of brain Status: Chronic (7) Syringomyelia ICD Code: G95.0 - Syringomyelia and syringobulbia Status: Chronic Assessment and Plan Assessment and Plan 61-year-old female status post brain surgery for symptomatic brainstem and brain metastases. Plan to start radiation Therapy. Radiation oncologist Dr. patiño has been consulted. Multiple cerebral lesions superior cerebellar lesion Chiari I malformation Cervical syringomyelia History of lung cancer (adenocarcinoma) Status post circumflex mental decompressive craniotomy Status post Dural fenestration for Chiari malformation decompression Status post C1 decompressive laminectomy Status post resection of superior cerebellar neoplasm Status post left occipital bur hole, ventriculostomy Neurosurgery following Patient prefers to discharge to home when cleared by neurosurgery Continue Decadron When necessary pain treatment Continue alprazolam Oncology following Radiation oncologist consulted Depression/anxiety History of MS 2009 Dyslipidemia Continue atorvastatin Hypothyroidism Continue levothyroxin Follows in outpatient Hyperglycemia Secondary to steroid effect Follow blood sugars Insulin sliding scale Diabetic diet DVT prophylaxis SCDs Discharge planning Patient's preference is discharged home Radiation therapy is being arranged Problem Qualifiers (1) Altered mental status, unspecified: Qualified Codes: R41.82 - Altered mental status, unspecified Jose Smith MD Apr 17, 2017 14:17
--- NOTE | 2017-04-17 15:13 | HHI.NSPN ---
(Leandro Peres Abhi CAMPBELL) History Chief Complaint: No complaints. (Leandro PeresMarilin CAMPBELL) Interval History 61-year-old female with previous history of cervical syrinx with Chiari malformation documented in previous MRI of the cervical spine from 2011. Previously followed by neurology-Dr. Kaela Mariscal. Patient also has a history of metastatic non-small cell lung cancer. Prior imaging revealed metastatic disease to the lumbar spine. Patient now presents with a few weeks of dizziness and headache. Recently seen by neurology as an outpatient. She came to the emergency room on 04/03/17 due to speech difficulty, mental status changes, nausea and vomiting and persistent headache. 04/07: her symptoms better with Decadron. Daughter in room, both she and patient agrees with surgery this week. 04/09/2017: Patient feeling better. Ambulating for short distance without assistance. Headache improving. Less pain across the neck and shoulders. 04/11: The patient went for a resection of a cerebellar neoplasm yesterday afternoon. Post-operatively she was transferred to the [facility] for further care and management. A repeat CT brain this morning demonstrated expected post-operative changes. Today the patient is drowsy but readily interacts and complains of neck pain. She denies any headache. 04/12: The patient is awake and alert this morning. She says she feels "great, well maybe not great. But I feel good." She does say she has some headache to the occipital area. She states she really doesn't have any pain. She readily smiles and laughs when talking. 04/13: This morning the patient says she is doing good. She states she has pain, but it really isn't pain, to the back of the head and neck. She isn't able to differentiate whether it is a headache or pain to the surgical site. She states that she was able to get up with assistance to [place] [facility] [place] and had no problems. She is sitting in a chair at present. 04/14/17: No headache with ventriculostomy raised to 20 cm water last evening.. CT scan head without significant hydrocephalus or edema. 04/15: Patient is up and ambulating using a wheeled walker with standby assistance this morning when seen. She states she has soreness to the back of the head and neck but says that she has not really had any headache. She denied any dizziness. The ventriculostomy was clamped yesterday. A repeat CT brain this morning was stable compared to yesterday. 04/16: The ventriculostomy was removed yesterday afternoon. The patient had additional steri-strips placed yesterday evening due to continued drainage from the ventriculostomy insertion site. She states there has not been any further leakage. She states that she is not having any pain to the back of the head or the neck. She keeps focusing on wanting to go home at discharge and have Home Health come to her apartment. She states she has a walker and commode chair at home. She says she has previously been at [facility] for physical therapy and all they did was ask her to throw a beach ball to them and then tossed it back to her. She reports that her strength improved once she got home and started doing some exercises at home on her own. 04/17: The patient was seen ambulating the hallway using a wheeled walker without any assistance. Her gait was steady. When seen she said she felt good and had no complaints. She reports showering from the shoulders down earlier today. The patient does report that Radiation Oncology plans to start treatments while in the hospital. (Leandro Peres) System Review Comments Constitutional: Patient denies any fever or chills. HEENT: Patient denies any pain to the back of the head and neck. She denies any visual or hearing difficulty. Respiratory: Patient denies any shortness of breath or productive cough. Cardiovascular: Patient denies any chest pain, palpitations or irregular heartbeat. Gastrointestinal: Patient denies any abdominal pain, nausea or vomiting or incontinence of stool. Genitourinary: Patient denies any incontinence of urine. Musculoskeletal: Patient denies any pain to the back of the head and neck. She denies any back or extremity pain. Neurologic: Patient denies any headache, dizziness, numbness or tingling. (Leandro Peres) Exam Results 04/15/17 04/15/17 04/16/17 04/16/1704/17/17 9/14/17 06:00 18:00 06:00 18:00 06:00 18:00 Intake Total 400 ml 360 ml 480 ml 480 ml 360 ml Output Total 600 ml 4 ml Balance -200 ml -4 ml 360 ml 480 ml 480 ml 360 ml Intake Oral 400 ml 360 ml 480 ml 480 ml 360 ml Output Urine Total 600 ml 4 ml # Voids 4 5 6 4 # Bowel Movements 0 2 1 1 0 Vital Signs Date Time Temp Pulse Resp B/P (MAP) Pulse Ox O2 Delivery O2 Flow Rate FiO2 04/17/17 12:00 97.9 63 16 120/63 (82) 97 04/17/17 08:00 97.6 67 18 122/59 (80) 98 04/17/17 05:09 97.6 57 16 131/63 (85) 95 04/17/17 00:14 98.1 67 20 126/60 (82) 97 04/16/17 20:27 97.5 69 20 133/72 (92) 98 04/16/17 15:59 97.9 66 20 153/69 (97) 97 04/16/17 12:02 97.1 80 20 143/63 (89) 97 04/16/17 08:05 97.9 56 18 129/63 (85) 96 04/16/17 04:30 98.2 62 17 125/63 (83) 98 04/16/17 00:07 97.9 62 17 112/54 (73) 96 04/15/17 20:45 97.4 85 17 140/60 (86) 95 04/15/17 17:08 98.3 65 18 129/59 (82) 98 04/15/17 16:00 98.6 72 18 129/58 (81) 97 04/15/17 12:00 98.6 71 20 126/59 (81) 98 04/15/17 08:00 98.6 55 20 136/67 (90) 98 04/15/17 04:00 97.6 54 10 131/60 (83) 97 04/15/17 00:00 98.4 54 12 119/58 (78) 96 04/14/17 20:00 98.4 62 17 117/70 (86) 95 04/14/17 16:00 98.4 57 14 130/60 (83) 99 (Leandro Peres) Physical Examination GENERAL: Patient sitting up and watching TV w/o any noted distress. She readily smiles, laughs & interacts. Her affect is normal. SKIN: Warm, dry & intact, surgical incision & ventriculostomy insertion site w/ dry dressing w/o any evident drainage. HEENT: Posterior neck/lower occipital surgical incision & ventriculostomy insertion site w/intact dressing NTTP. PERRLA, EOMI. MMM & pink, tongue midline to protrusion. NECK: Posterior neck/lower occipital surgical incision & ventriculostomy insertion site w/intact dressing NTTP, no JVD, trachea midline. CARDIOVASCULAR: S1S2 w/RRR w/o M/G/R, radial & pedal pulses 2+ bilaterally, cap refill < 2 sec, trace pedal edema bilaterally. RESPIRATORY: CTAB w/o W/R/R, equal excursion, nonlaboured, on RA. GASTROINTESTINAL: Abdomen soft, nontender, positive bowel sounds. MUSCULOSKELETAL: FRAZIER w/o difficulty, no evident deformity or clubbing. NEUROLOGICAL: AAOx3. Speech clear & appropriate. CN II-XII appear grossly intact. Sensation intact to light touch to all extremities. Motor strength 5/5 to all major flexion & extension muscle groups. (Leandro Peres) Lab, Micro, Other Results Recent Impressions Head CT 04/15/17 0600 Signed Impressions: Service Date/Time: Saturday, April 15, 2017 04:35 - CONCLUSION: 1. Stable exam since April 14. Postop changes as above. Parietal ventriculostomy with ventricular size stable. Sanju Antony MD Laboratory Tests Test 04/15/17 05:30 04/17/17 09:34 White Blood Count 7.4 TH/MM3 12.5 TH/MM3 Red Blood Count 3.56 MIL/MM3 3.52 MIL/MM3 Hemoglobin 10.8 GM/DL 10.6 GM/DL Hematocrit 31.5 % 31.0 % Mean Corpuscular Volume 88.4 FL 88.1 FL Mean Corpuscular Hemoglobin 30.4 PG 30.1 PG Mean Corpuscular Hemoglobin Concent 34.4 % 34.1 % Red Cell Distribution Width 13.4 % 13.4 % Platelet Count 169 TH/MM3 182 TH/MM3 Mean Platelet Volume 8.6 FL 8.4 FL Blood Urea Nitrogen 24 MG/DL 23 MG/DL Creatinine 0.66 MG/DL 0.76 MG/DL Random Glucose 145 MG/DL 219 MG/DL Calcium Level 8.6 MG/DL 8.6 MG/DL Sodium Level 136 MEQ/L 138 MEQ/L Potassium Level 4.1 MEQ/L 4.2 MEQ/L Chloride Level 103 MEQ/L 103 MEQ/L Carbon Dioxide Level 27.2 MEQ/L 24.9 MEQ/L Anion Gap 6 MEQ/L 10 MEQ/L Estimat Glomerular Filtration Rate 91 ML/MIN 77 ML/MIN Neutrophils (%) (Auto) 92.0 % Lymphocytes (%) (Auto) 4.1 % Monocytes (%) (Auto) 3.8 % Eosinophils (%) (Auto) 0.0 % Basophils (%) (Auto) 0.1 % Neutrophils # (Auto) 11.5 TH/MM3 Lymphocytes # (Auto) 0.5 TH/MM3 Monocytes # (Auto) 0.5 TH/MM3 Eosinophils # (Auto) 0.0 TH/MM3 Basophils # (Auto) 0.0 TH/MM3 CBC Comment DIFF FINAL Differential Comment Total Protein 5.0 GM/DL Albumin 2.5 GM/DL Alkaline Phosphatase 103 U/L Aspartate Amino Transf (AST/SGOT) 20 U/L Alanine Aminotransferase (ALT/SGPT) 62 U/L Total Bilirubin 0.4 MG/DL (Leandro Peres) Medical Decision Making Impression and Plan Impression: (1) Cerebral tumor (2) Chiari I malformation (3) Syringomyelia 1. Multiple cerebral lesions, superior cerebellar lesion, probable metastatic neoplasm. 2. Chiari I malformation 3. Cervical syringomyelia The patient is doing quite well and remains neurologically intact. PT recommends discharge home with Home Health for further rehab but OT recommends inpatient rehab. The patient wants to go home with Home Health. POD #7 () s/p: 1. Suboccipital decompressive craniectomy 2. Dural fenestration for Chiari malformation decompression 3. C1 decompressive laminectomy 4. Resection of superior cerebellar neoplasm 5. Left occipital bur hole, ventriculostomy placement Plan: Primary management per Hospitalist. PT/OT eval & tx. Continue Decadron. (Leandro Peres) Attending Statement The exam, history, and the medical decision-making described in the above note were completed with the assistance of the mid-level provider. I reviewed and agree with the findings presented. I attest that I had a [id number] encounter with the patient on the same day, and personally performed and documented my assessment and findings in the medical record. Stable neurologic exam Radiation therapy plans and progress Continuing Masood (Clem Rich MD) Leandro Peres Apr 17, 2017 15:13 Clem Rich MD May 12, 2017 06:47
[2017-04-17 16:00] VITALS: BP 124/81; PULSE 79; RESP 16; TEMP 98.3; O2SAT 95
[2017-04-17 20:56] VITALS: BP 123/60; PULSE 62; RESP 16; TEMP 98.4; O2SAT 97
[2017-04-17] MEDS: GILOTRIF PO SCH (21:00)
[2017-04-18 00:30] VITALS: BP 143/68; PULSE 59; RESP 17; TEMP 97.9; O2SAT 99
[2017-04-18 04:39] VITALS: BP 125/55; PULSE 58; RESP 16; TEMP 97.6; O2SAT 97
[2017-04-18] MEDS: INSULIN ASPART SUPPLEMENTAL SCALE SQ SCH ×4 (06:00→18:00)
[2017-04-18] MEDS: DEXAMETHASONE SOD PHOS 4 MG/ML VIAL IV PUSH SCH ×4 (06:47→17:36)
[2017-04-18] MEDS: LEVOTHYROXINE SODIUM 75 MCG TAB PO SCH (06:48)
[2017-04-18 08:00] VITALS: BP 174/72; PULSE 51; RESP 18; TEMP 97.9; O2SAT 99
--- NOTE | 2017-04-18 08:24 | MB ---
cc: JAX ALLISON M.D.,JANNET ZAMORA M.D., MD DATE OF CONSULTATION: 04/17/2017 HISTORY OF PRESENT ILLNESS Ms. Michelle is a 61-year-old female diagnosed with lung adenocarcinoma. Biopsy of the brain due to recent neurological changes and suboccipital decompressive craniectomy, C1 decompressive laminectomy, resection of superior cerebellar neoplasm left occipital susanne hole and dural fenestration done by Dr. Rich 04/10/2017. Pathology consistent with a primary lung cancer, metastatic poorly differentiated adenocarcinoma morphologically similar to previous biopsy. Imaging demonstrates potentially leptomeningeal disease. She did note significant pain with moving her neck, sharp shooting pain. We see her as an inpatient. She is doing well at this time. She is walking with a walker. She is seen by Dr. Allison. We were asked to see her by Dr. Allison. In the past we treated her with stereotactic body radiotherapy to the spine and that treated primary lung cancer as well. We discussed whole brain radiation therapy. Due to meningeal extent that seems like a reasonable approach. She noted initially generalized weakness and neck pain shooting pain. PAST MEDICAL HISTORY 1. Hypothyroidism. 2. Kidney stones. 3. Multiple sclerosis. 4. Anxiety. 5. Arthritis. 6. History of syrinx in the neck. PAST SURGICAL HISTORY 1. Right wrist surgery. 2. Partial hysterectomy. 3. Colonoscopy. 4. Tubal ligation. 5. Vertebral mass biopsy. [employer] HISTORY She is G1, P1. FAMILY HISTORY Her mother had a brain tumor. No other first-degree relatives with malignancy. SOCIAL HISTORY She lives at home. ALLERGIES No known drug allergies. MEDICATIONS 1. Dexamethasone. 2. Acetaminophen. 3. Levothyroxine. 4. Zofran. REVIEW OF SYSTEMS She reports fatigue. She denies fevers or chills. She denies headaches, seizures, weakness. Denies shortness of breath or cough. Denies chest pain or shortness of breath. Denies nausea, vomiting or diarrhea. Denies hematuria or dysuria. Reports difficulty with balance. PHYSICAL EXAMINATION GENERAL: A pleasant female comfortable. KPS 80-90. EYES: Extraocular muscles intact. No scleral icterus. EXTREMITIES: No clubbing, cyanosis or edema. NEUROLOGIC: Alert and oriented, able to follow two-step commands. RADIOGRAPHIC IMAGING DATA We reviewed MRI findings. MRI of the brain demonstrates a cerebellar enhancing mass and also findings in the cervical spine suspicious for dural-based enhancement suggesting dural carcinomatosis. IMPRESSION Ms. Michelle has biopsy-proven recurrent disease of brain and primary lung. RECOMMENDATIONS We discussed whole brain radiation therapy, plan 30 Gy in 10 fractions. Discussed side effects of tiredness and fatigue. Discussed low risk of severe permanent injury. She expressed good understanding of treatment approach. Will schedule for CT simulation tomorrow for first treatment Friday. Consent will be obtained as well. She expressed good understanding of treatment approach. Jannet MD RIKA Velázquez/GUSTABO /3:42 PM /8:05 AM
[2017-04-18] MEDS: CYANOCOBALAMIN 100 MCG TAB PO SCH (09:00)
[2017-04-18] MEDS: DOCUSATE SODIUM 50 MG/SENNA 8.6 MG TAB PO SCH ×2 (09:00→21:00)
[2017-04-18] MEDS: POLYETHYLENE GLYCOL 17 GM PKG PO SCH (09:00)
[2017-04-18] MEDS: SODIUM CHLORIDE 0.9% FLUSH 5 ML FLUSH IVF SCH ×2 (09:00→21:00)
[2017-04-18] MEDS: ALPRAZolam 0.25 MG TAB PO SCH ×3 (10:32→17:35)
[2017-04-18] MEDS: PANTOPRAZOLE SOD 40 MG DELAYED RELEASE TAB PO SCH (10:32)
--- NOTE | 2017-04-18 10:39 | HHI.NSPN ---
(Leandro Peres Abhi CAMPBELL) History Chief Complaint: No complaints. (Leandro PeresMarilin CAMPBELL) Interval History 61-year-old female with previous history of cervical syrinx with Chiari malformation documented in previous MRI of the cervical spine from 2011. Previously followed by neurology-Dr. Kaela Mariscal. Patient also has a history of metastatic non-small cell lung cancer. Prior imaging revealed metastatic disease to the lumbar spine. Patient now presents with a few weeks of dizziness and headache. Recently seen by neurology as an outpatient. She came to the emergency room on 04/03/17 due to speech difficulty, mental status changes, nausea and vomiting and persistent headache. 04/07: her symptoms better with Decadron. Daughter in room, both she and patient agrees with surgery this week. 04/09/2017: Patient feeling better. Ambulating for short distance without assistance. Headache improving. Less pain across the neck and shoulders. 04/11: The patient went for a resection of a cerebellar neoplasm yesterday afternoon. Post-operatively she was transferred to the [facility] for further care and management. A repeat CT brain this morning demonstrated expected post-operative changes. Today the patient is drowsy but readily interacts and complains of neck pain. She denies any headache. 04/12: The patient is awake and alert this morning. She says she feels "great, well maybe not great. But I feel good." She does say she has some headache to the occipital area. She states she really doesn't have any pain. She readily smiles and laughs when talking. 04/13: This morning the patient says she is doing good. She states she has pain, but it really isn't pain, to the back of the head and neck. She isn't able to differentiate whether it is a headache or pain to the surgical site. She states that she was able to get up with assistance to [place] [facility] [place] and had no problems. She is sitting in a chair at present. 04/14/17: No headache with ventriculostomy raised to 20 cm water last evening.. CT scan head without significant hydrocephalus or edema. 04/15: Patient is up and ambulating using a wheeled walker with standby assistance this morning when seen. She states she has soreness to the back of the head and neck but says that she has not really had any headache. She denied any dizziness. The ventriculostomy was clamped yesterday. A repeat CT brain this morning was stable compared to yesterday. 04/16: The ventriculostomy was removed yesterday afternoon. The patient had additional steri-strips placed yesterday evening due to continued drainage from the ventriculostomy insertion site. She states there has not been any further leakage. She states that she is not having any pain to the back of the head or the neck. She keeps focusing on wanting to go home at discharge and have Home Health come to her apartment. She states she has a walker and commode chair at home. She says she has previously been at [facility] for physical therapy and all they did was ask her to throw a beach ball to them and then tossed it back to her. She reports that her strength improved once she got home and started doing some exercises at home on her own. 04/17: The patient was seen ambulating the hallway using a wheeled walker without any assistance. Her gait was steady. When seen she said she felt good and had no complaints. She reports showering from the shoulders down earlier today. The patient does report that Radiation Oncology plans to start treatments while in the hospital. 04/18: The patient was seen ambulating in the room on her own without a walker. When seen the patient states that she is doing well and had no complaints. Transport is at the bedside to take the patient for a CT simulation with her first radiation treatment on . (Leandro Peres) System Review Comments Constitutional: Patient denies any fever or chills. HEENT: Patient denies any pain to the back of the head and neck. She denies any visual or hearing difficulty. Respiratory: Patient denies any shortness of breath or productive cough. Cardiovascular: Patient denies any chest pain, palpitations or irregular heartbeat. Gastrointestinal: Patient denies any abdominal pain, nausea or vomiting or incontinence of stool. Genitourinary: Patient denies any incontinence of urine. Musculoskeletal: Patient denies any pain to the back of the head and neck. She denies any back or extremity pain. Neurologic: Patient denies any headache, dizziness, numbness or tingling. (Leandro Peres) Exam Results 04/16/17 04/16/17 04/17/17 04/17/17 04/18/17 04/18/17 06:00 18:00 06:00 18:00 06:00 18:00 Intake Total 360 ml 480 ml 480 ml 360 ml 480 ml Balance 360 ml 480 ml 480 ml 360 ml 480 ml Intake Oral 360 ml 480 ml 480 ml 360 ml 480 ml # Voids 4 5 6 4 4 # Bowel Movements 1 1 0 Vital Signs Date Time Temp Pulse Resp B/P (MAP) Pulse Ox O2 Delivery O2 Flow Rate FiO2 04/18/17 08:00 97.9 51 18 174/72 (106) 99 04/18/17 04:39 97.6 58 16 125/55 (78) 97 04/18/17 00:30 97.9 59 17 143/68 (93) 99 04/17/17 20:56 98.4 62 16 123/60 (81) 97 04/17/17 16:00 98.3 79 16 124/81 (95) 95 04/17/17 12:00 97.9 63 16 120/63 (82) 97 04/17/17 08:00 97.6 67 18 122/59 (80) 98 04/17/17 05:09 97.6 57 16 131/63 (85) 95 04/17/17 00:14 98.1 67 20 126/60 (82) 97 04/16/17 20:27 97.5 69 20 133/72 (92) 98 04/16/17 15:59 97.9 66 20 153/69 (97) 97 04/16/17 12:02 97.1 80 20 143/63 (89) 97 04/16/17 08:05 97.9 56 18 129/63 (85) 96 04/16/17 04:30 98.2 62 17 125/63 (83) 98 04/16/17 00:07 97.9 62 17 112/54 (73) 96 04/15/17 20:45 97.4 85 17 140/60 (86) 95 04/15/17 17:08 98.3 65 18 129/59 (82) 98 04/15/17 16:00 98.6 72 18 129/58 (81) 97 04/15/17 12:00 98.6 71 20 126/59 (81) 98 (Leandro Peres) Physical Examination GENERAL: Patient sitting in the chair. She readily smiles, laughs & interacts. Her affect is normal. No distress apparent. SKIN: Warm, dry & intact, surgical incision well approximated w/balaji & ventriculostomy insertion site w/steri-strips w/o any drainage, erythema or streaking. HEENT: Posterior neck/lower occipital surgical incision & ventriculostomy insertion site w/intact dressing NTTP. NECK: Posterior neck/lower occipital surgical incision & ventriculostomy insertion site w/intact dressing NTTP, no JVD, trachea midline. CARDIOVASCULAR: S1S2 w/RRR w/o M/G/R, radial & pedal pulses 2+ bilaterally, cap refill < 2 sec, trace pedal edema bilaterally. RESPIRATORY: CTAB w/o W/R/R, equal excursion, nonlaboured, on RA. GASTROINTESTINAL: Abdomen soft, nontender, positive bowel sounds. MUSCULOSKELETAL: FRAZIER w/o difficulty, no evident deformity or clubbing. NEUROLOGICAL: AAOx3. Speech clear & appropriate. Sensation intact to light touch to all extremities. Motor strength 5/5 to all major flexion & extension muscle groups. (Leandro Peres) Lab, Micro, Other Results Laboratory Tests Test 04/17/17 09:34 White Blood Count 12.5 TH/MM3 Red Blood Count 3.52 MIL/MM3 Hemoglobin 10.6 GM/DL Hematocrit 31.0 % Mean Corpuscular Volume 88.1 FL Mean Corpuscular Hemoglobin 30.1 PG Mean Corpuscular Hemoglobin Concent 34.1 % Red Cell Distribution Width 13.4 % Platelet Count 182 TH/MM3 Mean Platelet Volume 8.4 FL Neutrophils (%) (Auto) 92.0 % Lymphocytes (%) (Auto) 4.1 % Monocytes (%) (Auto) 3.8 % Eosinophils (%) (Auto) 0.0 % Basophils (%) (Auto) 0.1 % Neutrophils # (Auto) 11.5 TH/MM3 Lymphocytes # (Auto) 0.5 TH/MM3 Monocytes # (Auto) 0.5 TH/MM3 Eosinophils # (Auto) 0.0 TH/MM3 Basophils # (Auto) 0.0 TH/MM3 CBC Comment DIFF FINAL Differential Comment Blood Urea Nitrogen 23 MG/DL Creatinine 0.76 MG/DL Random Glucose 219 MG/DL Total Protein 5.0 GM/DL Albumin 2.5 GM/DL Calcium Level 8.6 MG/DL Alkaline Phosphatase 103 U/L Aspartate Amino Transf (AST/SGOT) 20 U/L Alanine Aminotransferase (ALT/SGPT) 62 U/L Total Bilirubin 0.4 MG/DL Sodium Level 138 MEQ/L Potassium Level 4.2 MEQ/L Chloride Level 103 MEQ/L Carbon Dioxide Level 24.9 MEQ/L Anion Gap 10 MEQ/L Estimat Glomerular Filtration Rate 77 ML/MIN (Leandro Peres) Medical Decision Making Impression and Plan Impression: (1) Cerebral tumor (2) Chiari I malformation (3) Syringomyelia 1. Multiple cerebral lesions, superior cerebellar lesion, probable metastatic neoplasm. 2. Chiari I malformation 3. Cervical syringomyelia The patient continues doing well and to be neurologically intact. PT recommends discharge home with Home Health for further rehab but OT recommends inpatient rehab. The patient wants to go home with Home Health at discharge. POD #8 () s/p: 1. Suboccipital decompressive craniectomy 2. Dural fenestration for Chiari malformation decompression 3. C1 decompressive laminectomy 4. Resection of superior cerebellar neoplasm 5. Left occipital bur hole, ventriculostomy placement Plan: Primary management per Hospitalist. PT/OT eval & tx. Continue Decadron. Radiation therapy per Radiation Oncology. From NSGY's perspective the patient may be discharged home w/Home Health for further therapy when medically indicated. (Leandro Peres) Attending Statement The exam, history, and the medical decision-making described in the above note were completed with the assistance of the mid-level provider. I reviewed and agree with the findings presented. I attest that I had a [id number] encounter with the patient on the same day, and personally performed and documented my assessment and findings in the medical record. Stable neurologic exam Radiation therapy plans and progress Continuing Decadron (Clem Rich MD) Leandro Peres Apr 18, 2017 10:39 Clem Rich MD May 12, 2017 06:48
[2017-04-18 12:00] VITALS: BP 126/60; PULSE 57; RESP 20; TEMP 98.3; O2SAT 97
[2017-04-18 14:47] LABS: BLOOD, URINE NEG (NEG); COMMENT (UR) CULTURE INDICATED; CULTURE IF INDICATED CULTURE INDICATED; GLUCOSE,URINE NEG (NEG); HYALINE CAST, URINE 1 /lpf (RARE); KETONE, URINE NEG (NEG); NITRITE,URINE NEG (NEG); SQUAMOUS EPITHELIAL CELL URINE <1 /hpf (0-5); URINE COLOR YELLOW (YELLW/STRAW)
[2017-04-18 16:00] VITALS: BP 119/77; PULSE 60; RESP 20; TEMP 97.7; O2SAT 98
--- NOTE | 2017-04-18 18:10 | HHI.PR ---
Subjective Remarks Patient fitted for a mask in regards to radiation therapy today. She also complains of burning urination. Urinalysis shows evidence of bacterial infection. Objective Vital Signs Date Time Temp Pulse Resp B/P (MAP) Pulse Ox O2 Delivery O2 Flow Rate FiO2 04/18/17 16:00 97.7 60 20 119/77 (91) 98 04/18/17 12:00 98.3 57 20 126/60 (82) 97 04/18/17 08:00 97.9 51 18 174/72 (106) 99 04/18/17 04:39 97.6 58 16 125/55 (78) 97 04/18/17 00:30 97.9 59 17 143/68 (93) 99 04/17/17 20:56 98.4 62 16 123/60 (81) 97 I/O 04/17/17 04/17/17 04/17/17 04/18/17 04/18/17 04/18/17 07:00 15:00 23:00 07:00 15:00 23:00 Intake Total 480 ml 360 ml 240 ml 240 ml 920 ml Balance 480 ml 360 ml 240 ml 240 ml 920 ml Intake Oral 480 ml 360 ml 240 ml 240 ml 920 ml # Voids 6 4 2 2 5 # Bowel Movements 1 0 0 Result Diagram: 04/17/1793304/17/1734 Objective Remarks GENERAL: NAD, A&Ox3 HEAD: Bandage in the posterior scalp and neck NECK: Supple, trachea midline. No lymphadenopathy. EYES: No scleral icterus. No injection or drainage. CARDIOVASCULAR: Regular rate and rhythm without murmurs, gallops, or rubs. RESPIRATORY: Breath sounds equal bilaterally. No accessory muscle use. GASTROINTESTINAL: Abdomen soft, non-tender, nondistended. MUSCULOSKELETAL: No cyanosis, or edema. SKIN: Warm and dry. NEURO: No focal neurological deficitis. 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 site; C80.1 - Malignant (primary) neoplasm, unspecified Status: Acute (3) Lung cancer, primary, with metastasis from lung to other site ICD Code: C34.90 - Lung cancer, primary, with metastasis from lung to other site; C79.9 - Secondary malignant neoplasm of unspecified site Status: Acute (4) Lung mass ICD Code: R91.8 - Lung mass Status: Acute (5) Cerebral tumor ICD Code: D49.6 - Neoplasm of unspecified behavior of brain Status: Acute (6) Chiari I malformation ICD Code: G93.5 - Compression of brain Status: Chronic (7) Syringomyelia ICD Code: G95.0 - Syringomyelia and syringobulbia Status: Chronic Assessment and Plan Assessment and Plan 61-year-old female status post brain surgery for symptomatic brainstem and brain metastases. Plan to start radiation Therapy. Radiation oncologist following. Planning for radiation oncology ongoing and tentative first therapy will be Friday. Urinary tract infection is present today. Rocephin started. Probiotic started. Urine tract infection Rocephin Probiotics Follow Culture Multiple cerebral lesions superior cerebellar lesion Chiari I malformation Cervical syringomyelia History of lung cancer (adenocarcinoma) Status post circumflex mental decompressive craniotomy Status post Dural fenestration for Chiari malformation decompression Status post C1 decompressive laminectomy Status post resection of superior cerebellar neoplasm Status post left occipital bur hole, ventriculostomy Neurosurgery following Patient prefers to discharge to home when cleared by neurosurgery Continue Decadron When necessary pain treatment Continue alprazolam Oncology following Radiation oncologist consulted Depression/anxiety History of MS 2009 Dyslipidemia Continue atorvastatin Hypothyroidism Continue levothyroxin Follows in outpatient Hyperglycemia Secondary to steroid effect Follow blood sugars Insulin sliding scale Diabetic diet DVT prophylaxis SCDs Discharge planning Patient's preference is discharged home Radiation therapy is being arranged Problem Qualifiers (1) Altered mental status, unspecified: Qualified Codes: R41.82 - Altered mental status, unspecified Jose Smith MD Apr 18, 2017 18:10
[2017-04-18] MEDS: LACTOBACILLUS ACIDOPHILUS TAB PO SCH (19:12)
[2017-04-18 20:00] VITALS: BP 116/56; PULSE 57; RESP 17; TEMP 98; O2SAT 97
[2017-04-18] MEDS: GILOTRIF PO SCH (21:00)
[2017-04-18] MEDS: cefTRIAXone INJ 1,000 MG in SODIUM CHLORIDE 0.9% INJ 100 ML IV SCH (22:01)
[2017-04-19] VITALS: BP 120/60; PULSE 64; RESP 18; TEMP 97.8; O2SAT 98
[2017-04-19] MEDS: INSULIN ASPART SUPPLEMENTAL SCALE SQ SCH ×5 (01:56→23:53)
[2017-04-19] MEDS: DEXAMETHASONE SOD PHOS 4 MG/ML VIAL IV PUSH SCH ×5 (01:56→23:54)
[2017-04-19] MEDS: ALPRAZolam 0.25 MG TAB PO SCH ×4 (01:56→23:53)
[2017-04-19 04:00] VITALS: BP 126/66; PULSE 63; RESP 18; TEMP 98.2; O2SAT 97
[2017-04-19] MEDS: LEVOTHYROXINE SODIUM 75 MCG TAB PO SCH (06:06)
[2017-04-19 08:00] VITALS: BP 148/66; PULSE 61; RESP 17; TEMP 97.8; O2SAT 98
[2017-04-19] MEDS: DOCUSATE SODIUM 50 MG/SENNA 8.6 MG TAB PO SCH ×2 (09:00→22:01)
[2017-04-19] MEDS: CYANOCOBALAMIN 100 MCG TAB PO SCH (09:00)
[2017-04-19] MEDS: POLYETHYLENE GLYCOL 17 GM PKG PO SCH (09:00)
[2017-04-19] MEDS: SODIUM CHLORIDE 0.9% FLUSH 5 ML FLUSH IVF SCH ×2 (09:00→21:00)
[2017-04-19] MEDS: LACTOBACILLUS ACIDOPHILUS TAB PO SCH ×3 (09:20→17:23)
[2017-04-19] MEDS: PANTOPRAZOLE SOD 40 MG DELAYED RELEASE TAB PO SCH (09:20)
--- NOTE | 2017-04-19 10:43 | HHI.PR ---
Subjective Remarks Dysuria is improved. Plan for antibiotics to continue for 5 days. Patient has no new complaints today. Objective Vital Signs Date Time Temp Pulse Resp B/P (MAP) Pulse Ox O2 Delivery O2 Flow Rate FiO2 04/19/17 08:00 97.8 61 17 148/66 (93) 98 04/19/17 04:00 98.2 63 18 126/66 (86) 97 04/19/17 00:00 97.8 64 18 120/60 (80) 98 04/18/17 20:00 98.0 57 17 116/56 (76) 97 04/18/17 16:00 97.7 60 20 119/77 (91) 98 04/18/17 12:00 98.3 57 20 126/60 (82) 97 I/O 04/18/17 04/18/17 04/18/17 04/19/17 04/19/17 04/19/17 07:00 15:00 23:00 07:00 15:00 23:00 Intake Total 240 ml 920 ml 850 ml Balance 240 ml 920 ml 850 ml Intake Oral 240 ml 920 ml 850 ml # Voids 2 5 0 4 # Bowel Movements 0 0 Result Diagram: 04/17/1793304/17/17 0934 Objective Remarks GENERAL: NAD, A&Ox3 HEAD: Bandage in the posterior scalp and neck NECK: Supple, trachea midline. No lymphadenopathy. EYES: No scleral icterus. No injection or drainage. CARDIOVASCULAR: Regular rate and rhythm without murmurs, gallops, or rubs. RESPIRATORY: Breath sounds equal bilaterally. No accessory muscle use. GASTROINTESTINAL: Abdomen soft, non-tender, nondistended. MUSCULOSKELETAL: No cyanosis, or edema. SKIN: Warm and dry. NEURO: No focal neurological deficitis. 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 site; C80.1 - Malignant (primary) neoplasm, unspecified Status: Acute (3) Lung cancer, primary, with metastasis from lung to other site ICD Code: C34.90 - Lung cancer, primary, with metastasis from lung to other site; C79.9 - Secondary malignant neoplasm of unspecified site Status: Acute (4) Lung mass ICD Code: R91.8 - Lung mass Status: Acute (5) Cerebral tumor ICD Code: D49.6 - Neoplasm of unspecified behavior of brain Status: Acute (6) Chiari I malformation ICD Code: G93.5 - Compression of brain Status: Chronic (7) Syringomyelia ICD Code: G95.0 - Syringomyelia and syringobulbia Status: Chronic Assessment and Plan Assessment and Plan 61-year-old female status post brain surgery for symptomatic brainstem and brain metastases. Plan to start radiation Therapy. Radiation oncologist following. Planning for radiation oncology ongoing and tentative first therapy will be Friday. Improving dysuria. Continue Rocephin. Urine tract infection Rocephin Probiotics Follow Culture Multiple cerebral lesions superior cerebellar lesion Chiari I malformation Cervical syringomyelia History of lung cancer (adenocarcinoma) Status post circumflex mental decompressive craniotomy Status post Dural fenestration for Chiari malformation decompression Status post C1 decompressive laminectomy Status post resection of superior cerebellar neoplasm Status post left occipital bur hole, ventriculostomy Neurosurgery following Patient prefers to discharge to home when cleared by neurosurgery Continue Decadron When necessary pain treatment Continue alprazolam Oncology following Radiation oncologist consulted Depression/anxiety History of MS 2009 Dyslipidemia Continue atorvastatin Hypothyroidism Continue levothyroxin Follows in outpatient Hyperglycemia Secondary to steroid effect Follow blood sugars Insulin sliding scale Diabetic diet DVT prophylaxis SCDs Discharge planning Patient's preference is discharged home Radiation therapy is being arranged Problem Qualifiers (1) Altered mental status, unspecified: Qualified Codes: R41.82 - Altered mental status, unspecified Jose Smith MD Apr 19, 2017 10:43
[2017-04-19 12:00] VITALS: BP 124/61; PULSE 59; RESP 18; TEMP 98.2; O2SAT 97
[2017-04-19 16:00] VITALS: BP 124/62; PULSE 62; RESP 18; TEMP 97.5; O2SAT 97
[2017-04-19 20:00] VITALS: BP 124/60; PULSE 59; RESP 18; TEMP 98; O2SAT 97
[2017-04-19] MEDS: GILOTRIF PO SCH (21:00)
[2017-04-19] MEDS: cefTRIAXone INJ 1,000 MG in SODIUM CHLORIDE 0.9% INJ 100 ML IV SCH (22:01)
[2017-04-20] VITALS: BP 118/56; PULSE 55; RESP 18; TEMP 97.5; O2SAT 95
[2017-04-20 04:00] VITALS: BP 123/58; PULSE 63; RESP 18; TEMP 98.1; O2SAT 96
[2017-04-20] MEDS: INSULIN ASPART SUPPLEMENTAL SCALE SQ SCH ×3 (06:00→17:15)
[2017-04-20] MEDS: DEXAMETHASONE SOD PHOS 4 MG/ML VIAL IV PUSH SCH ×3 (06:21→17:15)
[2017-04-20] MEDS: LEVOTHYROXINE SODIUM 75 MCG TAB PO SCH (06:21)
[2017-04-20] MEDS: DOCUSATE SODIUM 50 MG/SENNA 8.6 MG TAB PO SCH ×2 (06:21→21:00)
[2017-04-20 08:00] VITALS: BP 133/63; PULSE 60; RESP 18; TEMP 98.5; O2SAT 96
[2017-04-20] MEDS: SODIUM CHLORIDE 0.9% FLUSH 5 ML FLUSH IVF SCH ×2 (09:00→21:00)
[2017-04-20] MEDS: CYANOCOBALAMIN 100 MCG TAB PO SCH (09:00)
[2017-04-20] MEDS: PANTOPRAZOLE SOD 40 MG DELAYED RELEASE TAB PO SCH (09:51)
[2017-04-20] MEDS: LACTOBACILLUS ACIDOPHILUS TAB PO SCH ×3 (09:51→17:15)
[2017-04-20] MEDS: ALPRAZolam 0.25 MG TAB PO SCH ×2 (09:51→17:14)
[2017-04-20] MEDS: POLYETHYLENE GLYCOL 17 GM PKG PO SCH (09:51)
[2017-04-20 12:00] VITALS: BP 120/50; PULSE 68; RESP 18; TEMP 98; O2SAT 99
--- NOTE | 2017-04-20 15:22 | HHI.PR ---
Subjective Remarks No complaints today. Plan for radiation oncology treatment tomorrow. Patient is eating well without nausea or diarrhea. Objective Vital Signs Date Time Temp Pulse Resp B/P (MAP) Pulse Ox O2 Delivery O2 Flow Rate FiO2 04/20/17 12:00 98.0 68 18 120/50 (73) 99 04/20/17 08:00 98.5 60 18 133/63 (86) 96 04/20/17 04:00 98.1 63 18 123/58 (79) 96 04/20/17 00:00 97.5 55 18 118/56 (76) 95 04/19/17 20:00 98.0 59 18 124/60 (81) 97 04/19/17 16:00 97.5 62 18 124/62 (82) 97 I/O 04/19/17 04/19/17 04/19/17 04/20/17 04/20/17 04/20/17 07:00 15:00 23:00 07:00 15:00 23:00 Intake Total 1160 ml 340 ml Balance 1160 ml 340 ml Intake Oral 1160 ml 240 ml IV Total 100 ml # Voids 4 6 2 Result Diagram: 04/17/1793304/17/17933 Objective Remarks GENERAL: NAD, A&Ox3 HEAD: Bandage in the posterior scalp and neck NECK: Supple, trachea midline. No lymphadenopathy. EYES: No scleral icterus. No injection or drainage. CARDIOVASCULAR: Regular rate and rhythm without murmurs, gallops, or rubs. RESPIRATORY: Breath sounds equal bilaterally. No accessory muscle use. GASTROINTESTINAL: Abdomen soft, non-tender, nondistended. MUSCULOSKELETAL: No cyanosis, or edema. SKIN: Warm and dry. NEURO: No focal neurological deficitis. 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 site; C80.1 - Malignant (primary) neoplasm, unspecified Status: Acute (3) Lung cancer, primary, with metastasis from lung to other site ICD Code: C34.90 - Lung cancer, primary, with metastasis from lung to other site; C79.9 - Secondary malignant neoplasm of unspecified site Status: Acute (4) Lung mass ICD Code: R91.8 - Lung mass Status: Acute (5) Cerebral tumor ICD Code: D49.6 - Neoplasm of unspecified behavior of brain Status: Acute (6) Chiari I malformation ICD Code: G93.5 - Compression of brain Status: Chronic (7) Syringomyelia ICD Code: G95.0 - Syringomyelia and syringobulbia Status: Chronic Assessment and Plan Assessment and Plan 61-year-old female status post brain surgery for symptomatic brainstem and brain metastases. Plan to start radiation Therapy. Radiation oncologist following. Planning for radiation oncology ongoing and tentative first therapy will be tomorrow. Urine tract infection Rocephin Probiotics Follow Culture Multiple cerebral lesions superior cerebellar lesion Chiari I malformation Cervical syringomyelia History of lung cancer (adenocarcinoma) Status post circumflex mental decompressive craniotomy Status post Dural fenestration for Chiari malformation decompression Status post C1 decompressive laminectomy Status post resection of superior cerebellar neoplasm Status post left occipital bur hole, ventriculostomy Neurosurgery following Patient prefers to discharge to home when cleared by neurosurgery Continue Decadron When necessary pain treatment Continue alprazolam Oncology following Radiation oncologist consulted Depression/anxiety History of MS 2009 Dyslipidemia Continue atorvastatin Hypothyroidism Continue levothyroxin Follows in outpatient Hyperglycemia Secondary to steroid effect Follow blood sugars Insulin sliding scale Diabetic diet DVT prophylaxis SCDs Discharge planning Patient's preference is discharged home Radiation therapy is being arranged Problem Qualifiers (1) Altered mental status, unspecified: Qualified Codes: R41.82 - Altered mental status, unspecified Jose Smith MD Apr 20, 2017 15:21
[2017-04-20 16:00] VITALS: BP 118/59; PULSE 67; RESP 20; TEMP 97.6; O2SAT 97
[2017-04-20 19:50] VITALS: BP 133/64; PULSE 62; RESP 18; TEMP 98; O2SAT 97
[2017-04-20] MEDS: GILOTRIF PO SCH (21:00)
[2017-04-20] MEDS: cefTRIAXone INJ 1,000 MG in SODIUM CHLORIDE 0.9% INJ 100 ML IV SCH (21:27)
[2017-04-21 00:36] VITALS: BP 136/63; PULSE 63; RESP 18; TEMP 98.1; O2SAT 97
[2017-04-21] MEDS: ALPRAZolam 0.25 MG TAB PO SCH ×3 (00:46→18:00)
[2017-04-21] MEDS: DEXAMETHASONE SOD PHOS 4 MG/ML VIAL IV PUSH SCH ×4 (00:47→18:00)
[2017-04-21 05:14] VITALS: BP 135/62; PULSE 57; RESP 20; TEMP 97.6; O2SAT 98
[2017-04-21] MEDS: LEVOTHYROXINE SODIUM 75 MCG TAB PO SCH (06:26)
[2017-04-21] MEDS: INSULIN ASPART SUPPLEMENTAL SCALE SQ SCH ×4 (06:27→18:00)
[2017-04-21 08:00] VITALS: BP 124/58; PULSE 69; RESP 20; TEMP 98.2; O2SAT 99
[2017-04-21] MEDS: CYANOCOBALAMIN 100 MCG TAB PO SCH (09:00)
[2017-04-21] MEDS: POLYETHYLENE GLYCOL 17 GM PKG PO SCH (09:00)
[2017-04-21] MEDS: SODIUM CHLORIDE 0.9% FLUSH 5 ML FLUSH IVF SCH ×2 (09:00→21:00)
[2017-04-21] MEDS: DOCUSATE SODIUM 50 MG/SENNA 8.6 MG TAB PO SCH ×2 (09:00→21:00)
[2017-04-21] MEDS: LACTOBACILLUS ACIDOPHILUS TAB PO SCH ×3 (09:33→18:00)
[2017-04-21] MEDS: PANTOPRAZOLE SOD 40 MG DELAYED RELEASE TAB PO SCH (09:33)
[2017-04-21 12:00] VITALS: BP 125/58; PULSE 66; RESP 20; TEMP 97.8; O2SAT 97
--- NOTE | 2017-04-21 12:10 | HHI.NSPN ---
(Leandro Peres Abhi CAMPBELL) History Chief Complaint: No complaints. (Leandro PeresMarilin CAMPBELL) Interval History 61-year-old female with previous history of cervical syrinx with Chiari malformation documented in previous MRI of the cervical spine from 2011. Previously followed by neurology-Dr. Kaela Mariscal. Patient also has a history of metastatic non-small cell lung cancer. Prior imaging revealed metastatic disease to the lumbar spine. Patient now presents with a few weeks of dizziness and headache. Recently seen by neurology as an outpatient. She came to the emergency room on 04/03/17 due to speech difficulty, mental status changes, nausea and vomiting and persistent headache. 04/07: her symptoms better with Decadron. Daughter in room, both she and patient agrees with surgery this week. 04/09/2017: Patient feeling better. Ambulating for short distance without assistance. Headache improving. Less pain across the neck and shoulders. 04/11: The patient went for a resection of a cerebellar neoplasm yesterday afternoon. Post-operatively she was transferred to the [facility] for further care and management. A repeat CT brain this morning demonstrated expected post-operative changes. Today the patient is drowsy but readily interacts and complains of neck pain. She denies any headache. 04/12: The patient is awake and alert this morning. She says she feels "great, well maybe not great. But I feel good." She does say she has some headache to the occipital area. She states she really doesn't have any pain. She readily smiles and laughs when talking. 04/13: This morning the patient says she is doing good. She states she has pain, but it really isn't pain, to the back of the head and neck. She isn't able to differentiate whether it is a headache or pain to the surgical site. She states that she was able to get up with assistance to the [facility] this morning and had no problems. She is sitting in a chair at present. 04/14/17: No headache with ventriculostomy raised to 20 cm water last evening.. CT scan head without significant hydrocephalus or edema. 04/15: Patient is up and ambulating using a wheeled walker with standby assistance this morning when seen. She states she has soreness to the back of the head and neck but says that she has not really had any headache. She denied any dizziness. The ventriculostomy was clamped yesterday. A repeat CT brain this morning was stable compared to yesterday. 04/16: The ventriculostomy was removed yesterday afternoon. The patient had additional steri-strips placed yesterday evening due to continued drainage from the ventriculostomy insertion site. She states there has not been any further leakage. She states that she is not having any pain to the back of the head or the neck. She keeps focusing on wanting to go home at discharge and have Home Health come to her apartment. She states she has a walker and commode chair at home. She says she has previously been at [facility] for physical therapy and all they did was ask her to throw a beach ball to them and then tossed it back to her. She reports that her strength improved once she got home and started doing some exercises at home on her own. 04/17: The patient was seen ambulating the hallway using a wheeled walker without any assistance. Her gait was steady. When seen she said she felt good and had no complaints. She reports showering from the shoulders down earlier today. The patient does report that Radiation Oncology plans to start treatments while in the hospital. 04/18: The patient was seen ambulating in the room on her own without a walker. When seen the patient states that she is doing well and had no complaints. Transport is at the bedside to take the patient for a CT simulation with her first radiation treatment on . 04/21: This morning the patient is doing well when seen and had no complaints other than stating that her hair is starting to smell from not having been washed. (Leandro Peres) System Review Comments Constitutional: Patient denies any fever or chills. HEENT: Patient denies any pain to the back of the head and neck. She denies any visual or hearing difficulty. Respiratory: Patient denies any shortness of breath or productive cough. Cardiovascular: Patient denies any chest pain, palpitations or irregular heartbeat. Gastrointestinal: Patient denies any abdominal pain, nausea or vomiting or incontinence of stool. Genitourinary: Patient denies any incontinence of urine. Musculoskeletal: Patient denies any pain to the back of the head and neck. She denies any back or extremity pain. Neurologic: Patient denies any headache, dizziness, numbness or tingling. (Leandro Peres) Exam Results 04/19/17 04/19/17 04/20/17 04/20/17 04/21/17 04/21/17 06:00 18:00 06:00 18:00 06:00 18:00 Intake Total 850 ml 1160 ml 240 ml 750 ml 100 ml Balance 850 ml 1160 ml 240 ml 750 ml 100 ml Intake Oral 850 ml 1160 ml 240 ml 650 ml IV Total 100 ml 100 ml # Voids 4 6 2 5 2 # Bowel Movements 0 1 Vital Signs Date Time Temp Pulse Resp B/P (MAP) Pulse Ox O2 Delivery O2 Flow Rate FiO2 04/21/17 08:00 98.2 69 20 124/58 (80) 99 04/21/17 05:14 97.6 57 20 135/62 (86) 98 04/21/17 00:36 98.1 63 18 136/63 (87) 97 04/20/17 19:50 98.0 62 18 133/64 (87) 97 04/20/17 16:00 97.6 67 20 118/59 (78) 97 04/20/17 12:00 98.0 68 18 120/50 (73) 99 04/20/17 08:00 98.5 60 18 133/63 (86) 96 04/20/17 04:00 98.1 63 18 123/58 (79) 96 04/20/17 00:00 97.5 55 18 118/56 (76) 95 04/19/17 20:00 98.0 59 18 124/60 (81) 97 04/19/17 16:00 97.5 62 18 124/62 (82) 97 04/19/17 12:00 98.2 59 18 124/61 (82) 97 04/19/17 08:00 97.8 61 17 148/66 (93) 98 04/19/17 04:00 98.2 63 18 126/66 (86) 97 04/19/17 00:00 97.8 64 18 120/60 (80) 98 04/18/17 20:00 98.0 57 17 116/56 (76) 97 04/18/17 16:00 97.7 60 20 119/77 (91) 98 04/18/17 12:00 98.3 57 20 126/60 (82) 97 (Leandro Peres) Physical Examination GENERAL: Patient awake and watching TV in bed. She readily smiles, laughs & interacts. Her affect is normal. No distress apparent. SKIN: Warm, dry & intact, surgical incision well approximated w/balaji w/o any drainage, erythema or streaking, dressing intact. HEENT: Posterior neck/lower occipital surgical incision w/intact dressing NTTP. NECK: Posterior neck/lower occipital surgical incision w/intact dressing NTTP, no JVD, trachea midline. CARDIOVASCULAR: S1S2 w/RRR w/o M/G/R, radial & pedal pulses 2+ bilaterally, cap refill < 2 sec, no pedal edema. RESPIRATORY: CTAB w/o W/R/R, equal excursion, nonlaboured, on RA. GASTROINTESTINAL: Abdomen soft, nontender, positive bowel sounds. MUSCULOSKELETAL: FRAZIER w/o difficulty, no evident deformity or clubbing. NEUROLOGICAL: AAOx3. Speech clear & appropriate. CN II-XII grossly intact. Sensation intact to light touch to all extremities. Motor strength 5/5 to all major flexion & extension muscle groups. (Leandro Peres) Lab, Micro, Other Results Laboratory Tests Test 04/18/17 14:00 Urine Color YELLOW Urine Turbidity CLEAR Urine pH 6.0 Urine Specific [place] 1.019 Urine Protein NEG mg/dL Urine Glucose (UA) NEG mg/dL Urine Ketones NEG mg/dL Urine Occult Blood NEG Urine Nitrite NEG Urine Bilirubin NEG Urine Urobilinogen LESS THAN 2.0 MG/DL Urine Leukocyte Esterase MOD Urine WBC 16 /hpf Urine Squamous Epithelial Cells <1 /hpf Urine Hyaline Casts 1 /lpf Microscopic Urinalysis Comment CULTURE INDICATED (Leandro Peres) Medical Decision Making Impression and Plan Impression: (1) Cerebral tumor (2) Chiari I malformation (3) Syringomyelia 1. Multiple cerebral lesions, superior cerebellar lesion, probable metastatic neoplasm. 2. Chiari I malformation 3. Cervical syringomyelia The patient is doing well and remains neurologically intact. PT recommends discharge home with Home Health for further rehab but OT recommends inpatient rehab. The patient wants to go home with Home Health at discharge. POD #11 () s/p: 1. Suboccipital decompressive craniectomy 2. Dural fenestration for Chiari malformation decompression 3. C1 decompressive laminectomy 4. Resection of superior cerebellar neoplasm 5. Left occipital bur hole, ventriculostomy placement Plan: Primary management per Hospitalist. PT/OT eval & tx. Continue Decadron. Radiation therapy per Radiation Oncology, 1st treatment is to be today. From NSGY's perspective the patient may be discharged home w/Home Health for further therapy when medically indicated. (Leandro Peres) Attending Statement The exam, history, and the medical decision-making described in the above note were completed with the assistance of the mid-level provider. I reviewed and agree with the findings presented. I attest that I had a [id number] encounter with the patient on the same day, and personally performed and documented my assessment and findings in the medical record. Stable neurologic exam Radiation therapy plans and progress Continuing Decadron (Clem Rich MD) Leandro Peres Apr 21, 2017 11:39 Clem Rich MD May 12, 2017 06:48
--- NOTE | 2017-04-21 12:16 | HHI.PR ---
Subjective Remarks Patient is feeling well this morning. Baseline activity is appropriate for discharge to home once determination of stability with radiation therapy is present. No new complaints from the patient. Objective Vital Signs Date Time Temp Pulse Resp B/P (MAP) Pulse Ox O2 Delivery O2 Flow Rate FiO2 04/21/17 08:00 98.2 69 20 124/58 (80) 99 04/21/17 05:14 97.6 57 20 135/62 (86) 98 04/21/17 00:36 98.1 63 18 136/63 (87) 97 04/20/17 19:50 98.0 62 18 133/64 (87) 97 04/20/17 16:00 97.6 67 20 118/59 (78) 97 I/O 04/20/17 04/20/17 04/20/17 04/21/17 04/21/17 04/21/17 06:59 14:59 22:59 06:59 14:59 22:59 Intake Total 340 ml 650 ml 100 ml Balance 340 ml 650 ml 100 ml Intake Oral 240 ml 650 ml IV Total 100 ml 100 ml # Voids 2 5 2 # Bowel Movements 1 Result Diagram: 04/17/1734 04/17/17 0934 Objective Remarks GENERAL: NAD, A&Ox3 HEAD: Bandage in the posterior scalp and neck NECK: Supple, trachea midline. No lymphadenopathy. EYES: No scleral icterus. No injection or drainage. CARDIOVASCULAR: Regular rate and rhythm without murmurs, gallops, or rubs. RESPIRATORY: Breath sounds equal bilaterally. No accessory muscle use. GASTROINTESTINAL: Abdomen soft, non-tender, nondistended. MUSCULOSKELETAL: No cyanosis, or edema. SKIN: Warm and dry. NEURO: No focal neurological deficitis. 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 site; C80.1 - Malignant (primary) neoplasm, unspecified Status: Acute (3) Lung cancer, primary, with metastasis from lung to other site ICD Code: C34.90 - Lung cancer, primary, with metastasis from lung to other site; C79.9 - Secondary malignant neoplasm of unspecified site Status: Acute (4) Lung mass ICD Code: R91.8 - Lung mass Status: Acute (5) Cerebral tumor ICD Code: D49.6 - Neoplasm of unspecified behavior of brain Status: Acute (6) Chiari I malformation ICD Code: G93.5 - Compression of brain Status: Chronic (7) Syringomyelia ICD Code: G95.0 - Syringomyelia and syringobulbia Status: Chronic Assessment and Plan Assessment and Plan 61-year-old female status post brain surgery for symptomatic brainstem and brain metastases. Plan to start radiation Therapy. Radiation oncologist following. Plan is for radiation oncology treatment today. Monitor after first treatment. Urine tract infection Rocephin Probiotics Follow Culture Multiple cerebral lesions superior cerebellar lesion Chiari I malformation Cervical syringomyelia History of lung cancer (adenocarcinoma) Status post circumflex mental decompressive craniotomy Status post Dural fenestration for Chiari malformation decompression Status post C1 decompressive laminectomy Status post resection of superior cerebellar neoplasm Status post left occipital bur hole, ventriculostomy Neurosurgery following Patient prefers to discharge to home when cleared by neurosurgery Continue Decadron When necessary pain treatment Continue alprazolam Oncology following Radiation oncologist consulted Depression/anxiety History of MS 2009 Dyslipidemia Continue atorvastatin Hypothyroidism Continue levothyroxin Follows in outpatient Hyperglycemia Secondary to steroid effect Follow blood sugars Insulin sliding scale Diabetic diet DVT prophylaxis SCDs Discharge planning Patient's preference is discharged home Radiation therapy is being arranged Problem Qualifiers (1) Altered mental status, unspecified: Qualified Codes: R41.82 - Altered mental status, unspecified Jose Smith MD Apr 21, 2017 12:16
[2017-04-21 16:00] VITALS: BP 116/58; PULSE 64; RESP 20; TEMP 98.3; O2SAT 98
[2017-04-21 20:00] VITALS: BP 115/56; PULSE 68; RESP 18; TEMP 97.9; O2SAT 98
[2017-04-21] MEDS: GILOTRIF PO SCH (21:00)
[2017-04-21] MEDS: cefTRIAXone INJ 1,000 MG in SODIUM CHLORIDE 0.9% INJ 100 ML IV SCH (22:04)
[2017-04-22] VITALS: BP 113/54; PULSE 63; RESP 18; TEMP 97.4; O2SAT 98
[2017-04-22] MEDS: ALPRAZolam 0.25 MG TAB PO SCH ×3 (00:26→18:16)
[2017-04-22] MEDS: DEXAMETHASONE SOD PHOS 4 MG/ML VIAL IV PUSH SCH ×4 (00:26→18:17)
[2017-04-22 04:00] VITALS: BP 149/70; PULSE 62; RESP 18; TEMP 97.9; O2SAT 97
[2017-04-22] MEDS: LEVOTHYROXINE SODIUM 75 MCG TAB PO SCH (05:29)
[2017-04-22] MEDS: INSULIN ASPART SUPPLEMENTAL SCALE SQ SCH ×4 (05:33→18:17)
[2017-04-22 08:00] VITALS: BP 139/80; PULSE 71; RESP 16; TEMP 97.3; O2SAT 99
[2017-04-22] MEDS: POLYETHYLENE GLYCOL 17 GM PKG PO SCH (09:00)
[2017-04-22] MEDS: CYANOCOBALAMIN 100 MCG TAB PO SCH (09:00)
[2017-04-22] MEDS: SODIUM CHLORIDE 0.9% FLUSH 5 ML FLUSH IVF SCH ×2 (09:00→21:00)
[2017-04-22] MEDS: PANTOPRAZOLE SOD 40 MG DELAYED RELEASE TAB PO SCH (11:06)
[2017-04-22] MEDS: DOCUSATE SODIUM 50 MG/SENNA 8.6 MG TAB PO SCH ×2 (11:06→21:00)
[2017-04-22] MEDS: LACTOBACILLUS ACIDOPHILUS TAB PO SCH ×3 (11:06→18:16)
[2017-04-22 12:00] VITALS: BP 113/58; PULSE 72; RESP 16; TEMP 97.7; O2SAT 97
--- NOTE | 2017-04-22 12:59 | HHI.PR ---
Subjective Remarks This patient is tolerating radiation oncology well as far. No complaints of headache. No nausea or vomiting. Objective Vital Signs Date Time Temp Pulse Resp B/P (MAP) Pulse Ox O2 Delivery O2 Flow Rate FiO2 04/22/17 08:00 97.3 71 16 139/80 (99) 99 04/22/17 04:00 97.9 62 18 149/70 (96) 97 04/22/17 00:00 97.4 63 18 113/54 (73) 98 04/21/17 20:00 97.9 68 18 115/56 (75) 98 04/21/17 16:00 98.3 64 20 116/58 (77) 98 I/O 04/21/17 04/21/17 04/21/17 04/22/17 04/22/17 04/22/17 07:00 15:00 23:00 07:00 15:00 23:00 Intake Total 100 ml 920 ml Balance 100 ml 920 ml Intake Oral 920 ml IV Total 100 ml # Voids 2 6 Objective Remarks GENERAL: NAD, A&Ox3 HEAD: Bandage in the posterior scalp and neck NECK: Supple, trachea midline. No lymphadenopathy. EYES: No scleral icterus. No injection or drainage. CARDIOVASCULAR: Regular rate and rhythm without murmurs, gallops, or rubs. RESPIRATORY: Breath sounds equal bilaterally. No accessory muscle use. GASTROINTESTINAL: Abdomen soft, non-tender, nondistended. MUSCULOSKELETAL: No cyanosis, or edema. SKIN: Warm and dry. NEURO: No focal neurological deficitis. 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 site; C80.1 - Malignant (primary) neoplasm, unspecified Status: Acute (3) Lung cancer, primary, with metastasis from lung to other site ICD Code: C34.90 - Lung cancer, primary, with metastasis from lung to other site; C79.9 - Secondary malignant neoplasm of unspecified site Status: Acute (4) Lung mass ICD Code: R91.8 - Lung mass Status: Acute (5) Cerebral tumor ICD Code: D49.6 - Neoplasm of unspecified behavior of brain Status: Acute (6) Chiari I malformation ICD Code: G93.5 - Compression of brain Status: Chronic (7) Syringomyelia ICD Code: G95.0 - Syringomyelia and syringobulbia Status: Chronic Assessment and Plan Assessment and Plan 61-year-old female status post brain surgery for symptomatic brainstem and brain metastases. Radiation oncology following. Radiation therapy has been started. Patient's second radiation oncology treatment was this morning. Thus far no headache, nausea, vomiting. She complains of no pain. Medically she is stable once radiation oncology determines this patient appropriate for discharge. Urine tract infection Rocephin Probiotics Follow Culture Multiple cerebral lesions superior cerebellar lesion Chiari I malformation Cervical syringomyelia History of lung cancer (adenocarcinoma) Status post circumflex mental decompressive craniotomy Status post Dural fenestration for Chiari malformation decompression Status post C1 decompressive laminectomy Status post resection of superior cerebellar neoplasm Status post left occipital bur hole, ventriculostomy Neurosurgery following Patient prefers to discharge to home when cleared by neurosurgery Continue Decadron When necessary pain treatment Continue alprazolam Oncology following Radiation oncologist consulted Depression/anxiety History of MS 2009 Dyslipidemia Continue atorvastatin Hypothyroidism Continue levothyroxin Follows in outpatient Hyperglycemia Secondary to steroid effect Follow blood sugars Insulin sliding scale Diabetic diet DVT prophylaxis SCDs Discharge planning Patient's preference is discharged home Radiation therapy is his ongoing Once no further monitoring of patient's side effects of treatment are needed the patient will discharge. Problem Qualifiers (1) Altered mental status, unspecified: Qualified Codes: R41.82 - Altered mental status, unspecified Jose Smith MD Apr 22, 2017 12:59
--- NOTE | 2017-04-22 15:47 | HHI.NSPN ---
(Leandro Peres Abhi CAMPBELL) History Chief Complaint: No complaints. (Leandro PeresMarilin CAMPBELL) Interval History 61-year-old female with previous history of cervical syrinx with Chiari malformation documented in previous MRI of the cervical spine from 2011. Previously followed by neurology-Dr. Kaela Mariscal. Patient also has a history of metastatic non-small cell lung cancer. Prior imaging revealed metastatic disease to the lumbar spine. Patient now presents with a few weeks of dizziness and headache. Recently seen by neurology as an outpatient. She came to the emergency room on 04/03/17 due to speech difficulty, mental status changes, nausea and vomiting and persistent headache. 04/07: her symptoms better with Decadron. Daughter in room, both she and patient agrees with surgery this week. 04/09/2017: Patient feeling better. Ambulating for short distance without assistance. Headache improving. Less pain across the neck and shoulders. 04/11: The patient went for a resection of a cerebellar neoplasm yesterday afternoon. Post-operatively she was transferred to the [facility] for further care and management. A repeat CT brain this morning demonstrated expected post-operative changes. Today the patient is drowsy but readily interacts and complains of neck pain. She denies any headache. 04/12: The patient is awake and alert this morning. She says she feels "great, well maybe not great. But I feel good." She does say she has some headache to the occipital area. She states she really doesn't have any pain. She readily smiles and laughs when talking. 04/13: This morning the patient says she is doing good. She states she has pain, but it really isn't pain, to the back of the head and neck. She isn't able to differentiate whether it is a headache or pain to the surgical site. She states that she was able to get up with assistance to the [facility] this morning and had no problems. She is sitting in a chair at present. 04/14/17: No headache with ventriculostomy raised to 20 cm water last evening.. CT scan head without significant hydrocephalus or edema. 04/15: Patient is up and ambulating using a wheeled walker with standby assistance this morning when seen. She states she has soreness to the back of the head and neck but says that she has not really had any headache. She denied any dizziness. The ventriculostomy was clamped yesterday. A repeat CT brain this morning was stable compared to yesterday. 04/16: The ventriculostomy was removed yesterday afternoon. The patient had additional steri-strips placed yesterday evening due to continued drainage from the ventriculostomy insertion site. She states there has not been any further leakage. She states that she is not having any pain to the back of the head or the neck. She keeps focusing on wanting to go home at discharge and have Home Health come to her apartment. She states she has a walker and commode chair at home. She says she has previously been at [facility] for physical therapy and all they did was ask her to throw a beach ball to them and then tossed it back to her. She reports that her strength improved once she got home and started doing some exercises at home on her own. 04/17: The patient was seen ambulating the hallway using a wheeled walker without any assistance. Her gait was steady. When seen she said she felt good and had no complaints. She reports showering from the shoulders down earlier today. The patient does report that Radiation Oncology plans to start treatments while in the hospital. 04/18: The patient was seen ambulating in the room on her own without a walker. When seen the patient states that she is doing well and had no complaints. Transport is at the bedside to take the patient for a CT simulation with her first radiation treatment on . 04/21: This morning the patient is doing well when seen and had no complaints other than stating that her hair is starting to smell from not having been washed. 04/22: The patient is doing good this afternoon when seen. She has had her second radiation treatment. She states that after her first one yesterday she had to take a 30 minute nap but didn't have to today. She has no complaints. (Leandro Peres) System Review Comments Constitutional: Patient denies any fever or chills. HEENT: Patient denies any pain to the back of the head and neck. She denies any visual or hearing difficulty. Respiratory: Patient denies any shortness of breath or productive cough. Cardiovascular: Patient denies any chest pain, palpitations or irregular heartbeat. Gastrointestinal: Patient states that she is not moving her bowels like she did before. She denies any abdominal pain, nausea or vomiting or incontinence of stool. Genitourinary: Patient denies any incontinence of urine. Musculoskeletal: Patient denies any pain to the back of the head and neck. She denies any back or extremity pain. Neurologic: Patient denies any headache, dizziness, numbness or tingling. (Leandro Peres) Exam Results 04/20/17 04/20/17 04/21/17 04/21/17 04/22/17 04/22/17 05:59 17:59 05:59 17:59 05:59 17:59 Intake Total 340 ml 750 ml 920 ml Balance 340 ml 750 ml 920 ml Intake Oral 240 ml 650 ml 920 ml IV Total 100 ml 100 ml # Voids 2 5 8 # Bowel Movements 1 Vital Signs Date Time Temp Pulse Resp B/P (MAP) Pulse Ox O2 Delivery O2 Flow Rate FiO2 04/22/17 12:00 97.7 72 16 113/58 (76) 97 04/22/17 08:00 97.3 71 16 139/80 (99) 99 04/22/17 04:00 97.9 62 18 149/70 (96) 97 04/22/17 00:00 97.4 63 18 113/54 (73) 98 04/21/17 20:00 97.9 68 18 115/56 (75) 98 04/21/17 16:00 98.3 64 20 116/58 (77) 98 04/21/17 12:00 97.8 66 20 125/58 (80) 97 04/21/17 08:00 98.2 69 20 124/58 (80) 99 04/21/17 05:14 97.6 57 20 135/62 (86) 98 04/21/17 00:36 98.1 63 18 136/63 (87) 97 04/20/17 19:50 98.0 62 18 133/64 (87) 97 04/20/17 16:00 97.6 67 20 118/59 (78) 97 04/20/17 12:00 98.0 68 18 120/50 (73) 99 04/20/17 08:00 98.5 60 18 133/63 (86) 96 04/20/17 04:00 98.1 63 18 123/58 (79) 96 04/20/17 00:00 97.5 55 18 118/56 (76) 95 04/19/17 20:00 98.0 59 18 124/60 (81) 97 04/19/17 16:00 97.5 62 18 124/62 (82) 97 (Leandro Peres) Physical Examination GENERAL: Patient awake and combing her hair. She readily interacts. Her affect is normal. No distress apparent. SKIN: Warm, dry & intact, surgical incisions well approximated w/balaji w/o any drainage, erythema or streaking. HEENT: Posterior neck/occipital surgical incisions NTTP. NECK: Posterior neck/ occipital surgical incisions NTTP, no JVD, trachea midline. CARDIOVASCULAR: S1S2 w/RRR w/o M/G/R, radial & pedal pulses 2+ bilaterally, cap refill < 2 sec, no pedal edema. RESPIRATORY: CTAB w/o W/R/R, equal excursion, nonlaboured, on RA. GASTROINTESTINAL: Abdomen soft, nontender, positive bowel sounds. MUSCULOSKELETAL: FRAZIER w/o difficulty, no evident deformity or clubbing. NEUROLOGICAL: AAOx3. Speech clear & appropriate. CN II-XII grossly intact. Sensation intact to light touch to all extremities. Motor strength 5/5 to all major flexion & extension muscle groups. (Leandro Peres) Medical Decision Making Impression and Plan Impression: (1) Cerebral tumor (2) Chiari I malformation (3) Syringomyelia 1. Multiple cerebral lesions, superior cerebellar lesion, probable metastatic neoplasm. 2. Chiari I malformation 3. Cervical syringomyelia The patient continues doing good and is neurologically intact. PT recommends discharge home with Home Health for further rehab but OT recommends inpatient rehab. The patient wants to go home with Home Health at discharge. POD #12 () s/p: 1. Suboccipital decompressive craniectomy 2. Dural fenestration for Chiari malformation decompression 3. C1 decompressive laminectomy 4. Resection of superior cerebellar neoplasm 5. Left occipital bur hole, ventriculostomy placement Plan: Primary management per Hospitalist. PT/OT eval & tx. Continue Decadron. Radiation therapy per Radiation Oncology. From NSGY's perspective the patient may be discharged home w/Home Health for further therapy when medically indicated. (Leandro Peres) Attending Statement The exam, history, and the medical decision-making described in the above note were completed with the assistance of the mid-level provider. I reviewed and agree with the findings presented. I attest that I had a [id number] encounter with the patient on the same day, and personally performed and documented my assessment and findings in the medical record. The patient is resting quietly when I entered the room this evening. I did not wake her up. Medicine notes reviewed. She is continuing initial radiation therapy as an inpatient. She is stable for discharge home when cleared by radiation oncology. (Clem Rich MD) Leandro Peres Apr 22, 2017 15:47 Clem Rich MD Apr 22, 2017 21:30
[2017-04-22 16:00] VITALS: BP 143/62; PULSE 68; RESP 20; TEMP 97.9; O2SAT 97
[2017-04-22 20:00] VITALS: BP 122/57; PULSE 64; RESP 18; TEMP 98.4; O2SAT 98
[2017-04-22] MEDS: GILOTRIF PO SCH (21:00)
[2017-04-22] MEDS: cefTRIAXone INJ 1,000 MG in SODIUM CHLORIDE 0.9% INJ 100 ML IV SCH (22:08)
[2017-04-23] VITALS: BP 167/77; PULSE 51; RESP 18; TEMP 97.6; O2SAT 98
[2017-04-23] MEDS: DEXAMETHASONE SOD PHOS 4 MG/ML VIAL IV PUSH SCH ×3 (01:05→13:21)
[2017-04-23] MEDS: ALPRAZolam 0.25 MG TAB PO SCH ×2 (01:05→09:12)
[2017-04-23 04:00] VITALS: BP 149/65; PULSE 54; RESP 18; TEMP 97.9; O2SAT 97
[2017-04-23] MEDS: INSULIN ASPART SUPPLEMENTAL SCALE SQ SCH ×3 (06:00→12:00)
[2017-04-23] MEDS: LEVOTHYROXINE SODIUM 75 MCG TAB PO SCH (06:15)
[2017-04-23 08:00] VITALS: BP 131/56; PULSE 58; RESP 16; TEMP 97.7; O2SAT 99
[2017-04-23] MEDS: POLYETHYLENE GLYCOL 17 GM PKG PO SCH (09:00)
[2017-04-23] MEDS: SODIUM CHLORIDE 0.9% FLUSH 5 ML FLUSH IVF SCH (09:00)
[2017-04-23] MEDS: LACTOBACILLUS ACIDOPHILUS TAB PO SCH ×2 (09:00→13:21)
[2017-04-23] MEDS: DOCUSATE SODIUM 50 MG/SENNA 8.6 MG TAB PO SCH (09:00)
[2017-04-23] MEDS: CYANOCOBALAMIN 100 MCG TAB PO SCH (09:00)
[2017-04-23] MEDS: PANTOPRAZOLE SOD 40 MG DELAYED RELEASE TAB PO SCH (09:12)
[2017-04-23] MEDS ORDERED: PRED5TAB PO (11:44)
[2017-04-23] MEDS ORDERED: DEXA4TAB PO (11:44)
--- NOTE | 2017-04-23 11:47 | HHI.DS ---
Discharge Summary Admission Date Apr 04, 2017 at 11:44 Discharge Date: Apr 23, 2017 Admitting Diagnosis AMS, generalized weakness (1) Unsteady gait ICD Code: R26.81 - Unsteadiness on feet Diagnosis: Principal (2) Hypothyroidism ICD Code: E03.9 - Hypothyroidism, unspecified Diagnosis: Principal Status: Acute (3) Generalized weakness ICD Code: R53.1 - Weakness Diagnosis: Principal Status: Acute (4) Altered mental status, unspecified ICD Code: R41.82 - Altered mental status, unspecified Diagnosis: Principal Status: Acute Procedures Neurosurgery for debulking of masses of brain/brainstem/posterior neck. Radiation therapy. Brief History - From Admission 61 y/o WF being admitted for progressive weakness and worsening gait. Patient was in her usual state of health until a few weeks ago when she began experiencing an unsteady gait. Daughter says that she began shuffling her feet , also for was referred to neurology outpatient, had plans to obtain an outpatient MRI which apparently had not been done yet. The patient's symptoms remain tolerable until about last night when her daughter spoke to her on the phone and noticed very slowed but not slurred speech and also noted that the patient is repeating a number of her statements in her conversations. Daughter feels that the patient has fluctuating moments of confusion. Patient herself says that she is experiencing a worsening headache with worsening nausea, barely eating or drinking anything in the last 2 days, says that even water makes her nauseated. Says that the headache is on top of her head and makes it feel ice cold, has numbness on the right cheek. Patient herself says that she feels like she is going to fall and therefore has not ambulated much at all the last 2 days. Has not showered out of the same fear for the last few days as well. Reports being on chemotherapy for lung cancer that is currently in remission. Says that she had metastases to her spine previously and also has a diagnosis of multiple sclerosis for which she had active disease years ago and was discontinued from her medication at the time due to intolerable side effects. Says that she has not had any flareups of her multiple sclerosis recently (which is essentially vertigo and dizziness); says that her current symptoms are very different than her multiple sclerosis presentation the past. CT scan done outpt showed area concerning for infarct as well. PE at Discharge GENERAL: This is a well-nourished, well-developed patient, in no apparent distress. SKIN: No rashes, warm and dry HEAD: Atraumatic. Normocephalic. EYES: Pupils equal round and reactive. Extraocular motions intact. No scleral icterus. ENT: Nose without bleeding, or drainage, Airway patent. NECK: Trachea midline. Supple CARDIOVASCULAR: Regular rate and rhythm without murmurs, gallops, or rubs. RESPIRATORY: Fair air entry bilaterally. No wheezes, rales, or rhonchi. GASTROINTESTINAL: Abdomen soft, non-tender, nondistended. Positive bowel sounds MUSCULOSKELETAL: Extremities without clubbing, cyanosis, or edema. Pedal pulses appreciated NEUROLOGICAL: Awake and alert. Hospital Course Mrs. Michelle is a 61-year-old female. She was admitted secondary to increasing altered mental status and weakness. Etiology was found to be secondary to tumors at her brain and brainstem. Posterior neck/brain surgery was performed and masses were debulked. Radiation therapy has been started in the hospital. Patient is responding well to radiation therapy and has recovered well from surgery. She is on dexamethasone and has not had complications of cerebral edema from radiation therapy for the past 48 hours. At this point she is medically stable for discharge to home. She's been cleared by neurosurgery for discharge home. Discharge will for today. She'll continue on dexamethasone during radiation therapy. Pt Condition on Discharge: Stable Discharge Disposition: Disch w/ Home Health Serv Discharge Time: <= 30 minutes Discharge Instructions DIET: Follow Instructions for: As Tolerated, No Restrictions Activities you can perform: Regular-No Restrictions Follow up Referrals: Oncology - 1 Week PCP Follow-up - 1 Week New Medications: Dexamethasone (Dexamethasone) 4 Mg Tab 4 MG PO Q6HR for Inflammation, #50 TAB 0 Refills Prednisone (Prednisone) 5 Mg Tab 5 MG PO DAILY for Inflammation, #4 TAB 0 Refills Take this for 4 days AFTER discontinueation of Dexamethasone. Continued Medications: Afatinib (Gilotrif) 20 Mg Tab 20 MG PO DAILY, TAB Take at least 1 hr before or 2 hrs after a meal. Aspirin (Aspirin) 81 Mg Chew 81 MG CHEW DAILY, TAB 0 Refills Atorvastatin (Atorvastatin) 40 Mg Tab 40 MG PO HS for Cholesterol Management, #30 TAB 0 Refills Bupropion HCl (Bupropion HCl) 100 Mg Tab 100 MG PO BID for Control Depression, TAB 0 Refills Levothyroxine (Levothyroxine) 75 Mcg Tab 75 MCG PO DAILY for Thyroid, #30 TAB 0 Refills Jose Smith MD Apr 23, 2017 11:47
--- NOTE | 2017-04-23 11:48 | HHI.FF ---
Face to Face Verification Diagnosis: (1) Malignant neoplasm metastatic to lumbar spine with unknown primary site (2) Lung cancer, primary, with metastasis from lung to other site (3) Lung mass (4) Cerebral tumor (5) Chiari I malformation (6) Syringomyelia Physical Therapy Order: Evaluate and Treat Home Health Nursing Order: Wound care and dressing changes I have seen patient Lucy Michelle on 04/23/17. My clinical findings support the need for the requested home health care services because: Ltd mobility - disease progression Deconditioned w/ increased weakness Limited ability to care for self High risk of falls I certify that my clinical findings support that this patient is homebound because: Post-op weakness Unsteady gait/balance Unsafe to leave home unassisted Unable to use public transportation Jose Smith MD Apr 23, 2017 11:48
[2017-04-23 12:00] VITALS: BP 134/62; PULSE 60; RESP 17; TEMP 98.1; O2SAT 97
--- NOTE | 2017-04-23 13:10 | HHI.NSPN ---
(Leandro Peres Abhi CAMPBELL) History Chief Complaint: No complaints. (Leandro PeresMarilin CAMPBELL) Interval History 61-year-old female with previous history of cervical syrinx with Chiari malformation documented in previous MRI of the cervical spine from 2011. Previously followed by neurology-Dr. Kaela Mariscal. Patient also has a history of metastatic non-small cell lung cancer. Prior imaging revealed metastatic disease to the lumbar spine. Patient now presents with a few weeks of dizziness and headache. Recently seen by neurology as an outpatient. She came to the emergency room on 04/03/17 due to speech difficulty, mental status changes, nausea and vomiting and persistent headache. 04/07: her symptoms better with Decadron. Daughter in room, both she and patient agrees with surgery this week. 04/09/2017: Patient feeling better. Ambulating for short distance without assistance. Headache improving. Less pain across the neck and shoulders. 04/11: The patient went for a resection of a cerebellar neoplasm yesterday afternoon. Post-operatively she was transferred to the [facility] for further care and management. A repeat CT brain this morning demonstrated expected post-operative changes. Today the patient is drowsy but readily interacts and complains of neck pain. She denies any headache. 04/12: The patient is awake and alert this morning. She says she feels "great, well maybe not great. But I feel good." She does say she has some headache to the occipital area. She states she really doesn't have any pain. She readily smiles and laughs when talking. 04/13: This morning the patient says she is doing good. She states she has pain, but it really isn't pain, to the back of the head and neck. She isn't able to differentiate whether it is a headache or pain to the surgical site. She states that she was able to get up with assistance to the [facility] this morning and had no problems. She is sitting in a chair at present. 04/14/17: No headache with ventriculostomy raised to 20 cm water last evening.. CT scan head without significant hydrocephalus or edema. 04/15: Patient is up and ambulating using a wheeled walker with standby assistance this morning when seen. She states she has soreness to the back of the head and neck but says that she has not really had any headache. She denied any dizziness. The ventriculostomy was clamped yesterday. A repeat CT brain this morning was stable compared to yesterday. 04/16: The ventriculostomy was removed yesterday afternoon. The patient had additional steri-strips placed yesterday evening due to continued drainage from the ventriculostomy insertion site. She states there has not been any further leakage. She states that she is not having any pain to the back of the head or the neck. She keeps focusing on wanting to go home at discharge and have Home Health come to her apartment. She states she has a walker and commode chair at home. She says she has previously been at [facility] for physical therapy and all they did was ask her to throw a beach ball to them and then tossed it back to her. She reports that her strength improved once she got home and started doing some exercises at home on her own. 04/17: The patient was seen ambulating the hallway using a wheeled walker without any assistance. Her gait was steady. When seen she said she felt good and had no complaints. She reports showering from the shoulders down earlier today. The patient does report that Radiation Oncology plans to start treatments while in the hospital. 04/18: The patient was seen ambulating in the room on her own without a walker. When seen the patient states that she is doing well and had no complaints. Transport is at the bedside to take the patient for a CT simulation with her first radiation treatment on . 04/21: This morning the patient is doing well when seen and had no complaints other than stating that her hair is starting to smell from not having been washed. 04/22: The patient is doing good this afternoon when seen. She has had her second radiation treatment. She states that after her first one yesterday she had to take a 30 minute nap but didn't have to today. She has no complaints. 04/23: The patient is doing well and has no complaints. She is being discharged home by the Hospitalist. (Leandro Peres) System Review Comments Constitutional: Patient denies any fever or chills. HEENT: Patient denies any pain to the back of the head and neck. She denies any visual or hearing difficulty. Respiratory: Patient denies any shortness of breath or productive cough. Cardiovascular: Patient denies any chest pain, palpitations or irregular heartbeat. Gastrointestinal: Patient states that she is not moving her bowels like she did before. She denies any abdominal pain, nausea or vomiting or incontinence of stool. Genitourinary: Patient denies any incontinence of urine. Musculoskeletal: Patient denies any pain to the back of the head and neck. She denies any back or extremity pain. Neurologic: Patient denies any headache, dizziness, numbness or tingling. (Leandro Peres) Exam Results 04/21/17 04/21/17 04/22/17 04/22/17 04/23/17 04/23/17 06:00 18:00 06:00 18:00 06:00 18:00 Intake Total 100 ml 920 ml 600 ml Balance 100 ml 920 ml 600 ml Intake Oral 920 ml 600 ml IV Total 100 ml # Voids 8 6 3 # Bowel Movements 2 4 Vital Signs Date Time Temp Pulse Resp B/P (MAP) Pulse Ox O2 Delivery O2 Flow Rate FiO2 04/23/17 08:00 97.7 58 16 131/56 (81) 99 04/23/17 04:00 97.9 54 18 149/65 (93) 97 04/23/17 00:00 97.6 51 18 167/77 (107) 98 04/22/17 20:00 98.4 64 18 122/57 (78) 98 04/22/17 16:00 97.9 68 20 143/62 (89) 97 04/22/17 12:00 97.7 72 16 113/58 (76) 97 04/22/17 08:00 97.3 71 16 139/80 (99) 99 04/22/17 04:00 97.9 62 18 149/70 (96) 97 04/22/17 00:00 97.4 63 18 113/54 (73) 98 04/21/17 20:00 97.9 68 18 115/56 (75) 98 04/21/17 16:00 98.3 64 20 116/58 (77) 98 04/21/17 12:00 97.8 66 20 125/58 (80) 97 04/21/17 08:00 98.2 69 20 124/58 (80) 99 04/21/17 05:14 97.6 57 20 135/62 (86) 98 04/21/17 00:36 98.1 63 18 136/63 (87) 97 04/20/17 19:50 98.0 62 18 133/64 (87) 97 04/20/17 16:00 97.6 67 20 118/59 (78) 97 (Leandro Peres) Physical Examination GENERAL: Patient awake and alert. She readily interacts. Her affect is normal. No distress apparent. SKIN: Warm, dry & intact, surgical incisions well approximated w/balaji w/o any drainage, erythema or streaking. HEENT: Posterior neck/occipital surgical incisions NTTP. NECK: Posterior neck/occipital surgical incisions NTTP, no JVD, trachea midline. MUSCULOSKELETAL: FRAZIER w/o difficulty, no evident deformity or clubbing. NEUROLOGICAL: AAOx3. Speech clear & appropriate. CN II-XII grossly intact. Sensation intact to light touch to all extremities. Motor strength 5/5 to all major flexion & extension muscle groups. (Leandro Peres) Medical Decision Making Impression and Plan Impression: (1) Cerebral tumor (2) Chiari I malformation (3) Syringomyelia 1. Multiple cerebral lesions, superior cerebellar lesion, probable metastatic neoplasm. 2. Chiari I malformation 3. Cervical syringomyelia The patient is doing well and remains neurologically intact. POD #13 () s/p: 1. Suboccipital decompressive craniectomy 2. Dural fenestration for Chiari malformation decompression 3. C1 decompressive laminectomy 4. Resection of superior cerebellar neoplasm 5. Left occipital bur hole, ventriculostomy placement Plan: Patient discharged home by Hospitalist. Concur with discharge home. Will have Nursing remove the balaji from the patient's surgical incisions. (Leandro Peres) Attending Statement The exam, history, and the medical decision-making described in the above note were completed with the assistance of the mid-level provider. I reviewed and agree with the findings presented. I attest that I had a [id number] encounter with the patient on the same day, and personally performed and documented my assessment and findings in the medical record. Stable neurologic exam Radiation therapy to continue as outpatient Continuing Decadron Okay to discharge home (Clem Rich MD) Leandro Peres Apr 23, 2017 13:10 Clem Rich MD May 12, 2017 06:49
== END 2017-04-23 15:30 | disposition home health service (06) | DRG 25 ==
LOC: NEPE 11:55 → NEDA 15:51 → NEPHCDU 18:19 → OBSVTOIN 04-04 11:44 → HOCB 04-05 01:27 → N03B 04-10 20:26 → N03A 04-11 01:14 → N05B 04-15 16:35
PROVIDERS: ADMIT Hospitalist; ATTEND Hospitalist
PROC: 00N00ZZ Release Brain, Open Approach (ICD-10-PCS; 2017-04-10)
PROC: 00BC0ZZ Excision of Cerebellum, Open Approach (ICD-10-PCS; 2017-04-10)
PROC: 00NW0ZZ Release Cervical Spinal Cord, Open Approach (ICD-10-PCS; principal; 2017-04-10 15:34)
PROC: 009630Z Drainage of Cerebral Ventricle with Drainage Device, Percutaneous Approach (ICD-10-PCS; 2017-04-10 15:34)
PROC: D0Y0FZZ Plaque Radiation of Brain (ICD-10-PCS; 2017-04-21)
DX: C79.31 Secondary malignant neoplasm of brain (principal); G93.5 Compression of brain; G93.6 Cerebral edema; G91.9 Hydrocephalus, unspecified; R13.10 Dysphagia, unspecified; G95.0 Syringomyelia and syringobulbia; C79.51 Secondary malignant neoplasm of bone; C34.90 Malignant neoplasm of unspecified part of unspecified bronchus or lung; N39.0 Urinary tract infection, site not specified; R41.82 Altered mental status, unspecified; G35 Multiple sclerosis; I10 Essential (primary) hypertension; E03.9 Hypothyroidism, unspecified; E78.00 Pure hypercholesterolemia, unspecified; K21.9 Gastro-esophageal reflux disease without esophagitis; M25.78 Osteophyte, vertebrae; Z87.442 Personal history of urinary calculi; F41.9 Anxiety disorder, unspecified; M19.90 Unspecified osteoarthritis, unspecified site; Z51.5 Encounter for palliative care; Z66 Do not resuscitate; F32.9 Major depressive disorder, single episode, unspecified; I97.3 Postprocedural hypertension
CPT/HCPCS: 36430; 70450; 70553; 71010; 71260; 72125; 72156; 72158; 74177; 77263; 77290; 77334; 77412; 77417; 80048; 80053; 81001; 82550; 82607; 82746; 82948; 83605; 83735; 84100; 84155; 84484; 85025; 85027; 85610; 85652; 85730; 86850; 86900; 86901; 86920; 87040; 87077; 87086; 87186; 87641; 88112; 88307; 93005; 94150; 96360; 99222; A9579; C1713; G0378; J0131; J0330; J0360; J0690; J0696; J1100; J1580; J1815; J2250; J2270; J2370; J2405; J3010; J3420; J3480; J7030; J7040; J7050; J7120; P9016; Q9963; Q9967

== ENCOUNTER 2017-06-19 18:25 | Observation (INO) | payer OTHER ==
[~2017-06-19] VITALS: Ht 162.6 cm; Wt 59.0 kg
[~2017-06-19 18:25] MED LIST changes: +ATOR40TA16 PO; +BUPR100T4 PO; +[UNRECOGNIZED DRUG - CODE] PO; -[UNRECOGNIZED DRUG - OTHER] PO
[2017-06-19 18:26] VITALS: BP 120/58; PULSE 93; RESP 18; TEMP 98.1; O2SAT 96
[2017-06-19 19:26] VITALS: BP 120/58; PULSE 80; RESP 18; TEMP 98.8; O2SAT 100
--- NOTE | 2017-06-19 19:53 | PD ---
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 One was in the cerebellum which was resected . She has 2 remaining more anterior in the cerebrum she received radiation therapy ending about [address] Allison is her oncologist. Patient's coming in because she's been having difficulty ambulating and even with a walker she is now unable to and legs without assistance. She has a home health aide who comes to check her blood pressure today they noticed the pressure was very low 80/60. They decided she should come to the ER. Patient appears somewhat halted in her speech and slow in her thought her daughter is bedside. Patient' s main complaint is inability to ambulate progressively getting worse over the last 2 weeks area she has not taken any medications. She is also not hungry and not eating much and her blow blood pressure could be secondary to lack of by mouth intake. She tried to take ensure to help with this but she vomited it up. In the ER she has no specific complaints and her blood pressure now is 120/ 56. PFSH Past Medical History Asthma: No Autoimmune Disease: Yes (MS) Blood Disorders: No Anxiety: Yes Depression: No Heart Rhythm Problems: No Cancer: Yes (STAGE 4 LUNG CA) Cardiac Catheterization: No Cardiovascular Problems: Yes (calcification) High Cholesterol: Yes Chemotherapy: Yes Congestive Heart Failure: No COPD: No Diabetes: No Diminished Hearing: No Endocrine: Yes Gastrointestinal Disorders: Yes (nausea) GERD: Yes Glaucoma: No Genitourinary: No Hepatitis: No Hiatal Hernia: Yes Hypertension: Yes Immune Disorder: Yes Implanted Vascular Access Dvce: No Musculoskeletal: Yes Neurologic: Yes ( forgetfulness recently) Psychiatric: No Reproductive: No Respiratory: No Sleep Apnea: No Thyroid Disease: Yes (HYPOTHYROID) Menopausal: Yes : 1 Para: 1 Tubal Ligation: Yes Past Surgical History Abdominal Surgery: No AICD: No Arteriovenous Shunt: No Cardiac Surgery: No Coronary Artery Bypass Graft: No Ear Surgery: No Endocrine Surgery: No Eye Surgery: No Genitourinary Surgery: No Gynecologic Surgery: Yes (HYSTERECTOMY) Hysterectomy: Yes (parial) Insulin Pump: No Joint Replacement: No Oral Surgery: No Pacemaker: No Thoracic Surgery: Yes (BREAST AUGMENTATION/AND REDUCTION) Other Surgery: Yes Social History Alcohol Use: No (wine monthly) Tobacco Use: No Substance Use: No Allergies-Medications (Allergen,Severity, Reaction): Coded Allergies: No Known Allergies (Verified Allergy, Unknown, 06/19/17) Reported Meds & Prescriptions Reported Meds & Active Scripts Active Review of Systems Except as stated in HPI: all other systems reviewed are Neg Neurologic: Positive: Weakness, Coordination Problem (patient also suffering from hypotension at home), Ataxia Physical Exam Narrative GENERAL: SKIN: Warm and dry. HEAD: Atraumatic. Normocephalic. EYES: Pupils equal and round. No scleral icterus. No injection or drainage. ENT: No nasal bleeding or discharge. Mucous membranes pink and moist. NECK: Trachea midline. No JVD. CARDIOVASCULAR: Regular rate and rhythm. RESPIRATORY: No accessory muscle use. Clear to auscultation. Breath sounds equal bilaterally. GASTROINTESTINAL: Abdomen soft, non-tender, nondistended. Hepatic and splenic margins not palpable. MUSCULOSKELETAL: Extremities without clubbing, cyanosis, or edema. No obvious deformities. NEUROLOGICAL: Awake and alert. No obvious cranial nerve deficits. Motor grossly within normal limits. Five out of 5 muscle strength in the arms and legs. Normal speech. PSYCHIATRIC: Appropriate mood and affect; insight and judgment normal. Data Data Last Documented VS Vital Signs Date Time Temp Pulse Resp B/P (MAP) Pulse Ox O2 Delivery O2 Flow Rate FiO2 06/19/17 23:45 87 18 117/60 (79) 06/19/17 21:00 99 Room Air 06/19/17 19:26 98.8 Orders Orders Complete Blood Count With Diff (06/19/17 19:35) Comprehensive Metabolic Panel (06/19/17 19:35) Lipase (06/19/17 19:35) Urinalysis - C+S If Indicated (06/19/17 19:35) Sodium Chlorid 0.9% 500 Ml Inj (Ns 500 M (06/19/17 20:00) D5-1/2 Ns + Kcl 40 Meq Inj (D5-1/2 Ns + (06/19/17 21:15) Electrocardiogram (06/19/17 ) Chest, Pa & Lat (06/19/17 ) Consult Medical Oncology (06/19/17 ) Place In Observation (06/19/17 ) Vital Signs (Adult) Q4H (06/19/17 23:46) Activity Oob With Assistance (06/19/17 23:46) Intake + Output BRIAN.QSHIFT (06/19/17 23:46) Diet Regular Basic (06/20/17 Breakfast) Sodium Chloride 0.9% Flush (Ns Flush) (06/20/17 00:00) Sodium Chloride 0.9% Flush (Ns Flush) (06/20/17 09:00) Ondansetron Inj (Zofran Inj) (06/20/17 00:00) Comprehensive Metabolic Panel (06/20/17 06:00) Complete Blood Count With Diff (06/20/17 06:00) Pt Request For Service (06/19/17 23:46) Case Management Consult (06/19/17 23:46) Scd Bilateral/Knee High BRIAN.BID (06/19/17 23:46) Nick Bilateral/Knee High BRIAN.QSHIFT (06/19/17 23:49) Pharmacologic Contraindication (06/19/17 23:46) Acetaminophen (Tylenol) (06/20/17 00:00) Acetamin-Hydrocod 325-5 Mg (Parthenon 5-325 (06/20/17 00:00) Docusate Sodium-Senna (Ale-Colace) (06/20/17 09:00) Magnesium Hydroxide Liq (Milk Of Magnesi (06/20/17 00:00) Sennosides (Senokot) (06/20/17 00:00) Bisacodyl Supp (Dulcolax Supp) (06/20/17 00:00) Lactulose Liq (Lactulose Liq) (06/20/17 00:00) Morphine Inj (Morphine Inj) (06/19/17 23:45) Sodium Chlor 0.9% 1000 Ml Inj (Ns 1000 M (06/20/17 00:00) Admit Order (Ed Use Only) (06/19/17 23:54) Magnesium (Mg) (06/20/17 07:15) Labs Laboratory Tests Test 06/19/17 20:00 06/19/17 22:52 White Blood Count 5.4 TH/MM3 Red Blood Count 4.00 MIL/MM3 Hemoglobin 11.9 GM/DL Hematocrit 35.4 % Mean Corpuscular Volume 88.7 FL Mean Corpuscular Hemoglobin 29.7 PG Mean Corpuscular Hemoglobin Concent 33.5 % Red Cell Distribution Width 15.9 % Platelet Count 204 TH/MM3 Mean Platelet Volume 9.1 FL Neutrophils (%) (Auto) 76.3 % Lymphocytes (%) (Auto) 14.2 % Monocytes (%) (Auto) 8.3 % Eosinophils (%) (Auto) 0.6 % Basophils (%) (Auto) 0.6 % Neutrophils # (Auto) 4.1 TH/MM3 Lymphocytes # (Auto) 0.8 TH/MM3 Monocytes # (Auto) 0.5 TH/MM3 Eosinophils # (Auto) 0.0 TH/MM3 Basophils # (Auto) 0.0 TH/MM3 CBC Comment DIFF FINAL Differential Comment Blood Urea Nitrogen 21 MG/DL Creatinine 0.68 MG/DL Random Glucose 100 MG/DL Total Protein 7.0 GM/DL Albumin 3.6 GM/DL Calcium Level 9.3 MG/DL Alkaline Phosphatase 81 U/L Aspartate Amino Transf (AST/SGOT) 17 U/L Alanine Aminotransferase (ALT/SGPT) 20 U/L Total Bilirubin 0.8 MG/DL Sodium Level 139 MEQ/L Potassium Level 2.8 MEQ/L Chloride Level 99 MEQ/L Carbon Dioxide Level 30.2 MEQ/L Anion Gap 10 MEQ/L Estimat Glomerular Filtration Rate 88 ML/MIN Lipase 191 U/L Urine Color YELLOW Urine Turbidity CLEAR Urine pH 6.0 Urine Specific [place] 1.025 Urine Protein 30 mg/dL Urine Glucose (UA) NEG mg/dL Urine Ketones 80 mg/dL Urine Occult Blood TRACE Urine Nitrite NEG Urine Bilirubin MOD Urine Urobilinogen 4.0 MG/DL Urine Leukocyte Esterase NEG Urine RBC 2 /hpf Urine WBC 2 /hpf Urine Mucus FEW /lpf Microscopic Urinalysis Comment CULT NOT INDICATED MDM Medical Decision Making Medical Screen Exam Complete: Yes Emergency Medical Condition: Yes Interpretation(s) EKG NSR @ RATE 80 SHAKY BASELINE ARTIFACTS Differential Diagnosis Progression of her Metastatic disease and cerebellar functioning , vs UTI exacerbation of neuro symptoms vs CVA vs , electrolyte issues or PNA Narrative Course Patient is hypokalemic at 2.8 I put 40 mEq of potassium chloride into D5 half- normal and run at 100 cc an hour. Urine is sent and is pending I'm going to admit her to the hospitalist with a consult for oncology she is not able to live at home apparently anymore she is not able to ambulate her ataxia has increased significantly and she feels unsafe as does her daughter think she should be admitted urine pending but I will admit to inpatient hospitalist and I will let her oncologist know she is here. Vitals are stable afebrile Diagnosis Primary Impression: Hypokalemia Additional Impression: Ataxia Admitting Information Admitting Physician Requests: Admit Scripts [Megestrol Liq] 400 MG/10 ML SUSP No Conflict Check 400 MG PO DAILY for INCREASE APPETITE for 30 Days, #1 BOTTLE Prov: Stacia Cabrales 06/23/17 Escitalopram (Escitalopram) 10 Mg Tab 10 MG PO DAILY for DEPRESSION for 30 Days, #30 TAB Prov: Stacia Cabrales 06/23/17 Timothy Tipton MD Jun 19, 2017 19:53
[2017-06-19] MEDS ORDERED: SODIUM CHLORID 0.9% 500 ML INJ 500 ML IV ONE (20:00)
[2017-06-19 20:36] LABS: AUTOMATED NEUTROPHIL # 4.1 TH/MM3 (1.8-7.7); BASOPHIL % 0.6 % (0.0-2.0); EOSINOPHIL % 0.6 % (0.0-4.0); HEMATOCRIT 35.4 % (35.0-46.0); HEMO FLAGS DIFF FINAL; LYMPH % 14.2 % (9.0-44.0); LYMPHOCYTE # 0.8 TH/MM3 (1.0-4.8); MEAN CELL VOLUME 88.7 FL (80.0-100.0); MEAN CORPUSCULAR HEMOGLOBIN 29.7 PG (27.0-34.0); MEAN CORPUSCULAR HGB CONC 33.5 % (32.0-36.0); MONO % 8.3 % (0.0-8.0); NEUT % 76.3 % (16.0-70.0); PLATELET COUNT 204 TH/MM3 (150-450); RED CELL DISTRIBUTION WIDTH 15.9 % (11.6-17.2); WHITE BLOOD COUNT 5.4 TH/MM3 (4.0-11.0)
[2017-06-19 21:00] VITALS: BP 131/60; PULSE 75; RESP 18; O2SAT 99
[2017-06-19 21:02] LABS: ALKALINE PHOSPHATASE 81 U/L (45-117); ALT (GPT) 20 U/L (10-53); ANION GAP 10 MEQ/L (5-15); AST (GOT) 17 U/L (15-37); BICARBONATE 30.2 MEQ/L (21.0-32.0); BLOOD UREA NITROGEN 21 MG/DL (7-18); CHLORIDE 99 MEQ/L (98-107); GLOMERULAR FILTRATION RATE 88 ML/MIN (>89); SODIUM (NA) 139 MEQ/L (136-145); TOTAL BILIRUBIN ADULT 0.8 MG/DL (0.2-1.0)
[2017-06-19 21:03] LABS: POTASSIUM 2.8 MEQ/L (3.5-5.1)
[2017-06-19] MEDS ORDERED: D5-1/2 NS + KCL 40 MEQ INJ 1,000 ML IV SCH (21:15)
[2017-06-19 23:21] LABS: BLOOD, URINE TRACE (NEG); COMMENT (UR) CULT NOT INDICATED; CULTURE IF INDICATED CULT NOT INDICATED; GLUCOSE,URINE NEG (NEG); KETONE, URINE 80 mg/dL (NEG); MUCUS URINE FEW /lpf (OCC); NITRITE,URINE NEG (NEG); URINE COLOR YELLOW (YELLW/STRAW)
[2017-06-19 23:45] VITALS: BP 117/60; PULSE 87; RESP 18
[2017-06-19] MEDS ORDERED: MORPHINE SULFATE 2 MG/ML INJ IV PRN (23:45)
--- NOTE | 2017-06-19 23:46 | HHI.HP ---
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 Seen by [facility] RN today, BP noted to be in the 80's and was referred to the ER for further evaluation. Denies fever, chills, nausea, vomiting or diarrhea. S/p Resection of Cerebellar Neoplasm by Dr. Rich on 04/10/17 and chemo/ radiation. Has had progressive deterioration since. On arrival, BP 120/58, HR 93, O2 sat 96% on RA, Afebrile. CBC essentially unremarkable. K+ 2.8. BUN 21 , GFR 88. UA negative. CXR with triangular opacity upper medial left lung similar to previous CT. Review of Systems Except as stated in HPI: all other systems reviewed are Neg ROS: 14 point review of systems otherwise negative. 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 No h/o DM or CAD Social History PAST SOCIAL HISTORY: Occasional alcohol. Negative for tobacco or drugs. Physical Exam Vital Signs Vital Signs Date Time Temp Pulse Resp B/P (MAP) Pulse Ox O2 Delivery O2 Flow Rate FiO2 06/19/17 19:26 98.8 80 18 120/58 (78) 100 06/19/17 19:18 100 Room Air 06/19/17 18:26 98.1 93 18 120/58 (78) 96 Room Air Physical Exam PE: GENERAL: Pleasant middle-aged white female in no acute distress, appears weak/ tired. HEENT: PERRLA, EOMI. No scleral icterus or conjunctival pallor. No lid lag or facial droop. CARDIOVASCULAR: Regular rate and rhythm. No obvious murmurs to auscultation. No chest tenderness to palpation. RESPIRATORY: No obvious rhonchi or wheezing. Clear to auscultation. Breath sounds equal bilaterally. GASTROINTESTINAL: Abdomen soft, non-tender, nondistended. BS normal. MUSCULOSKELETAL: Extremities without clubbing, cyanosis, or edema. No obvious deformities. NEUROLOGICAL: Awake, alert and oriented x4. No focal neurologic deficits. Moving both upper and lower extremities spontaneously. Laboratory Laboratory Tests Test 06/19/17 20:00 06/19/17 22:52 White Blood Count 5.4 Red Blood Count 4.00 Hemoglobin 11.9 Hematocrit 35.4 Mean Corpuscular Volume 88.7 Mean Corpuscular Hemoglobin 29.7 Mean Corpuscular Hemoglobin Concent 33.5 Red Cell Distribution Width 15.9 Platelet Count 204 Mean Platelet Volume 9.1 Neutrophils (%) (Auto) 76.3 Lymphocytes (%) (Auto) 14.2 Monocytes (%) (Auto) 8.3 Eosinophils (%) (Auto) 0.6 Basophils (%) (Auto) 0.6 Neutrophils # (Auto) 4.1 Lymphocytes # (Auto) 0.8 Monocytes # (Auto) 0.5 Eosinophils # (Auto) 0.0 Basophils # (Auto) 0.0 CBC Comment DIFF FINAL Differential Comment Blood Urea Nitrogen 21 Creatinine 0.68 Random Glucose 100 Total Protein 7.0 Albumin 3.6 Calcium Level 9.3 Alkaline Phosphatase 81 Aspartate Amino Transf (AST/SGOT) 17 Alanine Aminotransferase (ALT/SGPT) 20 Total Bilirubin 0.8 Sodium Level 139 Potassium Level 2.8 Chloride Level 99 Carbon Dioxide Level 30.2 Anion Gap 10 Estimat Glomerular Filtration Rate 88 Lipase 191 Urine Color YELLOW Urine Turbidity CLEAR Urine pH 6.0 Urine Specific [place] 1.025 Urine Protein 30 Urine Glucose (UA) NEG Urine Ketones 80 Urine Occult Blood TRACE Urine Nitrite NEG Urine Bilirubin MOD Urine Urobilinogen 4.0 Urine Leukocyte Esterase NEG Urine RBC 2 Urine WBC 2 Urine Mucus FEW Microscopic Urinalysis Comment CULT NOT INDICATED Result Diagram: 06/19/17199906/19/171999 Caprini VTE Risk Assessment Caprini VTE Risk Assessment: No/Low Risk (score <= 1) VTE Pharm Contraindication: Intracranial lesions Caprini Risk Assessment Model Point Value = 1 Point Value = 2 Point Value = 3 Point Value = 5 Age 41-60 Minor surgery BMI > 25 kg/m2 Swollen legs Varicose veins or History of unexplained or recurrent spontaneous Oral contraceptives or hormone replacement Sepsis (< 1 month) Serious lung disease, including pneumonia (< 1 month) Abnormal pulmonary function Acute myocardial infarction Congestive heart failure (< 1 month) History of inflammatory bowel disease Medical patient at bed rest Age 61-74 Arthroscopic surgery Major open surgery (> 45 min) Laparoscopic surgery (> 45 min) Malignancy Confined to bed (> 72 hours) Immobilizing plaster cast Central venous access Age >= 75 History of VTE Family history of VTE Factor V Leiden Prothrombin [id number] Lupus anticoagulant Anticardiolipin antibodies Elevated serum homocysteine Heparin-induced thrombocytopenia Other congenital or acquired thrombophilia Stroke (< 1 month) Elective arthroplasty Hip, pelvis, or leg fracture Acute spinal cord injury (< 1 month) Prophylaxis Regimen Total Risk Factor Score Risk Level Prophylaxis Regimen 0-1 Low Early ambulation 2 Moderate Order ONE of the following: *Sequential Compression Device (SCD) *Heparin 5000 units SQ BID 3-4 Higher Order ONE of the following medications: *Heparin 5000 units SQ TID *Enoxaparin/Lovenox 40 mg SQ daily (WT < 150 kg, CrCl > 30 mL/min) *Enoxaparin/Lovenox 30 mg SQ daily (WT < 150 kg, CrCl > 10-29 mL/min) *Enoxaparin/Lovenox 30 mg SQ BID (WT < 150 kg, CrCl > 30 mL/min) AND/OR *Sequential Compression Device (SCD) 5 or more Highest Order ONE of the following medications: *Heparin 5000 units SQ TID (Preferred with Epidurals) *Enoxaparin/Lovenox 40 mg SQ daily (WT < 150 kg, CrCl > 30 mL/min) *Enoxaparin/Lovenox 30 mg SQ daily (WT < 150 kg, CrCl > 10-29 mL/min) *Enoxaparin/Lovenox 30 mg SQ BID (WT < 150 kg, CrCl > 30 mL/min) AND *Sequential Compression Device (SCD) Assessment and Plan Problem List: (1) Failure to thrive in adult ICD Code: R62.7 - Adult failure to thrive (2) Dehydration ICD Code: E86.0 - Dehydration (3) Hypokalemia ICD Code: E87.6 - Hypokalemia (4) Metastatic lung carcinoma ICD Code: C78.00 - Secondary malignant neoplasm of unspecified lung Assessment and Plan A/P: 1. Failure to Thrive: progressive weakness/deconditioning, decreased PO intake , IVF for hydration, Megace, Consult Avionics Mechanic for further recommendations. 2. Dehydration: BUN 21, GFR 88, IVF for hydration, repeat labs in am. U/a negative for UTI. 3. Hypokalemia: K+ 2.8, s/p replacement in ER, will recheck and replace in am. 4. Metastatic Lung Ca: w/ TACK PULLER Mets, s/p cerebellar neoplasm resection 04/11/[address] Rich, s/p radiation. Follows w/ Dr. lAlison, will consult for further recommendations. 5. DVT Prophylaxis: Pharmacologic contraindication in light of TACK PULLER lesions. 6. Social work for d/c planning as needed. 7. Case discussed w/ ER physician at length. Skyla Dykes MD Jun 19, 2017 23:45
[2017-06-19] MEDS ORDERED: GADODIAMIDE PF 287 MG/ML 5 ML VIAL (for RAD MRI) IVCONTRAST ONE (23:57)
[2017-06-19] MEDS ORDERED: GADODIAMIDE PF 287 MG/ML 20 ML VIAL (for RAD MRI) IVCONTRAST ONE (23:57)
[2017-06-20] VITALS (7 sets, daily range): BP systolic 89–109; BP diastolic 47–55; PULSE 76–88; RESP 15–20; TEMP 98.4–99.3; O2SAT 97–100
[2017-06-20] MEDS ORDERED: LACTULOSE SYRUP 20 GM/30 ML CUP PO PRN
[2017-06-20] MEDS ORDERED: SODIUM CHLORIDE 0.9% FLUSH 10 ML FLUSH IV FLUSH PRN
[2017-06-20] MEDS ORDERED: MAGNESIUM HYDROXIDE SUSP 30 ML CUP PO PRN
[2017-06-20] MEDS ORDERED: ACETAMINOPHEN/HYDROcodone 325 MG/5 MG TAB PO PRN
[2017-06-20] MEDS ORDERED: SENNOSIDES 8.6 MG TAB PO PRN
[2017-06-20] MEDS ORDERED: ACETAMINOPHEN 325 MG TAB PO PRN
[2017-06-20] MEDS ORDERED: ONDANSETRON HCL 4 MG/2 ML VIAL IVP PRN
[2017-06-20] MEDS ORDERED: BISACODYL 10 MG SUPP RECTAL PRN
--- NOTE | 2017-06-20 00:38 | RADRPT ---
EXAM DATE/TIME: 06/19/2017 23:56 [facility] COMPARISON: CT THORAX W CONTRAST, April 08, 2017, 15:15. INDICATIONS : Weakness and pain MEDICAL HISTORY : Carcinoma, lung. Hypercholesterolemia. Hypertension. GERD, Chemotherapy SURGICAL HISTORY : Breast Augmentation ENCOUNTER: Initial ACUITY: 3 days PAIN SCORE: 7/10 LOCATION: Bilateral chest FINDINGS: AP and lateral view of the chest demonstrates a triangular shaped opacity in the medial left suprahil ar region, similar in size to prior CT 04/08/17. The remainder of the lungs are clear. The heart is n ormal in size. The central bronchopulmonary markings and both hemidiaphragms are well delineated. O sseous structures are grossly intact. CONCLUSION: Triangular shape opacity of the upper medial left lung at site of prior treated lung cancer, similar to prior CT in April 2017. No new findings. Emanuel Roberts MD on June 20, 2017 at 0:34 Board Certified Radiologist. This report was verified electronically.
[2017-06-20 07:45] LABS: AUTOMATED NEUTROPHIL # 2.4 TH/MM3 (1.8-7.7); EOSINOPHIL % 1.3 % (0.0-4.0); HEMO FLAGS DIFF FINAL; LYMPH % 18.9 % (9.0-44.0); LYMPHOCYTE # 0.7 TH/MM3 (1.0-4.8); MEAN CELL VOLUME 88.6 FL (80.0-100.0); MEAN CORPUSCULAR HEMOGLOBIN 31.1 PG (27.0-34.0); MEAN CORPUSCULAR HGB CONC 35.1 % (32.0-36.0); MONO % 10.7 % (0.0-8.0); NEUT % 68.1 % (16.0-70.0); PLATELET COUNT 154 TH/MM3 (150-450); RED BLOOD COUNT 3.05 MIL/MM3 (4.00-5.30); RED CELL DISTRIBUTION WIDTH 15.7 % (11.6-17.2); WHITE BLOOD COUNT 3.5 TH/MM3 (4.0-11.0)
[2017-06-20] MEDS: MEGESTROL ACETATE SUSP 400 MG/10 ML CUP PO SCH (08:21)
[2017-06-20] MEDS: SODIUM CHLOR 0.9% 1000 ML INJ 1,000 ML IV SCH ×3 (08:21→20:00)
[2017-06-20] MEDS: SODIUM CHLORIDE 0.9% FLUSH 10 ML FLUSH IV FLUSH SCH ×2 (08:21→21:00)
[2017-06-20] MEDS: DOCUSATE SODIUM 50 MG/SENNA 8.6 MG TAB PO SCH ×2 (08:21→22:30)
[2017-06-20 08:22] LABS: ALKALINE PHOSPHATASE 60 U/L (45-117); ALT (GPT) 13 U/L (10-53); ANION GAP 10 MEQ/L (5-15); AST (GOT) 16 U/L (15-37); BICARBONATE 26.1 MEQ/L (21.0-32.0); BLOOD UREA NITROGEN 15 MG/DL (7-18); CHLORIDE 105 MEQ/L (98-107); GLOMERULAR FILTRATION RATE 125 ML/MIN (>89); SODIUM (NA) 141 MEQ/L (136-145); TOTAL BILIRUBIN ADULT 0.5 MG/DL (0.2-1.0)
[2017-06-20] MEDS ORDERED: POTASSIUM CHLORIDE 20 MEQ CONTROLLED RELEASE TAB PO ONE (09:45)
[2017-06-20] MEDS: POTASSIUM CHLOR 20 MEQ PREMIX 100 ML IV SCH ×3 (09:54→13:26)
[2017-06-20] MEDS ORDERED: LEVO75TA3 PO (10:21)
[2017-06-20] MEDS ORDERED: BUPR100T4 PO (10:21)
[2017-06-20] MEDS ORDERED: LIPI40TA PO (10:21)
[2017-06-20 10:45] LABS: MAGNESIUM 1.6 MG/DL (1.5-2.5)
--- NOTE | 2017-06-20 11:21 | PD.CONS ---
Consult Service Palliative Care Consult Requested By Nahma Primary Care Physician Unknown Reason for Consultation a. To assist with evaluation and management of symptoms including: debility , anorexia b. To assist medical decision maker(s) with: better understanding of current medical conditions; weighing benefits/burdens of medical treatment options; making medical treatment decisions. HPI History of Present Illness This 62-year-old female presented to the ED on 06/19/17 with complaints of difficulty ambulating. Additionally home health aide reported hypotension 80/60 , recommended she present to the ER. Patient reports progressive inability to ambulate over the past 2 weeks. Also reports poor appetite. She vomited when trying to drink Ensure. Upon arrival to ED her blood pressure 120/56. Patient with known history of non-small cell lung cancer, stage IV, with metastasis to spine and brain. Follows w Dr Allison outpatient. * ED course: Hypokalemic 2.1, received repletion. UA obtained, culture not indicated. WBC 5.4. Hemoglobin 11.9/hematocrit 35. EKG sinus rhythm rate 80s. CXR notes triangular-shaped opacity right upper medial left lung at the site of prior treated lung cancer similar to prior CT in 04/2017, no new findings. * Oncology consulted, pending. Dietitian consulted, pending. Patient started on Megace by medical attending. Palliative care also consulted as patient failing to thrive, to assist with verification of goals of treatment. * Based on reported weights available on EMR patient has lost approximately 10 kg from April to June (22#). Pt seen in ED room, no visitors present. She is alert, mostly oriented. She is forgetful, some delay in answering questions, and easily loses focus. She does follow all commands ,though requires repetition for multistep commands. She is pleasant, cooperative. She moves all 4 extremities,significant generalized weakness. No focal deficits. Attempt to explore recent trajectory, ROS, disease process. She has some limited insight, though is forgetful and at times has difficulty answering questions. explore with her that oncology and dietitian consults are pending. Gently explore with her that progressive weakness and debility could be secondary to overall disease process, and that her trajectory could possibly continue to decline the right now we are attempting to maximize medical treatments. She is unable to clearly state what her goals are at this time. Discuss with her that her daughter is designated HCS, she is in agreement with this, in agreement with me calling her daughter to provide medical update. Following discussion with bedside with patient call to patient daughter Siena. *See family conference for additional detail. ADDITIONAL ONCOLOGY HISTORY : * Recent oncology follow-up outpatient 06/06/17 ( Dr Allison): dx: Metastatic [id number] lung cancer EGFR mutation positive T790M mutation negative. She is noted to have completed whole brain XRT 10 treatments on 05/02/17. At that presentation she is noted to not be doing well with poor appetite, weight loss, headaches, complaints of fatigue weakness, nausea tingling of her fingers and toes as well as confusion. Dr. Ritter notes per restaging imaging during April chest, abdomen, pelvis were negative. On June recommended to complete PET scan to evaluate further for systemic disease. For nutrition issues referred to dietitian. Additional systemic chemotherapy was discussed, pending PET scan results as well as drug approval for patient. Weight 58.6 kg. * Of note patient known to palliative care from prior consultation 04/07/17: At that time patient had been on palliative systemic chemotherapy at reduced dose. She had been having ongoing leg pain and weakness corticosteroids have been added. She underwent cerebellar neoplasm resection during that admission. Postoperatively she had improvement in symptoms and neurological assessment. She was discharged to rehabilitation with plan to continue Decadron, XRT--( which was started during hospital course). She was discharged home with home health, home PT. During that palliative care interaction her neurological status fluctuated though at times she was reasonably insightful and able to participate in decision-making. At that time She verbalizes that if there are reasonable treatment options I can restore her to close to her baseline independence and function and she would continue to pursue such measures, as she has already done fairly well with her initial cancer diagnosis. However should she become dependent, vegetative, or have severe complications she may not wish to pursue further measures, and is very clear that if she suffer significant brain issues such as, or vegetative state that she would not want artificial feeding or life support. Upon review of CODE STATUS she seems to have reasonable understanding and elects DNR, would not want any artificial measures "if it's her time, she wishes "to go ". Weight during that admission 69 kg Function/Cognitive Trajectory Patient presenting with reports of progressive weakness and inability to walk over the past several weeks. Of note during outpatient oncology follow-up 06/07 patient at that time reporting increasing difficulty with ambulation, weakness as well as poor appetite, some confusion. Based on reported weights available on EMR patient has lost approximately 10 kg from April to June (22#) Dtr reports pt increasingly weak and slow in ambulation past several weeks. Now has difficulty walking at all. Cognitive impairments over last few weeks per dtr -- increased difficulty completing simple known tasks, forgetfulness. 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 . Review of Systems ROS Limitations: Poor Historian (forgetful) Constitutional: COMPLAINS OF: Fatigue, Weight loss, Change in appetite, Generalized weakness, DENIES: Pain Eyes: DENIES: Blurred vision, Diplopia, Vision loss Ears, nose, mouth, throat: DENIES: Oral lesions, Throat pain Respiratory: DENIES: Cough, Shortness of breath Cardiovascular: DENIES: Chest pain, Dyspnea on Exertion, Lower Extremity Edema Gastrointestinal: COMPLAINS OF: Nausea (occausional ), Anorexia, DENIES: Abdominal pain, Constipation, Diarrhea, Vomiting, Difficulty Swallowing Genitourinary: DENIES: Urinary frequency, Urinary incontinence Musculoskeletal: DENIES: Joint pain, Muscle aches, Back pain Integumentary: DENIES: Rash Neurologic: DENIES: Headache, Localized weakness, Speech Problems Psychiatric: COMPLAINS OF: Confusion (some per dtr) Past Family Social History Coded Allergies: No Known Allergies (Verified Allergy, Unknown, 06/19/17) Past Medical History metastatic adenocarcinoma of the lung dx February of 2015--metastatic lesions L1, left upper lung lobe, positive EGFR mutation status post palliative radiation to vertebral metastases Multiple sclerosis dx 2009 hypothyroidism Hypercholesterolemia Anxiety Arthritis Concussion 2011 . Past Surgical History Hysterectomy Breast Augmentation/Reduction Cerebellar neoplasm resection 04/10/17 (Dr. Rich) Biopsy vertebral body mass Right wrist surgery . Reported Medications Atorvastatin (Atorvastatin Calcium) 40 Mg Tab 40 Mg PO HS Bupropion HCl 100 Mg Tab 100 Mg PO BID Gilotrif (Afatinib) 20 Mg Tab 20 Mg PO DAILY Take at least 1 hr before or 2 hrs after a meal. Levothyroxine (Levothyroxine Sodium) 75 Mcg Tab 75 Mcg PO DAILY . Current Medications Medications (Trade) Dose Ordered Sig/Pierce Route Start Time Stop Time Status Last Admin Sodium Chloride 1,000 ml @ 100 mls/hr Q10H IV 06/20/17 00:00 06/20/17 08:21 (NS Flush) 2 ml UNSCH PRN IV FLUSH 06/20/17 00:00 (NS Flush) 2 ml BID IV FLUSH 06/20/17 09:00 (Zofran Inj) 4 mg Q6H PRN IVP 06/20/17 00:00 06/20/17 00:40 (Tylenol) 650 mg Q6H PRN PO 06/20/17 00:00 (Virgie 5-325 Mg) 1 tab Q4H PRN PO 06/20/17 00:00 (Morphine Inj) 2 mg Q3H PRN IV 06/19/17 23:45 (Ale-Colace) 1 tab BID PO 06/20/17 09:00 (Milk Of Magnesia Liq) 30 ml Q12H PRN PO 06/20/17 00:00 (Senokot) 17.2 mg Q12H PRN PO 06/20/17 00:00 (Dulcolax Supp) 10 mg DAILY PRN RECTAL 06/20/17 00:00 (Lactulose Liq) 30 ml DAILY PRN PO 06/20/17 00:00 (Megace Liq) 400 mg DAILY PO 06/20/17 09:00 06/20/17 08:21 Potassium Chloride 100 ml @ 50 mls/hr Q2H IV 06/20/17 09:45 06/20/17 13:44 Family History father from Alzheimer's. Mother from brain tumor. . Substance Use Tobacco: Nonsmoker Alcohol: Previously drank Wine monthly Prescription med abuse: None Illicits: None . Psychosocial History Per prior palliative care review with patient:Lives alone. . Supported by her only child, daughter who visits several times a week. 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 Daughter indicates patient hx moves residence frequently, and has exhibited some compulsive-like behaviors such as buying 10 of the same shirt in the same color, and moving every 6 months to a year. Spiritual/Cultural Factors Member of [facility] [employer]. . Living Will: Copy in medical record Health Care Surrogate: Copy in medical record Date completed: 04/07/17 Health Care Surrogate(s): Daughter Siena. Ethical and Legal Issues Patient mental status fluctuates secondary to metastatic disease process. Her capacity is likely to fluctuate. She may be able to participate in decision- making though it would be best to observe shared/supportive decision making involving her designated healthcare surrogate daughter Siena. Physical Exam Vital Signs Date Time Temp Pulse Resp B/P (MAP) Pulse Ox O2 Delivery O2 Flow Rate FiO2 06/20/17 07:24 99.3 76 18 101/50 (67) 97 06/20/17 05:31 98.4 85 18 106/51 (69) 99 06/20/17 02:10 98.6 84 20 109/55 (73) 100 06/19/17 23:45 87 18 117/60 (79) 06/19/17 21:00 75 18 131/60 (83) 99 Room Air 06/19/17 19:26 98.8 80 18 120/58 (78) 100 06/19/17 19:18 100 Room Air 06/19/17 18:26 98.1 93 18 120/58 (78) 96 Room Air Exam CONSTITUTIONAL/GENERAL: This is an adequately nourished patient, in no apparent distress. TUBES/LINES/DRAINS:PIV LUE SKIN: No jaundice, rashes, or lesions. No wounds seen anteriorly. Skin temperature appropriate. Not diaphoretic. HEAD: Atraumatic. Normocephalic. +hair thinning, loss EYES: Pupils equal and round and reactive. Extraocular motions intact. No scleral icterus. No injection or drainage. Fundi not examined. ENT: Hearing grossly normal. Nose without bleeding or purulent drainage. Throat without visible erythema, exudates, masses, or lesions. NECK: Trachea midline. Supple, nontender. No palpable thyroid enlargement or nodularity. CARDIOVASCULAR: Regular rate and rhythm without murmur. No JVD. Peripheral pulses symmetric. RESPIRATORY/CHEST: Symmetric, unlabored respirations.On room air, Clear to auscultation. Breath sounds equal bilaterally. GASTROINTESTINAL: Abdomen soft, non-tender, nondistended. No hepato-splenomegaly , or palpable masses. No guarding. Bowel sounds present. GENITOURINARY: Without palpable bladder distension. MUSCULOSKELETAL: Extremities without clubbing, cyanosis, or edema. No joint tenderness or effusion noted. No mottling or clubbing. LYMPHATICS: No palpable cervical or supraclavicular adenopathy. NEUROLOGICAL: Awake and alert.Mostly oriented x2-3 but forgetful. Delay in speech. Difficulty finding words. moves all 4 extremities with weakness, strength equal bilaterally. PSYCHIATRIC: No obvious anxiety/depression. no apparent hallucinations or other psychotic thought process. Diagnostic Tests Laboratory Laboratory Tests Test 06/19/17 20:00 06/19/17 22:52 06/20/17 07:15 White Blood Count 5.4 TH/MM3 (4.0-11.0) 3.5 TH/MM3 (4.0-11.0) Red Blood Count 4.00 MIL/MM3 (4.00-5.30) 3.05 MIL/MM3 (4.00-5.30) Hemoglobin 11.9 GM/DL (11.6-15.3) 9.5 GM/DL (11.6-15.3) Hematocrit 35.4 % (35.0-46.0) 27.0 % (35.0-46.0) Mean Corpuscular Volume 88.7 FL (80.0-100.0) 88.6 FL (80.0-100.0) Mean Corpuscular Hemoglobin 29.7 PG (27.0-34.0) 31.1 PG (27.0-34.0) Mean Corpuscular Hemoglobin Concent 33.5 % (32.0-36.0) 35.1 % (32.0-36.0) Red Cell Distribution Width 15.9 % (11.6-17.2) 15.7 % (11.6-17.2) Platelet Count 204 TH/MM3 (150-450) 154 TH/MM3 (150-450) Mean Platelet Volume 9.1 FL (7.0-11.0) 9.4 FL (7.0-11.0) Neutrophils (%) (Auto) 76.3 % (16.0-70.0) 68.1 % (16.0-70.0) Lymphocytes (%) (Auto) 14.2 % (9.0-44.0) 18.9 % (9.0-44.0) Monocytes (%) (Auto) 8.3 % (0.0-8.0) 10.7 % (0.0-8.0) Eosinophils (%) (Auto) 0.6 % (0.0-4.0) 1.3 % (0.0-4.0) Basophils (%) (Auto) 0.6 % (0.0-2.0) 1.0 % (0.0-2.0) Neutrophils # (Auto) 4.1 TH/MM3 (1.8-7.7) 2.4 TH/MM3 (1.8-7.7) Lymphocytes # (Auto) 0.8 TH/MM3 (1.0-4.8) 0.7 TH/MM3 (1.0-4.8) Monocytes # (Auto) 0.5 TH/MM3 (0-0.9) 0.4 TH/MM3 (0-0.9) Eosinophils # (Auto) 0.0 TH/MM3 (0-0.4) 0.0 TH/MM3 (0-0.4) Basophils # (Auto) 0.0 TH/MM3 (0-0.2) 0.0 TH/MM3 (0-0.2) CBC Comment DIFF FINAL DIFF FINAL Differential Comment Blood Urea Nitrogen 21 MG/DL (7-18) 15 MG/DL (7-18) Creatinine 0.68 MG/DL (0.50-1.00) 0.50 MG/DL (0.50-1.00) Random Glucose 100 MG/DL (74-106) 124 MG/DL (74-106) Total Protein 7.0 GM/DL (6.4-8.2) 5.0 GM/DL (6.4-8.2) Albumin 3.6 GM/DL (3.4-5.0) 2.6 GM/DL (3.4-5.0) Calcium Level 9.3 MG/DL (8.5-10.1) 8.2 MG/DL (8.5-10.1) Alkaline Phosphatase 81 U/L (45-117) 60 U/L (45-117) Aspartate Amino Transf (AST/SGOT) 17 U/L (15-37) 16 U/L (15-37) Alanine Aminotransferase (ALT/SGPT) 20 U/L (10-53) 13 U/L (10-53) Total Bilirubin 0.8 MG/DL (0.2-1.0) 0.5 MG/DL (0.2-1.0) Sodium Level 139 MEQ/L (136-145) 141 MEQ/L (136-145) Potassium Level 2.8 MEQ/L (3.5-5.1) 3.0 MEQ/L (3.5-5.1) Chloride Level 99 MEQ/L (98-107) 105 MEQ/L (98-107) Carbon Dioxide Level 30.2 MEQ/L (21.0-32.0) 26.1 MEQ/L (21.0-32.0) Anion Gap 10 MEQ/L (5-15) 10 MEQ/L (5-15) Estimat Glomerular Filtration Rate 88 ML/MIN (>89) 125 ML/MIN (>89) Lipase 191 U/L (73-393) Urine Color YELLOW (YELLW/STRAW) Urine Turbidity CLEAR (CLEAR) Urine pH 6.0 (5.0-8.5) Urine Specific [place] 1.025 (1.002-1.035) Urine Protein 30 mg/dL (NEG-TRACE) Urine Glucose (UA) NEG mg/dL (NEG) Urine Ketones 80 mg/dL (NEG) Urine Occult Blood TRACE (NEG) Urine Nitrite NEG (NEG) Urine Bilirubin MOD (NEG) Urine Urobilinogen 4.0 MG/DL (LESS THAN Urine Leukocyte Esterase NEG (NEG) Urine RBC 2 /hpf (0-3) Urine WBC 2 /hpf (0-5) Urine Mucus FEW /lpf (OCC) Microscopic Urinalysis Comment CULT NOT INDICATED Magnesium Level 1.6 MG/DL (1.5-2.5) Result Diagram: 06/20/17 0715 06/20/17 0715 Imaging Last Impressions Chest X-Ray 06/19/17 0000 Signed Impressions: Service Date/Time: June 23:56 - CONCLUSION: Triangular shape opacity of the upper medial left lung at site of prior treated lung cancer, similar to prior CT in April 2017. No new findings. Emanuel Roberts MD Patient/Family Conference Family Conference Location: Telephone Issues Discussed: Initially met with patient at bedside, limited discussion with patient as she has limited insight and forgetful, see history of present illness for additional discussion with patient. Call to patient daughter discussion included the following: * Palliative care role, purpose, approach * Patients general health, functional status, and cognitive changes in the weeks leading up to the current hospitalization * Patient/family understanding of the current medical problems * Patient/family understanding of prognosis; further prognostication pending oncology's input this admission * Patients goals of care as best understood from advance directives and/or conversations and/or values * Current medical treatment options and benefits/burdens of those options * Likely scenarios comparing ongoing aggressive care with a transition to comfort measures only; some limited exploration (pending additional oncology prognostication )patient of ongoing aggressive treatments versus comfort focus only,introduction to hospice role and philosophy * Review legal decision makers and recommendation that patient be able to participate but has shared decision making in place daughter in agreement with this * CODE STATUS-daughter requests DNR status based on her mother's known wishes of not wanting to suffer * Questions answered to the best of my ability * Palliative care contact information provided Daughter describes patient with cognitive and functional deficits progressively worsening over the past several weeks. Patient with difficulty completing tasks such as unlocking the front door a heating up her own food etc. Patient with increased difficulty getting up from the couch about a week ago it took her approximately 30 minutes to get up from the couch and to get to the door and unlock the door to allow the daughter in her home--during that time she had difficulty manipulating and unlocking the door. Daughter indicates that she has been somewhat private and does not disclose everything regarding her overall cancer process and that the patient is reluctant to let on how poorly she has been doing and that she has been unable to care for herself. Daughter does not feel patient can safely care for herself alone anymore. Daughter would like additional prognostication from oncology to help them going forward in knowing when it may be appropriate time to transition to comfort and hospice. She indicates that the patient has known for some time that at some point her disease would continue to progress however she is always been reluctant to talk about end-stage process or end-of-life. She also endorses that her mother would not want to suffer and she does not wish to see her suffer. Goals for now fairly aggressive to continue to stabilize and treat what things can be treated however open to ongoing conversations as clinical course evolves. Assessment and Plan Disease Oriented Problem List: (1) Hypothyroidism (2) Syringomyelia (3) Chiari I malformation (4) Hypokalemia (5) Dehydration (6) Failure to thrive in adult (7) Metastatic lung carcinoma (8) Hypokalemia (9) Ataxia (10) Lung cancer, primary, with metastasis from lung to other site Symptom Scale: (1) Anorexia (2) Fatigue Pertinent Non-Medical Issues Psychosocial:Per prior palliative care review with patient:Lives alone. . Supported by her only child, daughter who visits several times a week. 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 Daughter indicates patient hx moves residence frequently, and has exhibited some compulsive-like behaviors such as buying 10 of the same shirt in the same color , and moving every 6 months to a year. Spiritual: Member of [facility] [employer]. Legal:Patient mental status fluctuates secondary to metastatic disease process. Her capacity is likely to fluctuate. She may be able to participate in decision-making though it would be best to observe shared/supportive decision making involving her designated healthcare surrogate daughter Siena. Ethical issues impacting care: Important Contacts Siena Guillen daughter [phone] [healthcare surrogate- works as a dental hygienist from 7 AM to 5 PM, so is not always able to answer the phone quickly but will return phone calls] Anne Michelle ([place]) [phone] . Prognosis This patient with known history of stage IV lung cancer, diagnosed in 2014, presented for altered mental status and weakness. During March/April oncology follow-up disease process had been stable/without progression. Patient in April presented with a moderate size enhancing midline upper cerebellar midline mass with mostly mild surrounding edema. During that admission she underwent decompressive craniotomy and C1 decompressive laminectomy. During that hospital course patient was improved symptoms From there recommends further restaging studies on findings for possible targeted therapy. Patient with improvement in symptoms, improvement in neurological exam following neurosurgical intervention. Over the last several weeks patient with progressive weakness and general decline, weight loss over the past couple months. Further prognostication pending oncology's input. Code Status: No Code Plan * Legal decision maker:Patient mental status fluctuates secondary to metastatic disease process. Her capacity is likely to fluctuate. She may be able to participate in decision-making though it would be best to observe shared/ supportive decision making involving her designated healthcare surrogate daughter Siena. * Goals:Daughter Siena ([facility]) would like additional prognostication from oncology to help them going forward in knowing when it may be appropriate time to transition to comfort and hospice. She indicates that the patient has known for some time that at some point her disease would continue to progress however she is always been reluctant to talk about end-stage process or end-of-life. She also endorses that her mother would not want to suffer and she does not wish to see her suffer. Goals for now fairly aggressive to continue to stabilize and treat what things can be treated however open to ongoing conversations as clinical course evolves. * CODE STATUS: DNR - pt dtr Siena * SYMPTOMS: --Fatigue/weakness/debility-progressive weakness over the past weeks, likely multifactorial; she has metastatic disease process involving spine, brain. Status post resection. Patient initially with some improvement of symptoms so has had progressive weakness since that resection in April of this year. She additionally has had poor oral intake and significant weight loss of around 22 pounds since April. --Poor appetite/weight loss- per recorded weights patient with approximately 22 pounds weight loss in the past 3 month; reports of poor appetite as well as some nausea in the past several weeks. * Palliative care will continue to follow during hospital course as condition evolves, to assist patient/decision-maker with understanding of medical conditions, weighing benefits/burdens of treatment options, for clarification of goals of treatment. Additionally will assist with any symptoms of palliative concern . Time Spent Total Floor Time (mins): 60 (chart review, PE, d/w nurse, d/w family ) Thank you for the opportunity to participate in the care of Ms. Michelle. Attestation To help prompt me to consider important information that might be impacting today's encounter and assessment, information from prior notes written by myself or my colleagues may have been "brought forward" into today's note. My signature on this note, however, is an attestation that I personally performed the exam, history, and/or decision-making noted today, and, unless otherwise indicated, the interactions with patient, family, and staff as well as the review of records all occurred today. I also attest that the listed assessment and stated plan reflect my best clinical judgment today based on the combination of historical information, prior notes, and today's exam/ interactions. When time spent is documented, it refers only to time spent today by the signer, or if indicated, combined time spent today by collaborating physician/nurse practitioner. Miranda Martin Jun 20, 2017 11:21
[2017-06-20] MEDS: MAGNESIUM SULFATE 1 GM PREMIX 100 ML IV SCH ×4 (11:30→19:50)
[2017-06-20] MEDS ORDERED: SODIUM CHLORID 0.9% 500 ML INJ 500 ML IV ONE (16:15)
--- NOTE | 2017-06-20 16:31 | EKG ---
Date Performed: 06/19/2017 Time Performed: 21:33:14 PTAGE: 62 years EKG: BASELINE ARTIFACT NONSPECIFIC T-WAVE CHANGE Since previous tracing, no significant change n oted BORDERLINE ECG PREVIOUS TRACING : 04/03/2017 13.42 DOCTOR: Hector Kee Interpretating Date/Time 06/20/2017 16:30:49
--- NOTE | 2017-06-20 17:19 | HHI.PR ---
Subjective Remarks Patient reported feeling very weak but no headache or blurry vision or nausea or vomiting Low magnesium and potassium today Objective Vitals Vital Signs Date Time Temp Pulse Resp B/P (MAP) Pulse Ox O2 Delivery O2 Flow Rate FiO2 06/20/17 15:17 98.4 88 18 89/47 (61) 99 06/20/17 11:24 98.7 79 18 93/53 (66) 99 06/20/17 07:24 99.3 76 18 101/50 (67) 97 06/20/17 05:31 98.4 85 18 106/51 (69) 99 06/20/17 02:10 98.6 84 20 109/55 (73) 100 06/19/17 23:45 87 18 117/60 (79) 06/19/17 21:00 75 18 131/60 (83) 99 Room Air 06/19/17 19:26 98.8 80 18 120/58 (78) 100 06/19/17 19:18 100 Room Air 06/19/17 18:26 98.1 93 18 120/58 (78) 96 Room Air I/O 06/19/17 06/19/17 06/19/17 06/20/17 06/20/17 06/20/17 07:00 15:00 23:00 07:00 15:00 23:00 Intake Total 500 ml Balance 500 ml Intake IV Total 500 ml # Voids 2 Result Diagram: 06/20/1771406/20/17714 Objective Remarks GENERAL: This is a frail debilitated 62 years old female, in no apparent distress. SKIN: No rashes, warm and dry HEAD: Atraumatic. Normocephalic. EYES: Pupils equal round and reactive. Extraocular motions intact. No scleral icterus. ENT: Nose without bleeding, or drainage, Airway patent. NECK: Trachea midline. Supple CARDIOVASCULAR: Regular rate and rhythm without murmurs, gallops, or rubs. RESPIRATORY: Fair air entry bilaterally. No wheezes, rales, or rhonchi. GASTROINTESTINAL: Abdomen soft, non-tender, nondistended. Positive bowel sounds MUSCULOSKELETAL: Extremities without clubbing, cyanosis, or edema. Pedal pulses appreciated NEUROLOGICAL: Awake and alert. Moves all extremity. Normal speech.no focal neurological deficit A/P Problem List: (1) Failure to thrive in adult ICD Code: R62.7 - Adult failure to thrive (2) Dehydration ICD Code: E86.0 - Dehydration (3) Hypokalemia ICD Code: E87.6 - Hypokalemia (4) Metastatic lung carcinoma ICD Code: C78.00 - Secondary malignant neoplasm of unspecified lung Assessment and Plan Failure to thrive Severe dehydration Hypokalemia hypomagnesemia Metastatic lung cancer non-small cell carcinoma with PRECISION DANCER metastases status post cerebellar neoplasm resection 04/11/17 status post radiation DVT prophylaxis Plan: Admit to authorization coordinator BMP and electrolytes Replete magnesium and potassium Awaiting consult Dr. Allison oncology I will consult palliative care Discussed with the patient and her daughter Lovenox for deep prophylaxis Austin Mcfarland MD Jun 20, 2017 17:19
[2017-06-21 04:02] VITALS: BP 102/61; PULSE 73; RESP 16; TEMP 99.1; O2SAT 96
[2017-06-21] MEDS: SODIUM CHLOR 0.9% 1000 ML INJ 1,000 ML IV SCH ×2 (06:00→16:44)
--- NOTE | 2017-06-21 07:09 | MB ---
cc: JAX BADILLO M.D. DATE OF CONSULTATION: 06/20/2017 REASON FOR CONSULTATION: Consultation was requested by hospitalist for evaluation and management of metastatic non-small cell lung cancer. HISTORY OF PRESENT ILLNESS: Lucy is a pleasant unfortunate 62-year-old female. She was diagnosed with non-small cell lung cancer in February 2015. She presented with back pain and the workup showed 4.2 cm left upper lobe lung mass and destructive lesion at the L1 vertebrae. The biopsy of the L1 showed adenocarcinoma which was EGFR positive. She had received radiation therapy to the lumbar spine and also to the lung. She was started on Tarceva in May 2015. However, she was unable to tolerate it due to the severe rash. Then she was started Gilotrif but she was unable to tolerate the full dose, so dose was reduced by 50%. She had a good response with the Gilotrif up until recently, she was found to have brain metastasis. Dr. Rich did this surgery and the patient had the cerebellar mass with scattered dural-based enhancement at the left occipital region. She also has cystic mass at C1-C2. She underwent surgery craniotomy with resection and C1 decompressive laminectomy. The pathology report showed metastatic poorly differentiated adenocarcinoma consistent with previous lumbar spine biopsy. The EGFR mutation was positive the T7, 90M mutation came back negative. The patient had received whole-brain radiation therapy completed on May 02. The patient recently came to the office for followup about a week ago. During that visit the patient was complaining of difficulty walking and anorexia. She was getting physical therapy after the brain surgery, we tried to improve her gait and functionality. I had ordered the PET scan for further evaluation of any systemic disease. I have also recommended Tagrisso I have asked oncology resource nurse to assist the patient in obtaining Tagrisso which was recently approved for the patients with EGFR positive lung cancer given in the setting of T790M and mutation negative. The patient was scheduled for a follow-up visit next week. The patient now came to the emergency room as she is unable to walk. She is having anorexia and weight loss. She has lost a significant amount of weight. She looks confused at times. She lives by herself. The patient could not elaborate any further at this time as she appears to be confused. PAST MEDICAL HISTORY 1. Non-small cell lung cancer 2. EGFR positive. 3. Anxiety disorder 4. Arthritis 5. Diverticulosis 6. Hypothyroidism 7. History of multiple sclerosis. PAST SURGICAL HISTORY 1. Breast augmentation Breast reduction Colonoscopy. 2. He had partial hysterectomy 3. Right wrist surgery. 4. Tubal ligation 5. C1 laminectomy 6. Resection of the cerebellar mass. ALLERGIES NONE. MEDICATIONS 1. Zofran. 2. Tylenol. 3. Lortab 4. Morphine 5. Magnesium 6. Potassium 7. Senokot. She is also on Megace which was started today. FAMILY HISTORY: Noncontributory. SOCIAL HISTORY The patient does not smoke cigarettes, does not drink alcohol. PHYSICAL EXAMINATION: IN GENERAL: Physical examination is a well-developed, well-nourished white female. VITAL SIGNS: Temperature 98.7, heart rate is 79, blood pressure of 93/53. HEAD, EYES, EARS, NOSE, AND THROAT: Pupils equal, round, reactive to light and accommodation , extraocular muscles intact, non- anicteric. No oral lesions noted. NECK: No lymphadenopathy noted. LUNGS: The lungs are clear. No wheezing, rhonchi or rales. HEART: Heart is regular rate and rhythm. ABDOMEN: Abdomen is soft, nontender, No hepatosplenomegaly. EXTREMITIES: No pedal edema. NEUROLOGIC: Neurology awake, alert, oriented x2. SKIN: No significant lesions noted. ASSESSMENT 1. Non-small cell lung cancer, stage IV, EGFR positive diagnose in February 2015. Recently she was found to progressive disease with metastasis to the brain. Status post resection followed by whole-brain radiation therapy. 2. Failure to thrive. PLAN I have reviewed her available records and I have discussed with the patient regarding further treatment plan. When I recently saw her in the office I had ordered the PET scan. It does not look like the patient has had a PET scan done as yet. She has failure to thrive. Recently she had craniotomy and resection of the cerebellar mass. This was followed up by whole-brain radiation therapy. She had received a total of [address] Hampton. Since then the patient is declining. I will get an MRI of the brain to evaluate for recurrent metastatic disease. I will also consult neurology to evaluate for her problem with her walking. She states that she cannot walk anymore. We discussed about best supportive care with Hospice versus further treatment with the biological therapy. The patient does not want Hospice. She wants to continue to fight. We have got approval for Tagrisso for her. However, the specialty pharmacy has not dispensed the drug as yet, the work is in progress. If the patients performance status improves then we will start her on Tagrisso. At this time my recommendation is to hold off on Gilotrif. If her performance status does not improve then I recommend Hospice as she lives by herself and it is not safe for her to do that. She [facility] be discharged [facility] or adult living facility as her home environment is not safe. Further recommendations to follow. Thank you for asking my opinion MD NINI Owens/allison /11:14 PM /6:43 AM MTDD
[2017-06-21 08:55] VITALS: BP 104/47; PULSE 72; RESP 18; TEMP 95.1; O2SAT 95
--- NOTE | 2017-06-21 08:59 | RADRPT ---
EXAM DATE/TIME: 06/21/2017 08:03 [facility] COMPARISON: MRI BRAIN W & W/O CONTRAST, April 04, 2017, 9:19. INDICATIONS : Metastatic disease. CONTRAST: 12 cc Omniscan (gadodiamide) IV MEDICAL HISTORY : Carcinoma, lung. SURGICAL HISTORY : Hysterectomy. Tubal ligation. ENCOUNTER: Initial ACUITY: 1 day PAIN SCORE: 0/10 LOCATION: cranial TECHNIQUE: Multiplanar, multisequence MRI of the brain was performed both prior to and following the administrat ion of paramagnetic contrast. FINDINGS: CEREBRUM AND POSTERIOR FOSSA: Post surgical findings are noted in the posterior fossa in the area of previously identified enhancin g mass at the midline cerebellum. There is residual masslike enhancement in the superior central post erior cerebellum measuring 1.9 x 1.5 cm suspicious for residual mass. This finding is smaller than th e previously identified mass on 04/04/2017 when it measured 3.2 x 2.8 cm in axial dimensions. Post surg ical findings are seen in the left posterior parietal lobe with linear signal abnormality and minimal linear enhancement in this region. Finding may represent ventriculostomy tract or residual of prior intracranial pressure monitor. Enhancing mass in the right parietal lobe laterally on image #116 miki ures 1.5 x 1.0 cm is unchanged from prior study of 04/04/2017. Enhancing mass in the posterior right oc cipital lobe on image #113 of the postcontrast images measures 1.5 x 1.3 cm is unchanged. 3 mm focus of enhancement in the left parietal lobe on image #72 is unchanged. No new enhancing masses identifie d. Ventricles have decreased in size and are within normal limits. WHITE MATTER: Periventricular white matter hyperintensities unchanged. DIFFUSION IMAGING: No focal areas of restricted diffusion are seen. No evidence of acute infarction. EXTRACRANIAL: Prominent circumferential mucosal thickening of the right maxillary sinus. This finding is new. Diffu se opacification of the mastoid air cells. This finding is new. CONCLUSION: 1. Postsurgical findings in the area of previously identified dominant midline posterior fossa mass. The mass in this region has decreased in size. 2. The other scattered enhancing masses in the parieto-occipital regions are unchanged. 3. Decrease in size of the lateral ventricles. Now within normal limits. 4. New right maxillary sinus disease and bilateral mastoid air cell opacification. Riaz Hinds MD on June 21, 2017 at 8:41 Board Certified Radiologist. This report was verified electronically.
[2017-06-21] MEDS ORDERED: DEXTROSE 50% IN WATER 50 ML VIAL(D50) IV PUSH PRN (09:15)
[2017-06-21] MEDS ORDERED: GLUCAGON 1 MG/ML VIAL OTHER PRN (09:15)
[2017-06-21] MEDS: DOCUSATE SODIUM 50 MG/SENNA 8.6 MG TAB PO SCH ×2 (10:07→21:47)
[2017-06-21] MEDS: MEGESTROL ACETATE SUSP 400 MG/10 ML CUP PO SCH (10:07)
[2017-06-21] MEDS: SODIUM CHLORIDE 0.9% FLUSH 10 ML FLUSH IV FLUSH SCH ×2 (10:08→21:47)
[2017-06-21 10:09] LABS: AUTOMATED NEUTROPHIL # 3.3 TH/MM3 (1.8-7.7); BASOPHIL % 0.7 % (0.0-2.0); EOSINOPHIL # 0.1 TH/MM3 (0-0.4); EOSINOPHIL % 1.6 % (0.0-4.0); HEMATOCRIT 31.9 % (35.0-46.0); HEMO FLAGS DIFF FINAL; LYMPH % 14.5 % (9.0-44.0); LYMPHOCYTE # 0.6 TH/MM3 (1.0-4.8); MEAN CELL VOLUME 90.1 FL (80.0-100.0); MEAN CORPUSCULAR HEMOGLOBIN 30.7 PG (27.0-34.0); MONO % 8.5 % (0.0-8.0); NEUT % 74.7 % (16.0-70.0); PLATELET COUNT 160 TH/MM3 (150-450); RED BLOOD COUNT 3.54 MIL/MM3 (4.00-5.30); RED CELL DISTRIBUTION WIDTH 15.7 % (11.6-17.2); WHITE BLOOD COUNT 4.4 TH/MM3 (4.0-11.0)
[2017-06-21 10:13] VITALS: BP_SYST 108; BP_SYST 114; BP_SYST 96; BP_DIAS 53; BP_DIAS 71; BP_DIAS 74; PULSE 76; O2SAT 98
[2017-06-21 10:22] LABS: MAGNESIUM 2.2 MG/DL (1.5-2.5); POTASSIUM 3.7 MEQ/L (3.5-5.1)
[2017-06-21 10:35] LABS: FREE T4 1.04 NG/DL (0.76-1.46)
[2017-06-21 11:38] VITALS: BP 112/57; PULSE 75; RESP 18; TEMP 95.9; O2SAT 98
[2017-06-21] MEDS: INSULIN NovoLIN REGULAR SUPPLEMENTAL SCALE SQ SCH ×3 (12:29→21:00)
--- NOTE | 2017-06-21 12:42 | HHI.PR ---
Subjective Remarks Patient looks very sad, her daughter at the bedside She denied significant complain Neurology has been consulted by house oncologist MRI was asked for maxillary sinusitis Objective Vitals Vital Signs Date Time Temp Pulse Resp B/P (MAP) Pulse Ox O2 Delivery O2 Flow Rate FiO2 06/21/17 11:38 95.9 75 18 112/57 (75) 98 06/21/17 10:13 76 96/53 (67) 98 114/71 (85) 108/74 (85) 06/21/17 08:55 95.1 72 18 104/47 (66) 95 06/21/17 04:02 99.1 73 16 102/61 (75) 96 06/20/17 23:43 99.2 76 15 93/53 (66) 97 06/20/17 19:34 99.3 87 17 96/50 (65) 98 06/20/17 15:17 98.4 88 18 89/47 (61) 99 I/O 06/20/17 06/20/17 06/20/17 06/21/17 06/21/17 06/21/17 07:00 15:00 23:00 07:00 15:00 23:00 # Voids 2 # Bowel Movements 1 Result Diagram: 06/21/1792606/21/17926 Objective Remarks GENERAL: This is a frail debilitated 62 years old female, in no apparent distress. SKIN: No rashes, warm and dry HEAD: Atraumatic. Normocephalic. EYES: Pupils equal round and reactive. Extraocular motions intact. No scleral icterus. ENT: Nose without bleeding, or drainage, Airway patent. NECK: Trachea midline. Supple CARDIOVASCULAR: Regular rate and rhythm without murmurs, gallops, or rubs. RESPIRATORY: Fair air entry bilaterally. No wheezes, rales, or rhonchi. GASTROINTESTINAL: Abdomen soft, non-tender, nondistended. Positive bowel sounds MUSCULOSKELETAL: Extremities without clubbing, cyanosis, or edema. Pedal pulses appreciated NEUROLOGICAL: Awake and alert. Moves all extremity. 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 Allison oncology> consult neurology for further workup Appreciate palliative care consult> plan for aggressive treatment at this point Start Augmentin for sinusitis Consult case management for SNF discharge as recommended by oncologist Donte for deep prophylaxis Discharge Planning when cleared by oncology who recommended SNF at discharge Austin Mcfarland MD Jun 21, 2017 12:42
--- NOTE | 2017-06-21 12:51 | MB ---
cc: SHANNAN MARIE MD DATE OF CONSULTATION: 06/21/17 HISTORY OF PRESENT ILLNESS The patient is a 62-year-old right-handed woman with a history of non-small cell carcinoma of the lung with mets. In April she had a met to the right parietal region, an area of sandoval artifact in the left occipital region and met to the cerebellum that was resected by Dr. Rich on 04/10/17. She has had chemo and radiation since. She has a history of hypothyroidism and anxiety and brought to the ER secondary to generalized weakness, difficulty walking. She tells me she has difficulty walking ever since the surgery. She has had progressive deterioration since the surgery evidently in April. She has got an opacity in the left upper medial lung. She tells me she has had lung cancer since 2011. REVIEW OF SYSTEMS She denies any hypertension, diabetes, [place], stent, angioplasty, a-fib, Coumadin, renal, hepatic or thyroid disease, lupus, ulcer, seizure, or stroke. The patient denies any headache. SOCIAL HISTORY Not a smoker or drinker. Usually lives alone she tells me though she could not quite tell me where she was living now but not at home evidently. FAMILY HISTORY Negative for cancer, seizure or stroke according to the patient. MEDICATIONS 1. Atorvastatin. 2. Wellbutrin. 3. Afatinib. 4. Thyroid medicine. PHYSICAL EXAMINATION VITAL SIGNS: T-max 99.3, afebrile now, 72, 18, 104/47-89/47. NECK: There are no carotid bruits. HEART: Regular rhythm. I did not detect a murmur. NEUROLOGIC: Pupils are equal. Visual alexander are full. Extraocular movements intact without nystagmus. Face symmetric with normal sensation. Tongue was midline, there is no drift. She has a very coarse tremor in the left arm which she tells me she has had for a long time. She has a mild tremor in the right arm and both of her legs. Normal strength however in upper and lower extremities bilaterally. DTRs are trace throughout. Toes are downgoing bilaterally. Pinprick and vibratory sense are intact throughout. She is not ataxic on [id number] or [id number]. Speech was fluent. She is not aphasic. She did know the year and the month. She seems a little bit confused however. LABORATORY DATA CBC shows a white count of 3.5, hematocrit is 27 and it had been 35 last evening, platelet count 154. She had a normal sed rate in March. Basic metabolic profile: potassium 2.8 yesterday, 3 today otherwise normal. LFTs normal. CPK was normal in March. Albumin is 2.6. B12 normal last month. She had an SPEP which was negative. She had an ABG in 2007 that was unremarkable. Coags normal. UA was negative. She had an LP done in 2009 showed total protein of 60, oligoclonal bands were 4 slightly elevated. IgG index was normal. IMAGING STUDIES She had an MRI of the cervical spine done last admission in April which showed a cystic area in the upper cervical spine which has improved greatly on the current MRI of the brain. The current MRI of the brain shows that the right parietal met looks about the same size. The cerebellar met was a lot smaller which is what I expect after the debulking. She has got an area of sandoval artifact in the right occipitoparietal region that was not present before and one that was. She also has some edema in the left parietal region which does not enhance but does not appear to be an infarct at least not in the last 30 days by negative diffusion imaging. Could be some submillimeter met is a possibility. IMPRESSION AND RECOMMENDATION Mets to the brain, some difficulty walking, low blood pressure. I would check an MRI of her thoracic spine as that was not done prior to make sure there is no mets there, and I would also check some orthostatics on her and we will have PT ambulate her and check a thyroid. I thought in the bed she actually looked fairly well. I will be following her with you in the hospital. We should stop the Wellbutrin as that can lower the seizure threshold and with the met she is at increased risk for seizures. If she needs to be on a different antidepressant, then I would recommend the med team could try Lexapro. It is possible however she could have significant orthostatic hypotension which is affecting her gait, although she tells me it has never been entirely normal since the surgery. MD SUE Acevedo/CHERYL /9:32 AM /12:24 PM
[2017-06-21 15:22] VITALS: BP 116/64; PULSE 74; RESP 18; TEMP 95.9; O2SAT 98
--- NOTE | 2017-06-21 20:36 | RADRPT ---
EXAM DATE/TIME: 06/21/2017 19:32 [facility] COMPARISON: CT ABDOMEN & PELVIS W CONTRAST, April 08, 2017, 15:15. MRI LUMBAR SPINE W & W/O CONTRAST, 2016, 9:19. INDICATIONS : Myelopathy. CONTRAST: 10 cc Omniscan (gadodiamide) IV MEDICAL HISTORY : Metastatic, lung. SURGICAL HISTORY : Tubal ligation. ENCOUNTER: Initial ACUITY: 1 day PAIN SCORE: 0/10 LOCATION: Paraspinal TECHNIQUE: Multiplanar multisequence MRI of the thoracic spine was performed. FINDINGS: Faintly enhancing 13 mm lesion seen posteriorly within the T11 vertebral body of concern for a metast asis. It seems to measure a couple millimeters larger than on the comparison CT. No other focal bone lesions are demonstrated. Thoracic spine intervertebral discs are within normal limits. The thoracic cord has normal signal and morphology. No fracture or subluxation of the thoracic spine. CONCLUSION: 1. No stenosis or significant degenerative changes of the thoracic spine. 2. 13 mm focal bone lesion of the T11 vertebral body, probably a metastasis. Gordy Laura MD on June 21, 2017 at 20:30 Board Certified Radiologist. This report was verified electronically.
--- NOTE | 2017-06-21 21:18 | RADRPT ---
EXAM DATE/TIME: 06/21/2017 19:32 [facility] COMPARISON: MRI BRAIN W & W/O CONTRAST, June 21, 2017, 8:03. MRI CERVICAL SPINE W & W/O CONTRAST, April 04, 2017, 9:19. INDICATIONS : Myelopathy. CONTRAST: 10 cc Omniscan (gadodiamide) IV MEDICAL HISTORY : Metastatic, liver. SURGICAL HISTORY : Tubal ligation. Cerebellar sx. ENCOUNTER: Initial ACUITY: 1 day PAIN SCORE: 0/10 LOCATION: Paraspinal TECHNIQUE: Multiplanar, multisequence MRI examination of the cervical spine was performed. FINDINGS: Cervical spinal alignment is within normal limits. Vertebral bodies have normal height. Since the tom or MRI, the patient has had an occipital craniotomy and I believe a C1 laminectomy. Previously seen m arked expansion of the upper cervical cord has resolved. There is now an approximately 3 mm syrinx th at extends from the foramen magnum to approximately C2/C3. Previously seen posterior fossa mass is mu ch smaller but there is some recurrent or residual, mildly masslike enhancement in the region of the fourth ventricle measuring about 13 mm in size and please refer to today's brain MRI. C2-C3: The thecal sac has a normal configuration. There is no evidence of disc herniation or spinal canal stenosis. The neural foramina are patent bilaterally. C3-C4: Minimal bulging of the disc annulus and mild bilateral uncovertebral and facet osteoarthritis. No for aminal or spinal stenosis. C4-C5: The thecal sac has a normal configuration. There is no evidence of disc herniation or spinal canal s tenosis. The neural foramina are patent bilaterally. C5-C6: There is slight bulging of the disc annulus and mild bilateral uncovertebral and facet osteoarthritis . No foraminal or spinal stenosis. C6-C7: The disc is desiccated and has mild loss of height. There is a small, broad posterior disc protrusion and mild bilateral uncovertebral and facet osteoarthritis. There is mild spinal stenosis without cor d compression or cord signal abnormality. There is mild right and moderate to severe left foraminal s tenosis. These findings are similar to before. C7-T1: The thecal sac has a normal configuration. There is no evidence of disc herniation or spinal canal s tenosis. The neural foramina are patent bilaterally. CONCLUSION: 1. Since the prior MRI patient has had occipital craniotomy and I believe a C1 laminectomy. Apparent recurrent or residual posterior fossa mass at the fourth ventricle. 2. Previously seen marked expansion of the upper cervical cord has resolved. There is now just a very thin syrinx present. 3. Cervical spine degenerative changes as above, similar to the prior MRI. There is mild spinal steno sis and moderate to high-grade left foraminal stenosis at C6-C7 again noted. There is no cord patricia gali. Gordy Laura MD on June 21, 2017 at 21:06 Board Certified Radiologist. This report was verified electronically.
[2017-06-21 23:51] VITALS: BP 101/64; PULSE 77; RESP 18; TEMP 98.9; O2SAT 93
[2017-06-22] MEDS: SODIUM CHLOR 0.9% 1000 ML INJ 1,000 ML IV SCH ×2 (02:00→12:00)
[2017-06-22 05:21] VITALS: BP 106/68; PULSE 110; RESP 18; TEMP 98.5; O2SAT 95
--- NOTE | 2017-06-22 05:23 | MG ---
cc: SHANNAN MARIE Sex: [id number] INTRODUCTION: Mets. DESCRIPTION: Diffuse 5 Hz slowing is noted. The recording overall is synchronous and symmetric. No epileptiform or seizure activity is seen. Hyperventilation not performed. Photic stimulation was performed without significant posterior driving. IMPRESSION Diffuse 5 Hz slowing consistent with a moderate diffuse encephalopathy, but no focal abnormality was noted. No seizure activity was seen. MD SUE Acevedo/EDMOND /9:35 PM /4:55 AM
[2017-06-22] MEDS: INSULIN NovoLIN REGULAR SUPPLEMENTAL SCALE SQ SCH ×4 (08:00→20:21)
[2017-06-22 08:03] VITALS: BP 91/53; PULSE 76; RESP 20; TEMP 97.9; O2SAT 96
[2017-06-22] MEDS: SODIUM CHLORIDE 0.9% FLUSH 10 ML FLUSH IV FLUSH SCH ×2 (09:00→20:21)
[2017-06-22] MEDS: DOCUSATE SODIUM 50 MG/SENNA 8.6 MG TAB PO SCH ×2 (09:00→20:21)
--- NOTE | 2017-06-22 09:30 | HHI.PR ---
Objective Vital Signs Date Time Temp Pulse Resp B/P (MAP) Pulse Ox O2 Delivery O2 Flow Rate FiO2 06/22/17 08:03 97.9 76 20 91/53 (66) 96 06/22/17 05:21 98.5 110 18 106/68 (81) 95 06/21/17 23:51 98.9 77 18 101/64 (76) 93 06/21/17 15:22 95.9 74 18 116/64 (81) 98 06/21/17 11:38 95.9 75 18 112/57 (75) 98 06/21/17 10:13 76 96/53 (67) 98 114/71 (85) 108/74 (85) I/O 06/21/17 06/21/17 06/21/17 06/22/17 06/22/17 06/22/17 07:00 15:00 23:00 07:00 15:00 23:00 Intake Total 240 ml Balance 240 ml Intake Oral 240 ml # Voids 5 1 # Bowel Movements 1 1 Result Diagram: 06/21/1792606/21/17926 Other Results left tremor old tone nl gait failrly steady with minimal assist c alert awake Assessment and Plan Assessment and Plan imp bp stand ok recheck generally low bp mri c spine better may have small met T11 tsh mild inc eeg neg gait little unsteady overall ok neurowise onc needs to be notified of the possible T11 met also new left parietal edema may have small underlying met needs fu mri 4 weeks needs rehab for gait monitor low bps standg bp this am ok ? thyroid adjustment? Jasen Chavez MD Jun 22, 2017 09:30
[2017-06-22 09:34] VITALS: BP_SYST 117; BP_SYST 136; BP_DIAS 56; BP_DIAS 63
[2017-06-22] MEDS: MEGESTROL ACETATE SUSP 400 MG/10 ML CUP PO SCH (10:26)
[2017-06-22] MEDS: ESCITALOPRAM OXALATE 10 MG TAB PO SCH (10:27)
[2017-06-22] MEDS: LEVOTHYROXINE SODIUM 75 MCG TAB PO SCH (10:27)
--- NOTE | 2017-06-22 11:19 | HHI.PR ---
Subjective Remarks Follow up on patient with metastatic lung cancer, BLANKET CUTTER HAND metastasis, failure to thrive. Patient seen and examined. Patient states she feels stronger today. She reports her appetite has improved since her admission into the hospital and she is eating more. She denies any nausea vomiting or abdominal pain. She denies any chest pain or shortness of breath. She denies any headache, dizziness or vision changes. Cleared by neurology for discharge. Questionable metastases to T11, patient denies any complaints of back pain. Objective Vitals Vital Signs Date Time Temp Pulse Resp B/P (MAP) Pulse Ox O2 Delivery O2 Flow Rate FiO2 06/22/17 09:34 136/63 (87) 117/56 (76) 06/22/17 08:03 97.9 76 20 91/53 (66) 96 06/22/17 05:21 98.5 110 18 106/68 (81) 95 06/21/17 23:51 98.9 77 18 101/64 (76) 93 06/21/17 15:22 95.9 74 18 116/64 (81) 98 06/21/17 11:38 95.9 75 18 112/57 (75) 98 I/O 06/21/17 06/21/17 06/21/17 06/22/17 06/22/17 06/22/17 07:00 15:00 23:00 07:00 15:00 23:00 Intake Total 240 ml Balance 240 ml Intake Oral 240 ml # Voids 5 1 # Bowel Movements 1 1 Result Diagram: 06/21/1792606/21/17926 Imaging Last Impressions Thoracic Spine MRI 06/21/17930 Signed Impressions: Service Date/Time: Wednesday, June 21, 2017 19:32 - CONCLUSION: 1. No stenosis or significant degenerative changes of the thoracic spine. 2. 13 mm focal bone lesion of the T11 vertebral body, probably a metastasis. Gordy Laura MD Cervical Spine MRI 06/21/17930 Signed Impressions: Service Date/Time: Wednesday, June 21, 2017 19:32 - CONCLUSION: 1. Since the prior MRI patient has had occipital craniotomy and I believe a C1 laminectomy. Apparent recurrent or residual posterior fossa mass at the fourth ventricle. 2. Previously seen marked expansion of the upper cervical cord has resolved. There is now just a very thin syrinx present. 3. Cervical spine degenerative changes as above, similar to the prior MRI. There is mild spinal stenosis and moderate to high-grade left foraminal stenosis at C6-C7 again noted. There is no cord compression. Gordy Laura MD Brain MRI 06/21/17 0000 Signed Impressions: Service Date/Time: Wednesday, June 21, 2017 08:03 - CONCLUSION: 1. Postsurgical findings in the area of previously identified dominant midline posterior fossa mass. The mass in this region has decreased in size. 2. The other scattered enhancing masses in the parieto-occipital regions are unchanged. 3. Decrease in size of the lateral ventricles. Now within normal limits. 4. New right maxillary sinus disease and bilateral mastoid air cell opacification. Riaz Hinds MD Chest X-Ray 06/19/17 0000 Signed Impressions: Service Date/Time: June 23:56 - CONCLUSION: Triangular shape opacity of the upper medial left lung at site of prior treated lung cancer, similar to prior CT in April 2017. No new findings. Emanuel Roberts MD Objective Remarks GENERAL: This is a frail debilitated 62 years old female, in no apparent distress. Awake and alert. Appears comfortable. SKIN: No rashes, warm and dry HEAD: Atraumatic. Normocephalic. EYES: Extraocular motions intact. No scleral icterus. ENT: Nose without bleeding, or drainage, Airway patent. MMM. NECK: Trachea midline. CARDIOVASCULAR: Regular rate and rhythm without murmurs, gallops, or rubs. RESPIRATORY: Fair air entry bilaterally. No wheezes, rales, or rhonchi. GASTROINTESTINAL: Abdomen soft, non-tender, nondistended. Positive bowel sounds MUSCULOSKELETAL: Extremities without clubbing, cyanosis, or edema. Pedal pulses appreciated NEUROLOGICAL: Awake and alert. Moves all extremities. Nonfocal. LUE tremor noted. Normal speech. Medications and IVs Current Medications Medications (Trade) Dose Ordered Sig/Pierce Route Start Time Stop Time Status Last Admin Sodium Chloride 1,000 ml @ 100 mls/hr Q10H IV 06/20/17 00:00 06/22/17 02:00 (NS Flush) 2 ml UNSCH PRN IV FLUSH 06/20/17 00:00 (NS Flush) 2 ml BID IV FLUSH 06/20/17 09:00 06/21/17 21:47 (Zofran Inj) 4 mg Q6H PRN IVP 06/20/17 00:00 06/20/17 00:40 (Tylenol) 650 mg Q6H PRN PO 06/20/17 00:00 ([place] 5-325 Mg) 1 tab Q4H PRN PO 06/20/17 00:00 (Morphine Inj) 2 mg Q3H PRN IV 06/19/17 23:45 (Ale-Colace) 1 tab BID PO 06/20/17 09:00 06/21/17 21:47 (Milk Of Magnesia Liq) 30 ml Q12H PRN PO 06/20/17 00:00 (Senokot) 17.2 mg Q12H PRN PO 06/20/17 00:00 (Dulcolax Supp) 10 mg DAILY PRN RECTAL 06/20/17 00:00 (Lactulose Liq) 30 ml DAILY PRN PO 06/20/17 00:00 (Megace Liq) 400 mg DAILY PO 06/20/17 09:00 06/22/17 10:26 (D50w (Vial) Inj) 50 ml UNSCH PRN IV PUSH 06/21/17 09:15 (Glucagon Inj) 1 mg UNSCH PRN OTHER 06/21/17 09:15 (NovoLIN R SUPPLEMENTAL SCALE) 1 ACHS SLIDING SCALE SQ 06/21/17 12:00 (Lipitor) 40 mg HS PO 06/22/17 21:00 (Synthroid) 75 mcg DAILY@0600 PO 06/22/17 09:00 06/22/17 10:27 (Lexapro) 5 mg DAILY PO 06/22/17 09:30 06/24/17 09:29 06/22/17 10:27 (Lexapro) 10 mg DAILY PO 06/24/17 09:00 A/P Problem List: (1) Failure to thrive in adult ICD Code: R62.7 - Adult failure to thrive (2) Dehydration ICD Code: E86.0 - Dehydration (3) Hypokalemia ICD Code: E87.6 - Hypokalemia (4) Metastatic lung carcinoma ICD Code: C78.00 - Secondary malignant neoplasm of unspecified lung Assessment and Plan 62-year-old female with a PMH of Non-Small Cell Lung CA w/ 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 FTT Generalized weakness Severe dehydration - much improved - orthostatics negative - Neuro following, appreciate recommendations. D/C Wellbutrin due to possible lowering of seizure threshold. Begin Lexapro. Per Neuro, EEG negative , MRI C spine better, questionable small met to T11, new left parietal edema possibly due to underlying met, recommends f/u MRI in 4 weeks. Ok for d/c from Neuro standpoint. 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 - Dr. Allison following, appreciate assistance. - MRI brain shows residual masslike enhancement in the superior central posterior cerebellum, signal abnormality and enhancement in the left posterior parietal lobe, images reviewed by me - MRI cervical spine with degenerative changes, no cord compression, s/p occipital craniotomy, images reviewed by me - MRI T spine 13mm bone lesion suspicious for metastasis, images reviewed by me Hypokalemia Hypomagnesemia - Resolved status post repletion Hypothyroidism - Continue patient on home dose of levothyroxine 75 g daily - TSH 6.210, Free T4 1.04 DVT prophylaxis - bilateral SCD/BRANDEN hose Discussed with patient, Dr. Mcfarland Discharge Planning CM consulted to assist with d/c planning/SNF placement. Awaiting clearance from Hem/Onc for discharge. Stacia Cabrales Jun 22, 2017 11:19
[2017-06-22 16:36] VITALS: BP 117/56; PULSE 78; RESP 18; TEMP 98.2; O2SAT 78
[2017-06-22] MEDS ORDERED: ATORVASTATIN 40 MG TAB PO SCH (21:00)
[2017-06-22 21:23] VITALS: BP 117/52; PULSE 78; RESP 18; TEMP 98.8; O2SAT 99
[2017-06-22 23:10] VITALS: BP 112/58; PULSE 90; RESP 18; TEMP 98; O2SAT 98
[2017-06-23] MEDS: LEVOTHYROXINE SODIUM 75 MCG TAB PO SCH (06:20)
[2017-06-23 07:28] VITALS: BP 105/58; PULSE 72; RESP 19; TEMP 98.3; O2SAT 99
[2017-06-23] MEDS ORDERED: SODIUM CHLORID 0.9% 500 ML INJ 500 ML IV ONE (08:00)
[2017-06-23] MEDS: SODIUM CHLORIDE 0.9% FLUSH 10 ML FLUSH IV FLUSH SCH (08:07)
[2017-06-23] MEDS: INSULIN NovoLIN REGULAR SUPPLEMENTAL SCALE SQ SCH ×2 (08:56→12:34)
[2017-06-23] MEDS ORDERED: ESCI10TA PO (09:34)
[2017-06-23] MEDS ORDERED: Megestrol Liq PO (09:34)
--- NOTE | 2017-06-23 09:39 | HHI.DCPOC ---
Discharge Care Plan Diagnosis: (1) Unsteady gait (2) Cerebral tumor (3) Dehydration (4) Fatigue (5) Anorexia (6) Bony metastasis (7) Failure to thrive in adult (8) Metastatic lung carcinoma (9) Orthostatic dizziness (10) Lung mass (11) Lung cancer, primary, with metastasis from lung to other site Goals to Promote Your Health * To prevent worsening of your condition and complications * To maintain your health at the optimal level Directions to Meet Your Goals Please slowly transition when going from lying to sitting to standing Recommend wearing BRANDEN hose to help with low blood pressure - please have own before attempting to stand Recommend adding [place] Essentials three times a day and nutrient dense snacks like yogurt, peanut butter, za crackers, etc Take your medications as prescribed Follow your dietary instruction Follow activity as directed Keep your appointments as scheduled Take your immunizations and boosters as scheduled If your symptoms worsen call your PCP, if no PCP go to Urgent Care Center or Emergency Room Smoking is Dangerous to Your Health. Avoid second hand smoke Call the 24-hour hour crisis hotline for domestic abuse at Stacia Cabrales Jun 23, 2017 09:39
--- NOTE | 2017-06-23 10:19 | HHI.PR ---
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 Patient seen and examined. Patient states she feels good today. She does report some dizziness when standing with PT earlier today. She denies any headache or vision changes. She reports improved appetite. She denies any chest pain or dyspnea. She denies any N/V or abdominal pain. She does not have any abdominal pain. Objective Vitals Vital Signs Date Time Temp Pulse Resp B/P (MAP) Pulse Ox O2 Delivery O2 Flow Rate FiO2 06/23/17 07:28 98.3 72 19 105/58 (74) 99 06/22/17 23:10 98.0 90 18 112/58 (76) 98 06/22/17 21:23 98.8 78 18 117/52 (73) 99 06/22/17 16:36 98.2 78 18 117/56 (76) 78 I/O 06/22/17 06/22/17 06/22/17 06/23/17 06/23/17 06/23/17 07:00 15:00 23:00 07:00 15:00 23:00 Intake Total 100 ml Output Total 1 ml Balance 99 ml Intake Oral 100 ml Output Stool Total 1 ml # Voids 1 2 2 # Bowel Movements 1 Result Diagram: 06/21/1792606/21/17926 Imaging Last Impressions Thoracic Spine MRI 06/21/17930 Signed Impressions: Service Date/Time: Wednesday, June 21, 2017 19:32 - CONCLUSION: 1. No stenosis or significant degenerative changes of the thoracic spine. 2. 13 mm focal bone lesion of the T11 vertebral body, probably a metastasis. Gordy Laura MD Cervical Spine MRI 06/21/17930 Signed Impressions: Service Date/Time: Wednesday, June 21, 2017 19:32 - CONCLUSION: 1. Since the prior MRI patient has had occipital craniotomy and I believe a C1 laminectomy. Apparent recurrent or residual posterior fossa mass at the fourth ventricle. 2. Previously seen marked expansion of the upper cervical cord has resolved. There is now just a very thin syrinx present. 3. Cervical spine degenerative changes as above, similar to the prior MRI. There is mild spinal stenosis and moderate to high-grade left foraminal stenosis at C6-C7 again noted. There is no cord compression. Gordy Laura MD Brain MRI 06/21/17 0000 Signed Impressions: Service Date/Time: Wednesday, June 21, 2017 08:03 - CONCLUSION: 1. Postsurgical findings in the area of previously identified dominant midline posterior fossa mass. The mass in this region has decreased in size. 2. The other scattered enhancing masses in the parieto-occipital regions are unchanged. 3. Decrease in size of the lateral ventricles. Now within normal limits. 4. New right maxillary sinus disease and bilateral mastoid air cell opacification. Riaz Hinds MD Chest X-Ray 06/19/17 0000 Signed Impressions: Service Date/Time: June 23:56 - CONCLUSION: Triangular shape opacity of the upper medial left lung at site of prior treated lung cancer, similar to prior CT in April 2017. No new findings. Emanuel Roberts MD Objective Remarks GENERAL: This is a frail debilitated 62 years old female, in no apparent distress. Awake and alert. Sitting up in bed eating breakfast. SKIN: No rashes, warm and dry HEAD: Atraumatic. Normocephalic. EYES: Extraocular motions intact. No scleral icterus. ENT: Nose without bleeding, or drainage, Airway patent. MMM. NECK: Trachea midline. CARDIOVASCULAR: Regular rate and rhythm without murmurs, gallops, or rubs. RESPIRATORY: Fair air entry bilaterally. No wheezes, rales, or rhonchi. GASTROINTESTINAL: Abdomen soft, non-tender, nondistended. Positive bowel sounds MUSCULOSKELETAL: Extremities without clubbing, cyanosis, or edema. Pedal pulses appreciated NEUROLOGICAL: Awake and alert. Moves all extremities. Nonfocal. LUE tremor noted. Normal speech. Medications and IVs Current Medications Medications (Trade) Dose Ordered Sig/Pierce Route Start Time Stop Time Status Last Admin (NS Flush) 2 ml UNSCH PRN IV FLUSH 06/20/17 00:00 (NS Flush) 2 ml BID IV FLUSH 06/20/17 09:00 06/23/17 08:07 (Zofran Inj) 4 mg Q6H PRN IVP 06/20/17 00:00 06/20/17 00:40 (Tylenol) 650 mg Q6H PRN PO 06/20/17 00:00 ([place] 5-325 Mg) 1 tab Q4H PRN PO 06/20/17 00:00 (Morphine Inj) 2 mg Q3H PRN IV 06/19/17 23:45 (Ale-Colace) 1 tab BID PO 06/20/17 09:00 06/21/17 21:47 (Milk Of Magnesia Liq) 30 ml Q12H PRN PO 06/20/17 00:00 (Senokot) 17.2 mg Q12H PRN PO 06/20/17 00:00 (Dulcolax Supp) 10 mg DAILY PRN RECTAL 06/20/17 00:00 (Lactulose Liq) 30 ml DAILY PRN PO 06/20/17 00:00 (Megace Liq) 400 mg DAILY PO 06/20/17 09:00 06/22/17 10:26 (D50w (Vial) Inj) 50 ml UNSCH PRN IV PUSH 06/21/17 09:15 (Glucagon Inj) 1 mg UNSCH PRN OTHER 06/21/17 09:15 (NovoLIN R SUPPLEMENTAL SCALE) 1 ACHS SLIDING SCALE SQ 06/21/17 12:00 (Lipitor) 40 mg HS PO 06/22/17 21:00 06/22/17 20:21 (Synthroid) 75 mcg DAILY@0600 PO 06/22/17 09:00 06/23/17 06:20 (Lexapro) 5 mg DAILY PO 06/22/17 09:30 06/24/17 09:29 06/22/17 10:27 (Lexapro) 10 mg DAILY PO 06/24/17 09:00 A/P Problem List: (1) Failure to thrive in adult ICD Code: R62.7 - Adult failure to thrive (2) Dehydration ICD Code: E86.0 - Dehydration (3) Hypokalemia ICD Code: E87.6 - Hypokalemia (4) Metastatic lung carcinoma ICD Code: C78.00 - Secondary malignant neoplasm of unspecified lung Assessment and Plan 62-year-old female with a PMH of 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 FTT Generalized weakness Severe dehydration - much improved - orthostatics negative - Neuro following, appreciate recommendations. D/C Wellbutrin due to possible lowering of seizure threshold. Begin Lexapro. Per Neuro, EEG negative , MRI C spine better, questionable small met to T11, new left parietal edema possibly due to underlying met, recommends f/u MRI in 4 weeks. Ok for d/c from Neuro standpoint. - Continue on Megace 400 mg daily - continue with PT/recommends PT at rehab - CM consulted to assist with d/c planning/SNF placement - Dietitian following, recommended [place] essentials TID and nutrient dense snacks Hypotensive - Symptomatic, patient reports dizziness upon standing with PT earlier today - Discussed with patient slow transitions going from supine to sitting to standing. Also discussed use of BRANDEN hose and make sure have on prior to attempting to stand. Patient stated understanding. - Encouraged increased by mouth intake Metastatic lung cancer non small cell with DIRECTOR OF PROGRAM MANAGEMENT metastases s/p cerebellar neoplasm resection 04/11/17 and radiation - Palliative care consulted, appreciate assistance. - Dr. Allison following, appreciate assistance. Cleared by Oncology for discharge to SNF with follow-up in clinic, plans to start Tagrisso if PFS improves - MRI brain shows residual masslike enhancement in the superior central posterior cerebellum, signal abnormality and enhancement in the left posterior parietal lobe, images reviewed by me - MRI cervical spine with degenerative changes, no cord compression, s/p occipital craniotomy, images reviewed by me - MRI T spine 13mm bone lesion suspicious for metastasis, images reviewed by me - Patient does not want hospice Hypokalemia Hypomagnesemia - Resolved status post repletion Hypothyroidism - Continue patient on home dose of levothyroxine 75 g daily - TSH 6.210, Free T4 1.04 DVT prophylaxis - bilateral SCD/BRANDEN hose Discussed with patient, nursing staff, Dr. Mcfarland Discharge Planning CM consulted to assist with d/c planning/SNF placement. Stacia Cabrales Jun 23, 2017 10:19
--- NOTE | 2017-06-23 10:19 | HHI.DS ---
Discharge Summary Admission Date Jun 19, 2017 at 23:56 Discharge Date: Jun 23, 2017 Admitting Diagnosis Failure to thrive, dehydration, hypokalemia, metastatic lung cancer (1) Failure to thrive in adult ICD Code: R62.7 - Adult failure to thrive (2) Dehydration ICD Code: E86.0 - Dehydration (3) Hypokalemia ICD Code: E87.6 - Hypokalemia (4) Metastatic lung carcinoma ICD Code: C78.00 - Secondary malignant neoplasm of unspecified lung (5) Hypotension ICD Code: I95.9 - Hypotension, unspecified (6) Bony metastasis ICD Code: C79.51 - Secondary malignant neoplasm of bone (7) Orthostatic dizziness ICD Code: R42 - Dizziness and giddiness (8) Unsteady gait ICD Code: R26.81 - Unsteadiness on feet Procedures None Brief History - From Admission This is a 62-year-old female with a PMH of 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 Seen by [facility] RN today, BP noted to be in the 80's and was referred to the ER for further evaluation. Denies fever, chills, nausea, vomiting or diarrhea. S/p Resection of Cerebellar Neoplasm by Dr. Rich on 04/10/17 and chemo/ radiation. Has had progressive deterioration since. On arrival, BP 120/58, HR 93, O2 sat 96% on RA, Afebrile. CBC essentially unremarkable. K+ 2.8. BUN 21 , GFR 88. UA negative. CXR with triangular opacity upper medial left lung similar to previous CT. CBC/BMP: 06/21/17 0927 06/21/17 0927 Significant Findings Laboratory Tests Test 06/20/17 23:19 06/21/17 09:27 Red Blood Count 3.54 MIL/MM3 (4.00-5.30) Hemoglobin 10.9 GM/DL (11.6-15.3) Hematocrit 31.9 % (35.0-46.0) Neutrophils (%) (Auto) 74.7 % (16.0-70.0) Monocytes (%) (Auto) 8.5 % (0.0-8.0) Lymphocytes # (Auto) 0.6 TH/MM3 (1.0-4.8) Blood Urea Nitrogen 6 MG/DL (7-18) Creatinine 0.46 MG/DL (0.50-1.00) Total Protein 5.5 GM/DL (6.4-8.2) Calcium Level 8.0 MG/DL (8.5-10.1) Chloride Level 110 MEQ/L (98-107) Thyroid Stimulating Hormone 3rd Gen 6.210 uIU/ML (0.358-3.740) Imaging Last Impressions Thoracic Spine MRI 06/21/17930 Signed Impressions: Service Date/Time: Wednesday, June 21, 2017 19:32 - CONCLUSION: 1. No stenosis or significant degenerative changes of the thoracic spine. 2. 13 mm focal bone lesion of the T11 vertebral body, probably a metastasis. Gordy Laura MD Cervical Spine MRI 06/21/17930 Signed Impressions: Service Date/Time: Wednesday, June 21, 2017 19:32 - CONCLUSION: 1. Since the prior MRI patient has had occipital craniotomy and I believe a C1 laminectomy. Apparent recurrent or residual posterior fossa mass at the fourth ventricle. 2. Previously seen marked expansion of the upper cervical cord has resolved. There is now just a very thin syrinx present. 3. Cervical spine degenerative changes as above, similar to the prior MRI. There is mild spinal stenosis and moderate to high-grade left foraminal stenosis at C6-C7 again noted. There is no cord compression. Gordy Laura MD Brain MRI 06/21/17 Signed Impressions: Service Date/Time: Wednesday, June 21, 2017 08:03 - CONCLUSION: 1. Postsurgical findings in the area of previously identified dominant midline posterior fossa mass. The mass in this region has decreased in size. 2. The other scattered enhancing masses in the parieto-occipital regions are unchanged. 3. Decrease in size of the lateral ventricles. Now within normal limits. 4. New right maxillary sinus disease and bilateral mastoid air cell opacification. Riaz Hinds MD Chest X-Ray 06/19/17 Signed Impressions: Service Date/Time: June 23:56 - CONCLUSION: Triangular shape opacity of the upper medial left lung at site of prior treated lung cancer, similar to prior CT in April 2017. No new findings. Emanuel Roberts MD PE at Discharge GENERAL: This is a frail debilitated 62 years old female, in no apparent distress. Awake and alert. Sitting up in bed eating breakfast. SKIN: No rashes, warm and dry HEAD: Atraumatic. Normocephalic. EYES: Extraocular motions intact. No scleral icterus. ENT: Nose without bleeding, or drainage, Airway patent. MMM. NECK: Trachea midline. CARDIOVASCULAR: Regular rate and rhythm without murmurs, gallops, or rubs. RESPIRATORY: Fair air entry bilaterally. No wheezes, rales, or rhonchi. GASTROINTESTINAL: Abdomen soft, non-tender, nondistended. Positive bowel sounds MUSCULOSKELETAL: Extremities without clubbing, cyanosis, or edema. Pedal pulses appreciated NEUROLOGICAL: Awake and alert. Moves all extremities. Nonfocal. LUE tremor noted. Normal speech. Pt update on day of discharge Patient seen and examined. Patient doing well. Reports she feels good today. Does report some dizziness upon standing with PT earlier this morning. Denies any fever or chills. Denies any chest pain or shortness of breath. Denies any nausea, vomiting or abdominal pain. Reports improved appetite. Denies any urinary difficulties, diarrhea or constipation. Hospital Course Patient admitted with failure to thrive with progressive weakness and deconditioning, decreased oral intake. Patient started on Megace and IV fluids for hydration. Dietitian was consulted. Found to have hypokalemia with potassium of 2.8 treated with repletion. Seen in consultation by oncology for history of metastatic lung cancer with RECORD SEARCHER metastases. Palliative care consulted. Patient declined hospice wishing to proceed with aggressive treatment. MRI of the cervical spine and thoracic spine ordered revealing a small metastases in the T11 vertebral body. MRI of the brain revealed new left parietal edema possibly due to small underlying metastases. Patient seen in consultation by neurology. Recommended follow-up MRI in 4 weeks. EEG obtained and was negative. Recommended discontinuation of Wellbutrin to due lowering her seizure threshold and initiation of Lexapro. Patient cleared for discharge by both oncology and neurology. Palliative care consulted. Patient declined hospice wishing to proceed with aggressive treatment. Patient received physical therapy evaluation and treatment with recommendation for inpatient rehabilitation. CM assisted with discharge planning to SNF facility. Patient encouraged on increasing her oral intake, slow transitions and use of BRANDEN hose to improve hypotension. Pt Condition on Discharge: Stable Discharge Disposition: Discharge to SNF Discharge Time: > 30 minutes Discharge Instructions DIET: Follow Instructions for: As Tolerated, No Restrictions Additional Diet Instructions: [place] essentials TID Nutrient dense foods - ie yogurt, peanut butter, za crackers Activities you can perform: See Additionl Instruction Other Activity Instructions: per PT instructions Transition slowly when going from supine to sitting to standing Wear BRANDEN hose to help with orthostatic BP and have own prior to attempting to stand Follow up Referrals: Neurology - 1 Week with Jasen Chavez MD Oncology - 2-3 Days with Pretty Allison MD PCP Follow-up - 1 Week New Medications: Escitalopram (Escitalopram) 10 Mg Tab 10 MG PO DAILY for DEPRESSION for 30 Days, #30 TAB [Megestrol Liq] () 400 MG/10 ML SUSP 400 MG PO DAILY for INCREASE APPETITE for 30 Days, #1 BOTTLE Continued Medications: Atorvastatin (Lipitor) 40 Mg Tab 40 MG PO HS for Cholesterol Management, #30 TAB 0 Refills Levothyroxine (Levothyroxine) 75 Mcg Tab 75 MCG PO DAILY for Thyroid, #30 TAB 0 Refills Discontinued Medications: Bupropion HCl (Bupropion HCl) 100 Mg Tab 100 MG PO BID for Control Depression, TAB 0 Refills Stacia Cabrales Jun 23, 2017 10:19
[2017-06-23] MEDS: MEGESTROL ACETATE SUSP 400 MG/10 ML CUP PO SCH (11:33)
[2017-06-23] MEDS: ESCITALOPRAM OXALATE 10 MG TAB PO SCH (11:33)
[2017-06-23] MEDS: DOCUSATE SODIUM 50 MG/SENNA 8.6 MG TAB PO SCH (11:34)
[2017-06-23 12:02] VITALS: BP 89/50; PULSE 77; RESP 18; TEMP 97.5; O2SAT 96
--- NOTE | 2017-06-23 13:20 | PD.ONC.PN ---
Subjective Subjective Remarks Afebrile overnight. Patient resting in bed in [facility]. Has been discharged to rehab and is waiting for placement. Objective Data Date Time Temp Pulse Resp B/P (MAP) Pulse Ox O2 Delivery O2 Flow Rate FiO2 06/23/17 12:02 97.5 77 18 89/50 (63) 96 06/23/17 07:28 98.3 72 19 105/58 (74) 99 06/22/17 23:10 98.0 90 18 112/58 (76) 98 06/22/17 21:23 98.8 78 18 117/52 (73) 99 06/22/17 16:36 98.2 78 18 117/56 (76) 78 06/23/17 06/23/17 06/23/17 07:00 15:00 23:00 Intake Total 100 ml Output Total 1 ml Balance 99 ml Result Diagram: 06/21/1792606/21/17926 Administered Medications Medications (Trade) Dose Ordered Sig/Pierce Route PRN Reason Start Time Stop Time Status Last Admin Dose Admin Sodium Chloride (NS Flush) 2 ml BID IV FLUSH 06/20/17 09:00 06/23/17 08:07 Ondansetron HCl (Zofran Inj) 4 mg Q6H PRN IVP NAUSEA OR VOMITING 06/20/17 00:00 06/20/17 00:40 Senna/Docusate Sodium (Ale-Colace) 1 tab BID PO 06/20/17 09:00 06/21/17 21:47 Megestrol Acetate (Megace Liq) 400 mg DAILY PO 06/20/17 09:00 06/23/17 11:33 Atorvastatin Calcium (Lipitor) 40 mg HS PO 06/22/17 21:00 06/22/17 20:21 Levothyroxine Sodium (Synthroid) 75 mcg DAILY@0600 PO 06/22/17 09:00 06/23/17 06:20 Escitalopram Oxalate (Lexapro) 5 mg DAILY PO 06/22/17 09:30 06/24/17 09:29 06/23/17 11:33 Objective Remarks GENERAL: Middle aged female sitting up in bed in [facility]. SKIN: Warm and dry. HEAD: Normocephalic. EYES: No injection or drainage. NECK: Supple, trachea midline. CARDIOVASCULAR: +S1/S2 RESPIRATORY: diminished at bases, anterior alexander clear. GASTROINTESTINAL: Abdomen soft, non-tender, nondistended. EXTREMITIES: No cyanosis NEUROLOGICAL: awake. normal speech. moving all extremities. Assessment/Plan Problem List: (1) Lung cancer, primary, with metastasis from lung to other site ICD Codes: C34.90 - Lung cancer, primary, with metastasis from lung to other site; C79.9 - Secondary malignant neoplasm of unspecified site Status: Acute Plan: 06/23: ok to d/c to SNF. follow up in clinic. 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 --Status post resection followed by whole-brain radiation therapy. --patient does not want Hospice. Assessment 62y/o female with metastatic non-small cell lung cancer. Non-small cell lung cancer EGFR positive. Anxiety disorder Arthritis Diverticulosis Hypothyroidism History of multiple sclerosis Attending Statement The exam, history, and the medical decision-making described in the above note were completed with the assistance of the mid-level provider. I reviewed and agree with the findings presented. I attest that I had a [id number] encounter with the patient on the same day, and personally performed and documented my assessment and findings in the medical record. pt states that her weakness has improved. She's able to walk with the walker Neurologist has evaluated the patient. No focal findings noted. They have cleared patient to discharge. Patient lives by herself. It is not safe for her to be d/c home. Patient is cleared to d/c SNF. I will sign off Available PRN Patients family to call my office to arrange Tagrisso. This has marilia approved by her insurance. Larisa Mcduffie Jun 23, 2017 13:20 Pretty Allison MD Jun 24, 2017 00:33
[2017-06-23 15:55] VITALS: BP 110/60; PULSE 77; RESP 18; TEMP 98.2; O2SAT 98
[2017-06-24] MEDS ORDERED: ESCITALOPRAM OXALATE 10 MG TAB PO SCH (09:00)
== END 2017-06-23 18:53 | disposition home or self-care (01) ==
LOC: NEPC 18:25 → NEDA 23:56 → NEPFCDU 06-20 00:27
PROVIDERS: ADMIT Hospitalist; ATTEND Hospitalist
DX: R62.7 Adult failure to thrive (principal); E86.0 Dehydration; E87.6 Hypokalemia; C34.90 Malignant neoplasm of unspecified part of unspecified bronchus or lung; E03.9 Hypothyroidism, unspecified; G95.0 Syringomyelia and syringobulbia; G93.5 Compression of brain; R27.0 Ataxia, unspecified; R63.0 Anorexia; Z92.3 Personal history of irradiation; C79.31 Secondary malignant neoplasm of brain; G35 Multiple sclerosis; C79.51 Secondary malignant neoplasm of bone; I95.9 Hypotension, unspecified; F41.9 Anxiety disorder, unspecified; Z79.899 Other long term (current) drug therapy
CPT/HCPCS: 70553; 71020; 72156; 72157; 80048; 80053; 81001; 82948; 83690; 83735; 84132; 84155; 84439; 84443; 85025; 93005; 95819; 96361; 96365; 96366; 96367; 96375; 97110; 97163; 97530; 99285; A9579; G0378; G8987; G8988; J2405; J3475; J3480; J7030; J7040

== ENCOUNTER 2017-06-30 17:03 | Inpatient (IN) | payer OTHER, MEDICARE ==
[~2017-06-30] VITALS: Ht 167.6 cm; Wt 55.3 kg
[~2017-06-30 17:03] MED LIST changes: -ATOR40TA16 PO; -BUPR100T4 PO; +ESCI10TA PO; +LIPI40TA PO; +Megestrol Liq PO; -[UNRECOGNIZED DRUG - CODE] PO
[2017-06-30 17:51] VITALS: BP 122/57; PULSE 92; RESP 16; TEMP 100; O2SAT 96
[2017-06-30] MEDS ORDERED: SODIUM CHLORIDE 0.9% FLUSH 5 ML FLUSH IV FLUSH PRN (18:30)
--- NOTE | 2017-06-30 18:40 | PD ---
HPI Chief Complaint: Altered Mental Status Time Seen by Provider: 18:36 Travel History International Travel<30 days: No Contact w/Intl Traveler<30days: No Traveled to known affect area: No History of Present Illness HPI 62-year-old female patient with history of lung cancer with metastases to multiple areas, currently on hospice, presents to the ER today for decline in mentation. Patient is not currently able to give me any further history, disoriented. She is a DNR. Modifying Factors: None Associated Signs & Symptoms: Altered mental status Risk Factors: End-stage lung cancer PFSH Past Medical History Asthma: No Autoimmune Disease: Yes (MS) Blood Disorders: No Anxiety: No Depression: No Heart Rhythm Problems: No Cancer: Yes (STAGE 4 LUNG CA) Cardiac Catheterization: No Cardiovascular Problems: Yes (calcification) High Cholesterol: Yes Chemotherapy: Yes Chest Pain: No Congestive Heart Failure: No COPD: No Diabetes: No Diminished Hearing: No Endocrine: Yes Gastrointestinal Disorders: Yes (nausea) GERD: Yes Glaucoma: No Genitourinary: No Hepatitis: No Hiatal Hernia: Yes Hypertension: Yes Immune Disorder: Yes Implanted Vascular Access Dvce: No Musculoskeletal: Yes Neurologic: Yes ( forgetfulness recently) Psychiatric: No Reproductive: No Respiratory: No Radiation Therapy: Yes Sleep Apnea: No Thyroid Disease: Yes (HYPOTHYROID) Menopausal: Yes : 1 Para: 1 Tubal Ligation: Yes Past Surgical History Abdominal Surgery: No AICD: No Arteriovenous Shunt: No Cardiac Surgery: No Coronary Artery Bypass Graft: No Ear Surgery: No Endocrine Surgery: No Eye Surgery: No Genitourinary Surgery: No Gynecologic Surgery: Yes (HYSTERECTOMY) Hysterectomy: Yes (parial) Insulin Pump: No Joint Replacement: No Oral Surgery: No Pacemaker: No Thoracic Surgery: Yes (BREAST AUGMENTATION/AND REDUCTION) Other Surgery: Yes Social History Alcohol Use: No (wine monthly) Tobacco Use: No Substance Use: No Allergies-Medications (Allergen,Severity, Reaction): Coded Allergies: No Known Allergies (Verified Allergy, Unknown, 06/30/17) Reported Meds & Prescriptions Reported Meds & Active Scripts Active [Megestrol Liq] 400 MG/10 ML Susp 400 Mg PO DAILY 30 Days Escitalopram (Escitalopram Oxalate) 10 Mg Tab 10 Mg PO DAILY 30 Days Reported Levothyroxine (Levothyroxine Sodium) 75 Mcg Tab 75 Mcg PO DAILY Lipitor (Atorvastatin Calcium) 40 Mg Tab 40 Mg PO HS Review of Systems ROS Limitations: Altered Mental Status Physical Exam Narrative GENERAL: Well-developed elderly white female patient currently in moderate distress, lethargic, disoriented. SKIN: Focused skin assessment warm/dry. HEAD: Atraumatic. Normocephalic. EYES: Pupils equal and round. No scleral icterus. No injection or drainage. ENT: No nasal bleeding or discharge. Mucous membranes pink and moist. NECK: Trachea midline. No JVD. CARDIOVASCULAR: Regular rate and rhythm. No murmur appreciated. RESPIRATORY: No accessory muscle use. Decreased throughout bilaterally. Breath sounds equal bilaterally. GASTROINTESTINAL: Abdomen soft, non-tender, nondistended. Hepatic and splenic margins not palpable. MUSCULOSKELETAL: No obvious deformities. No clubbing. No cyanosis. No edema. NEUROLOGICAL: Lethargic. Face symmetrical, not following commands. PSYCHIATRIC: Disoriented, lethargic. Data Data Last Documented VS Vital Signs Date Time Temp Pulse Resp B/P (MAP) Pulse Ox O2 Delivery O2 Flow Rate FiO2 06/30/17 17:51 100.0 92 16 122/57 (78) 96 Orders Orders Electrocardiogram (06/30/17 18:28) Ammonia (06/30/17 18:28) Complete Blood Count With Diff (06/30/17 18:28) Comprehensive Metabolic Panel (06/30/17 18:28) Creatine Kinase (Cpk) (06/30/17 18:28) Prothrombin Time / Inr (Pt) (06/30/17 18:28) Act Partial Throm Time (Ptt) (06/30/17 18:28) Troponin I (06/30/17 18:28) Thyroid Stimulating Hormone (06/30/17 18:28) Urinalysis - C+S If Indicated (06/30/17 18:28) Lactic Acid Sepsis Protocol (06/30/17 18:28) Blood Culture (06/30/17 18:28) Chest, Single Ap (06/30/17 18:28) Ct Brain W/O Iv Contrast(Rout) (06/30/17 18:28) Blood Glucose (06/30/17 18:28) Ecg Monitoring (06/30/17 18:28) Iv Access Insert/Monitor (06/30/17 18:28) Oximetry (06/30/17 18:28) Sodium Chloride 0.9% Flush (Ns Flush) (06/30/17 18:30) Alcohol (Ethanol) (06/30/17 18:28) Cath For Specimen (06/30/17 18:36) Lactic Acid Sepsis Protocol (06/30/17 18:36) Labs Laboratory Tests Test 06/30/17 18:30 [facility] Medical Decision Making Medical Screen Exam Complete: Yes Emergency Medical Condition: Yes Medical Record Reviewed: Yes Interpretation(s) EKG shows normal sinus rhythm at a rate of 90 bpm with no signs of acute ST-T changes. Differential Diagnosis Altered mental status: Dehydration versus metabolic issues versus sepsis versus acute intracranial processes versus metastases to the brain Narrative Course Altered mental status workup initiated in the ER for further evaluation. Lab work, CAT scan, chest x-rays ordered. Physician Communication Physician Communication Case is signed out to Dr. Rivera at 7 PM pending workup. Disposition based on workup. Diagnosis Primary Impression: Altered mental status Condition: Stable Brittney Gutierres MD Jun 30, 2017 18:40
[2017-06-30 19:15] LABS: AUTOMATED NEUTROPHIL # 7.6 TH/MM3 (1.8-7.7); BASOPHIL % 0.1 % (0.0-2.0); HEMATOCRIT 32.5 % (35.0-46.0); HEMO FLAGS DIFF FINAL; LYMPH % 5.6 % (9.0-44.0); LYMPHOCYTE # 0.5 TH/MM3 (1.0-4.8); MEAN CELL VOLUME 90.1 FL (80.0-100.0); MEAN CORPUSCULAR HEMOGLOBIN 30.8 PG (27.0-34.0); MEAN CORPUSCULAR HGB CONC 34.1 % (32.0-36.0); MONO % 8.6 % (0.0-8.0); NEUT % 85.7 % (16.0-70.0); PLATELET COUNT 252 TH/MM3 (150-450); RED BLOOD COUNT 3.61 MIL/MM3 (4.00-5.30); RED CELL DISTRIBUTION WIDTH 16.4 % (11.6-17.2); WHITE BLOOD COUNT 8.9 TH/MM3 (4.0-11.0)
--- NOTE | 2017-06-30 19:20 | RADRPT ---
EXAM DATE/TIME: 06/30/2017 18:50 [facility] COMPARISON: CHEST SINGLE AP, April 03, 2017, 12:44. INDICATIONS : Short of breath and weakness. MEDICAL HISTORY : Carcinoma, lung. Hypercholesterolemia. Hypertension. GERD, Chemotherapy. SURGICAL HISTORY : Breast augmentation. ENCOUNTER: Sequela ACUITY: 2 weeks PAIN SCORE: Non-responsive. LOCATION: Bilateral chest FINDINGS: A single view of the chest demonstrates bibasilar mild air space consolidation with possible associat ed effusions. Heart size is normal. Osseous structures are grossly intact. CONCLUSION: 1. Mild bibasilar airspace disease with possible associated effusions. 2. Heart size remains normal Alex Gamboa MD on June 30, 2017 at 19:18 Board Certified Radiologist. This report was verified electronically.
[2017-06-30 19:22] LABS: APTT (PATIENT) 31.6 SEC (24.3-30.1); INTERNATIONAL NORMALIZED RATIO 1.1 RATIO; PROTHROMBIN TIME - PATIENT 12.7 SEC (9.8-11.6)
--- NOTE | 2017-06-30 19:26 | RADRPT ---
EXAM DATE/TIME: 06/30/2017 18:56 [facility] COMPARISON: CT BRAIN W/O CONTRAST, April 15, 2017, 4:35. INDICATIONS : Altered mental status. RADIATION DOSE: 56.35 CTDIvol (mGy) MEDICAL HISTORY : Hypertension. Cardiovascular disease Carcinoma, lung.Brain mass. SURGICAL HISTORY : Tubal ligation. Hysterectomy. ENCOUNTER: Initial ACUITY: 1 day PAIN SCALE: 0/10 LOCATION: cranial TECHNIQUE: Multiple contiguous axial images were obtained of the head. Using automated exposure control and adj ustment of the mA and/or kV according to patient size, radiation dose was kept as low as reasonably a chievable to obtain optimal diagnostic quality images. DICOM format image data is available electro nically for review and comparison. FINDINGS: CEREBRUM: The ventricles are normal for age. Previous left posterior parietal ventriculostomy has been removed . Increasing periventricular areas of diminished attenuation are characteristic of worsening white ma tter disease or vasogenic type edema. No midline shift. No extra-axial fluid collections are seen. POSTERIOR FOSSA: There appears to be decreasing edema in the central portion of the posterior fossa. Stable postsurgic al changes with a central occipital craniectomy. EXTRACRANIAL: The visualized portion of the orbits is intact. Minimal chronic sinusitis in the right maxillary antr a. SKULL: Stable postsurgical changes with a central occipital craniectomy. Old bore hole for a ventricular roseanna nt in the left posterior parietal region. CONCLUSION: 1. Worsening periventricular areas of diminished attenuation characteristic of advancing small vessel ischemic demyelination or vasogenic edema. Considering the relative short interval of change, I favo r the latter. The findings could represent worsening metastatic disease. MRI with and without gadolin ium is recommended for further characterization. 2. Stable postsurgical changes in the posterior fossa with an old bore hole in the left posterior par ietal region Alex Gamboa MD on June 30, 2017 at 19:19 Board Certified Radiologist. This report was verified electronically.
[2017-06-30 19:37] VITALS: BP 101/67; PULSE 90; RESP 18; O2SAT 96
[2017-06-30 19:37] LABS: ANION GAP 10 MEQ/L (5-15); AST (GOT) 10 U/L (15-37); BICARBONATE 23.6 MEQ/L (21.0-32.0); BLOOD UREA NITROGEN 15 MG/DL (7-18); CHLORIDE 105 MEQ/L (98-107); GLOMERULAR FILTRATION RATE 153 ML/MIN (>89); POTASSIUM 3.3 MEQ/L (3.5-5.1); SODIUM (NA) 139 MEQ/L (136-145)
[2017-06-30 19:38] LABS: ALT (GPT) 10 U/L (10-53)
[2017-06-30 19:41] LABS: ALCOHOL LESS THAN 3 MG/DL (0-5)
[2017-06-30] MEDS ORDERED: CITRSOL4 PO (19:46)
[2017-06-30] MEDS ORDERED: MORP1TAB24 PO (19:46)
[2017-06-30] MEDS ORDERED: TYLE325T PO (19:46)
[2017-06-30] MEDS ORDERED: FERR325T18 PO (19:46)
[2017-06-30] MEDS ORDERED: APLI5INJ2 ID (19:46)
[2017-06-30] MEDS ORDERED: MILKSUS PO (19:46)
[2017-06-30] MEDS ORDERED: ZOFR4TAB PO (19:46)
[2017-06-30] MEDS ORDERED: DULC10SU3 RECTAL (19:46)
[2017-06-30] MEDS ORDERED: MULTIVITAMIN PO (19:46)
[2017-06-30] MEDS ORDERED: NORC5TAB PO (19:46)
[2017-06-30] MEDS ORDERED: ENEMENE5 RC (19:46)
[2017-06-30 19:48] LABS: ALKALINE PHOSPHATASE 101 U/L (45-117); TOTAL BILIRUBIN ADULT 0.8 MG/DL (0.2-1.0)
[2017-06-30 19:50] LABS: CREATINE KINASE 66 U/L (26-192)
--- NOTE | 2017-06-30 21:49 | PD ---
Physical Exam Narrative Patient was seen by ED physician and signed out to me. Data Data Last Documented VS Vital Signs Date Time Temp Pulse Resp B/P (MAP) Pulse Ox O2 Delivery O2 Flow Rate FiO2 06/30/17 19:37 90 18 101/67 (78) 96 Room Air 06/30/17 17:51 100.0 Orders Orders Electrocardiogram (06/30/17 18:28) Ammonia (06/30/17 18:28) Complete Blood Count With Diff (06/30/17 18:28) Comprehensive Metabolic Panel (06/30/17 18:28) Creatine Kinase (Cpk) (06/30/17 18:28) Prothrombin Time / Inr (Pt) (06/30/17 18:28) Act Partial Throm Time (Ptt) (06/30/17 18:28) Troponin I (06/30/17 18:) Thyroid Stimulating Hormone (06/30/17 18:) Urinalysis - C+S If Indicated (06/30/17 18:28) Lactic Acid Sepsis Protocol (06/30/17 18:28) Blood Culture (06/30/17 18:28) Chest, Single Ap (06/30/17 18:28) Ct Brain W/O Iv Contrast(Rout) (06/30/17 18:28) Blood Glucose (06/30/17 18:28) Ecg Monitoring (06/30/17 18:28) Iv Access Insert/Monitor (06/30/17 18:28) Oximetry (06/30/17 18:28) Sodium Chloride 0.9% Flush (Ns Flush) (06/30/17 18:30) Alcohol (Ethanol) (06/30/17 18:28) Cath For Specimen (06/30/17 18:36) Lactic Acid Sepsis Protocol (06/30/17 18:36) Cefepime Inj (Maxipime Inj) (06/30/17 22:00) Levofloxacin 750 Mg Premix Inj (Levaquin (06/30/17 22:00) Labs Laboratory Tests Test 06/30/17 18:30 06/30/17 18:35 Lactic Acid Level 0.9 mmol/L Ammonia LESS THAN 10 MCMOL/L White Blood Count 8.9 TH/MM3 Red Blood Count 3.61 MIL/MM3 Hemoglobin 11.1 GM/DL Hematocrit 32.5 % Mean Corpuscular Volume 90.1 FL Mean Corpuscular Hemoglobin 30.8 PG Mean Corpuscular Hemoglobin Concent 34.1 % Red Cell Distribution Width 16.4 % Platelet Count 252 TH/MM3 Mean Platelet Volume 9.4 FL Neutrophils (%) (Auto) 85.7 % Lymphocytes (%) (Auto) 5.6 % Monocytes (%) (Auto) 8.6 % Eosinophils (%) (Auto) 0.0 % Basophils (%) (Auto) 0.1 % Neutrophils # (Auto) 7.6 TH/MM3 Lymphocytes # (Auto) 0.5 TH/MM3 Monocytes # (Auto) 0.8 TH/MM3 Eosinophils # (Auto) 0.0 TH/MM3 Basophils # (Auto) 0.0 TH/MM3 CBC Comment DIFF FINAL Differential Comment Prothrombin Time 12.7 SEC Prothromb Time International Ratio 1.1 RATIO Activated Partial Thromboplast Time 31.6 SEC Blood Urea Nitrogen 15 MG/DL Creatinine 0.42 MG/DL Random Glucose 112 MG/DL Total Protein 6.4 GM/DL Albumin 2.6 GM/DL Calcium Level 9.3 MG/DL Alkaline Phosphatase 101 U/L Aspartate Amino Transf (AST/SGOT) 10 U/L Alanine Aminotransferase (ALT/SGPT) 10 U/L Total Bilirubin 0.8 MG/DL Sodium Level 139 MEQ/L Potassium Level 3.3 MEQ/L Chloride Level 105 MEQ/L Carbon Dioxide Level 23.6 MEQ/L Anion Gap 10 MEQ/L Estimat Glomerular Filtration Rate 153 ML/MIN Total Creatine Kinase 66 U/L Troponin I LESS THAN 0.02 NG/ML Thyroid Stimulating Hormone 3rd Gen 0.276 uIU/ML Ethyl Alcohol Level LESS THAN 3 MG/DL [facility] Supervised Visit with ORTIZ: No Interpretation(s) 21:38 PM. Chest x-ray shows mild bibasilar airspace disease and possible effusion. CT scan of the brain shows worsening of metastatic disease. CBC with WBC 8.9. Hemoglobin 11.1 hematocrit 32.5. 85 neutrophil. Potassium 3.3. Creatinine 0.42. Cardiac enzymes are normal. TSH 0.276. Narrative Course 62-year-old female with history of metastatic lung CA was brought in to from local [place] [facility] for evaluation of rapid decline in mental status. Normal saline solution 1 25 cc an hour. Cefepime 1 g IV. Levaquin 750 mg IV. Diagnosis Primary Impression: Pneumonia Qualified Codes: J18.9 - Pneumonia, unspecified organism Additional Impression: Lung cancer metastatic to brain Admitting Information Admitting Physician Requests: Admit Condition: Stable Cuate Rivera MD Jun 30, 2017 21:49
[2017-06-30] MEDS ORDERED: LEVOFLOXACIN 750 MG PREMIX INJ 150 ML IV ONE (22:00)
[2017-06-30] MEDS ORDERED: Vancomycin Consult Pharmacy 1 EA OTHER SCH (22:00)
[2017-06-30] MEDS ORDERED: CEFEPIME INJ 1,000 MG in SODIUM CHLORIDE 0.9% INJ 100 ML IV ONE (22:00)
[2017-06-30] MEDS ORDERED: SODIUM CHLORIDE 0.9% FLUSH 10 ML FLUSH IV FLUSH PRN (22:15)
[2017-06-30] MEDS ORDERED: BISACODYL 10 MG SUPP RECTAL PRN (22:15)
[2017-06-30] MEDS ORDERED: MAGNESIUM HYDROXIDE SUSP 30 ML CUP PO PRN (22:15)
[2017-06-30] MEDS ORDERED: SENNOSIDES 8.6 MG TAB PO PRN (22:15)
[2017-06-30] MEDS ORDERED: LACTULOSE SYRUP 20 GM/30 ML CUP PO PRN (22:15)
[2017-06-30] MEDS ORDERED: NALOXONE HCL 0.4 MG/ML AMP IV PUSH PRN (22:15)
[2017-06-30 22:17] LABS: BACTERIA, URINE OCC /hpf; BLOOD, URINE NEG (NEG); COMMENT (UR) CATH-CULTURE IND; CULTURE IF INDICATED CATH CULTURE IND; GLUCOSE,URINE NEG (NEG); KETONE, URINE 150 mg/dL (NEG); NITRITE,URINE NEG (NEG); PH, URINE 6.5 (5.0-8.5); SQUAMOUS EPITHELIAL CELL URINE <1 /hpf (0-5); URINE COLOR YELLOW (YELLW/STRAW)
[2017-06-30] MEDS ORDERED: DEXAMETHASONE SOD PHOS 20 MG/5 ML VIAL IV PUSH ONE (22:45)
[2017-06-30] MEDS: POTASSIUM CHLOR 10 MEQ PREMIX 100 ML IV SCH (22:58)
[2017-06-30] MEDS: CEFEPIME INJ 2,000 MG in SODIUM CHLORIDE 0.9% INJ 100 ML IV SCH (23:02)
[2017-07-01] VITALS (8 sets, daily range): BP systolic 103–118; BP diastolic 52–67; PULSE 64–87; RESP 12–16; TEMP 97.1–98.4; O2SAT 96–97
[2017-07-01] MEDS: VANCOMYCIN 1,000 MG/NS 250 ML IV SCH ×6 (00:56→16:00)
[2017-07-01] MEDS: POTASSIUM CHLOR 10 MEQ PREMIX 100 ML IV SCH ×5 (00:57→05:19)
--- NOTE | 2017-07-01 01:09 | HHI.HP ---
HPI Service [facility] Primary Care Physician Unknown Admission Diagnosis pneumonia. History of metastatic lung CA. Diagnoses: Travel History International Travel<30 Days: No Contact w/Intl Traveler <30 Da: No Traveled to Known Affected Are: No History of Present Illness 62-year-old female with a past medical history significant for non-small cell lung carcinoma with known GRAPHIC PRE PRESS TRADES WORKER metastasis presents to the emergency department from her snf today for a decline in mentation. Per emergency department records the patient is currently on hospice and is a DNR. The patient was discharged from the hospital on 06/23/17 where at that time palliative care notes indicate that the family wished to pursue aggressive treatment. The patient is nonresponsive during our interview, I was unable to clarify goals of treatment. She was noted to have worsening periventricular areas of diminished attenuation, likely secondary to vasogenic edema from worsening metastatic disease. Chest x-ray significant for mild basilar airspace disease with possible associated effusions, concerning for PNA. Other laboratory values significant for a potassium of 3.3. CBC without leukocytosis. Lactic acid 0.9. MAXIMUM TEMPERATURE 100.0. Review of Systems Unable to obtain secondary to patient's condition Past Family Social History Past Medical History (Obtained fro medical records) Non-small cell lung cancer with TROUBLE DISPATCHER metastasis Anxiety Hypothyroidism Past Surgical History Hysterectomy Breast augmentation/induction Reported Medications Reported Meds & Active Scripts Active [Megestrol Liq] 400 MG/10 ML Susp 400 Mg PO DAILY 30 Days Escitalopram (Escitalopram Oxalate) 10 Mg Tab 10 Mg PO DAILY 30 Days Reported Zofran (Ondansetron HCl) 4 Mg Tab 4 Mg PO Q8HR PRN Nocatee 5-325 Tablet (Hydrocodone/Acetaminophen) 5 Mg-325 Mg Tablet 1 Tab PO Q8HR PRN [Multivitamin] 1 Unit PO DAILY Morphine ER (Morphine Sulfate) 15 Mg Tab 15 Mg PO BID Milk of Magnesia Liq (Magnesium Hydroxide) 400 Mg/5 Ml Susp 30 Ml PO DIRECTED Ferrous Sulfate 325 Mg (65 Mg Iron) Tablet 325 Mg PO DAILY Enema Disposable (Sodium Phosphates) 19 Gram-7 Gram/118 Ml De[place]ra 1 Unit RC DIRECTED Dulcolax Supp (Bisacodyl) 10 Mg Supp 10 Mg RECTAL DIRECTED Citroma Liq (Magnesium Citrate) 300 Ml Liq 300 Ml PO DIRECTED Aplisol (Tuberculin Ppd) 5 Tub. Unit/0.1 Ml Inj 0.1 Ml ID ONCE Tylenol (Acetaminophen) 325 Mg Tab 650 Mg PO Q4H PRN Tylenol (Acetaminophen) 325 Mg Tab 650 Mg PO Q4H PRN Levothyroxine (Levothyroxine Sodium) 75 Mcg Tab 75 Mcg PO DAILY Lipitor (Atorvastatin Calcium) 40 Mg Tab 40 Mg PO HS Allergies: Coded Allergies: No Known Allergies (Verified Allergy, Unknown, 06/30/17) Family History No family history of diabetes mellitus or coronary artery disease. Social History Occasional alcohol. Negative for tobacco or drugs. Physical Exam Vital Signs Vital Signs Date Time Temp Pulse Resp B/P (MAP) Pulse Ox O2 Delivery O2 Flow Rate FiO2 06/30/17 19:37 90 18 101/67 (78) 96 Room Air 06/30/17 17:51 100.0 92 16 122/57 (78) 96 Physical Exam GENERAL: Thin, female lying in bed. SKIN: No rashes, ecchymoses or lesions. Cool and dry. HEAD: Atraumatic. Normocephalic. No temporal or scalp tenderness. EYES: Pupils equal round and reactive. Extraocular motions intact. No scleral icterus. No injection or drainage. ENT: Nose without bleeding, purulent drainage or septal hematoma. Throat without erythema, tonsillar hypertrophy or exudate. Uvula midline. Airway patent. NECK: Trachea midline. No JVD or lymphadenopathy. CARDIOVASCULAR: Regular rate and rhythm without murmurs, gallops, or rubs. RESPIRATORY: Clear to auscultation. Breath sounds equal bilaterally. No wheezes , rales, or rhonchi. GASTROINTESTINAL: Abdomen soft, non-tender, nondistended. No hepato-splenomegaly , or palpable masses. No guarding. MUSCULOSKELETAL: Extremities without clubbing, cyanosis, or edema. No joint tenderness, effusion, or edema noted. No calf tenderness. Negative Homans sign bilaterally. NEUROLOGICAL: Patient will open her eyes to voice. Does not follow commands. Does not answer questions. Unable to assess strength. Laboratory Laboratory Tests Test 06/30/17 18:30 06/30/17 18:35 06/30/17 21:46 Lactic Acid Level 0.9 Ammonia LESS THAN 10 White Blood Count 8.9 Red Blood Count 3.61 Hemoglobin 11.1 Hematocrit 32.5 Mean Corpuscular Volume 90.1 Mean Corpuscular Hemoglobin 30.8 Mean Corpuscular Hemoglobin Concent 34.1 Red Cell Distribution Width 16.4 Platelet Count 252 Mean Platelet Volume 9.4 Neutrophils (%) (Auto) 85.7 Lymphocytes (%) (Auto) 5.6 Monocytes (%) (Auto) 8.6 Eosinophils (%) (Auto) 0.0 Basophils (%) (Auto) 0.1 Neutrophils # (Auto) 7.6 Lymphocytes # (Auto) 0.5 Monocytes # (Auto) 0.8 Eosinophils # (Auto) 0.0 Basophils # (Auto) 0.0 CBC Comment DIFF FINAL Differential Comment Prothrombin Time 12.7 Prothromb Time International Ratio 1.1 Activated Partial Thromboplast Time 31.6 Blood Urea Nitrogen 15 Creatinine 0.42 Random Glucose 112 Total Protein 6.4 Albumin 2.6 Calcium Level 9.3 Alkaline Phosphatase 101 Aspartate Amino Transf (AST/SGOT) 10 Alanine Aminotransferase (ALT/SGPT) 10 Total Bilirubin 0.8 Sodium Level 139 Potassium Level 3.3 Chloride Level 105 Carbon Dioxide Level 23.6 Anion Gap 10 Estimat Glomerular Filtration Rate 153 Total Creatine Kinase 66 Troponin I LESS THAN 0.02 Thyroid Stimulating Hormone 3rd Gen 0.276 Ethyl Alcohol Level LESS THAN 3 Urine Color YELLOW Urine Turbidity HAZY Urine pH 6.5 Urine Specific [place] 1.032 Urine Protein 100 Urine Glucose (UA) NEG Urine Ketones 150 Urine Occult Blood NEG Urine Nitrite NEG Urine Bilirubin SMALL Urine Urobilinogen 8.0 Urine Leukocyte Esterase TRACE Urine RBC 1 Urine WBC 7 Urine Squamous Epithelial Cells <1 Urine Amorphous Sediment RARE Urine Bacteria OCC Microscopic Urinalysis Comment CATH-CULTURE IND Date/Time Source Procedure Growth Status 06/30/17 18:35 Blood Peripheral Aerobic Blood Culture Pending Received 06/30/17 18:35 Blood Peripheral Anaerobic Blood Culture Pending Received 06/30/17 21:46 Urine Catheterized Urine Urine Culture Pending Received Result Diagram: 06/30/[id number] Caprini VTE Risk Assessment Caprini VTE Risk Assessment: Mod/High Risk (score >= 2) Caprini Risk Assessment Model Point Value = 1 Point Value = 2 Point Value = 3 Point Value = 5 Age 41-60 Minor surgery BMI > 25 kg/m2 Swollen legs Varicose veins or History of unexplained or recurrent spontaneous Oral contraceptives or hormone replacement Sepsis (< 1 month) Serious lung disease, including pneumonia (< 1 month) Abnormal pulmonary function Acute myocardial infarction Congestive heart failure (< 1 month) History of inflammatory bowel disease Medical patient at bed rest Age 61-74 Arthroscopic surgery Major open surgery (> 45 min) Laparoscopic surgery (> 45 min) Malignancy Confined to bed (> 72 hours) Immobilizing plaster cast Central venous access Age >= 75 History of VTE Family history of VTE Factor V Leiden Prothrombin [id number] Lupus anticoagulant Anticardiolipin antibodies Elevated serum homocysteine Heparin-induced thrombocytopenia Other congenital or acquired thrombophilia Stroke (< 1 month) Elective arthroplasty Hip, pelvis, or leg fracture Acute spinal cord injury (< 1 month) Prophylaxis Regimen Total Risk Factor Score Risk Level Prophylaxis Regimen 0-1 Low Early ambulation 2 Moderate Order ONE of the following: *Sequential Compression Device (SCD) *Heparin 5000 units SQ BID 3-4 Higher Order ONE of the following medications: *Heparin 5000 units SQ TID *Enoxaparin/Lovenox 40 mg SQ daily (WT < 150 kg, CrCl > 30 mL/min) *Enoxaparin/Lovenox 30 mg SQ daily (WT < 150 kg, CrCl > 10-29 mL/min) *Enoxaparin/Lovenox 30 mg SQ BID (WT < 150 kg, CrCl > 30 mL/min) AND/OR *Sequential Compression Device (SCD) 5 or more Highest Order ONE of the following medications: *Heparin 5000 units SQ TID (Preferred with Epidurals) *Enoxaparin/Lovenox 40 mg SQ daily (WT < 150 kg, CrCl > 30 mL/min) *Enoxaparin/Lovenox 30 mg SQ daily (WT < 150 kg, CrCl > 10-29 mL/min) *Enoxaparin/Lovenox 30 mg SQ BID (WT < 150 kg, CrCl > 30 mL/min) AND *Sequential Compression Device (SCD) Assessment and Plan Assessment and Plan 62-year-old female with a past medical history significant for non-small cell lung cancer with TROUBLE DISPATCHER metastasis, anxiety and hypothyroidism presents with a decline in mental status and concern for bilateral hospital-acquired pneumonia. 1. Altered mental status/GRAPHIC PRE PRESS TRADES WORKER metastasis CT of the head shows likely worsening of metastatic disease IV steroids MRI brain pending Oncology consulted, appreciate recommendations 2. Pneumonia Chest x-ray shows mild bibasilar airspace disease with possible associated effusions Treat possible HCAP with cefepime and vancomycin 3. Non-small cell lung cancer with metastatic disease Patient discharged on 06/23/17 At that time, per palliative care notes the family wished to pursue aggressive treatment Palliative care consulted to clarify goals of treatment 4. Hypokalemia Replete with IV potassium Follow BMP 5. Hyperlipidemia/hypothyroidism/depression Holding home medications as patient is NPO FEN NPO NS at 60 cc/hr Electrolytes: as above Heparin Case discussed with ER physician at length Physician Certification 2 Midnight Certification Type: Admission for Inpatient Services Order for Inpatient Services The services are ordered in accordance with Medicare regulations or non- Medicare payer requirements, as applicable. In the case of services not specified as inpatient-only, they are appropriately provided as inpatient services in accordance with the 2-midnight benchmark. Estimated LOS (days): 2 2 days is the estimated time the patient will need to remain in the hospital, assuming treatment plan goals are met and no additional complications. Post-Hospital Plan: Not yet determined Alisa Jackson MD Jul 01, 2017 01:09
[2017-07-01] MEDS ORDERED: SODIUM CHLOR 0.9% 1000 ML INJ 1,000 ML IV SCH (01:15)
[2017-07-01] MEDS: CEFEPIME INJ 2,000 MG in SODIUM CHLORIDE 0.9% INJ 100 ML IV SCH ×2 (05:19→15:38)
[2017-07-01] MEDS: DEXAMETHASONE SOD PHOS 4 MG/ML VIAL IV PUSH SCH ×3 (05:19→17:00)
[2017-07-01 07:23] LABS: BASOPHIL % 0.1 % (0.0-2.0); HEMO FLAGS DIFF FINAL; LYMPH % 3.1 % (9.0-44.0); LYMPHOCYTE # 0.3 TH/MM3 (1.0-4.8); MEAN CORPUSCULAR HEMOGLOBIN 30.6 PG (27.0-34.0); MEAN CORPUSCULAR HGB CONC 34.4 % (32.0-36.0); MONO % 1.7 % (0.0-8.0); NEUT % 95.1 % (16.0-70.0); PLATELET COUNT 226 TH/MM3 (150-450); RED BLOOD COUNT 3.26 MIL/MM3 (4.00-5.30); RED CELL DISTRIBUTION WIDTH 16.1 % (11.6-17.2); WHITE BLOOD COUNT 8.4 TH/MM3 (4.0-11.0)
[2017-07-01 07:48] LABS: BICARBONATE 23.8 MEQ/L (21.0-32.0); POTASSIUM 4.3 MEQ/L (3.5-5.1)
[2017-07-01] MEDS ORDERED: SODIUM CHLORIDE 0.9% FLUSH 10 ML FLUSH IV FLUSH SCH (09:00)
[2017-07-01] MEDS ORDERED: HEPARIN SODIUM - SQ 10,000 UNITS/ML VIAL SQ SCH (09:00)
[2017-07-01] MEDS ORDERED: MULTTAB67 PO (11:08)
--- NOTE | 2017-07-01 11:45 | PD.CONS ---
Consult Service Palliative Care Consult Requested By Dr. Jackson . Primary Care Physician Unknown Reason for Consultation a. To assist with evaluation and management of symptoms including: AMS, pain , debility b. To assist medical decision maker(s) with: better understanding of current medical conditions; weighing benefits/burdens of medical treatment options; making medical treatment decisions. HPI History of Present Illness This 62-year-old female presented to the ED on 06/30/17 in the afternoon for reported decline in mental status. At presentation she was disoriented unable to provide additional history. She has known history of lung cancer with metastasis to brain. [Of note she is known to palliative service from 2 prior consultations during recent admissions] she was apparently sent from local nursing facility, [facility] [address]. * CXR shows mild bibasilar airspace disease and possible effusion. CT brain= worsening metastatic disease. She was started on IV fluid, cefepime, Levaquin. Cardiac enzymes unremarkable. Potassium 3.3. Lactic acid 0.9. CBC unremarkable. * Of note patient recently hospitalized 06/19 through 06/23--or difficulty ambulating, poor appetite. At that time daughter endorsed trajectory of decline over the past several weeks and that patient was no longer safe to live alone. Patient at that time was having increased difficulty completing usually known to her tasks, and increased forgetfulness and confusion. During that admission she was started on Megace for appetite. She was discharged to an SNF with plan to follow-up with oncology and possibly start TAGRISSO outpatient if her performance status improved. Oncology further notes that if her performance status does not improve then recommends hospice. PT notes she was able to stand with walker and assist, and transfer, take a few steps, or cloth bleaching range tender place. Patient seen in room no visitors present. She is sleeping though arouses with repeated verbal and touch. She smiles at my greeting. When I asked how are you doing Mrs. Michelle she repeats Ms. Michelle, and then repeats how are you doing. She does not consistently follow simple commands, and requires repetition for her to follow some commands. Minimally verbal she resists opening her eyes. She denies pain. Head and neck turned towards the right, she neglects and does not turn towards the left. When she does open her eyes she tells me that she recognizes me from before her brain surgery. (I did see this patient during that admission) she does not answer other questions for me in terms of her name date of location etc. No apparent distress. Smiles at times. D/w Kobe Mcduffie oncology PA, agrees w hospice recommendation, chemo therapy was only to be considered if pt performance status improved. Dr Allison to see pt later today after office pts . ADDITIONAL ONCOLOGY HISTORY PER PRIOR PALLIATIVE CONSULTATIONS : * Recent oncology follow-up outpatient 06/06/17 ( Dr Allison): dx: Metastatic [id number] lung cancer EGFR mutation positive T790M mutation negative. She is noted to have completed whole brain XRT 10 treatments on 05/02/17. At that presentation she is noted to not be doing well with poor appetite, weight loss, headaches, complaints of fatigue weakness, nausea tingling of her fingers and toes as well as confusion. Dr. Ritter notes per restaging imaging during April chest, abdomen, pelvis were negative. On June recommended to complete PET scan to evaluate further for systemic disease. For nutrition issues referred to dietitian. Additional systemic chemotherapy was discussed, pending PET scan results as well as drug approval for patient. Weight 58.6 kg. * Of note patient known to palliative care from prior consultation 04/07/17: At that time patient had been on palliative systemic chemotherapy at reduced dose. She had been having ongoing leg pain and weakness corticosteroids have been added. She underwent cerebellar neoplasm resection during that admission. Postoperatively she had improvement in symptoms and neurological assessment. She was discharged to rehabilitation with plan to continue Decadron, XRT--( which was started during hospital course). She was discharged home with home health, home PT. During that palliative care interaction her neurological status fluctuated though at times she was reasonably insightful and able to participate in decision-making. At that time She verbalizes that if there are reasonable treatment options I can restore her to close to her baseline independence and function and she would continue to pursue such measures, as she has already done fairly well with her initial cancer diagnosis. However should she become dependent, vegetative, or have severe complications she may not wish to pursue further measures, and is very clear that if she suffer significant brain issues such as, or vegetative state that she would not want artificial feeding or life support. Upon review of CODE STATUS she seems to have reasonable understanding and elects DNR, would not want any artificial measures "if it's her time, she wishes "to go ". Weight during that admission 69 kg Function/Cognitive Trajectory Patient now dependent in SNF setting, with recent significant altered mental status. During last admission 06/20/17: Patient presenting with reports of progressive weakness and inability to walk over the past several weeks. Of note during outpatient oncology follow-up 06/07 patient at that time reporting increasing difficulty with ambulation, weakness as well as poor appetite, some confusion. Based on reported weights available on EMR patient has lost approximately 10 kg from April to June (22#) Dtr reports pt increasingly weak and slow in ambulation past several weeks. Now has difficulty walking at all. Cognitive impairments over last few weeks per dtr-- increased difficulty completing simple known tasks, forgetfulness. 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 Review of Systems ROS Limitations: Altered Mental Status (lethargic, minimally verbal), Poor Historian Past Family Social History Coded Allergies: No Known Allergies (Verified Allergy, Unknown, 06/30/17) Past Medical History metastatic adenocarcinoma of the lung dx February of 2015--metastatic lesions L1, left upper lung lobe, positive EGFR mutation status post palliative radiation to vertebral metastases Multiple sclerosis dx 2009 hypothyroidism Hypercholesterolemia Anxiety Arthritis Concussion 2011 . Past Surgical History Hysterectomy Breast Augmentation/Reduction Cerebellar neoplasm resection 04/10/17 (Dr. Rich) Biopsy vertebral body mass Right wrist surgery . Reported Medications [Megestrol Liq] 400 MG/10 ML Susp 400 Mg PO DAILY 30 Days Escitalopram (Escitalopram Oxalate) 10 Mg Tab 10 Mg PO DAILY 30 Days Levothyroxine (Levothyroxine Sodium) 75 Mcg Tab 75 Mcg PO DAILY Lipitor (Atorvastatin Calcium) 40 Mg Tab 40 Mg PO HS . Current Medications Medications (Trade) Dose Ordered Sig/Pierce Route Start Time Stop Time Status Last Admin Pharmacy Profile Note 0 ml @ 0 mls/hr UNSCH OTHER 06/30/17 22:00 Cefepime HCl 2000 mg/Sodium Chloride 100 ml @ 200 mls/hr Q8H IV 06/30/17 22:15 07/01/17 05:19 (NS Flush) 2 ml UNSCH PRN IV FLUSH 06/30/17 22:15 (NS Flush) 2 ml BID IV FLUSH 07/01/17 09:00 (Narcan Inj) 0.4 mg UNSCH PRN IV PUSH 06/30/17 22:15 (Milk Of Magnesia Liq) 30 ml Q12H PRN PO 06/30/17 22:15 (Senokot) 17.2 mg Q12H PRN PO 06/30/17 22:15 (Dulcolax Supp) 10 mg DAILY PRN RECTAL 06/30/17 22:15 (Lactulose Liq) 30 ml DAILY PRN PO 06/30/17 22:15 Vancomycin HCl 1000 mg/Sodium Chloride 250 ml @ 250 mls/hr Q8H IV 07/01/17 00:00 07/01/17 10:21 Miscellaneous Information SPECIFIC LAB TO BE DRAWN:VANCO TROUGH DATE TO... ONCE ONCE .XX 07/01/17 23:45 07/01/17 23:46 (Decadron Inj) 4 mg Q6H IV PUSH 07/01/17 05:00 07/01/17 05:19 Sodium Chloride 1,000 ml @ 60 mls/hr [id number] IV 07/01/17 01:15 07/01/17 01:15 (Heparin Inj) 5,000 units Q12HR SQ 07/01/17 09:00 07/01/17 10:21 Family History Father from Alzheimer's, mother from brain tumor . Substance Use Tobacco: Nonsmoker Alcohol: No recent alcohol, previously drank wine monthly Prescription med abuse: None reported Illicits: None reported . Psychosocial History Per multiple prior palliative care consultation/interactions: , until recently lived alone. Supported by her only child a daughter who at the time visited several times a week. 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 Daughter indicates patient history of changing residences frequently and has exhibited some compulsive-like behaviors such as buying 10 of the same sure in the same color and moving every 6 months in the past. . Spiritual/Cultural Factors Member [employer]. . Living Will: Copy in medical record Health Care Surrogate: Copy in medical record Ethical and Legal Issues Patient mental status fluctuates secondary to metastatic disease process. Her capacity is likely to fluctuate, and continued to deteriorate. She may be able to participate in decision-making though it would be best to observe shared/ supportive decision making involving her designated healthcare surrogate daughter Siena. Physical Exam Vital Signs Date Time Temp Pulse Resp B/P (MAP) Pulse Ox O2 Delivery O2 Flow Rate FiO2 07/01/17 08:02 97.8 79 16 115/57 (76) 96 07/01/17 04:00 98.1 86 16 116/54 (74) 97 07/01/17 04:00 Room Air 07/01/17 01:29 82 07/01/17 00:00 Room Air 07/01/17 00:00 98.4 87 15 118/67 (84) 96 06/30/17 19:37 90 18 101/67 (78) 96 Room Air 06/30/17 17:51 100.0 92 16 122/57 (78) 96 Exam CONSTITUTIONAL/GENERAL: This is a chronically ill patient, thin and frail- appearing TUBES/LINES/DRAINS: Peripheral IV 2 right wrist/forearm SKIN: No jaundice, rashes, or lesions. Pale. No wounds seen anteriorly. Skin warm/dry. HEAD: Atraumatic. Normocephalic. EYES: Patient reluctant to open eyes pupils 4 mm round bilaterally, reactive to light. Extraocular motions intact. No scleral icterus. No injection or drainage. Fundi not examined. ENT: Hearing grossly normal. Nose without bleeding or purulent drainage. Does not open mouth for oropharynx exam. NECK: Trachea midline. Supple, nontender. No palpable thyroid enlargement or nodularity. CARDIOVASCULAR: Regular rate and rhythm without murmur. No JVD. Peripheral pulses symmetric. RESPIRATORY/CHEST: Symmetric, unlabored respirations. On room air. Clear to auscultation. Breath sounds equal bilaterally. GASTROINTESTINAL: Abdomen soft, non-tender, nondistended. No hepato-splenomegaly , or palpable masses. No guarding. Bowel sounds present. GENITOURINARY: Without palpable bladder distension. MUSCULOSKELETAL: Extremities without clubbing, cyanosis, or edema. No joint tenderness or effusion noted. No mottling or clubbing. LYMPHATICS: No palpable cervical or supraclavicular adenopathy. NEUROLOGICAL: Lethargic, arouses slightly for exam. Loreta verbal a few words. Does not consistently answer questions does not appear oriented unable to fully assess orientation or insight due to lethargy, nonverbal. Moves all 4 extremities with significant weakness bilateral knitting machine fixer head appear equal, bilateral foot strength appears equal. She inconsistently follows simple commands. PSYCHIATRIC: No obvious anxiety/depression. no apparent hallucinations or other psychotic thought process. Diagnostic Tests Laboratory Laboratory Tests Test 06/30/17 18:30 06/30/17 18:35 06/30/17 21:46 07/01/17 06:27 Lactic Acid Level 0.9 mmol/L (0.4-2.0) Ammonia LESS THAN 10 MCMOL/L White Blood Count 8.9 TH/MM3 (4.0-11.0) 8.4 TH/MM3 (4.0-11.0) Red Blood Count 3.61 MIL/MM3 (4.00-5.30) 3.26 MIL/MM3 (4.00-5.30) Hemoglobin 11.1 GM/DL (11.6-15.3) 10.0 GM/DL (11.6-15.3) Hematocrit 32.5 % (35.0-46.0) 29.0 % (35.0-46.0) Mean Corpuscular Volume 90.1 FL (80.0-100.0) 89.0 FL (80.0-100.0) Mean Corpuscular Hemoglobin 30.8 PG (27.0-34.0) 30.6 PG (27.0-34.0) Mean Corpuscular Hemoglobin Concent 34.1 % (32.0-36.0) 34.4 % (32.0-36.0) Red Cell Distribution Width 16.4 % (11.6-17.2) 16.1 % (11.6-17.2) Platelet Count 252 TH/MM3 (150-450) 226 TH/MM3 (150-450) Mean Platelet Volume 9.4 FL (7.0-11.0) 9.8 FL (7.0-11.0) Neutrophils (%) (Auto) 85.7 % (16.0-70.0) 95.1 % (16.0-70.0) Lymphocytes (%) (Auto) 5.6 % (9.0-44.0) 3.1 % (9.0-44.0) Monocytes (%) (Auto) 8.6 % (0.0-8.0) 1.7 % (0.0-8.0) Eosinophils (%) (Auto) 0.0 % (0.0-4.0) 0.0 % (0.0-4.0) Basophils (%) (Auto) 0.1 % (0.0-2.0) 0.1 % (0.0-2.0) Neutrophils # (Auto) 7.6 TH/MM3 (1.8-7.7) 8.0 TH/MM3 (1.8-7.7) Lymphocytes # (Auto) 0.5 TH/MM3 (1.0-4.8) 0.3 TH/MM3 (1.0-4.8) Monocytes # (Auto) 0.8 TH/MM3 (0-0.9) 0.1 TH/MM3 (0-0.9) Eosinophils # (Auto) 0.0 TH/MM3 (0-0.4) 0.0 TH/MM3 (0-0.4) Basophils # (Auto) 0.0 TH/MM3 (0-0.2) 0.0 TH/MM3 (0-0.2) CBC Comment DIFF FINAL DIFF FINAL Differential Comment Prothrombin Time 12.7 SEC (9.8-11.6) Prothromb Time International Ratio 1.1 RATIO Activated Partial Thromboplast Time 31.6 SEC (24.3-30.1) Blood Urea Nitrogen 15 MG/DL (7-18) 15 MG/DL (7-18) Creatinine 0.42 MG/DL (0.50-1.00) 0.26 MG/DL (0.50-1.00) Random Glucose 112 MG/DL (74-106) 135 MG/DL (74-106) Total Protein 6.4 GM/DL (6.4-8.2) Albumin 2.6 GM/DL (3.4-5.0) Calcium Level 9.3 MG/DL (8.5-10.1) 9.0 MG/DL (8.5-10.1) Alkaline Phosphatase 101 U/L (45-117) Aspartate Amino Transf (AST/SGOT) 10 U/L (15-37) Alanine Aminotransferase (ALT/SGPT) 10 U/L (10-53) Total Bilirubin 0.8 MG/DL (0.2-1.0) Sodium Level 139 MEQ/L (136-145) 139 MEQ/L (136-145) Potassium Level 3.3 MEQ/L (3.5-5.1) 4.3 MEQ/L (3.5-5.1) Chloride Level 105 MEQ/L (98-107) 107 MEQ/L (98-107) Carbon Dioxide Level 23.6 MEQ/L (21.0-32.0) 23.8 MEQ/L (21.0-32.0) Anion Gap 10 MEQ/L (5-15) 8 MEQ/L (5-15) Estimat Glomerular Filtration Rate 153 ML/MIN (>89) 266 ML/MIN (>89) Total Creatine Kinase 66 U/L (26-192) Troponin I LESS THAN 0.02 NG/ML Thyroid Stimulating Hormone 3rd Gen 0.276 uIU/ML (0.358-3.740) Ethyl Alcohol Level LESS THAN 3 MG/DL (0-5) Urine Color YELLOW (YELLW/STRAW) Urine Turbidity HAZY (CLEAR) Urine pH 6.5 (5.0-8.5) Urine Specific [place] 1.032 (1.002-1.035) Urine Protein 100 mg/dL (NEG-TRACE) Urine Glucose (UA) NEG mg/dL (NEG) Urine Ketones 150 mg/dL (NEG) Urine Occult Blood NEG (NEG) Urine Nitrite NEG (NEG) Urine Bilirubin SMALL (NEG) Urine Urobilinogen 8.0 MG/DL (LESS THAN Urine Leukocyte Esterase TRACE (NEG) Urine RBC 1 /hpf (0-3) Urine WBC 7 /hpf (0-5) Urine Squamous Epithelial Cells <1 /hpf (0-5) Urine Amorphous Sediment RARE Urine Bacteria OCC /hpf (NONE) Microscopic Urinalysis Comment CATH-CULTURE IND Result Diagram: 07/01/1762607/01/17626 Microbiology Microbiology Date/Time Source Procedure Growth Status 06/30/17 18:35 Blood Peripheral Aerobic Blood Culture - Preliminary NO GROWTH IN 1 DAY Resulted 06/30/17 18:35 Blood Peripheral Anaerobic Blood Culture - Preliminary NO GROWTH IN 1 DAY Resulted 06/30/17 18:30 Blood Peripheral Aerobic Blood Culture - Preliminary NO GROWTH IN 1 DAY Resulted 06/30/17 18:30 Blood Peripheral Anaerobic Blood Culture - Preliminary NO GROWTH IN 1 DAY Resulted 06/30/17 21:46 Urine Catheterized Urine Urine Culture Pending Received Imaging Last Impressions Head CT 06/30/171827 Signed Impressions: Service Date/Time: Friday, June 30, 2017 18:56 - CONCLUSION: 1. Worsening periventricular areas of diminished attenuation characteristic of advancing small vessel ischemic demyelination or vasogenic edema. Considering the relative short interval of change, I favor the latter. The findings could represent worsening metastatic disease. MRI with and without gadolinium is recommended for further characterization. 2. Stable postsurgical changes in the posterior fossa with an old bore hole in the left posterior parietal region Alex Gamboa MD Chest X-Ray 06/30/171827 Signed Impressions: Service Date/Time: Friday, June 30, 2017 18:50 - CONCLUSION: 1. Mild bibasilar airspace disease with possible associated effusions. 2. Heart size remains normal Alex Gamboa MD Patient/Family Conference Present at Family Conference: jayesh Wren Family Conference Time (mins): 25 Family Conference Location: Telephone Issues Discussed: Spoke at length with masoud Wren via phone. Discussion included the following * Palliative care role, purpose, approach * Additional medical, psychosocial, and spiritual history * Patients general health, functional status, and cognitive changes in the months leading up to the current hospitalization * Patient/family understanding of the current medical problems * Patient/family understanding of prognosis * Patients goals of care as best understood from advance directives and/or conversations and/or values * Current medical treatment options and benefits/burdens of those options * Likely scenarios comparing ongoing aggressive care with a transition to comfort measures only/review of hospice services, philosophy * Review of decision-maker status; patient no longer capacitated and able to make her own decisions-daughter Siena is healthcare surrogate * CODE STATUS-daughter endorses a DNR as per patient's previously expressed wishes on multiple occasions * Questions answered to the best of my ability * Palliative care contact information provided Spoke with masoud Wren at length. Review recent hospitalizations, recent trajectory. Siena endorses that over the past 1 week or so patient has become increasingly lethargic, increasingly bedbound and less communicative. She has been weaker, eating less. Daughter endorses she found a "wish booklet " in the patient's home but detailed that she would not want artificial feeding , tubes etc.; And Siena also verbalizes that the patient has expressed that she would want things like dignity, grooming, and comfort at end-of-life. As per recent palliative consultation about a week and a half ago, daughter endorses that for part of this disease journey the patient had not always been forthcoming with the severity or details of her conditions, though she during the past couple of admissions has now been brought up-to-date on everything by myself and other medical staff members. Siena would like oncology input/ report as they have been following patient for some time now, regarding if she should proceed with hospice enrollment. 1515 -- daughter called me back later in afternoon, review my discussion w oncology. Review of hospice role, philosophy, services, possible care center vs hospice services in [facility] [address] for comfort at EOL. She wishes to proceed w hospice consultation to begin process. Hospice Order placed, updated medical attending. . Assessment and Plan Disease Oriented Problem List: (1) Hypothyroidism (2) Chiari I malformation (3) Failure to thrive in adult (4) Bony metastasis (5) Altered mental status (6) Pneumonia (7) Lung cancer metastatic to brain Symptom Scale: (1) Weakness (2) Pain (3) Altered mental status Pertinent Non-Medical Issues Psychosocial:Per multiple prior palliative care consultation/interactions: , until recently lived alone. Supported by her only child a daughter who at the time visited several times a week. 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 Daughter indicates patient history of changing residences frequently and has exhibited some compulsive-like behaviors such as buying 10 of the same sure in the same color and moving every 6 months in the past. Spiritual: Member of [employer] Scientologist Legal::Patient mental status fluctuates secondary to metastatic disease process. Her capacity is likely to fluctuate, and continued to deteriorate. She may be able to participate in decision-making though it would be best to observe shared/supportive decision making involving her designated healthcare surrogate daughter Siena. Ethical issues impacting care: No ethical issues identified Important Contacts Siena Guillen daughter [phone] [healthcare surrogate- works as a dental hygienist from 7 AM to 5 PM, so is not always able to answer the phone quickly but will return phone calls] Daughter work #: [phone] Anne Michelle ([place]) [phone] . Prognosis This patient with known history of stage IV lung cancer, diagnosed in 2014, presented for altered mental status and weakness. During oncology follow-up disease process had been stable/without progression. Patient in April presented with a moderate size enhancing midline upper cerebellar midline mass with mostly mild surrounding edema. During that admission she underwent decompressive craniotomy and C1 decompressive laminectomy. During that hospital course patient was improved symptoms From there recommends further restaging studies on findings for possible targeted therapy. Patient with improvement in symptoms, improvement in neurological exam following neurosurgical intervention. During June 2017 patient with progressive weakness and general decline, weight loss again prompting acute hospitalization. During that course she had very slight improvement the required discharge to SNF setting and she was no longer able to live alone. Oncology indicated consider further outpatient chemotherapy if performance status improved. She has continued to have decline in mental status. CT with likely progression of metastatic process. Overall prognosis for survival is poor, appropriate for hospice if goals compatible. Code Status: No Code Plan * Legal decision maker:Patient mental status fluctuates secondary to metastatic disease process. Her capacity is likely to continue to fluctuate and further deteriorate. She may be able to participate in decision-making though it would be best to observe shared/supportive decision making involving her designated healthcare surrogate daughter Siena. * Goals: Daughter (KRISTIN) Siena considering transition to comfort focused treatment only, with hospice services, pending oncology follow-up. She endorses patient does not desire artificial feeding, etc and has in the past requested dignity and comfort at end-of-life. She would like to touch base with oncology before proceeding with hospice enrollment. 1515 -- daughter called me back later in afternoon, review my discussion w oncology. Review of hospice role, philosophy, services, possible care center vs hospice services in [facility] [address] for comfort at EOL. She wishes to proceed w hospice consultation to begin process. (she would still like to speak w oncology once they see pt) Hospice Order entered, updated medical attending. * CODE STATUS: DNR * SYMPTOMS: --Confusion/lethargy-patient with significant cognitive decline over the past 1 week sleeping more, when she is alert and awake confused, not always verbalizing, unable to follow commands. Likely secondary to metastatic disease process as noted in CT imaging. --Weakness/debility-over the past week + following acute hospitalization patient has been increasingly weak, less able to get out of bed, less able to ambulate, and this was following an acute hospital presentation for decreased ability to ambulate. 2/2 deconditioning, chronic debility secondary to advancing and metastatic disease process --Pain-daughter describes patient complaining of neck pain/stiffness since around last she seems to not want to or be able to turn her head towards the left. Had been utilizing Tylenol 3 in the [place] [facility] setting which offered little relief. May benefit from prn opiate if goals comfort oriented; cautious use of opiates w/ lethargy * Palliative care will continue to follow during hospital course as condition evolves, to assist patient/decision-maker with understanding of medical conditions, weighing benefits/burdens of treatment options, for clarification of goals of treatment. Additionally will assist with any symptoms of palliative concern Time Spent Total Floor Time (mins): 60 (Chart review, PE, discussion with daughter, discussion with oncology PA) Thank you for the opportunity to participate in the care of Ms. Michelle. Attestation To help prompt me to consider important information that might be impacting today's encounter and assessment, information from prior notes written by myself or my colleagues may have been "brought forward" into today's note. My signature on this note, however, is an attestation that I personally performed the exam, history, and/or decision-making noted today, and, unless otherwise indicated, the interactions with patient, family, and staff as well as the review of records all occurred today. I also attest that the listed assessment and stated plan reflect my best clinical judgment today based on the combination of historical information, prior notes, and today's exam/ interactions. When time spent is documented, it refers only to time spent today by the signer, or if indicated, combined time spent today by collaborating physician/nurse practitioner. Miranda Martin Jul 01, 2017 11:45
[2017-07-01] MEDS ORDERED: MORPHINE SULFATE 2 MG/ML INJ IV PUSH PRN (17:15)
[2017-07-01] MEDS ORDERED: MORPHINE SULFATE 2 MG/ML INJ IV PUSH ONE (17:15)
--- NOTE | 2017-07-01 17:34 | HHI.PR ---
Addendum to Inpatient Note Addendum Reason: Additional Documentation Additional Information The patient seems to be more awake than previously described. The patient is awake, alert and oriented 2, person and place only. Lungs are clear to auscultation laterally, abdomen is soft, nontender and nondistended. Patient has head turning back towards the right and is unable to move the head towards the left. Complains of some neck pain. The patient of the sternocleidomastoid muscle elicits pain. Is no edema in lower extremities. The patient however does not seem to be cognitively completely and has some difficulty with speech. 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 Continue IV steroids. Patient also noted to have some pneumonia on chest x-ray for which the patient has been started on IV antibiotics. Continue. Medical oncology has been consulted. The case has been discussed in detail with palliative care. The patient has been made DO NOT RESUSCITATE and the daughter also agreed with hospice consultation for hospice placement. Patient states she has pain, however to indicate where. I will start the patient on morphine 2 mg IV every 2 hours when necessary for pain. The patient seems to have an episode of cervical dystonia or spasmodic torticollis. I will start patient on trihexyphenidyl. Jesus Rodriguez MD Jul 01, 2017 17:34
--- NOTE | 2017-07-01 17:53 | EKG ---
Date Performed: 06/30/2017 Time Performed: 18:39:58 PTAGE: 62 years EKG: Sinus rhythm NONSPECIFIC ST & T-WAVE ABNORMALITY Since previous tracing, no significant change noted ABNORMAL ECG PREVIOUS TRACING : 06/19/2017 21.33 DOCTOR: Gini Prieto Interpretating Date/Time 07/01/2017 17:52:11
[2017-07-01] MEDS ORDERED: GADODIAMIDE PF 287 MG/ML 5 ML VIAL (for RAD MRI) IV PUSH ONE (18:01)
--- NOTE | 2017-07-01 18:34 | HHI.DS ---
Discharge Summary Admission Date Jun 30, 2017 at 21:56 Discharge Date: Jul 01, 2017 Admitting Diagnosis pneumonia. History of metastatic lung CA. (1) Encephalopathy acute ICD Code: G93.40 - Encephalopathy, unspecified (2) Vasogenic brain edema ICD Code: G93.6 - Cerebral edema (3) Lung cancer, primary, with metastasis from lung to other site ICD Code: C34.90 - Lung cancer, primary, with metastasis from lung to other site; C79.9 - Secondary malignant neoplasm of unspecified site Status: Acute (4) Metastatic lung carcinoma ICD Code: C78.00 - Secondary malignant neoplasm of unspecified lung (5) Pneumonia ICD Code: J18.9 - Pneumonia, unspecified organism Status: Acute (6) Hypothyroidism ICD Code: E03.9 - Hypothyroidism, unspecified Status: Acute Brief History - From Admission 62-year-old female with a past medical history significant for non-small cell lung carcinoma with known 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 Per emergency department records the patient is currently on hospice and is a DNR. The patient was discharged from the hospital on 06/23/17 where at that time palliative care notes indicate that the family wished to pursue aggressive treatment. The patient is nonresponsive during our interview, I was unable to clarify goals of treatment. She was noted to have worsening periventricular areas of diminished attenuation, likely secondary to vasogenic edema from worsening metastatic disease. Chest x-ray significant for mild basilar airspace disease with possible associated effusions, concerning for PNA. Other laboratory values significant for a potassium of 3.3. CBC without leukocytosis. Lactic acid 0.9. MAXIMUM TEMPERATURE 100.0. CBC/BMP: 07/01/17 0627 07/01/17 0627 Significant Findings Laboratory Tests Test 06/30/17 18:30 06/30/17 18:35 06/30/17 21:46 07/01/17 06:27 Ammonia LESS THAN 10 MCMOL/L Red Blood Count 3.61 MIL/MM3 (4.00-5.30) 3.26 MIL/MM3 (4.00-5.30) Hemoglobin 11.1 GM/DL (11.6-15.3) 10.0 GM/DL (11.6-15.3) Hematocrit 32.5 % (35.0-46.0) 29.0 % (35.0-46.0) Neutrophils (%) (Auto) 85.7 % (16.0-70.0) 95.1 % (16.0-70.0) Lymphocytes (%) (Auto) 5.6 % (9.0-44.0) 3.1 % (9.0-44.0) Monocytes (%) (Auto) 8.6 % (0.0-8.0) Lymphocytes # (Auto) 0.5 TH/MM3 (1.0-4.8) 0.3 TH/MM3 (1.0-4.8) Prothrombin Time 12.7 SEC (9.8-11.6) Activated Partial Thromboplast Time 31.6 SEC (24.3-30.1) Creatinine 0.42 MG/DL (0.50-1.00) 0.26 MG/DL (0.50-1.00) Random Glucose 112 MG/DL (74-106) 135 MG/DL (74-106) Albumin 2.6 GM/DL (3.4-5.0) Aspartate Amino Transf (AST/SGOT) 10 U/L (15-37) Potassium Level 3.3 MEQ/L (3.5-5.1) Troponin I LESS THAN 0.02 NG/ML Thyroid Stimulating Hormone 3rd Gen 0.276 uIU/ML (0.358-3.740) Urine Turbidity HAZY (CLEAR) Urine Protein 100 mg/dL (NEG-TRACE) Urine Ketones 150 mg/dL (NEG) Urine Bilirubin SMALL (NEG) Urine Urobilinogen 8.0 MG/DL (LESS THAN Urine Leukocyte Esterase TRACE (NEG) Urine WBC 7 /hpf (0-5) Urine Bacteria OCC /hpf (NONE) Neutrophils # (Auto) 8.0 TH/MM3 (1.8-7.7) Imaging Last Impressions Head CT 06/30/17 6928 Signed Impressions: Service Date/Time: Friday, June 30, 2017 18:56 - CONCLUSION: 1. Worsening periventricular areas of diminished attenuation characteristic of advancing small vessel ischemic demyelination or vasogenic edema. Considering the relative short interval of change, I favor the latter. The findings could represent worsening metastatic disease. MRI with and without gadolinium is recommended for further characterization. 2. Stable postsurgical changes in the posterior fossa with an old bore hole in the left posterior parietal region Alex Gamboa MD Chest X-Ray 06/30/17 1828 Signed Impressions: Service Date/Time: Friday, June 30, 2017 18:50 - CONCLUSION: 1. Mild bibasilar airspace disease with possible associated effusions. 2. Heart size remains normal Alex Gamboa MD Pt Condition on Discharge: Deteriorating Discharge Disposition: Hospice/Med Facility Discharge Time: <= 30 minutes Discharge Instructions DIET: Follow Instructions for: As Tolerated, No Restrictions Speech Therapy-Diet Recommends: Soft Activities you can perform: Continue Bedrest Jesus Rodriguez MD Jul 01, 2017 18:34
--- NOTE | 2017-07-01 19:32 | RADRPT ---
EXAM DATE/TIME: 07/01/2017 17:16 [facility] COMPARISON: MRI BRAIN W & W/O CONTRAST, June 21, 2017, 8:03. INDICATIONS : Mass. CONTRAST: 12 cc Omniscan (gadodiamide) IV MEDICAL HISTORY : Carcinoma, lung. SURGICAL HISTORY : Hysterectomy. Tubal ligation. ENCOUNTER: Subsequent ACUITY: 1 day PAIN SCORE: 3/10 LOCATION: cranial TECHNIQUE: Multiplanar, multisequence MRI of the brain was performed both prior to and following the administrat ion of paramagnetic contrast. FINDINGS: CEREBRUM: Enhancing lesions in the right parietal/occipital lobe laterally measures 1.3 cm is slightly smaller. The one posteriorly on the right measures 1.1 x 1.2 cm and smaller. The lesion in the posterior jess a at the midline of cerebellar hemispheres measures 1.7 x 1.1 cm. Minimal adjacent vasogenic edema a long the lesions is unchanged. The ventricles are normal for age. No evidence of midline shift, he morrhage or acute infarction. No extraaxial fluid collections are seen. The pituitary gland and sup rasellar cistern are normal in configuration. Postsurgical changes with occipital craniectomy. WHITE MATTER: Scattered foci of bright T2 signal abnormalities are seen in the white matter. CONCLUSION: 1. The enhancing lesions in the right occipital lobe on the right are slightly smaller as is the lesi on along the posterior fossa the midline. 2. Previous surgery with occipital craniectomy. 3. Nonspecific white matter changes. Tavo Blevins MD on July 01, 2017 at 19:25 Board Certified Radiologist. This report was verified electronically.
[2017-07-01] MEDS ORDERED: PHARMACY ORDERED LAB ONE (23:45)
== END 2017-07-01 21:46 | disposition hospice, inpatient (51) | DRG 80 ==
LOC: NEPC 17:03 → NEDA 21:56 → UNDOADMIN 21:56 → PHEDA 21:56 → N04A 23:02
PROVIDERS: ADMIT Hospitalist; ATTEND Hospitalist
DX: G93.6 Cerebral edema (principal); J18.9 Pneumonia, unspecified organism; G93.5 Compression of brain; G93.40 Encephalopathy, unspecified; C79.31 Secondary malignant neoplasm of brain; C34.90 Malignant neoplasm of unspecified part of unspecified bronchus or lung; C79.51 Secondary malignant neoplasm of bone; Z68.1 Body mass index [BMI] 19.9 or less, adult; E87.6 Hypokalemia; E78.5 Hyperlipidemia, unspecified; E03.9 Hypothyroidism, unspecified; R63.4 Abnormal weight loss; G35 Multiple sclerosis; M19.90 Unspecified osteoarthritis, unspecified site; R62.7 Adult failure to thrive; G24.3 Spasmodic torticollis; F32.9 Major depressive disorder, single episode, unspecified; F41.9 Anxiety disorder, unspecified; Z51.5 Encounter for palliative care; Z66 Do not resuscitate; Z92.21 Personal history of antineoplastic chemotherapy; Z92.3 Personal history of irradiation
CPT/HCPCS: 70450; 70553; 71010; 80048; 80053; 80307; 81001; 82140; 82550; 83605; 84443; 84484; 85025; 85610; 85730; 87040; 87086; 93005; A9579; J0692; J1100; J1644; J1956; J2270; J3370; J3480; J7030; J7050; P9612